=== PATIENT | female | born 1945 | race Caucasian/White ===

== ENCOUNTER → 2016-08-15 | Outpatient (CLI) | payer MEDICARE ==
[~2016-08-15] MED LIST: /ONDA4TA PO; /PANT40TA PO; ALLE25CA8 PO; ALPR0.25 PO; ASPI1TAB5 PO; ATEN25TA PO; ATIV0.5T3 PO; BUPR75TA5 PO; CHEMO; CLAR1TAB2 PO; DIGO0.12 PO; DIGO0.25 PO; DIGO0.2556 IV; DIGO0.2556 PO; DOCU10ELUD PO; FE T325T PO; FERR325T3 PO; FLON0.054; GABA300C3 PO; HYDR-3565 PO; HYDR1TAB97 PO; IBUP200T2 PO; LIDOPOW PO; MAGICMW SS; MAGNSO PO; MECL-68 PO; MIRA255PW PO; NORCOBULK PO; PRED10TA PO; PROC10TA PO; ROBA750T4 PO; SYMB16INH INH; TYLE325T5 PO; VITA500046 PO; XANA0.25 PO; ZOCO20TA PO; ZOFR4SOL PO
[2016-08-15 15:55] LABS: INR 1.15
== END ==
LOC: M LAB 14:21
PROVIDERS: ATTEND Radiology Radiation Oncology
DX: Z51.81 Encounter for therapeutic drug level monitoring (principal); Z79.01 Long term (current) use of anticoagulants

== ENCOUNTER → 2016-08-16 | Outpatient (CLI) | payer MEDICARE, MEDICAID ==
[~2016-08-16] MED LIST changes: -HYDR-3565 PO; +HYDR-3713 PO; +HYDR-3719 PO; -HYDR1TAB97 PO; +LIDOCAINE 1% MDV 20ML VIAL As Ordered ONE
--- NOTE | 2016-08-16 11:34 | REP ---
Chest x-ray: History: Post biopsy PA chest. Patient status post CT guided needle biopsy left base nodule. Findings: A large air fluid level is seen in the cavitary mass in the left upper lung zone as before. Overall there is volume loss in the left hemithorax. There is no evidence of pneumothorax or hemothorax. Pacemaker leads remain in place. Right lung is essentially clear. Impression: No complication identified. Signed by Fahad Kamara MD 08/16/2016 01:43 P
--- NOTE | 2016-08-16 15:11 | REP ---
CT GUIDED LEFT LOWER LOBE LUNG BIOPSY: The procedure was performed under the direct supervision of Dr. Kamara. The patient has a history of a 2 cm left lower lobe lung nodule seen on the previous CAT scan from [facility] performed on 07/09/2016. The risks and benefits of the procedure were explained to the patient and informed consent was obtained. The left lower lobe lung nodule was localized using CT guidance. The skin was prepped and draped in a sterile fashion. 1% lidocaine was used as a local anesthetic. Using CT guidance a 19/20 gauge co-axial needle biopsy system was inserted and advanced into the nodule. Four core biopsy samples were obtained and sent to the lab. The patient tolerated the procedure well and there were no immediate complications. After the appropriate amount of monitored convalescence the patient was discharged from the department. Reviewed by VIMAL Lino 08/16/2016 04:25 PEdited and Signed by Fahad Kamara MD 08/16/2016 04:45 P
== END ==
LOC: M RADPRO 09:40
PROVIDERS: ATTEND Radiology Radiation Oncology
DX: R91.1 Solitary pulmonary nodule (principal); Z85.118 Personal history of other malignant neoplasm of bronchus and lung; Z95.0 Presence of cardiac pacemaker

== ENCOUNTER → 2016-08-21 | Outpatient (CLI) | payer MEDICARE ==
[~2016-08-21] MED LIST changes: -LIDOCAINE 1% MDV 20ML VIAL As Ordered ONE
== END ==
LOC: M ONCR 13:21
PROVIDERS: ATTEND Radiology Radiation Oncology
DX: C34.12 Malignant neoplasm of upper lobe, left bronchus or lung (principal)

== ENCOUNTER → 2016-09-05 | Outpatient (CLI) | payer MEDICARE, OTHER, MEDICAID ==
--- NOTE | 2016-09-06 23:51 | ECWPNPC ---
PATIENT NAME: MELINA SHETTY : 1945 GENDER: FEMALE VISIT DATE: 09/05/2016 DISCHARGE DATE: 09/05/16 1224 VISIT LOCKED DATE TIME: PHYSICIAN: ANGELIQUE FAJARDO RESOURCE: ANGELIQUE FAJARDO REASON FOR APPOINTMENT 1. CHEST HISTORY OF PRESENT ILLNESS HISTORY OF PRESENT ILLNESS: PAIN THE PATIENT DESCRIBES THE PAIN... FALL RISK SCREENING: SCREENING :NO FALLS IN THE PAST YEAR TODAY'S VISIT: NOTES: HOSPITAL STAY IN [place] WITH UPPER RESP INFECTION AND WAS ON IV ABX. IS NOW USING PRN O2 AT [facility] A NEBULIZER. RATES PAIN TODAY 7/10. NOTES PAIN IS PRESENT ACROSS THE ANTERIOR CHEST WALL AND SHE HAS SOME DIFFICULTY TAKING A FULL DEEP BREATH. . CURRENT MEDICATIONS TAKING ASPIRIN ADULT LOW DOSE 81 MG TABLET DELAYED RELEASE 1 TABLET ORALLY ONCE A DAY TAKING ATENOLOL 25 MG TABLET 1 TABLET ORALLY BID TAKING DIGOXIN 250 MCG TABLET 1 TABLET ORALLY ONCE A DAY TAKING PREDNISONE 10 MG TABLET 1 TABLET ORALLY ONCE A DAY TAKING ATORVASTATIN CALCIUM 10 MG TABLET 1 TABLET ORALLY ONCE A DAY TAKING LEVOTHYROXINE SODIUM 25 MCG TABLET 1 TABLET ORALLY ONCE A DAY TAKING VIT CALCIUM CITRATE + D 250-62.5 MG TABLET ORALLY TAKING GABAPENTIN 600 MG TABLET 1 TABLET ORALLY QID TAKING LIDOCAINE HCL 3 % GEL DIRECTED EXTERNALLY APPLY TO PAINFUL AREAS OF CHEST WALL UP TO 4 TIMES PER DAY NEEDED TAKING ALBUTEROL SULFATE (2.5 MG/3ML) 0.083% NEBULIZATION SOLUTION 3 ML INHALATION BID TAKING NORCO 10-325 MG TABLET 1 TABLET ORALLY EVERY 6 HRS PRN PAIN MDD=4 CHRONIC PAIN MEDICATION LIST REVIEWED AND RECONCILED WITH THE PATIENT PAST MEDICAL HISTORY LUMG CANCER ALLERGIES LOBSTER: ANAPHYLAXIS: ALLERGY SOCIAL HISTORY GENERAL: TOBACCO USE ARE YOU A:NONSMOKER LEARNING BARRIERS / SPECIAL NEEDS ORIENTED TO PLAN OF CARE: PATIENT, PAIN MANAGEMENT PATIENT, ORIENTED TO PLAN OF CARE: PATIENT, PAIN MANAGEMENT PATIENT. NEW PATIENT PAIN DIARY TODAY'S VISITNOTES FROM 0-10, WHAT LEVEL IS YOUR PAIN TODAY?0 PAIN CLINIC PFS, CLERGY, PUBLIC HEALTH REFERRALS PFS REFERRAL NEEDED?NO CLERGY REFERRAL NEEDED?NO PUBLIC HEALTH REFERRAL NEEDED?NO WAS THE PROVIDER NOTIFIED OF ANY PERTINENT INFO?NO PFS REFERRAL NEEDED?NO CLERGY REFERRAL NEEDED?NO PUBLIC HEALTH REFERRAL NEEDED?NO WAS THE PROVIDER NOTIFIED OF ANY PERTINENT INFO?NO REVIEW OF SYSTEMS CONSTITUTIONAL: ANY CHANGE IN YOUR MEDICAL CONDITION? YES HOSPITALIZED AT [facility] 07/19 FOR URI FOR 4 DAYS, CONTINUES TO USE NEBULIZED ALBUTEROL TWICE DAILY AND O2 AT NIGHT AND NEEDED FOR SOB DURING THE DAY . CHILLS NO . FEVER NO . INFECTION: DO YOU HAVE NEW INFECTIONS? NO . DO YOU HAVE HISTORY OF MRSA? NO . MUSCULOSKELETAL: ANY NEW PATTERNS OF PAIN OR NUMBNESS? NO . GASTROENTEROLOGY: ANY NEW CHANGE IN BOWEL CONTROL? NO . GENITOURINARY: ANY NEW CHANGE IN BLADDER CONTROL? NO . IS THERE A CHANCE YOU COULD BE ? NO . HEMATOLOGY/LYMPH: DO YOU TAKE ANY BLOOD THINNERS? (FOR EXAMPLE- COUMADIN, PLAVIX, AGGRENOX, PLATEL, PRADAXA, OR XARELTO) NO . WHEN WAS YOUR LAST DOSE? DATE: TIME: . NEUROLOGY: HAVE YOU FALLEN IN THE PAST 6 MONTHS? NO . ANY NEW EXTREMITY NUMBNESS OR WEAKNESS? NO . CARDIOLOGY: DO YOU HAVE A PACEMAKER OR DEFIBRILLATOR? YES . RESPIRATORY: HAVE YOU BEEN SICK IN THE PAST WEEK? NO . FEVER NO . FLU LIKE SYMPTOMS? NO . COUGH YES - IMPROVED . INTEGUMENTARY: DO YOU HAVE ANY RASHES OR OPEN SORES? NO . ALLERGIC/IMMUNO: ARE YOU ALLERGIC TO SHELLFISH OR IV DYE? YES ALLERGIC TO LOBSTER . ANY NEW ALLERGIES? NO . PSYCHIATRIC: DO YOU HAVE THOUGHTS OF HURTING YOURSELF OR SOMEONE ELSE? NO . ARE YOU ABUSED, NEGLECTED, OR IN AN UNSAFE ENVIRONMENT? NO . ENDOCRINOLOGY: ARE YOU DIABETIC? NO . OTHER: DO YOU NEED ANY PRESCRIPTIONS? NO . IF YES, PLEASE LIST: ____ . ANY NEW PROBLEMS WITH YOUR MEDICATIONS? NO . WHEN DID YOU LAST EAT? ____ . WHEN DID YOU LAST DRINK? ____ . WHAT DID YOU LAST DRINK? ____ . NAME OF PERSON DRIVING YOU HOME? ____ . DO YOU HAVE ANY OTHER QUESTIONS OR CONCERNS NO . REVIEWED BY: PROVIDER: ANGELIQUE RODRIGUEZ . VITAL SIGNS WT 133 LBS, HT 63 IN, BMI 23.56 INDEX, BP 97/61 MM HG, HR 76 /MIN, RR 16 /MIN, TEMP 98.1 F, OXYGEN SAT % 93, NA INITIALS MP, REVIEWED BY: LASFOLLOWED BY DR. RANGEL PRIMARY. PT TAKES HER BP AT HOME, AND WILL NOTIFY DR. RANGEL IF IT CONTINUES TO BE LOW. EXAMINATION GENERAL EXAMINATION: PSYCHCOLOR PALE, ALERT , ORIENTED X 3 , ORIENTED X 3 , APPROPRIATE MOOD AND AFFECT , SMILING AND TALKATIVE. CHEST:STERNAL TENDERNESS, THORACIC KYPHOSIS AND BARREL CHESTED. LUNGS:DECREASED AIR ENTRY AT BASES, SCATTERED WHEEZES BILATERALLY. INTERMITTANT DRY COUGH. HEART:HEART RATE REGULAR, II/ SYSTOLIC MURMUR. 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 BRINGS IN MEDICATIONS WHICH IS APPROPRIATE FOR WHAT WAS DISPENSED. RECENT URINE TOXICOLOGY REVIEWED. NO UNAUTHORIZED MEDICATIONS. NO ILLICIT SUBSTANCES AND PRESCRIBED MEDICATIONS WERE PRESENT. PROCEDURE CODES FA211 ESTABILISHED PATIENT [facility] CHARGE G8783 BP SCR PRFRM RCMDD DEFIND SCR INTVL G8419 BMI>=30OR<22 EVY NO FOLLOWUP G8730 PAIN ASSESS POS TOOL F/U PLAN DOC 3016F PT SCRND [place]HL[place] USE 1124F ACP DISCUSS-NO DSCNMKR DOCD 1036F TOBACCO NON-USER G8427 DOC MEDS VERIFIED W/[place] RE 3288F FALL RISK ASSESSMENT DOCD FOLLOW UP 3 MONTHS ELECTRONICALLY SIGNED BY DIDI CHUNG ON 09/06/2016 AT 02:40 PM EST DISCLAIMER : THIS IS A VISIT SUMMARY [facility]ED FROM [facility]. IT IS NOT A COPY OF THE [employer] PROGRESS NOTE. MTDD
== END ==
LOC: M PAIN 11:40
PROVIDERS: ATTEND Nurse Practitioner Family
DX: Z09 Encounter for follow-up examination after completed treatment for conditions other than malignant neoplasm (principal); G89.29 Other chronic pain; G58.8 Other specified mononeuropathies; R07.89 Other chest pain; Z91.013 Allergy to seafood; Z79.82 Long term (current) use of aspirin; Z79.52 Long term (current) use of systemic steroids; Z79.891 Long term (current) use of opiate analgesic; Z79.899 Other long term (current) drug therapy; Z85.118 Personal history of other malignant neoplasm of bronchus and lung; Z95.9 Presence of cardiac and vascular implant and graft, unspecified

== ENCOUNTER 2016-10-20 09:07 | Inpatient (IN) | payer MEDICARE, MEDICAID ==
[~2016-10-20] VITALS: Ht 160 cm; Wt 55.1 kg
[2016-10-20] MEDS: ATENOLOL 25 MG TAB PO SCH ×2 (09:00→21:00)
[2016-10-20] MEDS ORDERED: SYNT75TA PO (09:18)
[2016-10-20] MEDS ORDERED: CALC600T57 PO (09:18)
[2016-10-20] MEDS ORDERED: ALEN70SO PO (09:18)
[2016-10-20 09:43] LABS: BASO % 0.2 % (0.0-1.0); EOS # 0.2 K/mm3 (0.0-0.50); EOS % 2.4 % (0.0-3.0); LARGE UNSTAINED CELL # 0.1 K/mm3 (0.0-0.4); LARGE UNSTAINED CELL % 1.3 % (0.0-4.0); LYMPH # 0.5 K/mm3 (1.5-4.5); LYMPH % 4.9 % (24.0-44.0); MEAN CORPUSCULAR HEMOGLOBIN 26.4 pg (27.0-33.0); MEAN CORPUSCULAR HGB CONC 30.2 g/dl (32.0-36.5); MEAN CORPUSCULAR VOLUME 87.3 fl (80.0-96.0); MONO # 0.5 K/mm3 (0.0-0.8); MONO % 5.9 % (0.0-5.0); NEUTROPHILS # 7.5 K/mm3 (1.8-7.7); NEUTROPHILS % 85.3 % (36.0-66.0); PLATELET COUNT, AUTOMATED 448 k/mm3 (150-450); RED CELL DISTRIBUTION WIDTH 15.6 % (11.5-14.5); WHITE BLOOD COUNT 8.8 K/mm3 (4.0-10.0)
[2016-10-20 09:58] LABS: ANION GAP 5 MEQ/L (8-16); BLOOD UREA NITROGEN 21 MG/DL (7-18); CALCIUM LEVEL 9.4 MG/DL (8.8-10.2); CARBON DIOXIDE LEVEL 34 MEQ/L (21-32); CHLORIDE LEVEL 98 MEQ/L (98-107); CREATININE FOR GFR 0.72 MG/DL (0.55-1.02); GLOMERULAR FILTRATION RATE > 60.0 (>45); GLUCOSE, FASTING 100 MG/DL (80-110); SODIUM LEVEL 137 MEQ/L (136-145)
[2016-10-20] MEDS ORDERED: IPRATROPIUM 0.5MG/ALBUTEROL 2.5MG INH SOL UD 3ML (DUONEB)(J7620) NEB ONE ×2 (10:00→12:30)
[2016-10-20] MEDS ORDERED: methylPREDNISolone INJ 125 MG/2 ML VIAL (J2930) IV ONE (10:15)
--- NOTE | 2016-10-20 10:15 | REP ---
Portable chest x-ray: Single view. History: Dyspnea and cough. Findings: A bipolar pacemaker remains in the right heart via the left side. The right lung is somewhat hyperinflated but remains clear. EKG electrodes are seen. The left hemithorax shows volume loss and upward retraction of the left hilus with some coarse fibrosis in the upper and lower lung zone unchanged from August 16, 2016. The previously noted air-fluid level is not apparent today however. Impression: Chronic changes left hemithorax. Previously noted air-fluid level is not visible today. Otherwise no acute changes. Signed by Fahad Kmaara MD 10/20/2016 10:55 A
[2016-10-20 10:40] LABS: ABG BASE EXCESS 5.7 (-2.0-2.0); ABG HCO3 29.2 MEQ/L (22.0-26.0); ABG PARTIAL PRESSURE CO2 37.9 mmHg (35.0-45.0); ABG PARTIAL PRESSURE O2 92.9 mmHg (75.0-100.0); ABG STANDARD HCO3 29.7 MEQ/L (22.0-26.0); ABG TOTAL CO2 30.3 MEQ/L (23.0-31.0); ABG pH (ARTERIAL) 7.504 UNITS (7.350-7.450)
[2016-10-20] MEDS ORDERED: MOXIFLOXACIN HCL 400 MG in APPROPRIATE DILUENT 1 EA IV ONE (11:00)
[2016-10-20] MEDS ORDERED: ACETAMINOPHEN TAB 650MG DOSE (2X325MG) PO ONE (11:30)
[2016-10-20] MEDS ORDERED: ALEN70TA39 PO (11:41)
[2016-10-20] MEDS ORDERED: PRED10TA PO (11:43)
[2016-10-20] MEDS ORDERED: GABA800T PO (11:43)
[2016-10-20] MEDS ORDERED: ASPI1TAB PO (11:43)
[2016-10-20] MEDS ORDERED: ATOR1TAB19 PO (11:43)
[2016-10-20] MEDS ORDERED: ALB2.5NEB INH (11:44)
[2016-10-20] MEDS ORDERED: SODIUM CHLORIDE 0.9% 1000 ML IV STA (12:28)
[2016-10-20] MEDS ORDERED: ISOVUE-370 76% 100ML VIAL (Q9967) As Ordered ONE (12:43)
[2016-10-20] MEDS: NS 1,000 ML IV SCH (13:41)
--- NOTE | 2016-10-20 14:05 | REP ---
CT pulmonary angiogram: With IV contrast. History: Chest pain. Comparison studies: Comparison CT pulmonary angiogram July 09, 2016 Contrast dose: 75 cc's of Isovue [address] technique: Helical scanning is acquired and overlapping 1.5 mm and contiguous 3 mm axial images are reformatted. In addition, a 3-D work station is deployed to generate thick slab maximum intensity projection images in sagittal and coronal imaging projections. CT pulmonary angiographic findings: There is good opacification of the pulmonary arterial tree and there is no CT evidence of pulmonary embolism. The thoracic aorta is enhanced homogeneously and is normal in course and caliber. There is a large cavitary lesion in the left upper lobe distribution at the posterior aspect of the apex again seen unchanged from the comparison CT study of July 09, 2016. There is some mild left lower lobe infiltrate processes is more prominent. The right lung remains hyperinflated with emphysematous changes in the upper lobe. No pleural or pericardial effusion is seen. No hilar or mediastinal mass is observed. No hepatic or adrenal lesion is seen. Impression: 1. No CT evidence of pulmonary embolism. 2. Stable post-treatment changes in the left hemithorax including a large cavitary lesion in the left upper lobe distribution. 3. There is some increased left lower lobe consolidation compared to the prior CT study. There is some bronchiectasis here as well. Signed by Fahad Kamara MD 10/20/2016 05:10 P
[2016-10-20 15:30] VITALS: BP 110/56
[2016-10-20 16:00] VITALS: BP 124/69
--- NOTE | 2016-10-20 16:04 | HPE ---
DATE OF ADMISSION: 10/20/2016 PRIMARY CARE PROVIDER: Dr. Edwin lorenzo [facility] COMBINATION SAW OPERATOR: Dr. Porter QUALITY ASSURANCE QA LAB ANALYST: Dr. Trevino REASON FOR ADMISSION: Shortness of breath. HISTORY OF PRESENT ILLNESS: The patient is a 71-year-old female past medical significant for lung cancer status post left lobectomy normally on oxygen two liters, history of atrial fibrillation presented to the emergency room stating she has been having shortness of breath for the past two weeks has been getting progressively worse. She denies any fevers. Denies any headaches or nasal discharge. She has been coughing, but she states that this has been a chronic cough for the past few months with productive sputum yellow-green. In the emergency room, the patient was found to be hypoxic on her two liters requiring four liters of oxygen. She was also found to be hypotensive was given 500 fluid bolus which she responded to and her blood pressure went to 103/61. The patient's heart rate was controlled. She is normally on atenolol. She was given a dose of moxifloxacin in the emergency room. Chest x-ray ws done which showed chronic changes, previously air fluid levels not visible today. No acute changes seen. CTA was also ordered showed no evidence of PE, increased left lower lobe consolidation compared to prior CT. Hospitalist was called for the admission. REVIEW OF SYSTEMS: 12-point review of systems was obtained all which was negative except for those mentioned above. PAST MEDICAL HISTORY: Significant for lung cancer status post left lobectomy in 2012, status post radiation and chemotherapy in 2014, atrial fibrillation. PAST SURGICAL HISTORY: Significant for lobectomy and lymph resection. ALLERGIES: No known drug allergies. SOCIAL HISTORY: The patient had history of tobacco use but quit 10-15 years ago. Denies alcohol use. Lives alone at home. FAMILY HISTORY: Noncontributory. HOME MEDICATIONS: Include - albuterol sulfate 2.5 mg inhaled every six hours as needed - alendronate 70 mg a week - aspirin 81 mg by mouth daily - atenolol 25 mg by mouth twice a day - atorvastatin 10 mg by mouth at bedtime - digoxin 0.825 mg daily - gabapentin 8100 mg by mouth four times a day - Synthroid 75 mcg by mouth daily - prednisone 10 mg by mouth daily PHYSICAL EXAMINATION: VITALS: Temperature 99.9, pulse 85, respiratory rate 20, blood pressure 113/59 dropped to as low as 94/55 and went back up to 103/61, pulse oximetry 92% on four liters nasal cannula. IMAGING: As above. HEENT: Pupils equal, round and reactive to light and accommodation. NECK: Supple. No jugular venous distention. LUNGS: Diminished breath sounds bilaterally. No wheezes appreciated. CARDIAC: Regular rate and rhythm at this time, +3/6 systolic murmur appreciated. ABDOMEN: Soft, nontender, nondistended. EXTREMITIES: No clubbing, cyanosis, or edema. NEURO: Cranial nerves II-XII grossly intact. No focal deficits. SKIN: No obvious lesions or rashes. LABORATORY FINDINGS: WBCs 8.8, hemoglobin 10.3, hematocrit 34.1, platelet count 448. Sodium 137, potassium 4, chloride 98, BUN 21, creatinine 0.72, lactic acid 1.6, troponin less than 0.02, BNP 528, TSH 0.789. ASSESSMENT AND PLAN: 1. Sepsis likely secondary to pneumonia. Chest x-ray did not show any infiltrate; however, CT scan showed increased left lower lobe consolidation. Respiratory panel was negative for any flu-like symptoms. Sputum cultures were obtained was positive for a few Gram-positive rods and moderate Gram-Positive cocci in pairs, chains and clusters; await final culture. Blood cultures are pending. We will continue moxifloxacin. Will continue Solu-Medrol 60 mg IV every eight hours. Continue DuoNebs as needed and scheduled. Will order incentive spirometer and continue oxygen to keep saturations above 90. 2. History of atrial fibrillation. Patient is currently in sinus rhythm. We will place hold parameters on atenolol due to the patient's hypotension. We will continue her digoxin. The patient is not on any anticoagulation other than the baby aspirin which we will resume. 3. Shortness of breath likely secondary to pneumonia plus or minus chronic lung disease including history of lung CA status post lobectomy. Continue oxygen. Await final sputum culture. Patient is currently on four liters nasal cannula. We will try to titrate to go back to her baseline two liters prior to discharge. 4. Hypotension may be secondary to sepsis. The patient received a fluid bolus in the emergency room. We will continue IV fluids at a rate of 100 mL an hour. 5. DVT prophylaxis. Thromboembolic devices (TEDS) and sequentials while in bed.
[2016-10-20] MEDS: DIGOXIN 0.25 MG TAB PO SCH (17:14)
[2016-10-20] MEDS: methylPREDNISolone INJ 125 MG/2 ML VIAL (J2930) IV SCH (17:15)
[2016-10-20] MEDS: GABAPENTIN 400 MG CAP PO SCH ×2 (17:15→21:17)
[2016-10-20] MEDS: ASPIRIN 81 MG ENTERIC TAB PO SCH (17:15)
[2016-10-20 19:29] VITALS: BP 90/58
[2016-10-20] MEDS ORDERED: NS 500 ML IV ONE (20:30)
--- NOTE | 2016-10-20 20:32 | ECGEPIP ---
Stationary ECG Study [facility] - ED Test Date: 2016-10-20 Pat Name: MELINA SHETTY Department: Room: - Gender: F Supervisor Corduroy Cutting: ct : 1945 Requested By: Cathleen Castro Order Number: [id number] Reading MD: Cathleen Castro Measurements Intervals [place] Rate: 83 P: -11 OR: 147 QRS: 66 QRSD: 97 T: 38 QT: 328 QTc: 387 Interpretive Statements SINUS RHYTHM POSSIBLE LEFT ATRIAL ENLARGEMENT NONSPECIFIC ST & T-WAVE ABNORMALITY PRIOR 03/15/14 ATRIAL PACED Electronically Signed On 10-20-2016 20:31:27 EDT by Cathleen Castro
[2016-10-20] MEDS: ATORVASTATIN 10 MG TAB PO SCH (21:17)
[2016-10-20 23:03] VITALS: BP 139/67
[2016-10-21] VITALS (10 sets, daily range): BP systolic 97–148; BP diastolic 47–79
[2016-10-21] MEDS ORDERED: BENZONATATE 100 MG CAP PO PRN (00:45)
[2016-10-21] MEDS ORDERED: ANEXSIA, NORCO 7.5MG/325MG TABLET(HYDROCODONE/APAP) PO ONE (01:00)
[2016-10-21] MEDS: methylPREDNISolone INJ 125 MG/2 ML VIAL (J2930) IV SCH ×3 (01:21→17:22)
[2016-10-21] MEDS: NS 1,000 ML IV SCH ×2 (02:09→11:59)
[2016-10-21 03:28] LABS: EOS % 0.4 % (0.0-3.0); LARGE UNSTAINED CELL % 0.7 % (0.0-4.0); LYMPH # 0.4 K/mm3 (1.5-4.5); LYMPH % 6.4 % (24.0-44.0); MEAN CORPUSCULAR HEMOGLOBIN 26.2 pg (27.0-33.0); MEAN CORPUSCULAR HGB CONC 30.5 g/dl (32.0-36.5); MONO # 0.1 K/mm3 (0.0-0.8); MONO % 1.7 % (0.0-5.0); NEUTROPHILS # 5.2 K/mm3 (1.8-7.7); NEUTROPHILS % 90.7 % (36.0-66.0); PLATELET COUNT, AUTOMATED 379 k/mm3 (150-450); RED CELL DISTRIBUTION WIDTH 15.6 % (11.5-14.5); WHITE BLOOD COUNT 5.7 K/mm3 (4.0-10.0)
[2016-10-21 03:54] LABS: ALT/SGPT 12 U/L (12-78); ANION GAP 9 MEQ/L (8-16); AST/SGOT 9 U/L (15-37); BLOOD UREA NITROGEN 20 MG/DL (7-18); CALCIUM LEVEL 7.4 MG/DL (8.8-10.2); CARBON DIOXIDE LEVEL 25 MEQ/L (21-32); CHLORIDE LEVEL 107 MEQ/L (98-107); GLOMERULAR FILTRATION RATE > 60.0 (>45); GLUCOSE, FASTING 130 MG/DL (80-110); POTASSIUM SERUM 4.1 MEQ/L (3.5-5.1); SODIUM LEVEL 141 MEQ/L (136-145)
[2016-10-21 03:55] LABS: ALBUMIN 2.3 GM/DL (3.2-5.2); ALBUMIN/GLOBULIN RATIO 0.56 (1.00-1.93); ALKALINE PHOSPHATASE 65 U/L (45-117); BILIRUBIN,TOTAL 0.2 MG/DL (0.2-1.0); TOTAL PROTEIN 6.4 GM/DL (6.4-8.2)
[2016-10-21] MEDS ORDERED: IPRATROPIUM 0.5MG/ALBUTEROL 2.5MG INH SOL UD 3ML (DUONEB)(J7620) NEB ONE (04:30)
[2016-10-21] MEDS: LEVOTHYROXINE 0.075 MG TAB (75 MCG) PO SCH (05:23)
[2016-10-21] MEDS: GABAPENTIN 400 MG CAP PO SCH ×4 (08:38→20:20)
[2016-10-21] MEDS: DIGOXIN 0.25 MG TAB PO SCH (08:38)
[2016-10-21] MEDS: ATENOLOL 25 MG TAB PO SCH ×2 (08:38→20:20)
[2016-10-21] MEDS: ASPIRIN 81 MG ENTERIC TAB PO SCH (08:38)
[2016-10-21] MEDS: MOXIFLOXACIN HCL 400 MG in APPROPRIATE DILUENT 1 EA IV SCH (10:15)
--- NOTE | 2016-10-21 17:16 | ECHO ---
DATE OF PROCEDURE: 10/21/2016 REFERRING PHYSICIAN: Dr. Melissa Healy INDICATION: Chest pain, other. HEIGHT: 63 inches. WEIGHT: 106 kg. MEASUREMENTS: Left atrium: 2.9 cm Ventricular septum: 0.4 cm Posterior wall: 1.00 cm Left ventricle diastole: 4.7 cm Left ventricle outflow tract (LVOT) 2.0 cm Ventricular septum: 0.95 cm Posterior wall: 0.92 cm. Aortic root: 2.9 cm Inferior vena cava: 2.4 cm (more than 50% of respiratory variation) DOPPLER MEASUREMENTS: Aortic valve velocity: 165 cm/s LVOT velocity: 129 cm/s LVOT VTI: 24.1cm Mild mitral regurgitation. Mitral E velocity: 92.7 cm/s Mitral A velocity: 83.6 cm/s Mitral deceleration time: 190 ms Mild tricuspid regurgitation. Estimated right ventricle systolic pressure 50-55 mmHg assuming an atrial pressure of 5-10 mmHg. Trace pulmonic regurgitation. Mitral annular tissue Doppler: Technically difficult. DESCRIPTION: Rhythm was sinus. No pericardial effusion. This is a moderately technically difficult echocardiogram. CONCLUSIONS: 1. Suggestive of moderate elevation of estimated right ventricle systolic pressure (50-55 mmHg). 2. Normal left ventricle, internal dimensions and wall thickness. No visual wall motion abnormalities. Normal left ventricular systolic function. LVEF 70% by visual estimate. Probably normal diastolic function. 3. No pericardial effusion. 4. Mild aortic valve sclerosis of the a three-cuspid aortic value. Mild aortic regurgitation. 5. Moderate technically difficult echocardiogram.
--- NOTE | 2016-10-21 18:12 | IPNPDOC ---
Subjective Date Seen The patient was seen on 10/21/16. Subjective Chief Complaint/HPI The patient is a 71-year-old female admitted with a reason for visit of Shortness Of Breath. Pulmonary: Reports: Cough, Dyspnea Cardiovascular: Denies: Chest Pain, Lt Headedness, Orthopnea, Palpitations, Paroxysmal Noc. Dyspnea Objective Physical Examination General Exam: Positive: No Acute Distress ENT Exam: Positive: Atraumatic, Mucous membr. moist/pink, Pharynx Normal Chest Exam: Positive: Diminished Heart Exam: Positive: Rate Normal Abdomen Exam: Positive: Normal bowel sounds, Soft, Negative: Hepatospenomegaly, Tenderness Female Exam: Positive: Nl Ext Genitalia, Negative: Discharge, Lesions, Odor, Tenderness Assessment /Plan Problems (1) Shortness of breath Status: Acute Problem Text: * unknown etiolopgy * maybe due to pneumonia vs copd excerbation * continue antibiotics, duonebs, solumedrol * respiratory panel negative * sputum culture pending (2) Anemia Status: Acute Problem Text: * maybe dilutional * will tranfuse 2 units of prbc (3) History of lung cancer Status: Resolved Problem Text: * s/p left lobectomy in 2012 * sp radiation and chemo * f/u with Dr Porter (4) Afib Status: Chronic Response to Treatment: Stable Problem Text: * pt is in normal sinus rhythm now * will hold atenolol due to hypotension * pt is only on ASA (5) COPD (chronic obstructive pulmonary disease) Status: Chronic Response to Treatment: Stable Plan/VTE VTE Prophylaxis Ordered?: Yes VS, I&O, 24H, [facility] Vital Signs/I&O Vital Signs Date Time Temp Pulse Resp B/P Pulse Ox O2 Delivery O2 Flow Rate FiO2 10/21/16 16:00 97.0 72 18 130/66 95 Nasal Cannula 4.0 I&O- Last 24 Hours up to 6 AM 10/21/16 06:00 Intake Total 3300 ml Output Total 1100 ml Balance 2200 ml Laboratory Data 24H LABS Laboratory Tests 2 10/20/16 21:28: Troponin I < 0.02 10/21/16 03:16: Troponin I < 0.02, Blood Urea Nitrogen 20H, Creatinine 0.60, Sodium Level 141, Potassium Level 4.1, Chloride Level 107, Carbon Dioxide Level 25, Calcium Level 7.4#L, Aspartate Amino Transf (AST/SGOT) 9L, Alanine Aminotransferase (ALT/SGPT ) 12, Alkaline Phosphatase 65, Total Bilirubin 0.2, Total Protein 6.4, Albumin 2.3L, Albumin/Globulin Ratio 0.56L, Anion Gap 9, White Blood Count 5.7, Red Blood Count 3.29L, Hemoglobin 8.6L, Hematocrit 28.3L, Mean Corpuscular Volume 86.0, Mean Corpuscular Hemoglobin 26.2L, Mean Corpuscular Hemoglobin Concent 30.5L, Red Cell Distribution Width 15.6H, Platelet Count 379, Neutrophils (%) ( Auto) 90.7H, Lymphocytes (%) (Auto) 6.4L, Monocytes (%) (Auto) 1.7, Eosinophils (%) (Auto) 0.4, Basophils (%) (Auto) 0.0, Neutrophils # (Auto) 5.2, Lymphocytes # (Auto) 0.4L, Monocytes # (Auto) 0.1, Eosinophils # (Auto) 0.0, Basophils # ( Auto) 0.0, Glomerular Filtration Rate > 60.0, Large Unclassified Cells # 0.0, Large Unclassified Cells % 0.7 CBC/BMP Laboratory Tests 10/21/16 03:16 Calcium Level 7.4 #L, Aspartate Amino Transf (AST/SGOT) 9 L, Alanine Aminotransferase (ALT/SGPT) 12, Alkaline Phosphatase 65, Total Bilirubin 0.2, Total Protein 6.4, Albumin 2.3 L, Red Blood Count 3.29 L, Mean Corpuscular Volume 86.0, Mean Corpuscular Hemoglobin 26.2 L, Mean Corpuscular Hemoglobin Concent 30.5 L, Red Cell Distribution Width 15.6 H, Neutrophils (%) (Auto) 90.7 H, Lymphocytes (%) (Auto) 6.4 L, Monocytes (%) (Auto) 1.7, Eosinophils (%) (Auto ) 0.4, Basophils (%) (Auto) 0.0, Neutrophils # (Auto) 5.2, Lymphocytes # (Auto) 0.4 L, Monocytes # (Auto) 0.1, Eosinophils # (Auto) 0.0, Basophils # (Auto) 0.0 10/21/16 11:53 Microbiology Microbiology 10/20/16 Blood Culture - Preliminary, Resulted No growth after 24 hours . All specim... 10/20/16 Blood Culture - Preliminary, Resulted No growth after 24 hours . All specim... 10/20/16 Influenza Virus Type A Antigen - Final, Complete 10/20/16 Influenza Virus Type B Antigen - Final, Complete 10/20/16 Respiratory Virus Panel (PCR) (JUAN J) - Final, Complete 10/20/16 Gram Stain - Final, Resulted 10/20/16 Sputum Culture, Resulted Pending RINA LOPEZ DO Oct 21, 2016 18:12
[2016-10-21] MEDS: ATORVASTATIN 10 MG TAB PO SCH (20:20)
[2016-10-22] VITALS (9 sets, daily range): BP systolic 110–138; BP diastolic 55–77
[2016-10-22] MEDS: IPRATROPIUM 0.5MG/ALBUTEROL 2.5MG INH SOL UD 3ML (DUONEB)(J7620) NEB PRN ×3 (00:31→11:49)
[2016-10-22] MEDS ORDERED: ANEXSIA, NORCO 7.5MG/325MG TABLET(HYDROCODONE/APAP) PO ONE (00:45)
[2016-10-22] MEDS: methylPREDNISolone INJ 125 MG/2 ML VIAL (J2930) IV SCH ×2 (02:03→10:35)
[2016-10-22 06:06] LABS: BASO % 0.1 % (0.0-1.0); EOS % 0.5 % (0.0-3.0); LARGE UNSTAINED CELL % 0.4 % (0.0-4.0); LYMPH # 0.4 K/mm3 (1.5-4.5); LYMPH % 3.2 % (24.0-44.0); MEAN CORPUSCULAR HEMOGLOBIN 27.2 pg (27.0-33.0); MEAN CORPUSCULAR HGB CONC 31.5 g/dl (32.0-36.5); MEAN CORPUSCULAR VOLUME 86.3 fl (80.0-96.0); MONO # 0.2 K/mm3 (0.0-0.8); MONO % 2.2 % (0.0-5.0); NEUTROPHILS # 10.3 K/mm3 (1.8-7.7); NEUTROPHILS % 93.6 % (36.0-66.0); PLATELET COUNT, AUTOMATED 387 k/mm3 (150-450); RED CELL DISTRIBUTION WIDTH 15.7 % (11.5-14.5)
[2016-10-22 06:28] LABS: ALBUMIN 2.5 GM/DL (3.2-5.2); ALKALINE PHOSPHATASE 70 U/L (45-117); ALT/SGPT 19 U/L (12-78); ANION GAP 9 MEQ/L (8-16); AST/SGOT 23 U/L (15-37); BILIRUBIN,TOTAL 0.2 MG/DL (0.2-1.0); BLOOD UREA NITROGEN 25 MG/DL (7-18); CALCIUM LEVEL 8.1 MG/DL (8.8-10.2); CARBON DIOXIDE LEVEL 25 MEQ/L (21-32); CHLORIDE LEVEL 109 MEQ/L (98-107); CREATININE FOR GFR 0.67 MG/DL (0.55-1.02); GLOMERULAR FILTRATION RATE > 60.0 (>45); GLUCOSE, FASTING 128 MG/DL (80-110); POTASSIUM SERUM 4.3 MEQ/L (3.5-5.1); SODIUM LEVEL 143 MEQ/L (136-145); TOTAL PROTEIN 6.7 GM/DL (6.4-8.2)
[2016-10-22] MEDS: LEVOTHYROXINE 0.075 MG TAB (75 MCG) PO SCH (06:37)
[2016-10-22] MEDS: ATENOLOL 25 MG TAB PO SCH ×2 (08:13→21:50)
[2016-10-22] MEDS: ASPIRIN 81 MG ENTERIC TAB PO SCH (08:13)
[2016-10-22] MEDS: GABAPENTIN 400 MG CAP PO SCH ×4 (08:13→21:49)
[2016-10-22] MEDS: DIGOXIN 0.25 MG TAB PO SCH (08:14)
[2016-10-22] MEDS: MOXIFLOXACIN HCL 400 MG in APPROPRIATE DILUENT 1 EA IV SCH (10:35)
--- NOTE | 2016-10-22 11:13 | IPNPDOC ---
Subjective Date Seen The patient was seen on 10/22/16. Subjective Chief Complaint/HPI The patient is a 71-year-old female admitted with a reason for visit of Shortness Of Breath. Events since last encounter continues to complain of severe sob at rest. feels that cannot take in enough air. Feels like a tight corset bound over her chest so cannot take deep breaths. no fever or chills, no cough or phlegm no chest pain . Objective Physical Examination General Exam: Positive: Alert, Cooperative, No Acute Distress Eye Exam: Positive: Conjunctiva & lids normal, EOMI, PERRLA, Negative: Sclera icteric ENT Exam: Positive: Atraumatic, Mucous membr. moist/pink, Pharynx Normal Chest Exam: Positive: Diminished Heart Exam: Positive: Rate Normal Telemetry: Positive: No significant arrhythmia Abdomen Exam: Positive: Normal bowel sounds, Soft, Negative: Hepatospenomegaly, Tenderness Female Exam: Positive: Nl Ext Genitalia, Negative: Discharge, Lesions, Odor, Tenderness Extremity Exam: Positive: Normal pulses, Negative: Clubbing, Cyanosis, Edema Skin Exam: Positive: Nl turgor and temperature, Negative: Breakdown, Rash Assessment /Plan Problems (1) Shortness of breath Status: Acute Problem Text: * unknown etiology * could be restrictive lung disease as patient has severe kyphoscoliosis and well as post operative post radiation and post chemo related progressive fibrotic changes on the left lung with chronic collapse of part of the left lung. * Also has changes of bronchiectasis * now also has pneumonia. * will continue with nebulizations will taper steroids, continue oxygen. * would benefit from pulmonary rehab. (2) Chronic respiratory failure with hypoxia Status: Chronic (3) Anemia Status: Acute Problem Text: * maybe dilutional * received 2 units of prbc, h/h responded appropriately. (4) History of lung cancer Status: Resolved Problem Text: * s/p left lobectomy in 2013 * sp radiation and chemo * f/u with Dr Porter * chronic postoperative changes in the left lung with chronic lung collapse. (5) Afib Status: Chronic Response to Treatment: Stable Problem Text: * pt is in normal sinus rhythm now * will hold atenolol due to hypotension * pt is only on ASA (6) COPD (chronic obstructive pulmonary disease) Status: Chronic Response to Treatment: Stable (7) Pulmonary hypertension Status: Chronic (8) Bronchiectasis Status: Chronic Plan/VTE VTE Prophylaxis Ordered?: Yes VS, I&O, 24H, Fishbone Vital Signs/I&O Vital Signs Date Time Temp Pulse Resp B/P Pulse Ox O2 Delivery O2 Flow Rate FiO2 10/22/16 08:14 76 10/22/16 08:13 126/68 10/22/16 08:12 Nasal Cannula 4.0 10/22/16 07:35 97.7 18 96 I&O- Last 24 Hours up to 6 AM 10/22/16 06:00 Intake Total 1939 ml Output Total 1300 ml Balance 639 ml Laboratory Data 24H LABS Laboratory Tests 2 10/22/16 05:41: Blood Urea Nitrogen 25H, Creatinine 0.67, Sodium Level 143, Potassium Level 4.3 , Chloride Level 109H, Carbon Dioxide Level 25, Calcium Level 8.1L, Aspartate Amino Transf (AST/SGOT) 23, Alanine Aminotransferase (ALT/SGPT) 19, Alkaline Phosphatase 70, Total Bilirubin 0.2, Total Protein 6.7, Albumin 2.5L, Albumin/ Globulin Ratio 0.60L, Anion Gap 9, Glomerular Filtration Rate > 60.0 10/22/16 05:42: White Blood Count 11.0H, Red Blood Count 3.92L, Hemoglobin 10.6#L, Hematocrit 33.8L, Mean Corpuscular Volume 86.3, Mean Corpuscular Hemoglobin 27.2, Mean Corpuscular Hemoglobin Concent 31.5L, Red Cell Distribution Width 15.7H, Platelet Count 387, Neutrophils (%) (Auto) 93.6H, Lymphocytes (%) (Auto) 3.2L, Monocytes (%) (Auto) 2.2, Eosinophils (%) (Auto) 0.5, Basophils (%) (Auto) 0.1, Neutrophils # (Auto) 10.3H, Lymphocytes # (Auto) 0.4L, Monocytes # (Auto) 0.2, Eosinophils # (Auto) 0.0, Basophils # (Auto) 0.0, Large Unclassified Cells # 0.0 , Large Unclassified Cells % 0.4 CBC/BMP Laboratory Tests 10/21/16 11:53 10/22/16 05:41 Calcium Level 8.1 L, Aspartate Amino Transf (AST/SGOT) 23, Alanine Aminotransferase (ALT/SGPT) 19, Alkaline Phosphatase 70, Total Bilirubin 0.2, Total Protein 6.7, Albumin 2.5 L 10/22/16 05:42 Red Blood Count 3.92 L, Mean Corpuscular Volume 86.3, Mean Corpuscular Hemoglobin 27.2, Mean Corpuscular Hemoglobin Concent 31.5 L, Red Cell Distribution Width 15.7 H, Neutrophils (%) (Auto) 93.6 H, Lymphocytes (%) (Auto ) 3.2 L, Monocytes (%) (Auto) 2.2, Eosinophils (%) (Auto) 0.5, Basophils (%) ( Auto) 0.1, Neutrophils # (Auto) 10.3 H, Lymphocytes # (Auto) 0.4 L, Monocytes # (Auto) 0.2, Eosinophils # (Auto) 0.0, Basophils # (Auto) 0.0 Microbiology Microbiology 10/20/16 Blood Culture - Preliminary, Resulted No Growth after 48 hours. All Specime... 10/20/16 Blood Culture - Preliminary, Resulted No Growth after 48 hours. All Specime... 10/20/16 Influenza Virus Type A Antigen - Final, Complete 10/20/16 Influenza Virus Type B Antigen - Final, Complete 10/20/16 Respiratory Virus Panel (PCR) (JUAN J) - Final, Complete 10/20/16 Gram Stain - Final, Complete 10/20/16 Sputum Culture - Final, Complete VASU OLSEN MD Oct 22, 2016 11:13
[2016-10-22] MEDS ORDERED: FUROSEMIDE 100 MG/10 ML VIAL (J1940) IV ONE (12:00)
[2016-10-22] MEDS: predniSONE 20 MG TAB PO SCH (12:34)
[2016-10-22] MEDS: IPRATROPIUM 0.5MG/ALBUTEROL 2.5MG INH SOL UD 3ML (DUONEB)(J7620) NEB SCH ×2 (15:22→23:15)
[2016-10-22] MEDS: ATORVASTATIN 10 MG TAB PO SCH (21:49)
[2016-10-23 04:00] VITALS: BP 137/77
[2016-10-23] MEDS: LEVOTHYROXINE 0.075 MG TAB (75 MCG) PO SCH (05:43)
[2016-10-23 06:30] VITALS: BP 130/86
[2016-10-23] MEDS ORDERED: FUROSEMIDE 40 MG/4 ML VIAL (J1940) IV ONE (07:15)
[2016-10-23 07:35] LABS: BASO % 0.1 % (0.0-1.0); EOS % 0.1 % (0.0-3.0); LARGE UNSTAINED CELL # 0.1 K/mm3 (0.0-0.4); LARGE UNSTAINED CELL % 0.8 % (0.0-4.0); LYMPH # 0.5 K/mm3 (1.5-4.5); LYMPH % 4.9 % (24.0-44.0); MEAN CORPUSCULAR HEMOGLOBIN 26.7 pg (27.0-33.0); MEAN CORPUSCULAR HGB CONC 31.4 g/dl (32.0-36.5); MEAN CORPUSCULAR VOLUME 85.2 fl (80.0-96.0); MONO # 0.6 K/mm3 (0.0-0.8); MONO % 5.8 % (0.0-5.0); NEUTROPHILS # 9.8 K/mm3 (1.8-7.7); NEUTROPHILS % 88.3 % (36.0-66.0); PLATELET COUNT, AUTOMATED 362 k/mm3 (150-450); RED CELL DISTRIBUTION WIDTH 15.8 % (11.5-14.5); WHITE BLOOD COUNT 11.1 K/mm3 (4.0-10.0)
[2016-10-23 08:05] LABS: ALBUMIN 2.5 GM/DL (3.2-5.2); ALBUMIN/GLOBULIN RATIO 0.63 (1.00-1.93); ALKALINE PHOSPHATASE 66 U/L (45-117); ALT/SGPT 25 U/L (12-78); ANION GAP 7 MEQ/L (8-16); AST/SGOT 16 U/L (15-37); BILIRUBIN,TOTAL 0.2 MG/DL (0.2-1.0); BLOOD UREA NITROGEN 26 MG/DL (7-18); CALCIUM LEVEL 7.9 MG/DL (8.8-10.2); CARBON DIOXIDE LEVEL 28 MEQ/L (21-32); CHLORIDE LEVEL 109 MEQ/L (98-107); CREATININE FOR GFR 0.68 MG/DL (0.55-1.02); GLOMERULAR FILTRATION RATE > 60.0 (>45); GLUCOSE, FASTING 87 MG/DL (80-110); POTASSIUM SERUM 3.5 MEQ/L (3.5-5.1); SODIUM LEVEL 144 MEQ/L (136-145); TOTAL PROTEIN 6.5 GM/DL (6.4-8.2)
[2016-10-23] MEDS: GABAPENTIN 400 MG CAP PO SCH ×4 (08:07→20:33)
[2016-10-23] MEDS: ASPIRIN 81 MG ENTERIC TAB PO SCH (08:07)
[2016-10-23] MEDS: ATENOLOL 25 MG TAB PO SCH ×2 (08:07→20:34)
[2016-10-23] MEDS: predniSONE 20 MG TAB PO SCH (08:07)
[2016-10-23] MEDS: DIGOXIN 0.25 MG TAB PO SCH (08:08)
[2016-10-23] MEDS: IPRATROPIUM 0.5MG/ALBUTEROL 2.5MG INH SOL UD 3ML (DUONEB)(J7620) NEB SCH ×2 (08:57→15:54)
[2016-10-23] MEDS: MOXIFLOXACIN HCL 400 MG in APPROPRIATE DILUENT 1 EA IV SCH (11:25)
[2016-10-23] MEDS: NORCO, ANEXSIA 5/325MG TABLET (HYDROcodone/ACETAMINOPHEN) PO PRN ×2 (11:26→19:41)
--- NOTE | 2016-10-23 13:34 | IPNPDOC ---
Subjective Date Seen The patient was seen on 10/23/16. Subjective Chief Complaint/HPI The patient is a 71-year-old female admitted with a reason for visit of Shortness Of Breath. Events since last encounter sob better today after lasix, still continues to have band like chest tightness around the chest. cough better, slept better, no fever or chills, no nausea or vomiting , no abdominal pain or diarrhea Objective Physical Examination General Exam: Positive: Alert, Cooperative, No Acute Distress Eye Exam: Positive: Conjunctiva & lids normal, EOMI, PERRLA, Negative: Sclera icteric ENT Exam: Positive: Atraumatic, Mucous membr. moist/pink, Pharynx Normal Chest Exam: Positive: Diminished Heart Exam: Positive: Rate Normal Telemetry: Positive: No significant arrhythmia Abdomen Exam: Positive: Normal bowel sounds, Soft, Negative: Hepatospenomegaly, Tenderness Female Exam: Positive: Nl Ext Genitalia, Negative: Discharge, Lesions, Odor, Tenderness Extremity Exam: Positive: Edema, Normal pulses, Negative: Clubbing, Cyanosis Skin Exam: Positive: Nl turgor and temperature, Negative: Breakdown, Rash Assessment /Plan Problems (1) COPD (chronic obstructive pulmonary disease) Status: Chronic Response to Treatment: Improving Problem Text: had acute exacerbation improving. restarted symbicort and spiriva. (2) Vertebral compression fracture Status: Chronic Problem Text: t7 vertebral wedge compression fracture from may 2016 this could be causing the chest pain will ask ortho to see this patient. (3) Shortness of breath Status: Acute Problem Text: * unknown etiology * could be restrictive lung disease as patient has severe kyphoscoliosis and well as post operative post radiation and post chemo related progressive fibrotic changes on the left lung with chronic collapse of part of the left lung and well as could be related to T7 vertebral compression fracture. THere is a component of fluid overload also * Also has changes of bronchiectasis * now also has pneumonia. * will continue with nebulizations will taper steroids, continue oxygen, continue lasix. * would benefit from pulmonary rehab. (4) Chronic respiratory failure with hypoxia Status: Chronic Problem Text: continue oxygen (5) Anemia Status: Acute Problem Text: * maybe dilutional * received 2 units of prbc, h/h responded appropriately. (6) History of lung cancer Status: Resolved Problem Text: * s/p left lobectomy in 2012 * sp radiation and chemo * f/u with Dr Porter * chronic postoperative changes in the left lung with chronic lung collapse. (7) Afib Status: Chronic Response to Treatment: Stable Problem Text: * pt is in normal sinus rhythm now * will hold atenolol due to hypotension * pt is only on ASA (8) Pulmonary hypertension Status: Chronic Problem Text: will continue lasix. (9) Bronchiectasis Status: Chronic (10) Right rib fracture Status: Resolved Problem Text: right 5th rib fracture healed. (11) Pneumonia Status: Acute Problem Text: consolidation vs fibrosis of the left lower lobe will treat empirically for pneumonia with moxifloxacin. Plan/VTE VTE Prophylaxis Ordered?: Yes VS, I&O, 24H, Fishbone Vital Signs/I&O Vital Signs Date Time Temp Pulse Resp B/P Pulse Ox O2 Delivery O2 Flow Rate FiO2 10/23/16 11:26 16 10/23/16 09:00 Nasal Cannula 2.0 10/23/16 08:10 92 10/23/16 08:08 71 10/23/16 08:07 130/86 10/23/16 06:30 98.0 I&O- Last 24 Hours up to 6 AM 10/23/16 06:00 Intake Total 2050 ml Output Total 3200 ml Balance -1150 ml Laboratory Data 24H LABS Laboratory Tests 2 10/23/16 06:57: Blood Urea Nitrogen 26H, Creatinine 0.68, Sodium Level 144, Potassium Level 3.5 , Chloride Level 109H, Carbon Dioxide Level 28, Calcium Level 7.9L, Aspartate Amino Transf (AST/SGOT) 16, Alanine Aminotransferase (ALT/SGPT) 25, Alkaline Phosphatase 66, Total Bilirubin 0.2, Total Protein 6.5, Albumin 2.5L, Albumin/ Globulin Ratio 0.63L, Anion Gap 7L, White Blood Count 11.1H, Red Blood Count 3.95L, Hemoglobin 10.6L, Hematocrit 33.6L, Mean Corpuscular Volume 85.2, Mean Corpuscular Hemoglobin 26.7L, Mean Corpuscular Hemoglobin Concent 31.4L, Red Cell Distribution Width 15.8H, Platelet Count 362, Neutrophils (%) (Auto) 88.3H , Lymphocytes (%) (Auto) 4.9L, Monocytes (%) (Auto) 5.8H, Eosinophils (%) (Auto ) 0.1, Basophils (%) (Auto) 0.1, Neutrophils # (Auto) 9.8H, Lymphocytes # (Auto ) 0.5L, Monocytes # (Auto) 0.6, Eosinophils # (Auto) 0.0, Basophils # (Auto) 0.0 , Glomerular Filtration Rate > 60.0, Large Unclassified Cells # 0.1, Large Unclassified Cells % 0.8 CBC/BMP Laboratory Tests 10/23/16 06:57 Calcium Level 7.9 L, Aspartate Amino Transf (AST/SGOT) 16, Alanine Aminotransferase (ALT/SGPT) 25, Alkaline Phosphatase 66, Total Bilirubin 0.2, Total Protein 6.5, Albumin 2.5 L, Red Blood Count 3.95 L, Mean Corpuscular Volume 85.2, Mean Corpuscular Hemoglobin 26.7 L, Mean Corpuscular Hemoglobin Concent 31.4 L, Red Cell Distribution Width 15.8 H, Neutrophils (%) (Auto) 88.3 H, Lymphocytes (%) (Auto) 4.9 L, Monocytes (%) (Auto) 5.8 H, Eosinophils (%) ( Auto) 0.1, Basophils (%) (Auto) 0.1, Neutrophils # (Auto) 9.8 H, Lymphocytes # ( Auto) 0.5 L, Monocytes # (Auto) 0.6, Eosinophils # (Auto) 0.0, Basophils # (Auto ) 0.0 Microbiology Microbiology 10/20/16 Blood Culture - Preliminary, Resulted No Growth after 72 hours. All specime... 10/20/16 Blood Culture - Preliminary, Resulted No Growth after 72 hours. All specime... 10/20/16 Influenza Virus Type A Antigen - Final, Complete 10/20/16 Influenza Virus Type B Antigen - Final, Complete 10/20/16 Respiratory Virus Panel (PCR) (JUAN J) - Final, Complete 10/20/16 Gram Stain - Final, Complete 10/20/16 Sputum Culture - Final, Complete VASU OLSEN MD Oct 23, 2016 13:34
[2016-10-23] MEDS: TIOTROPIUM INHALER/CAPSULE (SPIRIVA) INH SCH (15:54)
[2016-10-23] MEDS: SYMBICORT 160/4.5MCG INHALER 6GM INH SCH ×2 (15:54→19:54)
[2016-10-23] MEDS: ATORVASTATIN 10 MG TAB PO SCH (20:33)
[2016-10-23 22:00] VITALS: BP 112/60
[2016-10-24] MEDS: LEVOTHYROXINE 0.075 MG TAB (75 MCG) PO SCH (05:40)
[2016-10-24] MEDS: MOXIFLOXACIN 400 MG TAB PO SCH (05:40)
[2016-10-24 06:00] VITALS: BP 126/72
[2016-10-24] MEDS: NORCO, ANEXSIA 5/325MG TABLET (HYDROcodone/ACETAMINOPHEN) PO PRN ×2 (06:18→18:33)
[2016-10-24 07:08] LABS: BASO % 0.1 % (0.0-1.0); EOS % 0.5 % (0.0-3.0); LARGE UNSTAINED CELL # 0.1 K/mm3 (0.0-0.4); LARGE UNSTAINED CELL % 0.8 % (0.0-4.0); LYMPH # 0.7 K/mm3 (1.5-4.5); LYMPH % 6.2 % (24.0-44.0); MEAN CORPUSCULAR HEMOGLOBIN 26.7 pg (27.0-33.0); MEAN CORPUSCULAR HGB CONC 31.2 g/dl (32.0-36.5); MEAN CORPUSCULAR VOLUME 85.6 fl (80.0-96.0); MONO # 0.6 K/mm3 (0.0-0.8); MONO % 5.3 % (0.0-5.0); NEUTROPHILS # 9.1 K/mm3 (1.8-7.7); NEUTROPHILS % 87.2 % (36.0-66.0); PLATELET COUNT, AUTOMATED 372 k/mm3 (150-450); RED CELL DISTRIBUTION WIDTH 15.7 % (11.5-14.5); WHITE BLOOD COUNT 10.5 K/mm3 (4.0-10.0)
[2016-10-24 07:31] LABS: ALBUMIN 2.5 GM/DL (3.2-5.2); ALBUMIN/GLOBULIN RATIO 0.64 (1.00-1.93); ALKALINE PHOSPHATASE 66 U/L (45-117); ALT/SGPT 20 U/L (12-78); ANION GAP 9 MEQ/L (8-16); AST/SGOT 11 U/L (15-37); BILIRUBIN,TOTAL 0.3 MG/DL (0.2-1.0); BLOOD UREA NITROGEN 27 MG/DL (7-18); CALCIUM LEVEL 8.2 MG/DL (8.8-10.2); CARBON DIOXIDE LEVEL 28 MEQ/L (21-32); CHLORIDE LEVEL 106 MEQ/L (98-107); CREATININE FOR GFR 0.68 MG/DL (0.55-1.02); GLOMERULAR FILTRATION RATE > 60.0 (>45); GLUCOSE, FASTING 75 MG/DL (80-110); POTASSIUM SERUM 3.3 MEQ/L (3.5-5.1); SODIUM LEVEL 143 MEQ/L (136-145); TOTAL PROTEIN 6.4 GM/DL (6.4-8.2)
[2016-10-24] MEDS: TIOTROPIUM INHALER/CAPSULE (SPIRIVA) INH SCH (07:51)
[2016-10-24] MEDS: SYMBICORT 160/4.5MCG INHALER 6GM INH SCH ×2 (07:51→19:54)
[2016-10-24] MEDS: IPRATROPIUM 0.5MG/ALBUTEROL 2.5MG INH SOL UD 3ML (DUONEB)(J7620) NEB SCH ×4 (08:00→23:14)
[2016-10-24] MEDS ORDERED: POTASSIUM CHLORIDE 10 MEQ SR TABLET PO ONE (09:30)
[2016-10-24] MEDS: ATENOLOL 25 MG TAB PO SCH ×2 (10:24→21:00)
[2016-10-24] MEDS: DIGOXIN 0.25 MG TAB PO SCH (10:25)
[2016-10-24] MEDS: FUROSEMIDE 40 MG TAB PO SCH (10:25)
[2016-10-24] MEDS: ASPIRIN 81 MG ENTERIC TAB PO SCH (10:25)
[2016-10-24] MEDS: GABAPENTIN 400 MG CAP PO SCH ×4 (10:25→21:14)
[2016-10-24] MEDS: predniSONE 20 MG TAB PO SCH (10:25)
--- NOTE | 2016-10-24 11:39 | IPNPDOC ---
Subjective Date Seen The patient was seen on 10/24/16. Subjective Chief Complaint/HPI The patient is a 71-year-old female admitted with a reason for visit of Shortness Of Breath. Events since last encounter feeling better, walking around the room but still becoming easily SOB , tight corset like sensations continues to persist. no fever or chills, no nausea or vomiting or cough. Objective Physical Examination General Exam: Positive: Alert, Cooperative, No Acute Distress Eye Exam: Positive: Conjunctiva & lids normal, EOMI, PERRLA, Negative: Sclera icteric ENT Exam: Positive: Atraumatic, Mucous membr. moist/pink, Pharynx Normal Chest Exam: Positive: Diminished Heart Exam: Positive: Rate Normal Telemetry: Positive: No significant arrhythmia Abdomen Exam: Positive: Normal bowel sounds, Soft, Negative: Hepatospenomegaly, Tenderness Female Exam: Positive: Nl Ext Genitalia, Negative: Discharge, Lesions, Odor, Tenderness Extremity Exam: Positive: Edema, Normal pulses, Negative: Clubbing, Cyanosis Skin Exam: Positive: Nl turgor and temperature, Negative: Breakdown, Rash Assessment /Plan Problems (1) COPD (chronic obstructive pulmonary disease) Status: Chronic Response to Treatment: Improving Problem Text: had acute exacerbation improving. restarted symbicort and spiriva. (2) Vertebral compression fracture Status: Chronic Problem Text: t7 vertebral wedge compression fracture from may 2016 this could be causing the chest pain will ask ortho to see this patient. (3) Shortness of breath Status: Acute Problem Text: * unknown etiology * could be restrictive lung disease as patient has severe kyphoscoliosis and well as post operative post radiation and post chemo related progressive fibrotic changes on the left lung with chronic collapse of part of the left lung and well as could be related to T7 vertebral compression fracture. THere is a component of fluid overload also * Also has changes of bronchiectasis * now also has pneumonia. * will continue with nebulizations will taper steroids, continue oxygen, continue lasix. * would benefit from pulmonary rehab. (4) Chronic respiratory failure with hypoxia Status: Chronic Problem Text: continue oxygen (5) Anemia Status: Acute Problem Text: * maybe dilutional * received 2 units of prbc, h/h responded appropriately. (6) History of lung cancer Status: Resolved Problem Text: * s/p left lobectomy in 2012 * sp radiation and chemo * f/u with Dr Porter * chronic postoperative changes in the left lung with chronic lung collapse. (7) Afib Status: Chronic Response to Treatment: Stable Problem Text: * pt is in normal sinus rhythm now * will hold atenolol due to hypotension * pt is only on ASA (8) Pulmonary hypertension Status: Chronic Problem Text: will continue lasix. (9) Bronchiectasis Status: Chronic (10) Right rib fracture Status: Resolved Problem Text: right 5th rib fracture healed. (11) Pneumonia Status: Acute Problem Text: consolidation vs fibrosis of the left lower lobe will treat empirically for pneumonia with moxifloxacin. Plan/VTE VTE Prophylaxis Ordered?: Yes VS, I&O, 24H, Fishbone Vital Signs/I&O Vital Signs Date Time Temp Pulse Resp B/P Pulse Ox O2 Delivery O2 Flow Rate FiO2 10/24/16 10:25 83 10/24/16 10:24 109/65 10/24/16 06:48 18 Nasal Cannula 2.0 10/24/16 06:18 2 10/24/16 06:00 97.3 I&O- Last 24 Hours up to 6 AM 10/24/16 06:00 Intake Total 1510 ml Output Total 2200 ml Balance -690 ml Laboratory Data 24H LABS Laboratory Tests 2 10/24/16 06:38: Blood Urea Nitrogen 27H, Creatinine 0.68, Sodium Level 143, Potassium Level 3.3L , Chloride Level 106, Carbon Dioxide Level 28, Calcium Level 8.2L, Aspartate Amino Transf (AST/SGOT) 11L, Alanine Aminotransferase (ALT/SGPT) 20, Alkaline Phosphatase 66, Total Bilirubin 0.3, Total Protein 6.4, Albumin 2.5L, Albumin/ Globulin Ratio 0.64L, Anion Gap 9, White Blood Count 10.5H, Red Blood Count 4.06 , Hemoglobin 10.8L, Hematocrit 34.8L, Mean Corpuscular Volume 85.6, Mean Corpuscular Hemoglobin 26.7L, Mean Corpuscular Hemoglobin Concent 31.2L, Red Cell Distribution Width 15.7H, Platelet Count 372, Neutrophils (%) (Auto) 87.2H , Lymphocytes (%) (Auto) 6.2L, Monocytes (%) (Auto) 5.3H, Eosinophils (%) (Auto ) 0.5, Basophils (%) (Auto) 0.1, Neutrophils # (Auto) 9.1H, Lymphocytes # (Auto ) 0.7L, Monocytes # (Auto) 0.6, Eosinophils # (Auto) 0.0, Basophils # (Auto) 0.0 , Glomerular Filtration Rate > 60.0, Large Unclassified Cells # 0.1, Large Unclassified Cells % 0.8 CBC/BMP Laboratory Tests 10/24/16 06:38 Calcium Level 8.2 L, Aspartate Amino Transf (AST/SGOT) 11 L, Alanine Aminotransferase (ALT/SGPT) 20, Alkaline Phosphatase 66, Total Bilirubin 0.3, Total Protein 6.4, Albumin 2.5 L, Red Blood Count 4.06, Mean Corpuscular Volume 85.6, Mean Corpuscular Hemoglobin 26.7 L, Mean Corpuscular Hemoglobin Concent 31.2 L, Red Cell Distribution Width 15.7 H, Neutrophils (%) (Auto) 87.2 H, Lymphocytes (%) (Auto) 6.2 L, Monocytes (%) (Auto) 5.3 H, Eosinophils (%) (Auto ) 0.5, Basophils (%) (Auto) 0.1, Neutrophils # (Auto) 9.1 H, Lymphocytes # (Auto ) 0.7 L, Monocytes # (Auto) 0.6, Eosinophils # (Auto) 0.0, Basophils # (Auto) 0.0 Microbiology Microbiology 10/20/16 Blood Culture - Preliminary, Resulted No Growth after 72 hours. All specime... 10/20/16 Blood Culture - Preliminary, Resulted No Growth after 72 hours. All specime... 10/20/16 Influenza Virus Type A Antigen - Final, Complete 10/20/16 Influenza Virus Type B Antigen - Final, Complete 10/20/16 Respiratory Virus Panel (PCR) (JUAN J) - Final, Complete 10/20/16 Gram Stain - Final, Complete 10/20/16 Sputum Culture - Final, Complete VASU OLSEN MD Oct 24, 2016 11:39
[2016-10-24 14:00] VITALS: BP 104/55
[2016-10-24] MEDS: ATORVASTATIN 10 MG TAB PO SCH (21:14)
[2016-10-24 22:00] VITALS: BP 109/62
[2016-10-25 06:00] VITALS: BP 114/59
[2016-10-25] MEDS: MOXIFLOXACIN 400 MG TAB PO SCH (06:18)
[2016-10-25] MEDS: LEVOTHYROXINE 0.075 MG TAB (75 MCG) PO SCH (06:18)
[2016-10-25] MEDS: NORCO, ANEXSIA 5/325MG TABLET (HYDROcodone/ACETAMINOPHEN) PO PRN ×2 (06:21→15:06)
[2016-10-25 06:41] LABS: BASO % 0.2 % (0.0-1.0); EOS # 0.2 K/mm3 (0.0-0.50); EOS % 1.9 % (0.0-3.0); LARGE UNSTAINED CELL # 0.1 K/mm3 (0.0-0.4); LARGE UNSTAINED CELL % 0.6 % (0.0-4.0); LYMPH # 0.7 K/mm3 (1.5-4.5); LYMPH % 6.2 % (24.0-44.0); MEAN CORPUSCULAR HEMOGLOBIN 26.6 pg (27.0-33.0); MEAN CORPUSCULAR HGB CONC 31.5 g/dl (32.0-36.5); MEAN CORPUSCULAR VOLUME 84.5 fl (80.0-96.0); MONO # 0.4 K/mm3 (0.0-0.8); MONO % 3.5 % (0.0-5.0); NEUTROPHILS # 9.2 K/mm3 (1.8-7.7); NEUTROPHILS % 87.7 % (36.0-66.0); PLATELET COUNT, AUTOMATED 371 k/mm3 (150-450); RED CELL DISTRIBUTION WIDTH 15.8 % (11.5-14.5); WHITE BLOOD COUNT 10.5 K/mm3 (4.0-10.0)
[2016-10-25 07:14] LABS: ALBUMIN 2.6 GM/DL (3.2-5.2); ALBUMIN/GLOBULIN RATIO 0.67 (1.00-1.93); ALKALINE PHOSPHATASE 68 U/L (45-117); ALT/SGPT 18 U/L (12-78); ANION GAP 8 MEQ/L (8-16); AST/SGOT 6 U/L (15-37); BILIRUBIN,TOTAL 0.3 MG/DL (0.2-1.0); BLOOD UREA NITROGEN 28 MG/DL (7-18); CALCIUM LEVEL 8.4 MG/DL (8.8-10.2); CARBON DIOXIDE LEVEL 28 MEQ/L (21-32); CHLORIDE LEVEL 107 MEQ/L (98-107); GLOMERULAR FILTRATION RATE > 60.0 (>45); GLUCOSE, FASTING 81 MG/DL (80-110); POTASSIUM SERUM 3.5 MEQ/L (3.5-5.1); SODIUM LEVEL 143 MEQ/L (136-145); TOTAL PROTEIN 6.5 GM/DL (6.4-8.2)
[2016-10-25] MEDS: IPRATROPIUM 0.5MG/ALBUTEROL 2.5MG INH SOL UD 3ML (DUONEB)(J7620) NEB SCH ×3 (08:00→23:47)
[2016-10-25] MEDS: TIOTROPIUM INHALER/CAPSULE (SPIRIVA) INH SCH (08:11)
[2016-10-25] MEDS: SYMBICORT 160/4.5MCG INHALER 6GM INH SCH ×3 (08:12→20:00)
[2016-10-25] MEDS: predniSONE 20 MG TAB PO SCH (08:38)
[2016-10-25] MEDS: GABAPENTIN 400 MG CAP PO SCH ×4 (08:38→21:34)
[2016-10-25] MEDS: FUROSEMIDE 40 MG TAB PO SCH (08:39)
[2016-10-25] MEDS: ASPIRIN 81 MG ENTERIC TAB PO SCH (08:39)
[2016-10-25] MEDS: DIGOXIN 0.25 MG TAB PO SCH (08:39)
[2016-10-25] MEDS: ATENOLOL 25 MG TAB PO SCH ×2 (08:39→21:00)
--- NOTE | 2016-10-25 11:30 | IPNPDOC ---
Subjective Date Seen The patient was seen on 10/25/16. Subjective Chief Complaint/HPI The patient is a 71-year-old female admitted with a reason for visit of Shortness Of Breath. Events since last encounter feeling better today however continues to have the chest tightness, seen by ortho await their recommendation . Pateint not yet safe to go home from functional stand point. Objective Physical Examination General Exam: Positive: Alert, Cooperative, No Acute Distress Eye Exam: Positive: Conjunctiva & lids normal, EOMI, PERRLA, Negative: Sclera icteric ENT Exam: Positive: Atraumatic, Mucous membr. moist/pink, Pharynx Normal Chest Exam: Positive: Diminished Heart Exam: Positive: Rate Normal Telemetry: Positive: No significant arrhythmia Abdomen Exam: Positive: Normal bowel sounds, Soft, Negative: Hepatospenomegaly, Tenderness Female Exam: Positive: Nl Ext Genitalia, Negative: Discharge, Lesions, Odor, Tenderness Extremity Exam: Positive: Edema, Normal pulses, Negative: Clubbing, Cyanosis Skin Exam: Positive: Nl turgor and temperature, Negative: Breakdown, Rash Assessment /Plan Problems (1) COPD (chronic obstructive pulmonary disease) Status: Chronic Response to Treatment: Improving Problem Text: had acute exacerbation improving. restarted symbicort and spiriva. (2) Vertebral compression fracture Status: Chronic Problem Text: t7 vertebral wedge compression fracture from may 2016 this could be causing the chest pain will ask ortho to see this patient. (3) Shortness of breath Status: Acute Problem Text: * unknown etiology * could be restrictive lung disease as patient has severe kyphoscoliosis and well as post operative post radiation and post chemo related progressive fibrotic changes on the left lung with chronic collapse of part of the left lung and well as could be related to T7 vertebral compression fracture. THere is a component of fluid overload also * Also has changes of bronchiectasis * now also has pneumonia. * will continue with nebulizations will taper steroids, continue oxygen, continue lasix. * would benefit from pulmonary rehab. (4) Chronic respiratory failure with hypoxia Status: Chronic Problem Text: continue oxygen (5) Anemia Status: Acute Problem Text: * maybe dilutional * received 2 units of prbc, h/h responded appropriately. (6) History of lung cancer Status: Resolved Problem Text: * s/p left lobectomy in 2012 * sp radiation and chemo * f/u with Dr Porter * chronic postoperative changes in the left lung with chronic lung collapse. (7) Afib Status: Chronic Response to Treatment: Stable Problem Text: * pt is in normal sinus rhythm now * will hold atenolol due to hypotension * pt is only on ASA (8) Pulmonary hypertension Status: Chronic Problem Text: will continue lasix. (9) Bronchiectasis Status: Chronic (10) Right rib fracture Status: Resolved Problem Text: right 5th rib fracture healed. (11) Pneumonia Status: Acute Problem Text: consolidation vs fibrosis of the left lower lobe will treat empirically for pneumonia with moxifloxacin. Plan/VTE VTE Prophylaxis Ordered?: Yes VS, I&O, 24H, Fishbone Vital Signs/I&O Vital Signs Date Time Temp Pulse Resp B/P Pulse Ox O2 Delivery O2 Flow Rate FiO2 10/25/16 08:39 74 10/25/16 08:39 114/59 10/25/16 08:38 Nasal Cannula 2.0 10/25/16 06:53 20 10/25/16 06:00 97.9 97 I&O- Last 24 Hours up to 6 AM 10/25/16 05:59 Intake Total 600 ml Output Total 2100 ml Balance -1500 ml Laboratory Data 24H LABS Laboratory Tests 2 10/25/16 06:23: Blood Urea Nitrogen 28H, Creatinine 0.60, Sodium Level 143, Potassium Level 3.5 , Chloride Level 107, Carbon Dioxide Level 28, Calcium Level 8.4L, Aspartate Amino Transf (AST/SGOT) 6L, Alanine Aminotransferase (ALT/SGPT) 18, Alkaline Phosphatase 68, Total Bilirubin 0.3, Total Protein 6.5, Albumin 2.6L, Albumin/ Globulin Ratio 0.67L, Anion Gap 8, White Blood Count 10.5H, Red Blood Count 4.42 , Hemoglobin 11.8L, Hematocrit 37.4, Mean Corpuscular Volume 84.5, Mean Corpuscular Hemoglobin 26.6L, Mean Corpuscular Hemoglobin Concent 31.5L, Red Cell Distribution Width 15.8H, Platelet Count 371, Neutrophils (%) (Auto) 87.7H , Lymphocytes (%) (Auto) 6.2L, Monocytes (%) (Auto) 3.5, Eosinophils (%) (Auto) 1.9, Basophils (%) (Auto) 0.2, Neutrophils # (Auto) 9.2H, Lymphocytes # (Auto) 0.7L, Monocytes # (Auto) 0.4, Eosinophils # (Auto) 0.2, Basophils # (Auto) 0.0, Glomerular Filtration Rate > 60.0, Large Unclassified Cells # 0.1, Large Unclassified Cells % 0.6 CBC/BMP Laboratory Tests 10/25/16 06:23 Calcium Level 8.4 L, Aspartate Amino Transf (AST/SGOT) 6 L, Alanine Aminotransferase (ALT/SGPT) 18, Alkaline Phosphatase 68, Total Bilirubin 0.3, Total Protein 6.5, Albumin 2.6 L, Red Blood Count 4.42, Mean Corpuscular Volume 84.5, Mean Corpuscular Hemoglobin 26.6 L, Mean Corpuscular Hemoglobin Concent 31.5 L, Red Cell Distribution Width 15.8 H, Neutrophils (%) (Auto) 87.7 H, Lymphocytes (%) (Auto) 6.2 L, Monocytes (%) (Auto) 3.5, Eosinophils (%) (Auto) 1.9, Basophils (%) (Auto) 0.2, Neutrophils # (Auto) 9.2 H, Lymphocytes # (Auto) 0.7 L, Monocytes # (Auto) 0.4, Eosinophils # (Auto) 0.2, Basophils # (Auto) 0.0 Microbiology Microbiology 10/20/16 Blood Culture - Final, Complete NO GROWTH AFTER 5 DAYS 10/20/16 Blood Culture - Final, Complete NO GROWTH AFTER 5 DAYS 10/20/16 Influenza Virus Type A Antigen - Final, Complete 10/20/16 Influenza Virus Type B Antigen - Final, Complete 10/20/16 Respiratory Virus Panel (PCR) (JUAN J) - Final, Complete 10/20/16 Gram Stain - Final, Complete 10/20/16 Sputum Culture - Final, Complete VASU OLSEN MD Oct 25, 2016 11:30
[2016-10-25 14:00] VITALS: BP 99/54
[2016-10-25] MEDS: ATORVASTATIN 10 MG TAB PO SCH (21:34)
[2016-10-25 22:00] VITALS: BP 98/54
[2016-10-26] MEDS: MOXIFLOXACIN 400 MG TAB PO SCH (05:37)
[2016-10-26] MEDS: LEVOTHYROXINE 0.075 MG TAB (75 MCG) PO SCH (05:37)
[2016-10-26 06:00] VITALS: BP 120/58
[2016-10-26 06:20] LABS: BASO # 0.1 K/mm3 (0.0-0.2); BASO % 0.7 % (0.0-1.0); EOS # 0.1 K/mm3 (0.0-0.50); EOS % 0.6 % (0.0-3.0); LARGE UNSTAINED CELL # 0.1 K/mm3 (0.0-0.4); LARGE UNSTAINED CELL % 0.7 % (0.0-4.0); LYMPH # 0.6 K/mm3 (1.5-4.5); LYMPH % 5.3 % (24.0-44.0); MEAN CORPUSCULAR HEMOGLOBIN 26.9 pg (27.0-33.0); MEAN CORPUSCULAR HGB CONC 31.7 g/dl (32.0-36.5); MEAN CORPUSCULAR VOLUME 84.9 fl (80.0-96.0); MONO # 0.5 K/mm3 (0.0-0.8); MONO % 4.3 % (0.0-5.0); NEUTROPHILS # 10.6 K/mm3 (1.8-7.7); NEUTROPHILS % 88.5 % (36.0-66.0); PLATELET COUNT, AUTOMATED 360 k/mm3 (150-450); RED CELL DISTRIBUTION WIDTH 15.7 % (11.5-14.5)
[2016-10-26 06:39] LABS: ALBUMIN 2.5 GM/DL (3.2-5.2); ALBUMIN/GLOBULIN RATIO 0.71 (1.00-1.93); ALKALINE PHOSPHATASE 70 U/L (45-117); ALT/SGPT 18 U/L (12-78); ANION GAP 10 MEQ/L (8-16); AST/SGOT 7 U/L (15-37); BILIRUBIN,TOTAL 0.2 MG/DL (0.2-1.0); BLOOD UREA NITROGEN 29 MG/DL (7-18); CALCIUM LEVEL 8.3 MG/DL (8.8-10.2); CARBON DIOXIDE LEVEL 28 MEQ/L (21-32); CHLORIDE LEVEL 105 MEQ/L (98-107); CREATININE FOR GFR 0.61 MG/DL (0.55-1.02); GLOMERULAR FILTRATION RATE > 60.0 (>45); GLUCOSE, FASTING 80 MG/DL (80-110); POTASSIUM SERUM 3.8 MEQ/L (3.5-5.1); SODIUM LEVEL 143 MEQ/L (136-145)
[2016-10-26] MEDS: TIOTROPIUM INHALER/CAPSULE (SPIRIVA) INH SCH (07:34)
[2016-10-26] MEDS: IPRATROPIUM 0.5MG/ALBUTEROL 2.5MG INH SOL UD 3ML (DUONEB)(J7620) NEB SCH ×2 (07:36→15:33)
[2016-10-26] MEDS ORDERED: predniSONE 10 MG TAB PO SCH (09:00)
[2016-10-26] MEDS ORDERED: ATENOLOL 12.5MG PER 1/2 TABLET PO SCH (09:00)
[2016-10-26] MEDS ORDERED: FUROSEMIDE 20 MG TAB PO SCH (09:00)
[2016-10-26] MEDS ORDERED: SYMB16INH INH (09:07)
[2016-10-26] MEDS ORDERED: PRED10TA PO (09:07)
[2016-10-26] MEDS ORDERED: FURO20TA2 PO (09:07)
[2016-10-26] MEDS ORDERED: TIOT18INH INH (09:07)
[2016-10-26] MEDS ORDERED: ATEN25TA PO (09:07)
[2016-10-26] MEDS ORDERED: AVEL1TAB PO (09:07)
[2016-10-26] MEDS: GABAPENTIN 400 MG CAP PO SCH ×2 (09:27→13:31)
[2016-10-26 09:28] VITALS: BP 120/58
[2016-10-26] MEDS: ASPIRIN 81 MG ENTERIC TAB PO SCH (09:28)
[2016-10-26] MEDS: DIGOXIN 0.25 MG TAB PO SCH (09:28)
--- NOTE | 2016-10-27 08:24 | CR ---
DATE OF CONSULTATION: 10/25/2016 PROVIDER REQUESTING CONSULTATION: Dr. Kristina Lopez CHIEF COMPLAINT: Shortness of breath with related anterior chest pain radiating around to the back bilaterally. Patient is a 71-year-old female, currently inpatient for progressively worsening shortness of breath. In addition, patient has been experiencing anterior chest pain radiating around both sides to the back for approximately 6 months. It was noted during her hospital stay she had a bone scan in May 2016 showing a recent osteoporotic wedge compression deformity at T7. Orthopedic consult is requested to evaluate whether patient's T7 vertebral wedge compression fracture could be leading to her radiating chest pain and shortness of breath. PAST MEDICAL HISTORY: 1. History of lung cancer status post left lobectomy, radiation and chemotherapy. 2. Atrial fibrillation. 3. Chronic cough. 4. Hyperlipidemia. 5. Osteoporosis. 6. Kyphoscoliosis. 7. Hypothyroid. 8. Hypertension. 9. History of right rib fracture. 10. History of T7 compression wedge fracture. 11. She also has a diagnosis of intercostal neuralgia. PAST SURGICAL HISTORY: 1. Left lobectomy and lymph node resection. 2. Cardiac pacemaker. CURRENT MEDICATIONS: - atenolol 25 mg twice a day - digoxin 0.25 mg daily - Vicodin 10/325 mg every four hours as needed for pain - Synthroid 75 mcg daily - calcium with vitamin D 600/200 mg daily - alendronate 70 mg weekly - gabapentin 800 mg every 6 hours - aspirin 81 mg daily - Lipitor 10 mg daily - prednisone 10 mg daily - albuterol inhaler every 6 hours as needed for shortness of breath ALLERGIES: LOBSTER. NO KNOWN DRUG ALLERGIES. SOCIAL HISTORY: Patient lives at home alone. She denies any alcohol use. She was a former tobacco user, quit greater than 10 years ago. REVIEW OF SYSTEMS: Patient does have chest pain radiating around both sides to her back at about the T4 level with associated shortness of breath. She denies fevers or chills. She does have constant paraesthesias to her left hand, which is currently being worked up by her primary post acute care registered nurse and neurology. Otherwise, no complaints of numbness, tingling or weakness in the bilateral lower extremities. PHYSICAL EXAMINATION: Patient is a pleasant female who appears to be resting well. She is sitting in the chair in her room knitting when I walked in. She is alert, oriented and cooperative. HEENT: Extraocular movements are intact. Pharynx is benign. Pulse is regular rate and rhythm. Breathing nonlabored. Abdomen: Benign, soft, nontender to palpation. Musculoskeletal: Patient does have kyphoscoliosis. She has no tenderness to palpation along the length of her thoracic spine. Patient does have normal motion and strength for bilateral upper and lower extremity. Her deep tendon reflexes are equal bilaterally. She has good capillary refill and her sensation appears to be intact. Patient had a nuclear medicine whole body bone scan on 05/20/2016 revealing evidence of an osteoporotic wedge compression deformity at the T7 vertebral body. IMPRESSION: History of chronic T7 compression wedge fracture. PLAN: 1. Case was discussed with Dr. Peñaloza our spine surgeon. He was able to review fracture on a recent chest CT and reports that from an orthopedic perspective there is no surgical intervention for this nonacute fracture. 2. Recommendation is for additional referral to either thoracic surgeon and/or pain management for possible blocks.
--- NOTE | 2016-10-27 11:47 | DSES ---
DATE OF ADMISSION: 10/20/2016 DATE OF DISCHARGE: 10/26/2016 PRIMARY CARE PROVIDER: Dr. Pineda at [place]. FOOD SPECIALIST: Dr. Porter EDGER SAW OPERATOR: Dr. Trevino DISCHARGE DIAGNOSES: 1. Chronic obstructive pulmonary disease (COPD) exacerbation. 2. Chronic respiratory failure with hypoxia. 3. Pneumonia, left lower lobe. 4. Lung fibrosis. 5. History of lung cancer, status post lobectomy in 2013, status post chemotherapy and radiation with chronic postoperative changes and chronic lung collapse on the left. 6. Pulmonary hypertension. 7. Bronchiectasis. 8. Chronic atrial fibrillation. 9. Anemia. 10. T7 vertebral wedge compression fracture. 11. Mild aortic regurgitation with mild fluid overload. 12. Neuropathic pain over the chest wall. 13. Kyphoscoliosis. 14. Hyperlipidemia. 15. Osteoporosis. 16. History of right rib fracture. 17. Intercostal neuralgia. 18. Presence of cardiac pacemaker. DISCHARGE MEDICATIONS: - atenolol 12.5 mg by mouth twice a day - Symbicort 160/4.5 two puffs inhalation twice a day - Lasix 20 mg daily - moxifloxacin 400 mg daily - prednisone as directed - Spiriva one inhalation daily - hydrocodone/acetaminophen 10/325 one tablet by mouth every four hours as needed for pain - albuterol sulfate nebulizers every six hours as needed - alendronate 70 mg per week - aspirin 81 mg daily - atorvastatin 10 mg at bedtime - calcium with vitamin D3 one tablet by mouth twice a day - digoxin 0.25 mg daily - gabapentin 800 mg by mouth four times a day - Synthroid 75 mcg by mouth daily HOSPITAL COURSE: This is a 71-year-old female who presented to the hospital with increasing shortness of breath for about two weeks along with bouts of coughing with productive sputum as well as sensation of constriction around the chest causing difficulty in breathing. The patient had CT angiogram done which did not show any pulmonary embolism. CT chest showed left lower lobe consolidation versus fibrosis as well as chronic cavitary lesion in the left upper lobe with postoperative changes. The patient was treated for chronic obstructive pulmonary disease (COPD) exacerbation and pneumonia. The patient also developed some fluid overload and responded well to diuresis. The patient had an echocardiogram done which showed severe pulmonary hypertension, mild to moderate aortic regurgitation. Review of old CT scan showed that patient has T7 vertebral wedge compression fracture. The patient also follows with pain management for intercostal neuralgia. However, she continued to complain of chest compression and difficulty in taking deep breaths, even though her oxygen saturation remained stable on two liters, so orthopedic surgery was consulted regarding the vertebral fracture. As per them, the patient may benefit from blocks. There is no surgical intervention indicated at this point. The patient is advised to followup with pain management within a week for possibly setting up for thoracic block. At present, the patient is functionally at baseline with stable vital signs and is going to be discharged home. PHYSICAL EXAMINATION: VITAL SIGNS: Temperature 97.7, pulse 97, respiratory rate 18, blood pressure 120/58, pulse oximetry 97% with two liters nasal cannula. GENERAL: Patient awake, alert, and oriented times three, sitting up in bed, in no acute distress. HEENT: Normocephalic, atraumatic. Moist mucous membranes. Anicteric eyes. CHEST: Clear to auscultation. CARDIOVASCULAR: S1, S2, regular. No rub, murmur, or gallop. ABDOMEN: Soft, nontender, bowel sounds present. EXTREMITIES: Trace edema. LABORATORY DATA: WBC 12, hemoglobin 11.5, platelets 360. Sodium 143, potassium 3.8, chloride 105, bicarbonate 28, BUN 29, creatinine 0.6, calcium 8.3, glucose 80. Liver function tests are normal. DISPOSITION: The patient is discharged home in stable condition. DISCHARGE INSTRUCTIONS: The patient is to followup with primary care provider in two weeks. The patient is to followup with pain management in one week. The patient is to followup with own set up inspector as outpatient schedule.
== END 2016-10-26 15:51 | disposition home or self-care (01) | DRG 871 ==
LOC: EDBD 09:07 → M ED 10:19 → M ED INP 11:58 → M MS5PR 15:23 → M PCU 16:07 → M MSPAV 10-23 05:56
PROVIDERS: ADMIT Internal Medicine; ATTEND Internal Medicine Nephrology
PROC: 30253N1 (ICD-10-PCS; principal; 2016-10-21)
DX: A41.9 Sepsis, unspecified organism (principal); J18.9 Pneumonia, unspecified organism; J44.1 Chronic obstructive pulmonary disease with (acute) exacerbation; J96.11 Chronic respiratory failure with hypoxia; J98.11 Atelectasis; I48.2 Chronic atrial fibrillation; I27.2 Other secondary pulmonary hypertension; M41.9 Scoliosis, unspecified; J84.10 Pulmonary fibrosis, unspecified; G58.0 Intercostal neuropathy; E87.70 Fluid overload, unspecified; Z99.81 Dependence on supplemental oxygen; M80.08XD Age-related osteoporosis with current pathological fracture, vertebra(e), subsequent encounter for fracture with routine healing; Z90.2 Acquired absence of lung [part of]; Z92.3 Personal history of irradiation; Z85.118 Personal history of other malignant neoplasm of bronchus and lung; Z92.21 Personal history of antineoplastic chemotherapy; Z95.0 Presence of cardiac pacemaker; Z87.891 Personal history of nicotine dependence; Z79.52 Long term (current) use of systemic steroids; Z79.82 Long term (current) use of aspirin; Z79.899 Other long term (current) drug therapy

== ENCOUNTER → 2016-11-05 | Outpatient (REF) | payer MEDICARE, MEDICAID ==
[~2016-11-05] MED LIST changes: +ALB2.5NEB INH; +ALEN70SO PO; +ALEN70TA39 PO; +ASPI1TAB PO; +ATOR1TAB19 PO; +AVEL1TAB PO; +CALC600T57 PO; +FURO20TA2 PO; +GABA-282 PO; -GABA300C3 PO; +GABA800T PO; +SYNT75TA PO; +TIOT18INH INH
== END ==
LOC: M LAB REF 17:26
PROVIDERS: ATTEND Internal Medicine Pulmonary Disease
DX: J44.9 Chronic obstructive pulmonary disease, unspecified (principal)

== ENCOUNTER → 2016-11-13 | Outpatient (REF) | payer MEDICARE, MEDICAID | LOC: M LAB REF 12:53 | PROVIDERS: ATTEND Internal Medicine Pulmonary Disease | DX: J44.9 Chronic obstructive pulmonary disease, unspecified (principal) ==

== ENCOUNTER → 2016-12-02 | Outpatient (CLI) | payer MEDICARE, OTHER, MEDICAID ==
--- NOTE | 2016-12-27 01:45 | ECWPNPC ---
PATIENT NAME: MELINA SHETTY : 1945 GENDER: FEMALE VISIT DATE: 12/02/2016 DISCHARGE DATE: 12/02/16 1103 VISIT LOCKED DATE TIME: PHYSICIAN: ANGELIQUE FAJARDO RESOURCE: ANGELIQUE FAJARDO REASON FOR APPOINTMENT 1. CHEST HISTORY OF PRESENT ILLNESS HISTORY OF PRESENT ILLNESS: PAIN THE PATIENT DESCRIBES THE PAIN... FALL RISK SCREENING: SCREENING :NO FALLS IN THE PAST YEAR TODAY'S VISIT: NOTES: RATES PAIN TODAY 7/10. DESCRIBES PAIN CONSTANT AND LOCATED ACROSS THE CHEST WALL. REPORTS IT FEELS LIKE SHE IS BEING CCRUSHED. WAS RECENTLY HOSPITALIZED WITH ACUTE PNEUMONIA AND DEHYDRATION AND THEN ANEMIA WHICH REQUIRED TRANSFUSION X 2. HAS BEEN TOLD BY DR REDD THAT SHE HAS A COMPRESSION FX AT T7. . CURRENT MEDICATIONS TAKING ASPIRIN ADULT LOW DOSE 81 MG TABLET DELAYED RELEASE 1 TABLET ORALLY ONCE A DAY TAKING ATENOLOL 25 MG TABLET 1/2 TAB ORALLY ONCE DAILY TAKING DIGOXIN 250 MCG TABLET 1 TABLET ORALLY ONCE A DAY TAKING PREDNISONE 10 MG TABLET 1 TABLET ORALLY ONCE A DAY TAKING ATORVASTATIN CALCIUM 10 MG TABLET 1 TABLET ORALLY ONCE A DAY TAKING LEVOTHYROXINE SODIUM 75 MCG TABLET 1 TABLET ORALLY ONCE A DAY TAKING VIT CALCIUM CITRATE + D 250-62.5 MG TABLET ORALLY TAKING GABAPENTIN 600 MG TABLET 1 TABLET ORALLY QID TAKING ALBUTEROL SULFATE (2.5 MG/3ML) 0.083% NEBULIZATION SOLUTION 3 ML INHALATION THREE TIMES DAILY TAKING NORCO 10-325 MG TABLET 1 TABLET ORALLY EVERY 6 HRS PRN PAIN MDD=4 CHRONIC PAIN TAKING SYMBICORT 80-4.5 MCG/ACT AEROSOL 2 PUFFS INHALATION TWICE A DAY TAKING SPIRIVA HANDIHALER 18 MCG CAPSULE INHALATION DISCONTINUED LIDOCAINE HCL 3 % GEL DIRECTED EXTERNALLY APPLY TO PAINFUL AREAS OF CHEST WALL UP TO 4 TIMES PER DAY NEEDED MEDICATION LIST REVIEWED AND RECONCILED WITH THE PATIENT PAST MEDICAL HISTORY LUMG CANCER PNEUMONIA 10/20/16 ALLERGIES LOBSTER: ANAPHYLAXIS: ALLERGY REVIEW OF SYSTEMS CONSTITUTIONAL: ANY CHANGE IN YOUR MEDICAL CONDITION? NO . CHILLS NO . FEVER NO . INFECTION: DO YOU HAVE NEW INFECTIONS? NO . DO YOU HAVE HISTORY OF MRSA? NO . MUSCULOSKELETAL: ANY NEW PATTERNS OF PAIN OR NUMBNESS? NO . GASTROENTEROLOGY: ANY NEW CHANGE IN BOWEL CONTROL? NO . GENITOURINARY: ANY NEW CHANGE IN BLADDER CONTROL? NO . IS THERE A CHANCE YOU COULD BE ? NO . HEMATOLOGY/LYMPH: DO YOU TAKE ANY BLOOD THINNERS? (FOR EXAMPLE- COUMADIN, PLAVIX, AGGRENOX, PLATEL, PRADAXA, OR XARELTO) YES . WHEN WAS YOUR LAST DOSE? DATE: TIME: . NEUROLOGY: HAVE YOU FALLEN IN THE PAST 6 MONTHS? NO . ANY NEW EXTREMITY NUMBNESS OR WEAKNESS? NO . CARDIOLOGY: DO YOU HAVE A PACEMAKER OR DEFIBRILLATOR? YES . RESPIRATORY: HAVE YOU BEEN SICK IN THE PAST WEEK? NO . FEVER NO . FLU LIKE SYMPTOMS? NO . COUGH YES ON CHRONIC OXYGEN 2 L/NC . INTEGUMENTARY: DO YOU HAVE ANY RASHES OR OPEN SORES? NO . ALLERGIC/IMMUNO: ARE YOU ALLERGIC TO SHELLFISH OR IV DYE? YES . ANY NEW ALLERGIES? NO . PSYCHIATRIC: DO YOU HAVE THOUGHTS OF HURTING YOURSELF OR SOMEONE ELSE? NO . ARE YOU ABUSED, NEGLECTED, OR IN AN UNSAFE ENVIRONMENT? NO . ENDOCRINOLOGY: ARE YOU DIABETIC? NO . OTHER: DO YOU NEED ANY PRESCRIPTIONS? NO . IF YES, PLEASE LIST: ____ . ANY NEW PROBLEMS WITH YOUR MEDICATIONS? NO . WHEN DID YOU LAST EAT? ____ . WHEN DID YOU LAST DRINK? ____ . WHAT DID YOU LAST DRINK? ____ . NAME OF PERSON DRIVING YOU HOME? ____ . DO YOU HAVE ANY OTHER QUESTIONS OR CONCERNS NO . REVIEWED BY: PROVIDER: ANGELIQUE RODRIGUEZ . VITAL SIGNS WT 127.0 LBS, HT 63 IN, BMI 22.49 INDEX, BP 100/61 MM HG, HR 84 /MIN, RR 18 /MIN, TEMP 99.1 F, OXYGEN SAT % 92%, NA INITIALS AW 1008, REVIEWED BY: VD. EXAMINATION GENERAL EXAMINATION: PSYCHCOLOR PALE, ALERT , ORIENTED X 3 , ORIENTED X 3 , APPROPRIATE MOOD AND AFFECT , SMILING AND TALKATIVE. CHEST:STERNAL TENDERNESS, THORACIC KYPHOSIS AND BARREL CHESTED. EXQUISITE TENDERNES OVER THORACIC SPINOUS PROCESSES AND INTERCOSTAL SPACES STARTING AT THE MID AXILLARY LINE RADIATING TO THE STERNUM OVER THE 6TH AND 7TH RIBS. . LUNGS:DECREASED AIR ENTRY AT BASES, SCATTERED WHEEZES BILATERALLY. INTERMITTANT DRY COUGH. HEART:HEART RATE REGULAR, II/ SYSTOLIC MURMUR. 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 CLINICAL NOTES: ISTOP REGISTRY REVIEWED AND DEMNOSTRATES COMPLLIANCE. BRINGS IN MEDICATIONS WHICH IS APPROPRIATE FOR WHAT WAS DISPENSED. RECENT URINE TOXICOLOGY REVIEWED. NO UNAUTHORIZED MEDICATIONS. NO ILLICIT SUBSTANCES AND PRESCRIBED MEDICATIONS WERE PRESENT. PROCEDURE CODES FA211 ESTABILISHED PATIENT [facility] FACILITY CHARGE G8730 PAIN ASSESS POS TOOL F/U PLAN DOC G8427 DOC MEDS VERIFIED W/PT OR RE DISPOSITION & COMMUNICATION FOLLOW UP [address] (REASON: CHECK AUTH FOR CT OF THORACIC) ELECTRONICALLY SIGNED BY DIDI CHUNG ON 12/24/2016 AT 06:08 PM EDT DISCLAIMER : THIS IS A VISIT SUMMARY EXTRACTED FROM THE [employer] CHART. IT IS NOT A COPY OF THE [employer] PROGRESS NOTE. SYL
== END | disposition home or self-care (01) ==
LOC: M PAIN 10:00
PROVIDERS: ATTEND Nurse Practitioner Family
DX: G89.29 Other chronic pain (principal); G58.8 Other specified mononeuropathies; Z85.118 Personal history of other malignant neoplasm of bronchus and lung; Z79.899 Other long term (current) drug therapy; Z79.82 Long term (current) use of aspirin; Z79.01 Long term (current) use of anticoagulants; Z91.013 Allergy to seafood

== ENCOUNTER → 2016-12-11 | Outpatient (CLI) | payer MEDICARE ==
--- NOTE | 2016-12-12 13:52 | RADONC ---
RADIATION ONCOLOGY FOLLOWUP NOTE DATE: 12/11/2016 CHART NUMBER: [id number] DIAGNOSIS: Lung cancer. STAGE: IIIB. ECOG PERFORMANCE STATUS: 1. FOLLOWUP NOTE: Ms. Erickson is a very pleasant 71-year-old white female with the diagnosis of a stage IIIB, T4N1M0, adenocarcinoma of the left upper lobe who is presenting to me today for routine followup visit almost 4 years post completion of external beam radiation therapy. The patient presents today reporting that she continues to have shortness of breath. She says her breathing is slowly worsening over the years. She is on nasal oxygen. The patients review of systems is positive for shortness of breath which is worsening. She is on nasal oxygen. She has physical limitations due to this. She denies; nausea, vomiting, anorexia, weight loss, fevers, chills, night sweats, headaches, bone pain, neurologic problems, urinary or bowel difficulties, chest pain or other problems. On physical exam the patient is a chronically ill appearing white female on nasal oxygen. HEENT is normocephalic, atraumatic, EOMs are intact. The are no palpable lymph nodes. Lungs have distant breach sounds. Heart RRR. Abdomen Neg. The CT scan done 10/20/2016 shows stable post-treatment changes and no evidence of recurrent or progressive disease. Overall Ms. Erickson is clinically doing well with regards to her malignancy. Unfortunately her COPD continues to worsen causing her respiratory difficulties. I have scheduled the patient to see me again in 6 months for further followup. She will also continue to be followed by her other physicians as well. cc: MD Sterling Kenyon MD James Willis, MD FAC *Juan Alberto Pineda MD [facility]
== END ==
LOC: M ONCR 14:28
PROVIDERS: ATTEND Radiology Radiation Oncology
DX: C34.12 Malignant neoplasm of upper lobe, left bronchus or lung (principal)

== ENCOUNTER → 2016-12-13 | Outpatient (CLI) | payer OTHER, MEDICARE, MEDICAID ==
--- NOTE | 2016-12-30 23:43 | ECWPNPC ---
PATIENT NAME: MELINA SHETTY : 1945 GENDER: FEMALE VISIT DATE: 12/13/2016 DISCHARGE DATE: 12/13/16 1210 VISIT LOCKED DATE TIME: PHYSICIAN: ANGELIQUE FAJARDO RESOURCE: ANGELIQUE FAJARDO REASON FOR APPOINTMENT 1. POST CT HISTORY OF PRESENT ILLNESS HISTORY OF PRESENT ILLNESS: PAIN THE PATIENT DESCRIBES THE PAIN... FALL RISK SCREENING: SCREENING :NO FALLS IN THE PAST YEAR TODAY'S VISIT: NOTES: STILL WAITING FOR PRIOR AUTH FOR CT OF THORACIC SPINE. RATES PAIN TODAY 7/10. DESCRIBES PAIN CONSTANT.STILL WITH COUGH BUT THIS HAS NOT CHANGED. PAIN MEDS ALLOW HER TO SLEEP. CHEST WALL PAIN UNCHANGED - IMPROVES WITH PAIN MEDS. HAS BEEN ABLE TO BE ACTIVE. . CURRENT MEDICATIONS TAKING ASPIRIN ADULT LOW DOSE 81 MG TABLET DELAYED RELEASE 1 TABLET ORALLY ONCE A DAY TAKING ATENOLOL 25 MG TABLET 1/2 TAB ORALLY ONCE DAILY TAKING DIGOXIN 250 MCG TABLET 1 TABLET ORALLY ONCE A DAY TAKING PREDNISONE 10 MG TABLET 1 TABLET ORALLY ONCE A DAY TAKING ATORVASTATIN CALCIUM 10 MG TABLET 1 TABLET ORALLY ONCE A DAY TAKING LEVOTHYROXINE SODIUM 75 MCG TABLET 1 TABLET ORALLY ONCE A DAY TAKING VIT CALCIUM CITRATE + D 250-62.5 MG TABLET ORALLY TAKING GABAPENTIN 600 MG TABLET 1 TABLET ORALLY QID TAKING ALBUTEROL SULFATE (2.5 MG/3ML) 0.083% NEBULIZATION SOLUTION 3 ML INHALATION THREE TIMES DAILY TAKING NORCO 10-325 MG TABLET 1 TABLET ORALLY EVERY 6 HRS PRN PAIN MDD=4 CHRONIC PAIN TAKING SYMBICORT 80-4.5 MCG/ACT AEROSOL 2 PUFFS INHALATION TWICE A DAY TAKING SPIRIVA HANDIHALER 18 MCG CAPSULE INHALATION MEDICATION LIST REVIEWED AND RECONCILED WITH THE PATIENT PAST MEDICAL HISTORY LUMG CANCER PNEUMONIA 10/20/16 ALLERGIES LOBSTER: ANAPHYLAXIS: ALLERGY SURGICAL HISTORY LEFT UPPER LOBE OF LUNG SURGERY FOR CANCER/ LEFT THORACOTOMY PERICARDIAL WINDOW -2012 DRAINAGE OF HEART SAC -2012 BROCHOSCOPY AND MEDIASTINOSCOPY -2012 ENDOSCOPY AND UPPER GI BALLOON PACEMAKER -2013 HOSPITALIZATION/MAJOR DIAGNOSTIC PROCEDURE JUST HERE NOVEMBER 20 WITH ACUTE PNEUMONIA (IN FOR 1 WEEK) / ALSO HAD 2 UNITS OF BLOOD REVIEW OF SYSTEMS CONSTITUTIONAL: ANY CHANGE IN YOUR MEDICAL CONDITION? YES, JUST GOT OUT OF HOSPITAL November. WAS IN WITH PNEUMONIA AND HAD ISSUES WITH DEHYDRATION AND THEN FLUID OVERLOAD WHILE ADMITTED. BP HAS BEEN UP AND DOWN SINCE THEN. . CHILLS NO . FEVER NO . INFECTION: DO YOU HAVE NEW INFECTIONS? NO . DO YOU HAVE HISTORY OF MRSA? NO . MUSCULOSKELETAL: ANY NEW PATTERNS OF PAIN OR NUMBNESS? NO . GASTROENTEROLOGY: ANY NEW CHANGE IN BOWEL CONTROL? NO . GENITOURINARY: ANY NEW CHANGE IN BLADDER CONTROL? NO . IS THERE A CHANCE YOU COULD BE ? NO . HEMATOLOGY/LYMPH: DO YOU TAKE ANY BLOOD THINNERS? (FOR EXAMPLE- COUMADIN, PLAVIX, AGGRENOX, PLATEL, PRADAXA, OR XARELTO) NO . WHEN WAS YOUR LAST DOSE? DATE: TIME: . NEUROLOGY: HAVE YOU FALLEN IN THE PAST 6 MONTHS? NO . ANY NEW EXTREMITY NUMBNESS OR WEAKNESS? NO . CARDIOLOGY: DO YOU HAVE A PACEMAKER OR DEFIBRILLATOR? YES, PACEMAKER . RESPIRATORY: HAVE YOU BEEN SICK IN THE PAST WEEK? NO . FEVER NO . FLU LIKE SYMPTOMS? NO . COUGH NO . INTEGUMENTARY: DO YOU HAVE ANY RASHES OR OPEN SORES? NO . ALLERGIC/IMMUNO: ARE YOU ALLERGIC TO SHELLFISH OR IV DYE? YES, LOBSTER . ANY NEW ALLERGIES? NO . PSYCHIATRIC: DO YOU HAVE THOUGHTS OF HURTING YOURSELF OR SOMEONE ELSE? NO . ARE YOU ABUSED, NEGLECTED, OR IN AN UNSAFE ENVIRONMENT? NO . ENDOCRINOLOGY: ARE YOU DIABETIC? NO . OTHER: DO YOU NEED ANY PRESCRIPTIONS? NO . IF YES, PLEASE LIST: ____ . ANY NEW PROBLEMS WITH YOUR MEDICATIONS? NO . WHEN DID YOU LAST EAT? ____ . WHEN DID YOU LAST DRINK? ____ . WHAT DID YOU LAST DRINK? ____ . NAME OF PERSON DRIVING YOU HOME? ____ . DO YOU HAVE ANY OTHER QUESTIONS OR CONCERNS WAS UNABLE TO GET CT SCAN WANTS TO KNOW WHAT TO DO . REVIEWED BY: PROVIDER: ANGELIQUE RODRIGUEZ . VITAL SIGNS WT 126.0 LBS, HT 63 IN, BMI 22.32 INDEX, BP 98/62 MM HG, HR 66 /MIN, RR 18 /MIN, TEMP 98.0 F, OXYGEN SAT % 95%, NA INITIALS TL 1036, REVIEWED BY: NL. EXAMINATION GENERAL EXAMINATION: PSYCHCOLOR PALE, ALERT , ORIENTED X 3 , ORIENTED X 3 , APPROPRIATE MOOD AND AFFECT , SMILING AND TALKATIVE. CHEST:STERNAL TENDERNESS, THORACIC KYPHOSIS AND BARREL CHESTED. LUNGS:DECREASED AIR ENTRY AT BASES, SCATTERED WHEEZES BILATERALLY. INTERMITTANT DRY COUGH. HEART:HEART RATE REGULAR, II/ SYSTOLIC MURMUR. 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 CONTINUE CURRENT MEDS. CLINICAL NOTES: ISTOP REGISTRY REVIEWED AND DEMNOSTRATES COMPLLIANCE. BRINGS IN MEDICATIONS WHICH IS APPROPRIATE FOR WHAT WAS DISPENSED. RECENT URINE TOXICOLOGY REVIEWED. NO UNAUTHORIZED MEDICATIONS. NO ILLICIT SUBSTANCES AND PRESCRIBED MEDICATIONS WERE PRESENT. PROCEDURE CODES FA211 ESTABILISHED PATIENT [facility] FACILITY CHARGE G8730 PAIN ASSESS POS TOOL F/U PLAN DOC G8427 DOC MEDS VERIFIED W/PT OR RE DISPOSITION & COMMUNICATION FOLLOW UP 1 MONTH (REASON: CHECK AUTH FOR CT OF THORACIC SPINE) ELECTRONICALLY SIGNED BY DIDI CHUNG ON 12/30/2016 AT 04:15 PM EDT DISCLAIMER : THIS IS A VISIT SUMMARY EXTRACTED FROM THE [employer] CHART. IT IS NOT A COPY OF THE [employer] PROGRESS NOTE. MTDD
== END | disposition home or self-care (01) ==
LOC: M PAIN 10:20
PROVIDERS: ATTEND Nurse Practitioner Family
DX: G89.29 Other chronic pain (principal); M54.14 Radiculopathy, thoracic region; Z85.118 Personal history of other malignant neoplasm of bronchus and lung; Z87.09 Personal history of other diseases of the respiratory system; Z95.0 Presence of cardiac pacemaker; Z79.899 Other long term (current) drug therapy; Z79.82 Long term (current) use of aspirin; Z79.51 Long term (current) use of inhaled steroids; Z91.013 Allergy to seafood

== ENCOUNTER → 2017-01-02 | Outpatient (CLI) | payer MEDICARE ==
--- NOTE | 2017-01-02 14:33 | REP ---
CT THORACIC SPINE WITHOUT CONTRAST: HISTORY: Compression fracture. COMPARISON: CT angio chest 10/20/2016. There is an old compression fracture or the T7 vertebral body with severe height loss. There is no subluxation. There is no definite disc bulge or herniation. There is loss of height of several mid and lower thoracic intervertebral discs. Vacuum phenomenon is present. These findings are consistent with disc degeneration. Anterior osteophytes are present throughout the thoracic spine. A cavitary lesion is present in the left upper lobe unchanged compared to the previous study. An infiltrate is present in the left mid and lower lobe that is increased compared to the previous study. IMPRESSION: 1. Old T7 compression fracture with severe height loss. There is no subluxation. 2. Left upper lobe cavitary lesion unchanged compared to the previous study. 3. Left mid and lower lobe infiltrate is present that is increased compared to the previous study. Signed by Shawn Ruff MD 01/02/2017 02:42 P
== END ==
LOC: M RAD 13:15
PROVIDERS: ATTEND Nurse Practitioner Family
DX: M48.54XD Collapsed vertebra, not elsewhere classified, thoracic region, subsequent encounter for fracture with routine healing (principal); M51.34 Other intervertebral disc degeneration, thoracic region

== ENCOUNTER → 2017-01-29 | Outpatient (CLI) | payer MEDICARE, MEDICAID, OTHER ==
[~2017-01-29] MED LIST changes: +ALBU83IN INH; -AVEL1TAB PO; +AVEL1TAB3 PO; +BACITAB PO; +NEUR600T PO; +PRED10TA2 PO; +VITAD1000T PO
--- NOTE | 2017-02-18 00:27 | ECWPNPC ---
PATIENT NAME: MELINA SHETTY : 1945 GENDER: FEMALE VISIT DATE: 01/29/2017 DISCHARGE DATE: 01/29/17 1138 VISIT LOCKED DATE TIME: PHYSICIAN: ANGELIQUE FAJARDO RESOURCE: ANGELIQUE FAJARDO HISTORY OF PRESENT ILLNESS HISTORY OF PRESENT ILLNESS: PAIN THE PATIENT DESCRIBES THE PAIN... FALL RISK SCREENING: SCREENING :NO FALLS IN THE PAST YEAR TODAY'S VISIT: NOTES: RATES PAIN TODAY 7/10. DESCRIBES PAIN CONSTANT. PAIN REMAINS CENTERED IN MID THORACIC ANTERIOR AND LEFT THORACOTOMY INCISIONS.. COUGH IS USUALLY BETTER IN AM BUT FIRST HAS LARGE AMOUNT OF SECRETIONS. TO SEE PULMONOLOGY IN FEBRUARY AND DR FISH/CARDIOLOGY SOON. . CURRENT MEDICATIONS TAKING ASPIRIN ADULT LOW DOSE 81 MG TABLET DELAYED RELEASE 1 TABLET ORALLY ONCE A DAY TAKING ATENOLOL 25 MG TABLET 1/2 TAB ORALLY ONCE DAILY TAKING DIGOXIN 250 MCG TABLET 1 TABLET ORALLY ONCE A DAY TAKING PREDNISONE 10 MG TABLET 1 TABLET ORALLY ONCE A DAY TAKING ATORVASTATIN CALCIUM 10 MG TABLET 1 TABLET ORALLY ONCE A DAY TAKING LEVOTHYROXINE SODIUM 75 MCG TABLET 1 TABLET ORALLY ONCE A DAY TAKING GABAPENTIN 600 MG TABLET 1 TABLET ORALLY QID TAKING ALBUTEROL SULFATE (2.5 MG/3ML) 0.083% NEBULIZATION SOLUTION 3 ML INHALATION THREE TIMES DAILY TAKING SYMBICORT 80-4.5 MCG/ACT AEROSOL 2 PUFFS INHALATION TWICE A DAY TAKING SPIRIVA HANDIHALER 18 MCG CAPSULE INHALATION TAKING NORCO 10-325 MG TABLET 1 TABLET ORALLY EVERY 6 HRS PRN PAIN MDD=4 CHRONIC PAIN NOT-TAKING VIT CALCIUM CITRATE + D 250-62.5 MG TABLET ORALLY MEDICATION LIST REVIEWED AND RECONCILED WITH THE PATIENT PAST MEDICAL HISTORY LUMG CANCER PNEUMONIA 10/20/16 ALLERGIES LOBSTER: ANAPHYLAXIS: ALLERGY REVIEW OF SYSTEMS REVIEWED BY: PROVIDER: ANGELIQUE FAJARDO 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 CONSTITUTIONAL: ANY CHANGE IN YOUR MEDICAL CONDITION? NO . CHILLS NO . FEVER NO . INFECTION: DO YOU HAVE NEW INFECTIONS? NO . DO YOU HAVE HISTORY OF MRSA? NO . MUSCULOSKELETAL: ANY NEW PATTERNS OF PAIN OR NUMBNESS? NO . GASTROENTEROLOGY: ANY NEW CHANGE IN BOWEL CONTROL? NO . GENITOURINARY: ANY NEW CHANGE IN BLADDER CONTROL? NO . IS THERE A CHANCE YOU COULD BE ? NO . HEMATOLOGY/LYMPH: DO YOU TAKE ANY BLOOD THINNERS? (FOR EXAMPLE- COUMADIN, PLAVIX, AGGRENOX, PLATEL, PRADAXA, OR XARELTO) NO . WHEN WAS YOUR LAST DOSE? DATE: TIME: . NEUROLOGY: HAVE YOU FALLEN IN THE PAST 6 MONTHS? NO . ANY NEW EXTREMITY NUMBNESS OR WEAKNESS? NO . CARDIOLOGY: DO YOU HAVE A PACEMAKER OR DEFIBRILLATOR? YES PACEMAKER . RESPIRATORY: HAVE YOU BEEN SICK IN THE PAST WEEK? NO . FEVER NO . FLU LIKE SYMPTOMS? NO . COUGH NO . INTEGUMENTARY: DO YOU HAVE ANY RASHES OR OPEN SORES? NO . ALLERGIC/IMMUNO: ARE YOU ALLERGIC TO SHELLFISH OR IV DYE? YES LOBSTER . ANY NEW ALLERGIES? NO . PSYCHIATRIC: DO YOU HAVE THOUGHTS OF HURTING YOURSELF OR SOMEONE ELSE? NO . ARE YOU ABUSED, NEGLECTED, OR IN AN UNSAFE ENVIRONMENT? NO . ENDOCRINOLOGY: ARE YOU DIABETIC? NO . OTHER: DO YOU NEED ANY PRESCRIPTIONS? NO . IF YES, PLEASE LIST: ____ . ANY NEW PROBLEMS WITH YOUR MEDICATIONS? NO . WHEN DID YOU LAST EAT? ____ . WHEN DID YOU LAST DRINK? ____ . WHAT DID YOU LAST DRINK? ____ . NAME OF PERSON DRIVING YOU HOME? ____ . DO YOU HAVE ANY OTHER QUESTIONS OR CONCERNS NO . VITAL SIGNS WT 126 LBS, HT 63 IN, BMI 22.32 INDEX, BP 99/61 MM HG, HR 79 /MIN, RR 18 /MIN, TEMP 98.1 F, OXYGEN SAT % 95%, NA INITIALS SC 10:38, REVIEWED BY: KG. EXAMINATION GENERAL EXAMINATION: PSYCHCOLOR PALE, ALERT , ORIENTED X 3 , ORIENTED X 3 , APPROPRIATE MOOD AND AFFECT , SMILING AND TALKATIVE. CHEST:STERNAL TENDERNESS, THORACIC KYPHOSIS AND BARREL CHESTED. LUNGS:DECREASED AIR ENTRY AT BASES, SCATTERED WHEEZES BILATERALLY. INTERMITTANT DRY COUGH. HEART:HEART RATE REGULAR, II/ SYSTOLIC MURMUR. DIAGNOSTIC TESTS REVIEWEDCT OF THORACIC SPINE COMPLETED 01/02/17 REVIEWED. DEMONSTRATED OLD T7 COMPRESSION FRACTURE WITH SEVERE LOSS OF DISC HEIGHT. NO SUBLUXATION. 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 CONSIDER INJECTION THERAPY IN FUTURE IF NEEDED. CLINICAL NOTES: ISTOP REGISTRY REVIEWED AND DEMNOSTRATES COMPLLIANCE. BRINGS IN MEDICATIONS WHICH IS APPROPRIATE FOR WHAT WAS DISPENSED. RECENT URINE TOXICOLOGY REVIEWED. NO UNAUTHORIZED MEDICATIONS. NO ILLICIT SUBSTANCES AND PRESCRIBED MEDICATIONS WERE PRESENT. PROCEDURE CODES FA211 ESTABILISHED PATIENT [facility] CHARGE G8730 PAIN ASSESS POS TOOL F/U PLAN DOC G8427 DOC MEDS VERIFIED W/PT OR RE DISPOSITION & COMMUNICATION FOLLOW UP MARCH - / (REASON: CHEST WALL PAIN) ELECTRONICALLY SIGNED BY DIDI CHUNG ON 02/17/2017 AT 05:36 PM EDT DISCLAIMER : THIS IS A VISIT SUMMARY EXTRACTED FROM THE [employer] CHART. IT IS NOT A COPY OF THE [employer] PROGRESS NOTE. MTDD
== END ==
LOC: M PAIN 10:40
PROVIDERS: ATTEND Nurse Practitioner Family
DX: G58.8 Other specified mononeuropathies (principal); Z79.891 Long term (current) use of opiate analgesic; Z79.82 Long term (current) use of aspirin; Z79.899 Other long term (current) drug therapy; Z91.013 Allergy to seafood

== ENCOUNTER → 2017-02-14 | Outpatient (REF) | payer MEDICARE, MEDICAID | LOC: M LAB REF 09:40 | PROVIDERS: ATTEND Internal Medicine Pulmonary Disease | DX: J44.9 Chronic obstructive pulmonary disease, unspecified (principal) ==

== ENCOUNTER → 2017-03-25 | Outpatient (CLI) | payer MEDICARE, MEDICAID, OTHER ==
--- NOTE | 2017-03-26 01:27 | ECWPNPC ---
PATIENT NAME: MELINA SHETTY : 1945 GENDER: FEMALE VISIT DATE: 03/25/2017 DISCHARGE DATE: 03/25/17 1004 VISIT LOCKED DATE TIME: PHYSICIAN: ANGELIQUE FAJARDO RESOURCE: ANGELIQUE FAJARDO HISTORY OF PRESENT ILLNESS HISTORY OF PRESENT ILLNESS: PAIN THE PATIENT DESCRIBES THE PAIN... FALL RISK SCREENING: SCREENING :NO FALLS IN THE PAST YEAR TODAY'S VISIT: NOTES: RATES PAIN TODAY 5/10. DESCRIBES PAIN CONTANT AND CENTERED OVER ANTERIOR CHEST WALL. IS ON CONSTANT OXYGEN AT 2L/NC AND BRINGS IT WITH HER TODAY. REPORTS IS SLEEPING FAIRLY WELL. STATES SHE IS TAKING HER PAIN MEDS ON A SCHEDULE AND THAT THIS IS WORKING WELL. HAS BEEN ABLE TO FUNCTION AROUND HER HOME.. CURRENT MEDICATIONS TAKING ASPIRIN ADULT LOW DOSE 81 MG TABLET DELAYED RELEASE 1 TABLET ORALLY ONCE A DAY TAKING ATENOLOL 25 MG TABLET 1/2 TAB ORALLY ONCE DAILY TAKING DIGOXIN 250 MCG TABLET 1 TABLET ORALLY ONCE A DAY TAKING PREDNISONE 10 MG TABLET 1 TABLET ORALLY ONCE A DAY TAKING ATORVASTATIN CALCIUM 10 MG TABLET 1 TABLET ORALLY ONCE A DAY TAKING LEVOTHYROXINE SODIUM 75 MCG TABLET 1 TABLET ORALLY ONCE A DAY TAKING GABAPENTIN 600 MG TABLET 1 TABLET ORALLY QID TAKING ALBUTEROL SULFATE (2.5 MG/3ML) 0.083% NEBULIZATION SOLUTION 3 ML INHALATION THREE TIMES DAILY TAKING SYMBICORT 80-4.5 MCG/ACT AEROSOL 2 PUFFS INHALATION TWICE A DAY TAKING SPIRIVA HANDIHALER 18 MCG CAPSULE INHALATION TAKING NORCO 10-325 MG TABLET 1 TABLET ORALLY EVERY 6 HRS PRN PAIN MDD=4 CHRONIC PAIN NOT-TAKING VIT CALCIUM CITRATE + D 250-62.5 MG TABLET ORALLY MEDICATION LIST REVIEWED AND RECONCILED WITH THE PATIENT PAST MEDICAL HISTORY LUMG CANCER PNEUMONIA 10/20/16 ALLERGIES LOBSTER: ANAPHYLAXIS: ALLERGY SURGICAL HISTORY LEFT UPPER LOBE OF LUNG SURGERY FOR CANCER/ LEFT THORACOTOMY PERICARDIAL WINDOW -2012 DRAINAGE OF HEART SAC BROCHOSCOPY AND MEDIASTINOSCOPY ENDOSCOPY AND UPPER GI BALLOON PACEMAKER -2013 HOSPITALIZATION/MAJOR DIAGNOSTIC PROCEDURE JUST HERE NOVEMBER 20 WITH ACUTE PNEUMONIA (IN FOR 1 WEEK) / ALSO HAD 2 UNITS OF BLOOD REVIEW OF SYSTEMS REVIEWED BY: PROVIDER: ANGELIQUE FAJARDO 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 CONSTITUTIONAL: ANY CHANGE IN YOUR MEDICAL CONDITION? NO . CHILLS NO . FEVER NO . INFECTION: DO YOU HAVE NEW INFECTIONS? NO . DO YOU HAVE HISTORY OF MRSA? NO . MUSCULOSKELETAL: ANY NEW PATTERNS OF PAIN OR NUMBNESS? NO . GASTROENTEROLOGY: ANY NEW CHANGE IN BOWEL CONTROL? NO . GENITOURINARY: ANY NEW CHANGE IN BLADDER CONTROL? NO . IS THERE A CHANCE YOU COULD BE ? NO . HEMATOLOGY/LYMPH: DO YOU TAKE ANY BLOOD THINNERS? (FOR EXAMPLE- COUMADIN, PLAVIX, AGGRENOX, PLATEL, PRADAXA, OR XARELTO) NO . WHEN WAS YOUR LAST DOSE? DATE: TIME: . NEUROLOGY: HAVE YOU FALLEN IN THE PAST 6 MONTHS? NO . ANY NEW EXTREMITY NUMBNESS OR WEAKNESS? NO . CARDIOLOGY: DO YOU HAVE A PACEMAKER OR DEFIBRILLATOR? YES, PACEMAKER . RESPIRATORY: HAVE YOU BEEN SICK IN THE PAST WEEK? NO . FEVER NO . FLU LIKE SYMPTOMS? NO . CHRONIC LUNG DISEASES YES - ON CONSTANT OXYGEN 2L/NC . COUGH YES - . INTEGUMENTARY: DO YOU HAVE ANY RASHES OR OPEN SORES? NO . ALLERGIC/IMMUNO: ARE YOU ALLERGIC TO SHELLFISH OR IV DYE? YES, LOBSTER . ANY NEW ALLERGIES? NO . PSYCHIATRIC: DO YOU HAVE THOUGHTS OF HURTING YOURSELF OR SOMEONE ELSE? NO . ARE YOU ABUSED, NEGLECTED, OR IN AN UNSAFE ENVIRONMENT? NO . ENDOCRINOLOGY: ARE YOU DIABETIC? NO . OTHER: DO YOU NEED ANY PRESCRIPTIONS? NO . IF YES, PLEASE LIST: ____ . ANY NEW PROBLEMS WITH YOUR MEDICATIONS? NO . WHEN DID YOU LAST EAT? ____ . WHEN DID YOU LAST DRINK? ____ . WHAT DID YOU LAST DRINK? ____ . NAME OF PERSON DRIVING YOU HOME? ____ . DO YOU HAVE ANY OTHER QUESTIONS OR CONCERNS NO . VITAL SIGNS WT 126 LBS, HT 63 IN, BMI 22.32 INDEX, BP 103/69 MM HG, HR 73 /MIN, RR 16 /MIN, TEMP 97.5 F, OXYGEN SAT % 94, REVIEWED BY: EM. EXAMINATION GENERAL EXAMINATION: PSYCHCOLOR PALE, ALERT , ORIENTED X 3 , ORIENTED X 3 , APPROPRIATE MOOD AND AFFECT , SMILING AND TALKATIVE. CHEST:STERNAL TENDERNESS, THORACIC KYPHOSIS AND BARREL CHESTED. LUNGS:DECREASED AIR ENTRY AT BASES, SCATTERED WHEEZES BILATERALLY. INTERMITTANT DRY COUGH. HEART:HEART RATE REGULAR, II/ SYSTOLIC MURMUR. 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 CONTINE ACTIVITY TOLERATED, ISTOP REGISTRY REVIEWED AND DEMNOSTRATES COMPLLIANCE. BRINGS IN MEDICATIONS WHICH IS APPROPRIATE FOR WHAT WAS DISPENSED. RECENT URINE TOXICOLOGY REVIEWED. NO UNAUTHORIZED MEDICATIONS. NO ILLICIT SUBSTANCES AND PRESCRIBED MEDICATIONS WERE PRESENT. PROCEDURE CODES FA211 ESTABILISHED PATIENT [facility] CHARGE G8730 PAIN ASSESS POS TOOL F/U PLAN DOC G8427 DOC MEDS VERIFIED W/PT OR RE DISPOSITION & COMMUNICATION FOLLOW UP 7 WEEKS (REASON: CHEST WALL PAIN) ELECTRONICALLY SIGNED BY DIDI CHUNG ON 03/25/2017 AT 11:04 AM EDT DISCLAIMER : THIS IS A VISIT SUMMARY EXTRACTED FROM THE [employer] CHART. IT IS NOT A COPY OF THE [employer] PROGRESS NOTE. MTDD
== END | disposition home or self-care (01) ==
LOC: M PAIN 09:20
PROVIDERS: ATTEND Nurse Practitioner Family
DX: G89.29 Other chronic pain (principal); M54.14 Radiculopathy, thoracic region; Z85.118 Personal history of other malignant neoplasm of bronchus and lung; Z95.0 Presence of cardiac pacemaker; Z79.899 Other long term (current) drug therapy; Z79.51 Long term (current) use of inhaled steroids; Z79.82 Long term (current) use of aspirin; Z91.013 Allergy to seafood

== ENCOUNTER → 2017-04-09 | Outpatient (REF) | payer MEDICARE, MEDICAID | LOC: M LAB REF 16:15 | PROVIDERS: ATTEND Family Medicine | DX: Z00.00 Encounter for general adult medical examination without abnormal findings (principal); Z12.11 Encounter for screening for malignant neoplasm of colon ==

== ENCOUNTER → 2017-04-10 | Outpatient (CLI) | payer MEDICARE, MEDICAID, OTHER ==
[2017-04-10 16:06] LABS: BASO % 0.2 % (0.0-1.0); EOS # 0.1 K/mm3 (0.0-0.50); EOS % 1.1 % (0.0-3.0); LYMPH # 0.7 K/mm3 (1.5-4.5); LYMPH % 7.5 % (24.0-44.0); MEAN CORPUSCULAR HEMOGLOBIN 27.7 pg (27.0-33.0); MEAN CORPUSCULAR HGB CONC 31.6 g/dl (32.0-36.5); MEAN CORPUSCULAR VOLUME 87.6 fl (80.0-96.0); MONO # 0.4 K/mm3 (0.0-0.8); MONO % 4.2 % (0.0-5.0); NEUTROPHILS # 8.2 K/mm3 (1.8-7.7); RED CELL DISTRIBUTION WIDTH 14.9 % (11.5-14.5); WHITE BLOOD COUNT 9.5 K/mm3 (4.0-10.0)
[2017-04-10 16:45] LABS: ALBUMIN/GLOBULIN RATIO 0.73 (1.00-1.93); ALKALINE PHOSPHATASE 130 U/L (45-117); ALT/SGPT 42 U/L (12-78); ANION GAP 8 MEQ/L (8-16); AST/SGOT 25 U/L (15-37); BILIRUBIN,TOTAL 0.1 MG/DL (0.2-1.0); BLOOD UREA NITROGEN 20 MG/DL (7-18); CALCIUM LEVEL 8.8 MG/DL (8.8-10.2); CARBON DIOXIDE LEVEL 30 MEQ/L (21-32); CHLORIDE LEVEL 104 MEQ/L (98-107); CREATININE FOR GFR 0.68 MG/DL (0.55-1.02); GLOMERULAR FILTRATION RATE > 60.0 (>39); GLUCOSE, FASTING 155 MG/DL (83-110); POTASSIUM SERUM 4.5 MEQ/L (3.5-5.1); SODIUM LEVEL 142 MEQ/L (136-145); TOTAL PROTEIN 7.1 GM/DL (6.4-8.2)
== END ==
LOC: M LAB 15:41
PROVIDERS: ATTEND Family Medicine
DX: E03.9 Hypothyroidism, unspecified (principal); I10 Essential (primary) hypertension; D64.9 Anemia, unspecified

== ENCOUNTER → 2017-04-25 | Outpatient (CLI) | payer MEDICARE, MEDICAID ==
[~2017-04-25] MED LIST changes: +ISOVUE-370 76% 100ML VIAL (Q9967) As Ordered ONE
--- NOTE | 2017-04-25 09:04 | REP ---
CT SCAN WITHOUT CONTRAST: HISTORY: COPD. History of left lung carcinoma. TECHNIQUE: The exam could not be accomplished with IV contrast because of our inability to establish IV access. Comparison CT study October 20, 2016. CT FINDINGS: The previously noted large cavitary lesion in the upper portion of the left hemithorax persists essentially unchanged. There is upward retraction of the left hilus as before. Perihilar fibrosis is seen. There is some upper lobe bronchiectasis. There is parenchymal collapse surrounding the left upper lobe bronchus essentially unchanged. Fibrotic changes are seen in the infrahilar region of the left lower lobe. Aeration is somewhat improved in the left lower lobe compared to the 10/20/2016 study. The left upper lobe appears to have been resected. The right lung is hyperinflated with emphysematous changes extensively in the upper lobe distribution. No new right lung infiltrate. No pulmonary mass or new nodule is appreciated. Pacemaker leads are seen in the right heart. No hilar or mediastinal mass or adenopathy is observed. No axillary or extrathoracic mass or adenopathy is seen. No adrenal lesion is seen. There is a small quantity of right pleural fluid which is a new finding. IMPRESSION: Some improved aeration in the left lower lobe. Otherwise stable left hemithorax changes. Small quantity of right pleural effusion which has developed. Emphysematous changes right upper lobe. No other significant change. Signed by Fahad Kamara MD 04/25/2017 03:18 P
== END ==
LOC: M RAD 07:53
PROVIDERS: ATTEND Family Medicine
DX: J44.9 Chronic obstructive pulmonary disease, unspecified (principal); Z85.118 Personal history of other malignant neoplasm of bronchus and lung

== ENCOUNTER 2017-05-01 10:21 | Inpatient (IN) | payer MEDICARE, MEDICAID ==
[~2017-05-01] VITALS: Ht 160 cm; Wt 55.6 kg
[~2017-05-01 10:21] MED LIST changes: -ALBU83IN INH; -BACITAB PO; -ISOVUE-370 76% 100ML VIAL (Q9967) As Ordered ONE; -NEUR600T PO; -VITAD1000T PO
[2017-05-01] MEDS ORDERED: ATEN25TA PO (11:04)
[2017-05-01 11:11] LABS: MEAN CORPUSCULAR HGB CONC 30.5 g/dl (32.0-36.5); MEAN CORPUSCULAR VOLUME 88.6 fl (80.0-96.0); PLATELET COUNT, AUTOMATED 338 10^3/uL (150-450); WHITE BLOOD COUNT 13.6 10^3/uL (4.0-10.0)
[2017-05-01 11:12] LABS: BASO % 0.1 % (0.0-1.0); EOS # 0.1 10^3/uL (0.0-0.50); EOS % 0.7 % (0.0-3.0); IMMATURE GRANULOCYTE % 0.4 % (0-0); LYMPH % 7.3 % (24.0-44.0); MONO # 0.6 10^3/uL (0.0-0.8); MONO % 4.6 % (0.0-5.0); NEUTROPHILS # 11.9 10^3/uL (1.8-7.7); NEUTROPHILS % 86.9 % (36.0-66.0)
[2017-05-01] MEDS ORDERED: methylPREDNISolone INJ 125 MG/2 ML VIAL (J2930) IV ONE (11:15)
[2017-05-01] MEDS ORDERED: IPRATROPIUM 0.5MG/ALBUTEROL 2.5MG INH SOL UD 3ML (DUONEB)(J7620) NEB ONE (11:15)
[2017-05-01 11:39] LABS: ALBUMIN 2.6 GM/DL (3.2-5.2); ALBUMIN/GLOBULIN RATIO 0.68 (1.00-1.93); ALKALINE PHOSPHATASE 90 U/L (45-117); ALT/SGPT 17 U/L (12-78); ANION GAP 5 MEQ/L (8-16); AST/SGOT 16 U/L (15-37); BILIRUBIN,DIRECT 0.2 MG/DL (0.0-0.2); BILIRUBIN,TOTAL 0.5 MG/DL (0.2-1.0); BLOOD UREA NITROGEN 11 MG/DL (7-18); CALCIUM LEVEL 7.9 MG/DL (8.8-10.2); CARBON DIOXIDE LEVEL 30 MEQ/L (21-32); CHLORIDE LEVEL 105 MEQ/L (98-107); CREATININE FOR GFR 0.54 MG/DL (0.55-1.02); GLOMERULAR FILTRATION RATE > 60.0 (>39); GLUCOSE, FASTING 94 MG/DL (83-110); SODIUM LEVEL 140 MEQ/L (136-145); TOTAL PROTEIN 6.4 GM/DL (6.4-8.2)
--- NOTE | 2017-05-01 11:44 | REP ---
CHEST, TWO VIEWS: HISTORY: Dyspnea. COMPARISON: 10/20/2016. There is elevation of the left hemidiaphragm. There is loss of volume in the left hemithorax. A cavitary lesion is present in the left upper lobe. Linear densities are present in the left upper and lower lobe consistent with scarring. Patchy density is present in the right lower lobe consistent with atelectasis or infiltrate. The heart is normal in size. The pulmonary vasculature is normal in appearance. There is an old compression fracture of a mid thoracic vertebral body. A cardiac pacemaker is present. IMPRESSION: 1. Left upper lobe cavitary lesion unchanged compared to the previous study. 2. Left upper and lower lobe scarring. 3. Right lower lobe atelectasis or infiltrate. Signed by Shawn Ruff MD 05/01/2017 12:00 P
--- NOTE | 2017-05-01 12:46 | REP ---
CT of the chest with IV contrast: Comparison is 04/25/2017. The patient has history of lung carcinoma and left upper lobectomy. There is a large air space superiorly in the left hemithorax which could be postsurgical loculated pneumothorax or large cavitary lesion. Is unchanged. There is circumferential pleural thickening surrounding this large air space. Inferiorly in the left lower lobe there is an infiltrate. This has increased in size from 04/25/2017. There are new subsegmental infiltrates laterally in the right upper lobe. There are new subsegmental infiltrates laterally in the right lower lobe. There is no mediastinal or right hilar adenopathy. The left hilus is obscured by postsurgical changes. There are no axillary, enlarged nodes. The visualized upper abdominal contents are unremarkable. There is no adrenal mass. Impression: Postsurgical changes in the left hemithorax as described with a persisting large air space superiorly in the left hemithorax. The infiltrate in the left lower lobe has increased. Subsegmental infiltrates in the right upper lobe and right lower lobe that are new. Signed by Satish Moncada MD 05/01/2017 12:37 P
[2017-05-01 12:48] LABS: BANDS 1 % (< 11)
[2017-05-01 12:50] LABS: POIKILOCYTOSIS 1+
[2017-05-01] MEDS ORDERED: DOXYCYCLINE HYCLATE 100 MG in D5W MINI-BAG PLUS 100 ML IV ONE (14:00)
[2017-05-01] MEDS ORDERED: FUROSEMIDE 40 MG/4 ML VIAL (J1940) IV ONE (14:00)
[2017-05-01] MEDS ORDERED: ALBU83IN INH (15:05)
[2017-05-01] MEDS ORDERED: NEUR600T PO (15:05)
[2017-05-01] MEDS ORDERED: PRED10TA2 PO (15:05)
[2017-05-01] MEDS ORDERED: VITAD1000T PO (15:05)
[2017-05-01] MEDS ORDERED: LORazepam 2 MG/ML VIAL (J2060) IM PRN (17:15)
--- NOTE | 2017-05-01 18:18 | HPEPDOC ---
General Date of Admission 05-01-17 Chief Complaint The patient is a 72-year-old female admitted with a reason for visit of Severe Diff Breathing. History of Present Illness 72 y/o female with past medical hx of lung cancer s/p lobectomy in 2013, s/p chemo and radiation, hypothyroidism, COPD, hx a. fib s/p pacemaker, COPD who presents with the chief complaint of shortness of breath that began this morning when she woke up, the patient states that she attempted to increase her home oxygen of 2 L to 3 an attempt to alleviate the shortness of breath however this was not successful and then she called EMS. The patient states that she has a chronic cough but that within the past 2 days she has noticed a progressing and will include yellow/greenish sputum sometimes with bright red blood that she attributes to irritation from excessive and forceful coughing to clear her secretions. She denied experiencing fever, nausea vomiting, diarrhea, pain with urination or blood in her urine, abdominal pain, night sweats, generalized muscle aches or chills. She states that this is always how she feels when she gets an infection in her lungs. She states that the shortness of breath is not worsened with laying flat, at nighttime when she is in bed, or with exertion. She does state that she is prescribed Symbicort but does not use it as a "" does not work "", she does use a nebulizer once a day for shortness of breath even though she states she is supposed to be using it 3 times a day but feels that she does not need to use it that often. Denies any change in appetite or weight loss. Home Medications Scheduled Albuterol Sulfate (Albuterol Sulfate) 2.5 Mg/3 Ml Nebu, 2.5 MG INH DAILY, ( Reported) Alendronate Sodium (Alendronate Sodium) 70 Mg Tab, 70 MG PO QWEEK, (Reported) FRIDAY Aspirin (Aspirin 81) 81 Mg Tab, 81 MG PO DAILY, (Reported) Atenolol (Atenolol) 25 Mg Tab, 12.5 MG PO DAILY, (Reported) Atorvastatin Calcium (Atorvastatin Calcium) 10 Mg Tab, 10 MG PO QHS, (Reported) Budesonide/Formoterol (Symbicort 160-4.5 Mcg/Act) 60 Puff/Inhaler Aers, 2 PUFF INH BID Digoxin (Digoxin) 0.25 Mg Tab, 250 MCG PO DAILY, (Reported) Gabapentin (Neurontin) 600 Mg Tab, 600 MG PO QID, (Reported) Levothyroxine Sodium (Synthroid) 75 Mcg Tab, 75 MCG PO DAILY, (Reported) Prednisone (Prednisone) 10 Mg Tab, 10 MG PO DAILY, (Reported) Vitamin D (Vitamin D3) 1,000 Units Tab, 1,000 UNITS PO BID, (Reported) Scheduled PRN Acetaminophen/Hydrocodone (Hydrocodone/Acetaminophen 10-325 mg) 1 Tab Tab, 1 TAB PO Q6H PRN for PAIN, (Reported) Albuterol Sulfate (Albuterol Sulfate) 2.5 Mg/0.5 Ml Neb, 2.5 MG INH Q6H PRN for SHORTNESS OF BREATH, (Reported) Allergies Coded Allergies: Lobster (Verified Allergy, Severe, ANAPHYLAXIS, 05/30/13) ANAPHYLAXIS Past Medical History Medical History lung cancer s/p resection 2012 htn hx a fib s/p pacemaker 2014 hypothyroid COPD Surgical History lobectomy 2012 s/p chemo and radiation Family History Significant Family History: No pertinent family hx Social History * Smoker: former Smoker (quit 13 years ago, .5 ppd for >10 years. 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 ) Alcohol: Denies Drugs: denies Review of Symptoms Constitutional: Denies: Chills, Fever Eyes: Denies: Pain, Vision change ENT: Denies: Head Aches Skin: Denies: Rash, Lesions Pulmonary: Reports: Dyspnea, Cough, Denies: Pleuritic Chest Pain Cardiovascular: Denies: Chest Pain, Palpitations, Orthopnea, Edema, Lt Headedness Gastrointestinal: Denies: Nausea, Vomiting, Abdominal Pain, Diarrhea, Constipation Genitourinary: Denies: Dysuria Neurological: Denies: Weakness, Numbness Psych: Reports: Mood Normal Physical Examination General Exam: Positive: Alert, Cooperative, Mild Distress Eye Exam: Positive: Conjunctiva & lids normal, EOMI, Negative: Sclera icteric, Ptosis ENT Exam: Positive: Mucous membr. moist/pink, Pharynx Normal, Tongue Midline, Nares Patent, Negative: Pharyngeal Edema Neck Exam: Positive: Supple, Negative: JVD Chest Exam: Positive: Clear to auscultation, Diminished, Negative: Rales, Rhonchi, Wheezing Heart Exam: Positive: Rate Normal, Normal S1, Normal S2, Negative: Gallops, Murmurs, Rubs Telemetry: Positive: No significant arrhythmia Abdomen Exam: Positive: Normal bowel sounds, Soft, Negative: Tenderness, Hepatospenomegaly Extremity Exam: Negative: Clubbing, Cyanosis, Edema Vital Signs Vital Signs Date Time Temp Pulse Resp B/P (MAP) Pulse Ox O2 Delivery O2 Flow Rate FiO2 05/01/17 17:00 102 109/70 (83) 98 05/01/17 16:18 99.1 24 Venturi Mask 35 Laboratory Data Labs 24H Laboratory Tests 2 05/01/17 10:51: White Blood Count 13.6H, Red Blood Count 3.41L, Hemoglobin 9.2L, Hematocrit 30.2L, Mean Corpuscular Volume 88.6, Mean Corpuscular Hemoglobin 27.0, Mean Corpuscular Hemoglobin Concent 30.5L, Red Cell Distribution Width 17.0H, Platelet Count 338, Neutrophils (%) (Auto) 86.9H, Lymphocytes (%) (Auto) 7.3L, Monocytes (%) (Auto) 4.6, Eosinophils (%) (Auto) 0.7, Basophils (%) (Auto) 0.1, Neutrophils # (Auto) 11.9H, Lymphocytes # (Auto) 1.0L, Monocytes # (Auto) 0.6, Eosinophils # (Auto) 0.1, Basophils # (Auto) 0.0, Immature Granulocyte # (Auto) 0.1H, Neutrophils 82H, Band Neutrophils 1, Lymphocytes (Manual) 10L, Monocytes ( Manual) 7, Platelet Estimate NORMAL, Poikilocytosis 1+, Anion Gap 5L, Glomerular Filtration Rate > 60.0, Lactic Acid Level 1.4, Calcium Level 7.9L, Aspartate Amino Transf (AST/SGOT) 16, Alanine Aminotransferase (ALT/SGPT) 17, Alkaline Phosphatase 90, Total Bilirubin 0.5, Direct Bilirubin 0.2, Total Creatine Kinase 49, Creatine Kinase MB 1.0, Creatine Kinase MB Relative Index 2.04, Troponin I < 0.02, OG-Upe-P-Type Natriuretic Peptide 606H, Total Protein 6.4, Albumin 2.6L, Albumin/Globulin Ratio 0.68L CBC/BMP Laboratory Tests 05/01/17 10:51 Red Blood Count 3.41 L, Mean Corpuscular Volume 88.6, Mean Corpuscular Hemoglobin 27.0, Mean Corpuscular Hemoglobin Concent 30.5 L, Red Cell Distribution Width 17.0 H, Neutrophils (%) (Auto) 86.9 H, Lymphocytes (%) (Auto ) 7.3 L, Monocytes (%) (Auto) 4.6, Eosinophils (%) (Auto) 0.7, Basophils (%) ( Auto) 0.1, Neutrophils # (Auto) 11.9 H, Lymphocytes # (Auto) 1.0 L, Monocytes # (Auto) 0.6, Eosinophils # (Auto) 0.1, Basophils # (Auto) 0.0 Problems (1) Shortness of breath Status: Acute Problem Text: CXR in ED showed BONITA cavitary lesion unchanged from prior studies , BONITA scarring, RLL atelectasis vs infiltrate Chest CT shows LLL infiltrate increase and RUL and RLL infiltrate new likely secondary to community acquired pneumonia begin ceftriaxone 1 g IV q24h and azithromycin 500 IVq24h sputum cultures pending blood cx pending c/w O2 titrate 88-92% begin fluids, NS at 100 begin duoneb tx and c/w home prednisone and c/w pt home inhaler medication (2) History of atrial fibrillation Status: Chronic Response to Treatment: Stable Problem Text: NSR in ED s/p pacemaker in 2014 pt is not on home anticoagulation therapy c/w home aspirin and digoxin admit to telemetry floor c/w home atenolol sinus tachy in ED (3) Hx of cancer of lung Status: Chronic Response to Treatment: Stable Problem Text: stable s/p lobectomy 2012 and chemo/radiation (4) HTN (hypertension) Status: Chronic Response to Treatment: Stable Problem Text: c/w home atenolol stable (5) COPD (chronic obstructive pulmonary disease) Status: Chronic Response to Treatment: Stable Problem Text: duoneb therapy O2 titrate 88-92% c/w home prednisone 10 mg daily-do not need to stress dose at this time, could consider if pts clinical appearance worsens (6) DVT prophylaxis Status: Acute Response to Treatment: Stable Problem Text: lovenox 40 SQ daily Plan / VTE VTE Prophylaxis Ordered?: Yes GME ATTESTATION GME ATTESTATION My preceptor for this patient encounter was physically present in the building during the encounter and was fully available. As needed, all aspects of the patient interview, examination, medical decision making process, and medical care plan development were reviewed and approved by the preceptor. Preceptor is aware and concurs with the plan as stated in the body of this note and will attest to such by his/her cosignature. ATTENDING NOTE I have seen and examined the above patient and agree with the H and P as documented above. LISBETH JESUS DO May 01, 2017 18:18 ISABEL KOVACS May 01, 2017 21:06
[2017-05-01] MEDS ORDERED: SODIUM CHLORIDE 0.9% 1000 ML IV ONE (19:30)
[2017-05-01] MEDS: NS 1,000 ML IV SCH (20:31)
[2017-05-01] MEDS: cefTRIAXone SOD 1 GM in D5W 50 ML IV SCH (20:31)
[2017-05-01] MEDS: GABAPENTIN 300 MG CAP PO SCH (20:31)
[2017-05-01] MEDS: ATORVASTATIN 10 MG TAB PO SCH (20:31)
--- NOTE | 2017-05-01 20:48 | ECGEPIP ---
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
[2017-05-01] MEDS: SYMBICORT 160/4.5MCG INHALER 6GM INH SCH (21:00)
[2017-05-01 21:05] VITALS: BP 117/70
[2017-05-01] MEDS: AZITHROMYCIN INJ 500 MG, VIAL MATE ADAPTER 1 EACH in D5W 250 ML IV SCH (22:16)
[2017-05-01 23:59] VITALS: BP 101/62
[2017-05-02 04:00] VITALS: BP 94/53
[2017-05-02] MEDS: NS 1,000 ML IV SCH ×2 (05:12→15:50)
[2017-05-02] MEDS: LEVOTHYROXINE 75MCG TABLET (0.075MG) PO SCH (05:12)
[2017-05-02 05:54] LABS: MEAN CORPUSCULAR HGB CONC 31.2 g/dl (32.0-36.5); MEAN CORPUSCULAR VOLUME 86.5 fl (80.0-96.0); PLATELET COUNT, AUTOMATED 380 10^3/uL (150-450); RED CELL DISTRIBUTION WIDTH 16.8 % (11.5-14.5); WHITE BLOOD COUNT 13.5 10^3/uL (4.0-10.0)
[2017-05-02 06:00] LABS: ADD MANUAL DIFFER YES; DIFF SLIDE NUMBER 73
[2017-05-02 06:24] LABS: ANION GAP 7 MEQ/L (8-16); BLOOD UREA NITROGEN 16 MG/DL (7-18); CALCIUM LEVEL 8.6 MG/DL (8.8-10.2); CARBON DIOXIDE LEVEL 28 MEQ/L (21-32); CHLORIDE LEVEL 104 MEQ/L (98-107); CREATININE FOR GFR 0.59 MG/DL (0.55-1.02); GLOMERULAR FILTRATION RATE > 60.0 (>39); GLUCOSE, FASTING 121 MG/DL (83-110); POTASSIUM SERUM 3.8 MEQ/L (3.5-5.1); SODIUM LEVEL 139 MEQ/L (136-145)
[2017-05-02 06:45] LABS: ANISOCYTOSIS 1+
[2017-05-02] MEDS: SYMBICORT 160/4.5MCG INHALER 6GM INH SCH ×2 (07:02→20:48)
[2017-05-02] MEDS ORDERED: ISOVUE-370 76% 100ML VIAL (Q9967) ONE (07:46)
[2017-05-02 08:00] VITALS: BP 111/65
[2017-05-02] MEDS: ENOXAPARIN 40 MG/0.4 ML SYRINGE (J1650) SC SCH (09:00)
--- NOTE | 2017-05-02 09:16 | IPNPDOC ---
Subjective Date Seen The patient was seen on 05/02/17. Subjective Chief Complaint/HPI The patient is a 72-year-old female admitted with a reason for visit of CAP. General: Denies: Chills, Night Sweats Constitutional: Denies: Chills, Fever, Malaise, Night Sweats Eyes: Denies: Pain ENT: Denies: Head Aches Pulmonary: Reports: Dyspnea (states SOB is better from presentation to ED), Cough, Denies: Pleuritic Chest Pain Cardiovascular: Denies: Chest Pain, Palpitations Gastrointestinal: Denies: Nausea, Vomiting Genitourinary: Denies: Dysuria Neurological: Denies: Weakness, Numbness Psych: Reports: Mood Normal Objective Physical Examination General Exam: Positive: Alert, Cooperative, Moderate Distress (labored from working with PT moments earlier, using acc. muscle of resp.) Eye Exam: Positive: Conjunctiva & lids normal, EOMI ENT Exam: Positive: Mucous membr. moist/pink, Pharynx Normal, Tongue Midline, Nares Patent Neck Exam: Positive: Supple Chest Exam: Positive: Clear to auscultation, Wheezing (end exp diffuse ), Diminished, Negative: Rales, Rhonchi Heart Exam: Positive: Rate Normal, Normal S1, Normal S2 Telemetry: Positive: No significant arrhythmia Abdomen Exam: Positive: Normal bowel sounds, Soft, Negative: Tenderness, Hepatospenomegaly Extremity Exam: Negative: Clubbing, Cyanosis, Edema Psych Exam: Positive: Mental status NL, Oriented x 3 Assessment /Plan Problems (1) Shortness of breath Status: Acute Problem Text: Pt had just worked with PT upon examination and was very SOB, exclaimed "this is almost as bad as yesterday when I called the ED", was very labored using Acc. muscles resp., will give breathing tx now., end exp wheeze appreciated on lung exam., sat 95% on 2 L. CXR in ED showed BONITA cavitary lesion unchanged from prior studies, BONITA scarring , RLL atelectasis vs infiltrate Chest CT shows LLL infiltrate increase and RUL and RLL infiltrate new likely secondary to community acquired pneumonia can c/w ceftriaxone 1 g IV q24h and azithromycin 500 IVq24h. sputum cultures pending blood cx pending c/w O2 titrate 88-92% c/w NS at 100, bolus if necessary for soft BP begin duoneb tx and c/w home prednisone and c/w pt home inhaler medication (2) History of atrial fibrillation Status: Chronic Response to Treatment: Stable Problem Text: NSR in ED and overnight some episodes of sinus tachy. no chest discomfort on ROS s/p pacemaker in 2014 pt is not on home anticoagulation therapy c/w home aspirin and digoxin c/w home atenolol (3) Hx of cancer of lung Status: Chronic Response to Treatment: Stable Problem Text: stable s/p lobectomy 2012 and chemo/radiation (4) HTN (hypertension) Status: Chronic Response to Treatment: Stable Problem Text: a bit soft BP today 94/53 c/w home atenolol w/hold parameters stable (5) COPD (chronic obstructive pulmonary disease) Status: Chronic Response to Treatment: Stable Problem Text: 95% on 2L currently c/w duoneb therapy c/w O2 titrate 88-92% c/w home prednisone 10 mg daily-do not need to stress dose at this time, could consider if pts clinical appearance worsens (6) Chronic respiratory failure with hypoxia Status: Chronic Response to Treatment: Stable Problem Text: will continue with duoneb and O2 therapy c/w pts home inhaler (7) DVT prophylaxis Status: Acute Response to Treatment: Stable Problem Text: lovenox 40 SQ daily Plan/VTE VTE Prophylaxis Ordered?: Yes VS, I&O, 24H, [facility] Vital Signs/I&O Vital Signs Date Time Temp Pulse Resp B/P (MAP) Pulse Ox O2 Delivery O2 Flow Rate FiO2 05/02/17 04:00 Nasal Cannula 2.0 05/02/17 04:00 97.6 70 20 94/53 (67) 95 05/01/17 16:18 35 I&O- Last 24 Hours up to 6 AM 05/03/17 06:00 Intake Total 0 ml Output Total 0 ml Balance 0 ml Laboratory Data 24H LABS Laboratory Tests 2 05/01/17 10:51: White Blood Count 13.6H, Red Blood Count 3.41L, Hemoglobin 9.2L, Hematocrit 30.2L, Mean Corpuscular Volume 88.6, Mean Corpuscular Hemoglobin 27.0, Mean Corpuscular Hemoglobin Concent 30.5L, Red Cell Distribution Width 17.0H, Platelet Count 338, Neutrophils (%) (Auto) 86.9H, Lymphocytes (%) (Auto) 7.3L, Monocytes (%) (Auto) 4.6, Eosinophils (%) (Auto) 0.7, Basophils (%) (Auto) 0.1, Neutrophils # (Auto) 11.9H, Lymphocytes # (Auto) 1.0L, Monocytes # (Auto) 0.6, Eosinophils # (Auto) 0.1, Basophils # (Auto) 0.0, Immature Granulocyte # (Auto) 0.1H, Neutrophils 82H, Band Neutrophils 1, Lymphocytes (Manual) 10L, Monocytes ( Manual) 7, Platelet Estimate NORMAL, Poikilocytosis 1+, Anion Gap 5L, Glomerular Filtration Rate > 60.0, Lactic Acid Level 1.4, Calcium Level 7.9L, Aspartate Amino Transf (AST/SGOT) 16, Alanine Aminotransferase (ALT/SGPT) 17, Alkaline Phosphatase 90, Total Bilirubin 0.5, Direct Bilirubin 0.2, Total Creatine Kinase 49, Creatine Kinase MB 1.0, Creatine Kinase MB Relative Index 2.04, Troponin I < 0.02, MZ-Het-M-Type Natriuretic Peptide 606H, Total Protein 6.4, Albumin 2.6L, Albumin/Globulin Ratio 0.68L 05/02/17 05:43: Neutrophils 94H, Lymphocytes (Manual) 3L, Monocytes (Manual) 3, Platelet Estimate NORMAL, Anion Gap 7L, Glomerular Filtration Rate > 60.0, Calcium Level 8.6L, Anisocytosis 1+, Blood Urea Nitrogen 16, Creatinine 0.59, Sodium Level 139 , Potassium Level 3.8, Chloride Level 104, Carbon Dioxide Level 28, Magnesium Level 2.4 CBC/BMP Laboratory Tests 05/01/17 10:51 Red Blood Count 3.41 L, Mean Corpuscular Volume 88.6, Mean Corpuscular Hemoglobin 27.0, Mean Corpuscular Hemoglobin Concent 30.5 L, Red Cell Distribution Width 17.0 H, Neutrophils (%) (Auto) 86.9 H, Lymphocytes (%) (Auto ) 7.3 L, Monocytes (%) (Auto) 4.6, Eosinophils (%) (Auto) 0.7, Basophils (%) ( Auto) 0.1, Neutrophils # (Auto) 11.9 H, Lymphocytes # (Auto) 1.0 L, Monocytes # (Auto) 0.6, Eosinophils # (Auto) 0.1, Basophils # (Auto) 0.0 05/02/17 05:43 Red Blood Count 3.71 L, Mean Corpuscular Volume 86.5, Mean Corpuscular Hemoglobin 27.0, Mean Corpuscular Hemoglobin Concent 31.2 L, Red Cell Distribution Width 16.8 H, Calcium Level 8.6 L Microbiology Microbiology 05/02/17 Blood Culture, Received Pending GME ATTESTATION GME ATTESTATION My preceptor for this patient encounter was physically present in the building during the encounter and was fully available. As needed, all aspects of the patient interview, examination, medical decision making process, and medical care plan development were reviewed and approved by the preceptor. Preceptor is aware and concurs with the plan as stated in the body of this note and will attest to such by his/her cosignature. LISBETH JESUS DO May 02, 2017 09:16
[2017-05-02] MEDS: ATENOLOL 12.5MG PER 1/2 TABLET PO SCH (09:38)
[2017-05-02] MEDS: GABAPENTIN 300 MG CAP PO SCH ×4 (09:38→20:27)
[2017-05-02] MEDS: predniSONE 10 MG TAB PO SCH (09:39)
[2017-05-02] MEDS: ASPIRIN 81 MG ENTERIC TAB PO SCH (09:39)
[2017-05-02] MEDS: DIGOXIN 0.25 MG TAB PO SCH (09:39)
[2017-05-02] MEDS: IPRATROPIUM 0.5MG/ALBUTEROL 2.5MG INH SOL UD 3ML (DUONEB)(J7620) NEB PRN ×3 (10:06→20:47)
[2017-05-02 12:00] VITALS: BP 119/63
[2017-05-02 16:00] VITALS: BP 109/60
[2017-05-02 20:00] VITALS: BP 111/64
[2017-05-02] MEDS: ATORVASTATIN 10 MG TAB PO SCH (20:27)
[2017-05-02] MEDS: cefTRIAXone SOD 1 GM in D5W 50 ML IV SCH (20:27)
[2017-05-02] MEDS: AZITHROMYCIN INJ 500 MG, VIAL MATE ADAPTER 1 EACH in D5W 250 ML IV SCH (21:15)
[2017-05-03] VITALS: BP 114/56
[2017-05-03] MEDS: NS 1,000 ML IV SCH ×2 (02:00→13:34)
[2017-05-03] MEDS: IPRATROPIUM 0.5MG/ALBUTEROL 2.5MG INH SOL UD 3ML (DUONEB)(J7620) NEB PRN ×3 (02:32→20:12)
[2017-05-03] MEDS: LEVOTHYROXINE 75MCG TABLET (0.075MG) PO SCH (04:58)
[2017-05-03 05:00] VITALS: BP 109/57
[2017-05-03 06:19] LABS: BASO % 0.2 % (0.0-1.0); EOS # 0.1 10^3/uL (0.0-0.50); EOS % 0.5 % (0.0-3.0); IMMATURE GRANULOCYTE % 0.6 % (0-0); LYMPH # 0.7 10^3/uL (1.5-4.5); LYMPH % 6.4 % (24.0-44.0); MEAN CORPUSCULAR HEMOGLOBIN 26.6 pg (27.0-33.0); MEAN CORPUSCULAR VOLUME 88.6 fl (80.0-96.0); MONO # 0.8 10^3/uL (0.0-0.8); MONO % 7.1 % (0.0-5.0); NEUTROPHILS # 9.1 10^3/uL (1.8-7.7); NEUTROPHILS % 85.2 % (36.0-66.0); PLATELET COUNT, AUTOMATED 360 10^3/uL (150-450); RED CELL DISTRIBUTION WIDTH 17.1 % (11.5-14.5); WHITE BLOOD COUNT 10.7 10^3/uL (4.0-10.0)
[2017-05-03 06:44] LABS: ANION GAP 8 MEQ/L (8-16); BLOOD UREA NITROGEN 20 MG/DL (7-18); CALCIUM LEVEL 8.7 MG/DL (8.8-10.2); CARBON DIOXIDE LEVEL 25 MEQ/L (21-32); CHLORIDE LEVEL 109 MEQ/L (98-107); CREATININE FOR GFR 0.54 MG/DL (0.55-1.02); GLOMERULAR FILTRATION RATE > 60.0 (>39); GLUCOSE, FASTING 92 MG/DL (83-110); MAGNESIUM LEVEL 2.1 MG/DL (1.8-2.4); POTASSIUM SERUM 3.8 MEQ/L (3.5-5.1); SODIUM LEVEL 142 MEQ/L (136-145)
[2017-05-03] MEDS: SYMBICORT 160/4.5MCG INHALER 6GM INH SCH ×2 (07:18→20:12)
[2017-05-03 08:00] VITALS: BP 116/60
[2017-05-03] MEDS: ATENOLOL 12.5MG PER 1/2 TABLET PO SCH (08:29)
[2017-05-03] MEDS: GABAPENTIN 300 MG CAP PO SCH ×4 (08:30→21:30)
[2017-05-03] MEDS: ASPIRIN 81 MG ENTERIC TAB PO SCH (08:30)
[2017-05-03] MEDS: predniSONE 10 MG TAB PO SCH (08:30)
[2017-05-03] MEDS: DIGOXIN 0.25 MG TAB PO SCH (08:30)
[2017-05-03] MEDS: ENOXAPARIN 40 MG/0.4 ML SYRINGE (J1650) SC SCH (08:33)
[2017-05-03] MEDS ORDERED: PNEUMOCOCCAL VACCINE 0.5ML SYRINGE(90732) PNEUMOVAX 23 IM ONE (09:00)
[2017-05-03] MEDS ORDERED: INFLUENZA VIRUS VACCINE HIGH DOSE 0.5 ML SYRINGE (90662) IM ONE (09:00)
--- NOTE | 2017-05-03 09:58 | IPNPDOC ---
Subjective Date Seen The patient was seen on 05/03/17. Subjective Chief Complaint/HPI The patient is a 72-year-old female admitted with a reason for visit of CAP. General: Denies: Chills, Night Sweats Constitutional: Reports: Malaise, Denies: Chills, Fever, Night Sweats, Weakness Eyes: Denies: Pain, Vision change, Conjunctivae inflammation ENT: Denies: Head Aches Skin: Denies: Rash, Lesions Pulmonary: Reports: Dyspnea, Cough, Denies: Pleuritic Chest Pain Cardiovascular: Reports: Orthopnea, Denies: Chest Pain, Palpitations Gastrointestinal: Denies: Nausea, Vomiting, Abdominal Pain Genitourinary: Denies: Dysuria Neurological: Denies: Weakness, Numbness Psych: Reports: Mood Normal Objective Physical Examination General Exam: Positive: Alert, Cooperative, Mild Distress (does not think she is at baseline yet), Negative: Moderate Distress Eye Exam: Positive: Conjunctiva & lids normal, EOMI ENT Exam: Positive: Mucous membr. moist/pink, Pharynx Normal, Tongue Midline, Nares Patent Neck Exam: Positive: Supple Chest Exam: Positive: Clear to auscultation, Wheezing (end exp diffuse ), Diminished, Negative: Rales, Rhonchi Heart Exam: Positive: Rate Normal, Normal S1, Normal S2 Telemetry: Positive: No significant arrhythmia Abdomen Exam: Positive: Normal bowel sounds, Soft, Negative: Tenderness, Hepatospenomegaly Extremity Exam: Negative: Clubbing, Cyanosis, Edema Psych Exam: Positive: Mental status NL, Oriented x 3 Assessment /Plan Problems (1) Shortness of breath Status: Acute Problem Text: pt states she is not at her baseline, still feels she is "tight" in her chest and easier made SOB than at baseline, molly. with ambulation Pt did work with PT one day ago and did well aside from being SOB requiring a breathing tx. afterward, however she did ambulate well from a mechanical perspective and is safe to go home after medically cleared LLL and BONITA end exp wheeze appreciated on lung exam., sat 95% on 2 L. CXR in ED showed BONITA cavitary lesion unchanged from prior studies, BONITA scarring , RLL atelectasis vs infiltrate Chest CT shows LLL infiltrate increase and RUL and RLL infiltrate new-WBC improved today likely secondary to community acquired pneumonia sputum culture- gram + cocci in pairs, clusters chains-likely staph./strep. infection c/w ceftriaxone 1 g IV q24h and azithromycin 500 IVq24h. blood cx - 24 hours c/w O2 titrate 88-92% c/w NS at 60, bolus if necessary for soft BP c/w duoneb tx and c/w home prednisone and c/w pt home inhaler medication (2) History of atrial fibrillation Status: Chronic Response to Treatment: Stable Problem Text: NSR on monitoring overnight rate in 80-90's no chest discomfort on ROS s/p pacemaker in 2014 pt is not on home anticoagulation therapy c/w home aspirin and digoxin will d/c atenolol at this time, pt required multiple duoneb treatments. Will begin Cardizem therapy. (3) Hx of cancer of lung Status: Chronic Response to Treatment: Stable Problem Text: stable s/p lobectomy 2012 and chemo/radiation (4) HTN (hypertension) Status: Chronic Response to Treatment: Stable Problem Text: a bit soft BP today 116/60 will d/c atenolol at this time, pt required multiple duoneb treatments. Will begin Cardizem therapy. stable (5) COPD (chronic obstructive pulmonary disease) Status: Chronic Response to Treatment: Stable Problem Text: Pt. does not feel she is near baseline, still SOB with smaller amounts of activity than her normal Was SOB after PT one day ago requiring duoneb tx. 95% on 2L currently c/w O2 titrate 88-92% c/w home prednisone 10 mg daily-do not need to stress dose at this time, could consider if pt's clinical appearance worsens (6) Chronic respiratory failure with hypoxia Status: Chronic Response to Treatment: Stable Problem Text: 95 % on 2L c/w duoneb and O2 therapy c/w pts home inhaler (7) DVT prophylaxis Status: Acute Response to Treatment: Stable Problem Text: lovenox 40 SQ daily Plan/VTE VTE Prophylaxis Ordered?: Yes VS, I&O, 24H, [facility] Vital Signs/I&O Vital Signs Date Time Temp Pulse Resp B/P (MAP) Pulse Ox O2 Delivery O2 Flow Rate FiO2 05/03/17 08:30 106 05/03/17 08:29 116/60 05/03/17 08:00 98.4 18 95 Nasal Cannula 2.0 05/01/17 16:18 35 I&O- Last 24 Hours up to 6 AM 05/04/17 06:00 Intake Total 300 ml Balance 300 ml Laboratory Data 24H LABS Laboratory Tests 2 05/03/17 05:53: White Blood Count 10.7H, Red Blood Count 3.16L, Hemoglobin 8.4L, Hematocrit 28.0L, Mean Corpuscular Volume 88.6, Mean Corpuscular Hemoglobin 26.6L, Mean Corpuscular Hemoglobin Concent 30.0L, Red Cell Distribution Width 17.1H, Platelet Count 360, Neutrophils (%) (Auto) 85.2H, Lymphocytes (%) (Auto) 6.4L, Monocytes (%) (Auto) 7.1H, Eosinophils (%) (Auto) 0.5, Basophils (%) (Auto) 0.2 , Neutrophils # (Auto) 9.1H, Lymphocytes # (Auto) 0.7L, Monocytes # (Auto) 0.8, Eosinophils # (Auto) 0.1, Basophils # (Auto) 0.0, Immature Granulocyte # (Auto) 0.1H, Nucleated Red Blood Cells % (auto) 0.0, Anion Gap 8, Glomerular Filtration Rate > 60.0, Blood Urea Nitrogen 20H, Creatinine 0.54L, Sodium Level 142, Potassium Level 3.8, Chloride Level 109H, Carbon Dioxide Level 25, Calcium Level 8.7L, Magnesium Level 2.1 CBC/BMP Laboratory Tests 05/03/17 05:53 Red Blood Count 3.16 L, Mean Corpuscular Volume 88.6, Mean Corpuscular Hemoglobin 26.6 L, Mean Corpuscular Hemoglobin Concent 30.0 L, Red Cell Distribution Width 17.1 H, Neutrophils (%) (Auto) 85.2 H, Lymphocytes (%) (Auto ) 6.4 L, Monocytes (%) (Auto) 7.1 H, Eosinophils (%) (Auto) 0.5, Basophils (%) ( Auto) 0.2, Neutrophils # (Auto) 9.1 H, Lymphocytes # (Auto) 0.7 L, Monocytes # ( Auto) 0.8, Eosinophils # (Auto) 0.1, Basophils # (Auto) 0.0, Calcium Level 8.7 L Microbiology Microbiology 05/03/17 Blood Culture, Received Pending 05/02/17 Blood Culture - Preliminary, Resulted No growth after 24 hours . All specim... 05/02/17 Gram Stain - Final, Resulted 05/02/17 Sputum Culture, Resulted Pending GME ATTESTATION GME ATTESTATION My preceptor for this patient encounter was physically present in the building during the encounter and was fully available. As needed, all aspects of the patient interview, examination, medical decision making process, and medical care plan development were reviewed and approved by the preceptor. Preceptor is aware and concurs with the plan as stated in the body of this note and will attest to such by his/her cosignature. LISBETH JESUS DO May 03, 2017 09:58
[2017-05-03 12:00] VITALS: BP 113/59
[2017-05-03] MEDS: PERCOCET 5MG/325MG TAB PO PRN (15:49)
[2017-05-03 16:00] VITALS: BP 100/52
[2017-05-03] MEDS: ATORVASTATIN 10 MG TAB PO SCH (19:55)
[2017-05-03] MEDS: cefTRIAXone SOD 1 GM in D5W 50 ML IV SCH (19:55)
[2017-05-03] MEDS: AZITHROMYCIN INJ 500 MG, VIAL MATE ADAPTER 1 EACH in D5W 250 ML IV SCH (21:29)
[2017-05-04] VITALS (8 sets, daily range): BP systolic 94–149; BP diastolic 58–67
[2017-05-04] MEDS: LEVOTHYROXINE 75MCG TABLET (0.075MG) PO SCH (05:20)
[2017-05-04] MEDS: PERCOCET 5MG/325MG TAB PO PRN ×3 (05:45→21:18)
[2017-05-04 06:19] LABS: BASO % 0.2 % (0.0-1.0); EOS # 0.1 10^3/uL (0.0-0.50); EOS % 0.8 % (0.0-3.0); IMMATURE GRANULOCYTE % 0.5 % (0-0); LYMPH # 0.6 10^3/uL (1.5-4.5); LYMPH % 5.4 % (24.0-44.0); MEAN CORPUSCULAR HGB CONC 30.9 g/dl (32.0-36.5); MEAN CORPUSCULAR VOLUME 87.6 fl (80.0-96.0); MONO # 0.8 10^3/uL (0.0-0.8); MONO % 7.3 % (0.0-5.0); NEUTROPHILS # 9.2 10^3/uL (1.8-7.7); NEUTROPHILS % 85.8 % (36.0-66.0); PLATELET COUNT, AUTOMATED 336 10^3/uL (150-450); RED CELL DISTRIBUTION WIDTH 17.2 % (11.5-14.5); WHITE BLOOD COUNT 10.8 10^3/uL (4.0-10.0)
[2017-05-04 06:37] LABS: ANION GAP 7 MEQ/L (8-16); BLOOD UREA NITROGEN 10 MG/DL (7-18); CALCIUM LEVEL 8.2 MG/DL (8.8-10.2); CARBON DIOXIDE LEVEL 27 MEQ/L (21-32); CHLORIDE LEVEL 109 MEQ/L (98-107); CREATININE FOR GFR 0.51 MG/DL (0.55-1.02); GLOMERULAR FILTRATION RATE > 60.0 (>39); GLUCOSE, FASTING 91 MG/DL (83-110); MAGNESIUM LEVEL 1.9 MG/DL (1.8-2.4); POTASSIUM SERUM 3.6 MEQ/L (3.5-5.1); SODIUM LEVEL 143 MEQ/L (136-145)
[2017-05-04] MEDS: IPRATROPIUM 0.5MG/ALBUTEROL 2.5MG INH SOL UD 3ML (DUONEB)(J7620) NEB PRN ×2 (07:12→20:20)
[2017-05-04] MEDS: ASPIRIN 81 MG ENTERIC TAB PO SCH (07:45)
[2017-05-04] MEDS: DIGOXIN 0.25 MG TAB PO SCH (07:45)
[2017-05-04] MEDS: NS 1,000 ML IV SCH (07:46)
[2017-05-04] MEDS: GABAPENTIN 300 MG CAP PO SCH ×4 (07:46→21:16)
[2017-05-04] MEDS: predniSONE 10 MG TAB PO SCH (07:46)
[2017-05-04] MEDS: ENOXAPARIN 40 MG/0.4 ML SYRINGE (J1650) SC SCH (08:05)
[2017-05-04] MEDS: SYMBICORT 160/4.5MCG INHALER 6GM INH SCH ×2 (09:00→20:20)
--- NOTE | 2017-05-04 10:23 | REP ---
CHEST, TWO VIEWS: HISTORY: Cough. COMPARISON: 05/01/2017. There is elevation of the left hemidiaphragm. There is loss of volume in the left hemithorax. A cavitary lesion is present in the left upper lobe. Linear densities are present in the left upper and lower lobe consistent with scarring. Patchy density is present in the right lower lobe consistent with atelectasis or infiltrate slightly decreased compared to the previous study. The heart is normal in size. The pulmonary vasculature is normal in appearance. There is blunting of the right costophrenic angle due to a small pleural effusion. There is an old compression fracture of a mid thoracic vertebral body. A cardiac pacemaker is present. IMPRESSION: 1. Left upper lobe cavitary lesion unchanged compared to the previous study. 2. Left upper and lower lobe scarring. 3. Right lower lobe atelectasis or infiltrate decreased compared to the previous study. 4. Small right pleural effusion. Signed by Shawn Ruff MD 05/04/2017 10:36 A
--- NOTE | 2017-05-04 15:56 | IPN ---
DATE: 05/04/2017 SUBJECTIVE: The patient is seen and examined in the room today. The patient stated her breathing does not show any significant improvement. She still has a frequent cough with sputum production. Trial of Acapella did not help her to bring out the phlegm. OBJECTIVE: VITAL SIGNS: Temperature is 99, pulse is 87, respiration 19, blood pressure is 149/67, pulse oximetry is 91% with two liters nasal cannula. GENERAL: Mild to moderate distress secondary to shortness of breath, alert and oriented times three. HEENT: Normocephalic, atraumatic. Extraocular motor grossly intact. CARDIOVASCULAR: Positive S1, S2. Regular rate. LUNGS: Diminished breath sounds. There are some fine crackles. I cannot appreciate any significant wheezes during examination. ABDOMEN: Soft, nontender, nondistended. Bowel sounds present. EXTREMITIES: No edema. No sign of cyanosis. LABORATORY DATA: WBC is 10.8, hemoglobin 8.3, hematocrit is 26.9, platelet count is 336. Sodium is 143, potassium 3.6, chloride is 109, carbon dioxide 27, BUN 10, creatinine 0.51, GFR is greater than 60, fasting glucose 91, calcium is 8.2, magnesium 1.9. ASSESSMENT AND PLAN: 1. Bilateral lung infiltrate. CT of the chest was performed on the day of admission and showed that the patient has left lower lobe, right upper lobe, and right lower lobe infiltrate. The patient was started on Rocephin and azithromycin. Repeat chest x-ray was obtained today. It showed the right lower lobe infiltrate has decreased in size. The patient has a negative respiratory panel and sputum culture showed normal rajni. We will followup with Legionella testing. 2. History of atrial fibrillation. The patient is on diltiazem, digoxin, and aspirin. 3. History of lung cancer, status post left-sided lobectomy in 2012, status post radiation and chemotherapy in 2013. 4. History of tachycardia-bradycardia syndrome with frequent syncope, status post dual-chamber pacemaker in 2013. 5. History of chronic obstructive pulmonary disease (COPD). 6. 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 7. History of pulmonary hypertension. 8. Hyperlipidemia. 9. Hypothyroidism, on Synthroid. 10. Deep vein thrombosis (DVT) prophylaxis, on Lovenox.
[2017-05-04] MEDS: cefTRIAXone SOD 1 GM in D5W 50 ML IV SCH (21:16)
[2017-05-04] MEDS: ATORVASTATIN 10 MG TAB PO SCH (21:17)
[2017-05-04] MEDS: AZITHROMYCIN INJ 500 MG, VIAL MATE ADAPTER 1 EACH in D5W 250 ML IV SCH (22:12)
[2017-05-05] MEDS: NS 1,000 ML IV SCH ×2 (00:13→14:32)
[2017-05-05 04:00] VITALS: BP 123/65
[2017-05-05] MEDS: LEVOTHYROXINE 75MCG TABLET (0.075MG) PO SCH (05:23)
[2017-05-05 06:02] LABS: BASO % 0.2 % (0.0-1.0); EOS # 0.2 10^3/uL (0.0-0.50); EOS % 2.5 % (0.0-3.0); IMMATURE GRANULOCYTE % 0.4 % (0-0); LYMPH # 0.6 10^3/uL (1.5-4.5); LYMPH % 6.7 % (24.0-44.0); MEAN CORPUSCULAR HEMOGLOBIN 26.8 pg (27.0-33.0); MEAN CORPUSCULAR HGB CONC 30.3 g/dl (32.0-36.5); MEAN CORPUSCULAR VOLUME 88.5 fl (80.0-96.0); MONO # 0.8 10^3/uL (0.0-0.8); MONO % 8.6 % (0.0-5.0); NEUTROPHILS # 7.5 10^3/uL (1.8-7.7); NEUTROPHILS % 81.6 % (36.0-66.0); PLATELET COUNT, AUTOMATED 372 10^3/uL (150-450); RED CELL DISTRIBUTION WIDTH 17.1 % (11.5-14.5); WHITE BLOOD COUNT 9.2 10^3/uL (4.0-10.0)
[2017-05-05] MEDS: PERCOCET 5MG/325MG TAB PO PRN ×2 (06:08→14:32)
[2017-05-05 06:34] LABS: ANION GAP 7 MEQ/L (8-16); BLOOD UREA NITROGEN 11 MG/DL (7-18); CARBON DIOXIDE LEVEL 27 MEQ/L (21-32); CHLORIDE LEVEL 109 MEQ/L (98-107); CREATININE FOR GFR 0.48 MG/DL (0.55-1.02); GLOMERULAR FILTRATION RATE > 60.0 (>39); GLUCOSE, FASTING 85 MG/DL (83-110); MAGNESIUM LEVEL 2.1 MG/DL (1.8-2.4); POTASSIUM SERUM 3.5 MEQ/L (3.5-5.1); SODIUM LEVEL 143 MEQ/L (136-145)
[2017-05-05 07:45] VITALS: BP 100/65
[2017-05-05] MEDS: IPRATROPIUM 0.5MG/ALBUTEROL 2.5MG INH SOL UD 3ML (DUONEB)(J7620) NEB PRN ×4 (08:22→20:19)
[2017-05-05] MEDS: SYMBICORT 160/4.5MCG INHALER 6GM INH SCH ×2 (08:27→20:05)
[2017-05-05] MEDS: predniSONE 10 MG TAB PO SCH (08:37)
[2017-05-05] MEDS: ASPIRIN 81 MG ENTERIC TAB PO SCH (08:37)
[2017-05-05] MEDS: DIGOXIN 0.25 MG TAB PO SCH (08:38)
[2017-05-05] MEDS: GABAPENTIN 300 MG CAP PO SCH ×4 (08:38→21:03)
[2017-05-05] MEDS: ENOXAPARIN 40 MG/0.4 ML SYRINGE (J1650) SC SCH (08:38)
[2017-05-05 12:00] VITALS: BP 119/67
--- NOTE | 2017-05-05 15:40 | IPN ---
DATE: 05/05/2017 SUBJECTIVE: The patient is seen and examined in the room today. The patient continues to have significant cough, more severely in the morning. The patient stated that last night when she provided a sputum culture it was whitish saliva. She stated that usually her phlegm is green/yellowish sputum. Every time after a significant cough, the patient requires some time to maintain satisfactory breathing. OBJECTIVE: VITAL SIGNS: Temperature is 96.7, pulse is 83, respiration 18, blood pressure is 100/65, pulse oximetry is 95% with two liters nasal cannula. GENERAL: Mild to moderate distress secondary to persistent cough and shortness of breath. Alert and oriented times three. HEENT: Normocephalic, atraumatic. Extraocular motor grossly intact. CARDIOVASCULAR: Positive S1, S2. Regular rate. LUNGS: Positive significant crackles bilaterally, more significant on the left side. Diminished breath sounds. I cannot appreciate any significant wheezes. ABDOMEN: Soft, nontender, nondistended. Bowel sounds present. EXTREMITIES: No edema. No sign of cyanosis. LABORATORY DATA: WBC is 9.2, hemoglobin 8.6, hematocrit 28.4, platelet count is 372. Sodium is 143, potassium 3.5, chloride is 109, carbon dioxide 27, BUN 11, creatinine 0.48, GFR is greater than 60, fasting glucose 85, calcium is 8.0, magnesium 2.1, C-reactive protein is 5.49. ASSESSMENT AND PLAN: 1. Bilateral lung infiltrate. The patient was started on Rocephin and azithromycin. The patient continues to have improvement of the white count. The patient does have a complex lung history. This may contribute to the patient's slow recovery of her symptoms. Previously, the patient did not get a respiratory panel. The sputum obtained showed normal rajni. However, the patient stated that at the time the patient provided the sputum culture that the spit was not the same as her normal phlegm. We will follow with Legionella testing. We will repeat the sputum cultures. 2. History of atrial fibrillation. The patient is on diltiazem, digoxin, and aspirin. 3. History of lung cancer, status post lobectomy in 2012, status post radiation and chemotherapy in 2013. 4. History of tachycardia-bradycardia syndrome with frequent syncope, status post dual-chamber pacemaker in 2013. 5. History of chronic obstructive pulmonary disease (COPD). No significant wheezes appreciated during the physical examination. Continue breathing treatments as needed. 6. 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 This causes the patient chronic pain. The patient has been followed with outpatient pain clinic. 7. History of pulmonary hypertension. 8. Hyperlipidemia. 9. Hypothyroidism, on Synthroid. 10. Deep vein thrombosis (DVT) prophylaxis, on Lovenox.
[2017-05-05 16:00] VITALS: BP 120/63
[2017-05-05 20:00] VITALS: BP 110/63
[2017-05-05] MEDS: ATORVASTATIN 10 MG TAB PO SCH (21:03)
[2017-05-05] MEDS: cefTRIAXone SOD 1 GM in D5W 50 ML IV SCH (21:03)
[2017-05-05] MEDS: AZITHROMYCIN INJ 500 MG, VIAL MATE ADAPTER 1 EACH in D5W 250 ML IV SCH (22:18)
[2017-05-06] VITALS: BP 126/71
[2017-05-06 04:00] VITALS: BP 139/66
[2017-05-06] MEDS: LEVOTHYROXINE 75MCG TABLET (0.075MG) PO SCH (06:10)
[2017-05-06 06:31] LABS: BASO % 0.2 % (0.0-1.0); EOS # 0.2 10^3/uL (0.0-0.50); EOS % 2.2 % (0.0-3.0); IMMATURE GRANULOCYTE % 0.4 % (0-0); LYMPH # 0.6 10^3/uL (1.5-4.5); LYMPH % 6.1 % (24.0-44.0); MEAN CORPUSCULAR HEMOGLOBIN 27.1 pg (27.0-33.0); MEAN CORPUSCULAR HGB CONC 31.1 g/dl (32.0-36.5); MEAN CORPUSCULAR VOLUME 86.9 fl (80.0-96.0); MONO # 0.8 10^3/uL (0.0-0.8); MONO % 7.5 % (0.0-5.0); NEUTROPHILS # 8.8 10^3/uL (1.8-7.7); NEUTROPHILS % 83.6 % (36.0-66.0); PLATELET COUNT, AUTOMATED 345 10^3/uL (150-450); WHITE BLOOD COUNT 10.5 10^3/uL (4.0-10.0)
[2017-05-06 06:52] LABS: ANION GAP 5 MEQ/L (8-16); BLOOD UREA NITROGEN 11 MG/DL (7-18); CALCIUM LEVEL 8.7 MG/DL (8.8-10.2); CARBON DIOXIDE LEVEL 29 MEQ/L (21-32); CHLORIDE LEVEL 108 MEQ/L (98-107); CREATININE FOR GFR 0.53 MG/DL (0.55-1.02); GLOMERULAR FILTRATION RATE > 60.0 (>39); GLUCOSE, FASTING 88 MG/DL (83-110); MAGNESIUM LEVEL 2.2 MG/DL (1.8-2.4); POTASSIUM SERUM 3.7 MEQ/L (3.5-5.1); SODIUM LEVEL 142 MEQ/L (136-145)
[2017-05-06] MEDS ORDERED: ONDANSETRON 4MG/2ML VIAL (J2405) IV ONE (07:30)
[2017-05-06] MEDS: SYMBICORT 160/4.5MCG INHALER 6GM INH SCH ×2 (07:52→20:33)
[2017-05-06 08:00] VITALS: BP 119/58
[2017-05-06] MEDS: GABAPENTIN 300 MG CAP PO SCH ×4 (08:18→20:53)
[2017-05-06] MEDS: ENOXAPARIN 40 MG/0.4 ML SYRINGE (J1650) SC SCH (08:18)
[2017-05-06] MEDS: predniSONE 10 MG TAB PO SCH (08:18)
[2017-05-06] MEDS: ASPIRIN 81 MG ENTERIC TAB PO SCH (08:18)
[2017-05-06] MEDS: DIGOXIN 0.25 MG TAB PO SCH (08:18)
[2017-05-06 12:00] VITALS: BP 127/67
[2017-05-06] MEDS: IPRATROPIUM 0.5MG/ALBUTEROL 2.5MG INH SOL UD 3ML (DUONEB)(J7620) NEB PRN (13:05)
--- NOTE | 2017-05-06 13:36 | IPN ---
DATE OF SERVICE: 05/06/2017 Patient seen and examined at the bedside. Chart has been reviewed. The patient states that the cough is productive at times. She has a coughing fit and has to slump over the sink. No fever or chills. Shortness of breath is worse than at home. Unable to ambulate more than 15-20 feet without significant shortness of breath, but currently saturating 93-97% on chronic 2 liters of oxygen. Temperature 98.4, pulse 84, respiratory rate 18, blood pressure 119/58, 93% on 2 liters nasal cannula. Generally, patient is awake, alert and oriented times three. Answers questions appropriately. No jugular venous distention (JVD) or thyromegaly. Lungs are diminished with crackles bilaterally and bronchial breath sounds. Heart S1 and S2, sinus rhythm. Abdomen is soft, nontender, nondistended. Positive bowel sounds. Extremities no pitting edema. LABORATORY DATA: White count 10.5, hemoglobin 8.5, hematocrit 27, platelet count of 345, sodium 142, pot a3.7, chloride 108, bicarb 29, BUN 11, creatinine 0.5, glucose of 88. ASSESSMENT/PLAN: This is a 72-year-old female history of lung CA status post resection in 2012, hypertension, left upper lobectomy, atrial fibrillation with pacemaker, hypothyroidism and chronic obstructive pulmonary disease (COPD) who presented to the emergency room with cough and worsening shortness of breath, admitted for the following issues: 1. Community acquired pneumonia on Rocephin and azithromycin. With no fever. Increasing white count. At this time, the patient's sputum culture shows normal rajni. I will reobtain a sputum culture. Continue with Acapella. 2. Moderate bronchiectasis on CT of the chest. Continue the Acapella for now. No new significant changes aside from the pneumonia, per Dr. Quigley's review of the CT chest today. 3. History of atrial fibrillation on diltiazem, digoxin and aspirin. 4. History of lung CA status post left upper lobectomy in 2013, status post chemoradiation in 2013. Stable. 5. History of tachybrady syndrome with frequent syncope. Status post dual chamber pacer in 2013. 6. History of chronic obstructive pulmonary disease (COPD). Continue with as needed nebulizers. 7. History of lung fibrosis and chest wall fibrosis. Outpatient pain clinic followup. 8. History of pulmonary hypertension. 9. Hyperlipidemia. 10. Hypothyroidism on chronic Synthroid.
[2017-05-06 16:00] VITALS: BP 110/58
[2017-05-06 20:00] VITALS: BP 101/59
[2017-05-06] MEDS: ATORVASTATIN 10 MG TAB PO SCH (20:53)
[2017-05-06] MEDS: cefTRIAXone SOD 1 GM in D5W 50 ML IV SCH (21:06)
[2017-05-07] VITALS: BP 126/59
[2017-05-07] MEDS: AZITHROMYCIN INJ 500 MG, VIAL MATE ADAPTER 1 EACH in D5W 250 ML IV SCH (00:15)
[2017-05-07 04:00] VITALS: BP 122/57
[2017-05-07 05:09] VITALS: BP 122/57
[2017-05-07] MEDS: LEVOTHYROXINE 75MCG TABLET (0.075MG) PO SCH (05:09)
[2017-05-07 05:58] LABS: BASO % 0.3 % (0.0-1.0); EOS # 0.2 10^3/uL (0.0-0.50); IMMATURE GRANULOCYTE % 0.6 % (0-0); LYMPH # 0.7 10^3/uL (1.5-4.5); LYMPH % 6.5 % (24.0-44.0); MEAN CORPUSCULAR HEMOGLOBIN 26.8 pg (27.0-33.0); MEAN CORPUSCULAR HGB CONC 30.7 g/dl (32.0-36.5); MEAN CORPUSCULAR VOLUME 87.2 fl (80.0-96.0); MONO # 0.8 10^3/uL (0.0-0.8); MONO % 8.1 % (0.0-5.0); NEUTROPHILS # 8.5 10^3/uL (1.8-7.7); NEUTROPHILS % 82.5 % (36.0-66.0); PLATELET COUNT, AUTOMATED 389 10^3/uL (150-450); WHITE BLOOD COUNT 10.3 10^3/uL (4.0-10.0)
[2017-05-07 06:20] LABS: ANION GAP 7 MEQ/L (8-16); BLOOD UREA NITROGEN 13 MG/DL (7-18); CALCIUM LEVEL 8.5 MG/DL (8.8-10.2); CARBON DIOXIDE LEVEL 28 MEQ/L (21-32); CHLORIDE LEVEL 108 MEQ/L (98-107); CREATININE FOR GFR 0.47 MG/DL (0.55-1.02); GLOMERULAR FILTRATION RATE > 60.0 (>39); GLUCOSE, FASTING 85 MG/DL (83-110); MAGNESIUM LEVEL 2.2 MG/DL (1.8-2.4); POTASSIUM SERUM 3.7 MEQ/L (3.5-5.1); SODIUM LEVEL 143 MEQ/L (136-145)
[2017-05-07] MEDS ORDERED: AVEL1TAB3 PO (07:14)
[2017-05-07] MEDS ORDERED: BACITAB PO (07:14)
[2017-05-07] MEDS: SYMBICORT 160/4.5MCG INHALER 6GM INH SCH (07:21)
[2017-05-07 08:00] VITALS: BP 112/66
[2017-05-07] MEDS: GABAPENTIN 300 MG CAP PO SCH (08:27)
[2017-05-07] MEDS: predniSONE 10 MG TAB PO SCH (08:27)
[2017-05-07] MEDS: ASPIRIN 81 MG ENTERIC TAB PO SCH (08:27)
[2017-05-07] MEDS: DIGOXIN 0.25 MG TAB PO SCH (08:28)
[2017-05-07] MEDS: ENOXAPARIN 40 MG/0.4 ML SYRINGE (J1650) SC SCH ×2 (08:29→08:30)
--- NOTE | 2017-05-07 13:54 | DSES ---
DATE OF ADMISSION: 05/01/2017 DATE OF DISCHARGE: 05/07/2017 PRIMARY DISCHARGE DIAGNOSES: Community-acquired pneumonia. Moderate chronic bronchiectasis. History of atrial fibrillation. History of lung cancer, status post left upper lobectomy with chemoradiation in 2013. History of tachybrady syndrome with frequent syncope and dual-chamber pacemaker placed in 2013. History of chronic obstructive pulmonary disease (COPD). Lung fibrosis and chest wall fibrosis. History of pulmonary hypertension. Hyperlipidemia. Hypothyroidism. Chronic hypoxic respiratory failure, on home oxygen at 2 liters. DISCHARGE MEDICATIONS: - Avelox 400 mg daily for 5 days - Bacid one tablet by mouth twice a day for 5 days - hydrocodone/acetaminophen one tablet every 6 as needed for pain - albuterol 2.5 inhaled every 6 as needed - alendronate 70 mg weekly - aspirin 81 daily - atenolol 12.5 daily - atorvastatin 10 nightly - Symbicort two puffs twice a day - digoxin 250 mcg daily - Neurontin 600 four times a day - levothyroxine 75 mcg daily - prednisone 10 daily - vitamin D 1000 units twice a day HOSPITAL COURSE: This is a 72-year-old female with a history of lung cancer (CA) status post left upper lobectomy, hypertension, atrial fibrillation (AFib), pacer, hypothyroidism, COPD, who presented to the emergency room (ER) with cough, worsening shortness of breath, admitted for community-acquired pneumonia and was treated with Rocephin and azithromycin. The patient had no fever. White count improved. Sputum culture showed normal rajni. She was continued on acapella for moderate bronchiectasis found on CT chest. She remained on 2 liter of oxygen. Telemetry showed no arrhythmias aside from known history of atrial fibrillation, paced rhythm. The patient improved and passed a home safety evaluation. Is safely discharged home. LABORATORY DATA ON DISCHARGE: White count 10.3, hemoglobin 9, hematocrit 29, platelet count 389. Sodium 143, potassium 3.7, chloride 108, bicarbonate 28, BUN 13, creatinine 0.47, glucose of 85. MICROBIOLOGY: Sputum culture 05/02/2017, normal rajni present. Blood culture, two sets, 05/03/2017, no growth. Respiratory syncytial virus (RSV) panel 05/03/2017, negative. IMAGING STUDIES: Chest CT 05/01/2017, chronic bronchiectasis, large air space superiorly in the left upper hemithorax. Postsurgical loculated pneumothorax or large cavitary lesion, unchanged. Left lower lobe infiltrate, increased in size from 04/25/2017. New subsegmental infiltrates in the right upper lobe and right lower lobe. TIME SPENT ON DISCHARGE: 30 minutes.
== END 2017-05-07 12:58 | disposition home or self-care (01) | DRG 190 ==
LOC: EDBD 10:21 → M ED 10:21 → M ED INP 18:51 → M PCU 20:10
PROVIDERS: ADMIT Hospitalist; ATTEND General Practice
DX: J44.0 Chronic obstructive pulmonary disease with (acute) lower respiratory infection (principal); J18.9 Pneumonia, unspecified organism; J96.11 Chronic respiratory failure with hypoxia; E03.9 Hypothyroidism, unspecified; E78.5 Hyperlipidemia, unspecified; I10 Essential (primary) hypertension; I48.91 Unspecified atrial fibrillation; Z85.118 Personal history of other malignant neoplasm of bronchus and lung; Z92.3 Personal history of irradiation; Z92.21 Personal history of antineoplastic chemotherapy; Z90.2 Acquired absence of lung [part of]; Z95.0 Presence of cardiac pacemaker; Z79.52 Long term (current) use of systemic steroids; Z79.82 Long term (current) use of aspirin; Z91.013 Allergy to seafood; Z87.891 Personal history of nicotine dependence

== ENCOUNTER → 2017-05-13 | Outpatient (CLI) | payer MEDICARE, MEDICAID, OTHER ==
[~2017-05-13] MED LIST changes: +ALBU83IN INH; +BACITAB PO; +NEUR600T PO; +VITAD1000T PO
--- NOTE | 2017-06-05 01:31 | ECWPNPC ---
PATIENT NAME: MELINA SHETTY : 1945 GENDER: FEMALE VISIT DATE: 05/13/2017 DISCHARGE DATE: 05/13/17 1007 VISIT LOCKED DATE TIME: PHYSICIAN: ANGELIQUE FAJARDO RESOURCE: ANGELIQUE FAJARDO REASON FOR APPOINTMENT 1. CHEST WALL PAIN HISTORY OF PRESENT ILLNESS HISTORY OF PRESENT ILLNESS: PAIN THE PATIENT DESCRIBES THE PAIN... FALL RISK SCREENING: SCREENING :NO FALLS IN THE PAST YEAR TODAY'S VISIT: NOTES: RATES PAIN TODAYAS 11/11. WAS JUST IN HOSPITAL FOR PNEUMONIA. WAS ABLE HAVE HER PAIN MEDS AND THIS KEPT THE PAIN UNDER CONTROL. . CURRENT MEDICATIONS TAKING ASPIRIN ADULT LOW DOSE 81 MG TABLET DELAYED RELEASE 1 TABLET ORALLY ONCE A DAY TAKING ATENOLOL 25 MG TABLET 1/2 TAB ORALLY ONCE DAILY TAKING DIGOXIN 250 MCG TABLET 1 TABLET ORALLY ONCE A DAY TAKING PREDNISONE 10 MG TABLET 1 TABLET ORALLY ONCE A DAY TAKING ATORVASTATIN CALCIUM 10 MG TABLET 1 TABLET ORALLY ONCE A DAY TAKING LEVOTHYROXINE SODIUM 75 MCG TABLET 1 TABLET ORALLY ONCE A DAY TAKING GABAPENTIN 600 MG TABLET 1 TABLET ORALLY QID TAKING ALBUTEROL SULFATE (2.5 MG/3ML) 0.083% NEBULIZATION SOLUTION 3 ML INHALATION THREE TIMES DAILY TAKING SYMBICORT 80-4.5 MCG/ACT AEROSOL 2 PUFFS INHALATION TWICE A DAY TAKING NORCO 10-325 MG TABLET 1 TABLET ORALLY EVERY 6 HRS PRN PAIN MDD=4 CHRONIC PAIN NOT-TAKING SPIRIVA HANDIHALER 18 MCG CAPSULE INHALATION UNKNOWN VIT CALCIUM CITRATE + D 250-62.5 MG TABLET ORALLY MEDICATION LIST REVIEWED AND RECONCILED WITH THE PATIENT PAST MEDICAL HISTORY LUMG CANCER PNEUMONIA 10/20/16 ALLERGIES LOBSTER: ANAPHYLAXIS: ALLERGY SURGICAL HISTORY LEFT UPPER LOBE OF LUNG SURGERY FOR CANCER/ LEFT THORACOTOMY PERICARDIAL WINDOW -2012 DRAINAGE OF HEART SAC BROCHOSCOPY AND MEDIASTINOSCOPY ENDOSCOPY AND UPPER GI BALLOON PACEMAKER -2013 HOSPITALIZATION/MAJOR DIAGNOSTIC PROCEDURE JUST HERE NOVEMBER 20 WITH ACUTE PNEUMONIA (IN FOR 1 WEEK) / ALSO HAD 2 UNITS OF BLOOD HOSPITAL FOR PNEUMONIA 2016 REVIEW OF SYSTEMS REVIEWED BY: PROVIDER: ANGELIQUE RODRIGUEZ . CONSTITUTIONAL: ANY CHANGE IN YOUR MEDICAL CONDITION? NO . CHILLS NO . FEVER NO . INFECTION: DO YOU HAVE NEW INFECTIONS? NO . DO YOU HAVE HISTORY OF MRSA? NO . MUSCULOSKELETAL: ANY NEW PATTERNS OF PAIN OR NUMBNESS? NO . GASTROENTEROLOGY: ANY NEW CHANGE IN BOWEL CONTROL? NO . GENITOURINARY: ANY NEW CHANGE IN BLADDER CONTROL? NO . IS THERE A CHANCE YOU COULD BE ? NO . HEMATOLOGY/LYMPH: DO YOU TAKE ANY BLOOD THINNERS? (FOR EXAMPLE- COUMADIN, PLAVIX, AGGRENOX, PLATEL, PRADAXA, OR XARELTO) NO . WHEN WAS YOUR LAST DOSE? DATE: TIME: . NEUROLOGY: HAVE YOU FALLEN IN THE PAST 6 MONTHS? NO . ANY NEW EXTREMITY NUMBNESS OR WEAKNESS? NO . CARDIOLOGY: DO YOU HAVE A PACEMAKER OR DEFIBRILLATOR? YES, PACEMAKER . RESPIRATORY: HAVE YOU BEEN SICK IN THE PAST WEEK? PNEUMONIA, JUST OUT OF HOSPITAL THIS PAST WED . FEVER NO . FLU LIKE SYMPTOMS? NO . CHRONIC LUNG DISEASES YES - ON CHRONIC OXYGEN AT 2L/NC . DO YOU USE ANY TYPE OF TOBACCO (SMOKE, SMOKELESS, CHEW)? NO . COUGH YES - MUCOUS PRODUCTION PRIMARILY EARLY IN THE MORNING . INTEGUMENTARY: DO YOU HAVE ANY RASHES OR OPEN SORES? NO . ALLERGIC/IMMUNO: ARE YOU ALLERGIC TO SHELLFISH OR IV DYE? YES, LOBSTER . ANY NEW ALLERGIES? NO . PSYCHIATRIC: DO YOU HAVE THOUGHTS OF HURTING YOURSELF OR SOMEONE ELSE? NO . ARE YOU ABUSED, NEGLECTED, OR IN AN UNSAFE ENVIRONMENT? NO . ENDOCRINOLOGY: ARE YOU DIABETIC? NO . OTHER: DO YOU NEED ANY PRESCRIPTIONS? NO . IF YES, PLEASE LIST: ____ . ANY NEW PROBLEMS WITH YOUR MEDICATIONS? NO . WHEN DID YOU LAST EAT? ____ . WHEN DID YOU LAST DRINK? ____ . WHAT DID YOU LAST DRINK? ____ . NAME OF PERSON DRIVING YOU HOME? ____ . DO YOU HAVE ANY OTHER QUESTIONS OR CONCERNS NO . VITAL SIGNS WT 126 LBS, HT 63 IN, BMI 22.32 INDEX, BP 115/56 MM HG, HR 73 /MIN, RR 16 /MIN, TEMP 98.3 F, OXYGEN SAT % 96 ON 2 LIT, REVIEWED BY: NL. EXAMINATION GENERAL EXAMINATION: PSYCHALERT , ORIENTED X 3 , APPROPRIATE MOOD AND AFFECT . LUNGS:GENERALLY CLEAR TO AUSCULTATION BILATERALLY. FINE CRACKLES NOTED AT BASES. INTERMITTANT DRY COUGH . HEART:HEART RATE REGULAR. MUSCULOSKELETAL:MUSCLE STRENGTH TESTING 5/5 BILATERAL UPPER AND LOWER EXTREMITIES, TRIGGER POINTS AND TIGHT FIBROUS BANDS OVER MID THORACIC PARAVERTEBRAL MUSCLES. . 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 CLINICAL NOTES: ISTOP REGISTRY REVIEWED AND DEMNOSTRATES COMPLLIANCE. ( REF # [id number]) BRINGS IN MEDICATIONS WHICH IS APPROPRIATE FOR WHAT WAS DISPENSED. RECENT URINE TOXICOLOGY REVIEWED. NO UNAUTHORIZED MEDICATIONS. NO ILLICIT SUBSTANCES AND PRESCRIBED MEDICATIONS WERE PRESENT. PROCEDURE CODES FA211 ESTABILISHED PATIENT [facility] FACILITY CHARGE G8730 PAIN ASSESS POS TOOL F/U PLAN DOC G8427 DOC MEDS VERIFIED W/PT OR RE DISPOSITION & COMMUNICATION FOLLOW UP 2 MONTHS (REASON: CHEST WALL PAIN) ELECTRONICALLY SIGNED BY DIDI CHUNG ON 06/04/2017 AT 08:18 AM EDT DISCLAIMER : THIS IS A VISIT SUMMARY EXTRACTED FROM THE [employer] CHART. IT IS NOT A COPY OF THE [employer] PROGRESS NOTE. SYL
== END ==
LOC: M PAIN 09:30
PROVIDERS: ATTEND Nurse Practitioner Family
DX: G89.29 Other chronic pain (principal); M54.14 Radiculopathy, thoracic region; Z91.013 Allergy to seafood; Z79.82 Long term (current) use of aspirin; Z79.52 Long term (current) use of systemic steroids; Z79.891 Long term (current) use of opiate analgesic; Z79.899 Other long term (current) drug therapy; Z95.0 Presence of cardiac pacemaker

== ENCOUNTER → 2017-06-11 | Outpatient (CLI) | payer MEDICARE, MEDICAID ==
--- NOTE | 2017-06-13 16:01 | RADONC ---
RADIATION ONCOLOGY FOLLOWUP DATE: 06/11/2017 CHART NUMBER: [id number] DIAGNOSIS Lung cancer. STAGE: Stage III B. ECOG PERFORMANCE STATUS: 1. FOLLOWUP NOTE: Ms. 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 The patient presents today reporting that she continues have some shortness of breath and cough. She is on nasal oxygen. She is recently undergoing treatment for pneumonia. She is being followed closely by Dr. Porter. The patient's review of systems is positive for shortness of breath, cough, the need for nasal oxygen and physical limitations due to these above-mentioned issues. She denies nausea, vomiting, fevers, chills, night sweats, diplopia, headaches, anxiety, depression, anorexia, weight loss, visual disturbances, neurological problems, urinary or bowel difficulties. PHYSICAL EXAMINATION: The patient is a chronically ill-appearing white female in no acute distress. HEENT: Exam is normocephalic, atraumatic. Extraocular movements are intact. There is no palpable cervical, supraclavicular, infraclavicular, axillary or inguinal lymphadenopathy present. LUNGS: Her lungs have rhonchi bilaterally. HEART: Has regular rate and rhythm. The remainder of physical exam is noncontributory. ASSESSMENT: The patient is clinically stable at this time. She is being followed closely by her bakery chef and recent CT scans have been done. I have therefore scheduled her to see me again in 6 months for further followup. She will also continue to be followed by her other physicians in the meantime. cc: Ava Doss MD, FACP MD Juan Alberto Alcantara MD James Willis, MD FACC
== END ==
LOC: M ONCR 13:09
PROVIDERS: ATTEND Radiology Radiation Oncology
DX: C34.12 Malignant neoplasm of upper lobe, left bronchus or lung (principal)

== ENCOUNTER → 2017-07-14 | Outpatient (CLI) | payer MEDICARE, MEDICAID, OTHER | LOC: M PAIN 13:30 | DX: G58.8 Other specified mononeuropathies (principal); Z79.891 Long term (current) use of opiate analgesic; Z79.899 Other long term (current) drug therapy; Z79.82 Long term (current) use of aspirin; Z85.118 Personal history of other malignant neoplasm of bronchus and lung; Z95.0 Presence of cardiac pacemaker; Z87.01 Personal history of pneumonia (recurrent); Z91.013 Allergy to seafood | CPT/HCPCS: G0463 ==

== ENCOUNTER → 2017-07-17 | Outpatient (CLI) | payer MEDICARE, MEDICAID ==
--- NOTE | 2017-07-17 14:31 | REP ---
T8 [address] of the chest without IV contrast: Comparison is made numerous prior studies the most recent of which is 05/01/2017. There is a left lower lobe infiltrate that has significantly improved from 05/01/2017. The previous right upper lobe infiltrate is almost entirely resolved. The previous right lower lobe infiltrate has resolved. There are no pleural effusions. There are chronic changes superiorly in the left lung, consisting of cephalic retraction of the left hilus, large hematocele versus loculated pneumothorax. There is now contains an air-fluid level. Chronic fibrotic lung along the anteromedial margin is hematocele. There is no mediastinal adenopathy. The study is insensitive for hilar adenopathy in the absence of IV contrast. No axillary adenopathy. Thoracic aorta unremarkable. Cardiac size normal. There is a pacemaker. The visualized upper abdominal contents are unremarkable. There is no adrenal mass. Impression: The left lower lobe infiltrate has improved. The right upper lobe infiltrate has improved. The right lower lobe infiltrate has resolved. There are chronic stable changes superiorly in the lung as described. Signed by Satish Moncada MD 07/17/2017 02:23 P
== END ==
LOC: M RAD 13:23
PROVIDERS: ATTEND Internal Medicine Pulmonary Disease
DX: R91.1 Solitary pulmonary nodule (principal)

== ENCOUNTER → 2017-09-04 | Outpatient (CLI) | payer MEDICARE, MEDICAID | LOC: M RAD 11:44 | DX: R06.02 Shortness of breath (principal); J94.2 Hemothorax; R05 Cough; R07.9 Chest pain, unspecified | CPT/HCPCS: 71048 ==

== ENCOUNTER → 2017-09-15 | Outpatient (CLI) | payer MEDICARE, MEDICAID, OTHER | LOC: M PAIN 13:00 | DX: M54.14 Radiculopathy, thoracic region (principal); Z79.82 Long term (current) use of aspirin; Z79.52 Long term (current) use of systemic steroids; Z79.891 Long term (current) use of opiate analgesic; Z79.899 Other long term (current) drug therapy; Z91.013 Allergy to seafood; Z85.118 Personal history of other malignant neoplasm of bronchus and lung; Z95.0 Presence of cardiac pacemaker | CPT/HCPCS: G0463 ==

== ENCOUNTER 2017-10-15 18:07 | Emergency (ER) | payer MEDICARE, MEDICAID, OTHER ==
[2017-10-15] MEDS: IPRATROPIUM 0.5MG/ALBUTEROL 2.5MG INH SOL UD 3ML (DUONEB)(J7620) NEB ×4 (18:44→19:55)
[2017-10-15] MEDS: methylPREDNISolone INJ 125 MG/2 ML VIAL (J2930) IV (18:45)
[2017-10-15 19:03] LABS: ABG BASE EXCESS 3.7 (-2.0-2.0); ABG HCO3 25.1 MEQ/L (22.0-26.0); ABG O2 SATURATION 98.4 % (95.0-99.0); ABG PARTIAL PRESSURE CO2 28.1 mmHg (35.0-45.0); ABG PARTIAL PRESSURE O2 114.2 mmHg (75.0-100.0); ABG STANDARD HCO3 27.8 MEQ/L (22.0-26.0); ABG pH (ARTERIAL) 7.569 UNITS (7.350-7.450)
[2017-10-15 19:05] LABS: BASO % 0.2 % (0.0-1.0); EOS % 0.3 % (0.0-3.0); HEMATOCRIT 33.5 % (36.0-47.0); HEMOGLOBIN 10.5 g/dl (12.0-16.0); IMMATURE GRANULOCYTE % 0.5 % (0-3.0); LYMPH # 1.1 10^3/uL (1.5-4.5); LYMPH % 9.9 % (24.0-44.0); MEAN CORPUSCULAR HEMOGLOBIN 29.1 pg (27.0-33.0); MEAN CORPUSCULAR HGB CONC 31.3 g/dl (32.0-36.5); MEAN CORPUSCULAR VOLUME 92.8 fl (80.0-96.0); MONO # 0.5 10^3/uL (0.0-0.8); MONO % 4.2 % (0.0-5.0); NEUTROPHILS % 84.9 % (36.0-66.0); PLATELET COUNT, AUTOMATED 409 10^3/uL (150-450); RED BLOOD COUNT 3.61 10^6/uL (4.00-5.40); RED CELL DISTRIBUTION WIDTH 16.3 % (11.5-14.5); WHITE BLOOD COUNT 10.6 10^3/uL (4.0-10.0)
[2017-10-15 19:23] LABS: ANION GAP 10 MEQ/L (8-16); BLOOD UREA NITROGEN 13 MG/DL (7-18); CALCIUM LEVEL 8.7 MG/DL (8.8-10.2); CARBON DIOXIDE LEVEL 25 MEQ/L (21-32); CHLORIDE LEVEL 104 MEQ/L (98-107); CPK CREATINE PHOSPHOKINASE 74 U/L (26-192); CREATININE FOR GFR 0.65 MG/DL (0.55-1.30); GLOMERULAR FILTRATION RATE > 60.0 (>39); GLUCOSE, FASTING 90 MG/DL (70-100); MB/CK RELATIVE INDEX 1.35 (< OR =4); POTASSIUM SERUM 4.4 MEQ/L (3.5-5.1); SODIUM LEVEL 139 MEQ/L (136-145); TROPONIN I < 0.02 NG/ML (< 0.10)
[2017-10-15 19:28] LABS: ALBUMIN 3.2 GM/DL (3.2-5.2); ALBUMIN/GLOBULIN RATIO 0.73 (1.00-1.93); ALKALINE PHOSPHATASE 81 U/L (45-117); ALT/SGPT 18 U/L (12-78); AST/SGOT 11 U/L (7-37); BILIRUBIN,DIRECT < 0.1 MG/DL (0.0-0.2); BILIRUBIN,TOTAL 0.2 MG/DL (0.2-1.0); NT-PRO BNP 269 PG/ML (<125); TOTAL PROTEIN 7.6 GM/DL (6.4-8.2)
[2017-10-15] MEDS ORDERED: ISOVUE-370 76% 100ML VIAL (Q9967) As Ordered (20:19)
[2017-10-15 20:22] LABS: DIGOXIN LEVEL 1.1 NG/ML (0.5-2.0)
== END 2017-10-15 23:18 | disposition home or self-care (01) ==
LOC: M ED 18:07
DX: J44.1 Chronic obstructive pulmonary disease with (acute) exacerbation (principal); I10 Essential (primary) hypertension; I48.91 Unspecified atrial fibrillation; E07.9 Disorder of thyroid, unspecified; Z85.118 Personal history of other malignant neoplasm of bronchus and lung; Z95.0 Presence of cardiac pacemaker; Z92.21 Personal history of antineoplastic chemotherapy; Z92.3 Personal history of irradiation; Z79.899 Other long term (current) drug therapy; Z79.82 Long term (current) use of aspirin; Z91.013 Allergy to seafood; Z87.891 Personal history of nicotine dependence
CPT/HCPCS: Q9967

== ENCOUNTER → 2017-10-22 | Outpatient (REF) | payer MEDICARE, MEDICAID | LOC: M LAB REF 16:58 | DX: J44.9 Chronic obstructive pulmonary disease, unspecified (principal) | CPT/HCPCS: 87205 ==

== ENCOUNTER 2017-10-29 15:12 | Inpatient (IN) | payer MEDICARE, MEDICAID ==
[2017-10-29 16:04] LABS: BASO % 0.1 % (0.0-1.0); EOS % 0.1 % (0.0-3.0); HEMOGLOBIN 11.2 g/dl (12.0-16.0); IMMATURE GRANULOCYTE % 0.6 % (0-3.0); LYMPH # 0.4 10^3/uL (1.5-4.5); LYMPH % 2.5 % (24.0-44.0); MEAN CORPUSCULAR HEMOGLOBIN 28.9 pg (27.0-33.0); MEAN CORPUSCULAR HGB CONC 31.1 g/dl (32.0-36.5); MONO # 0.4 10^3/uL (0.0-0.8); MONO % 2.8 % (0.0-5.0); NEUTROPHILS # 13.7 10^3/uL (1.8-7.7); NEUTROPHILS % 93.9 % (36.0-66.0); PLATELET COUNT, AUTOMATED 371 10^3/uL (150-450); RED BLOOD COUNT 3.87 10^6/uL (4.00-5.40); RED CELL DISTRIBUTION WIDTH 17.5 % (11.5-14.5); WHITE BLOOD COUNT 14.6 10^3/uL (4.0-10.0)
[2017-10-29 16:27] LABS: ALBUMIN 3.2 GM/DL (3.2-5.2); ALKALINE PHOSPHATASE 87 U/L (45-117); ALT/SGPT 32 U/L (12-78); ANION GAP 8 MEQ/L (8-16); AST/SGOT 26 U/L (7-37); BILIRUBIN,DIRECT < 0.1 MG/DL (0.0-0.2); BILIRUBIN,TOTAL 0.3 MG/DL (0.2-1.0); BLOOD UREA NITROGEN 21 MG/DL (7-18); CALCIUM LEVEL 8.7 MG/DL (8.8-10.2); CARBON DIOXIDE LEVEL 27 MEQ/L (21-32); CHLORIDE LEVEL 101 MEQ/L (98-107); CPK CREATINE PHOSPHOKINASE 85 U/L (26-192); CREATININE FOR GFR 0.91 MG/DL (0.55-1.30); GLOMERULAR FILTRATION RATE > 60.0 (>39); GLUCOSE, FASTING 127 MG/DL (70-100); POTASSIUM SERUM 4.4 MEQ/L (3.5-5.1); SODIUM LEVEL 136 MEQ/L (136-145); TOTAL PROTEIN 7.8 GM/DL (6.4-8.2); TROPONIN I < 0.02 NG/ML (< 0.10)
[2017-10-29 16:28] LABS: MB/CK RELATIVE INDEX 2.35 (< OR =4); NT-PRO BNP 346 PG/ML (<125)
[2017-10-29] MEDS: ASPIRIN 81 MG CHEW TABLET PO ×2 (17:11)
[2017-10-29] MEDS: IPRATROPIUM 0.5MG/ALBUTEROL 2.5MG INH SOL UD 3ML (DUONEB)(J7620) NEB ×2 (18:32)
[2017-10-29] MEDS: DOXYCYCLINE HYCLATE 100 MG in D5W MINI-BAG PLUS 100 ML IV (20:54)
[2017-10-29] MEDS: SYMBICORT 160/4.5MCG INHALER 6GM INH ×2 (21:00)
[2017-10-29] MEDS: ATORVASTATIN 10 MG TAB PO ×2 (21:00)
[2017-10-29] MEDS ORDERED: ONDANSETRON 4MG/2ML VIAL (J2405) IV ×2 (21:30)
[2017-10-29] MEDS ORDERED: BISACODYL 5 MG TAB PO ×2 (21:30)
[2017-10-29] MEDS ORDERED: LEVALBUTEROL HFA 45MCG/ACT 15 GM INHALER INH ×2 (21:30)
[2017-10-29] MEDS: methylPREDNISolone INJ 40 MG/1 ML VIAL (J2920) IV ×2 (21:57)
[2017-10-29] MEDS ORDERED: methylPREDNISolone INJ 125 MG/2 ML VIAL (J2930) IV ×2 (22:00)
[2017-10-29] MEDS: LEVALBUTEROL 1.25 MG/0.5 ML CONCENTRATE NEB NEB ×2 (22:27)
[2017-10-29] MEDS ORDERED: IPRATROPIUM 0.5MG/ALBUTEROL 2.5MG INH SOL UD 3ML (DUONEB)(J7620) NEB ×2 (22:30)
[2017-10-29 22:46] LABS: C REACTIVE PROTEIN QUANTITATIV 6.44 MG/DL (0.00-0.30); CK-MB VALUE MASS 1.6 NG/ML (<3.6); CPK CREATINE PHOSPHOKINASE 74 U/L (26-192); MB/CK RELATIVE INDEX 2.16 (< OR =4); TROPONIN I < 0.02 NG/ML (< 0.10)
[2017-10-29] MEDS: GABAPENTIN 300 MG CAP PO ×2 (22:46)
[2017-10-29] MEDS ORDERED: ISOVUE-370 76% 100ML VIAL (Q9967) As Ordered ×2 (22:49)
[2017-10-30] MEDS: MOXIFLOXACIN HCL 400 MG in APPROPRIATE DILUENT 1 EA IV (01:02)
[2017-10-30] MEDS ORDERED: LEVALBUTEROL 1.25 MG/0.5 ML CONCENTRATE NEB NEB ×2 (02:00)
[2017-10-30] MEDS: IPRATROPIUM 0.5MG/ALBUTEROL 2.5MG INH SOL UD 3ML (DUONEB)(J7620) NEB ×8 (02:00→19:56)
[2017-10-30 04:01] LABS: BASO % 0.1 % (0.0-1.0); HEMOGLOBIN 11.2 g/dl (12.0-16.0); IMMATURE GRANULOCYTE % 0.6 % (0-3.0); LYMPH # 0.4 10^3/uL (1.5-4.5); LYMPH % 2.7 % (24.0-44.0); MEAN CORPUSCULAR HEMOGLOBIN 29.5 pg (27.0-33.0); MEAN CORPUSCULAR VOLUME 92.1 fl (80.0-96.0); MONO # 0.2 10^3/uL (0.0-0.8); MONO % 1.2 % (0.0-5.0); NEUTROPHILS # 13.3 10^3/uL (1.8-7.7); NEUTROPHILS % 95.4 % (36.0-66.0); PLATELET COUNT, AUTOMATED 333 10^3/uL (150-450); RED CELL DISTRIBUTION WIDTH 17.5 % (11.5-14.5); WHITE BLOOD COUNT 13.9 10^3/uL (4.0-10.0)
[2017-10-30 04:24] LABS: CPK CREATINE PHOSPHOKINASE 69 U/L (26-192); TROPONIN I < 0.02 NG/ML (< 0.10)
[2017-10-30 04:25] LABS: CK-MB VALUE MASS 1.5 NG/ML (<3.6); MB/CK RELATIVE INDEX 2.17 (< OR =4)
[2017-10-30 04:33] LABS: C REACTIVE PROTEIN QUANTITATIV 7.61 MG/DL (0.00-0.30)
[2017-10-30 04:33] LABS: ANION GAP 6 MEQ/L (8-16); BLOOD UREA NITROGEN 16 MG/DL (7-18); CALCIUM LEVEL 8.7 MG/DL (8.8-10.2); CARBON DIOXIDE LEVEL 28 MEQ/L (21-32); CHLORIDE LEVEL 106 MEQ/L (98-107); CREATININE FOR GFR 0.64 MG/DL (0.55-1.30); GLOMERULAR FILTRATION RATE > 60.0 (>39); GLUCOSE, FASTING 132 MG/DL (70-100); MAGNESIUM LEVEL 2.5 MG/DL (1.8-2.4); POTASSIUM SERUM 4.5 MEQ/L (3.5-5.1); SODIUM LEVEL 140 MEQ/L (136-145)
[2017-10-30] MEDS: LEVOTHYROXINE 75MCG TABLET (0.075MG) PO ×2 (05:22)
[2017-10-30] MEDS: methylPREDNISolone INJ 40 MG/1 ML VIAL (J2920) IV ×6 (05:22→17:08)
[2017-10-30] MEDS: SYMBICORT 160/4.5MCG INHALER 6GM INH ×2 (07:57)
[2017-10-30] MEDS: TIOTROPIUM INHALER/CAPSULE (SPIRIVA) INH ×2 (07:57)
[2017-10-30] MEDS ORDERED: DOXYCYCLINE HYCLATE 100 MG in D5W MINI-BAG PLUS 100 ML IV (09:00)
[2017-10-30] MEDS: ENOXAPARIN 30 MG/0.3 ML SYR (J1650) SC ×2 (09:13)
[2017-10-30] MEDS: GABAPENTIN 300 MG CAP PO ×8 (09:13→22:02)
[2017-10-30] MEDS: ATENOLOL 25 MG TAB PO ×2 (09:16)
[2017-10-30] MEDS: ASPIRIN 81 MG ENTERIC TAB PO ×2 (09:17)
[2017-10-30] MEDS: DIGOXIN 0.25 MG TAB PO ×2 (09:17)
[2017-10-30] MEDS: guaiFENesin ER 600 MG TAB PO ×4 (09:17→22:02)
[2017-10-30] MEDS: ADVAIR HFA 230/21MCG INHALER INH ×4 (11:39→19:57)
[2017-10-30] MEDS: MULTIVITAMINS/MINERALS THERAP 1 TAB PO ×2 (12:29)
[2017-10-30] MEDS: FERROUS SULFATE 325MG TAB PO ×2 (12:30)
[2017-10-30] MEDS: ATORVASTATIN 10 MG TAB PO ×2 (22:02)
[2017-10-31] MEDS: MOXIFLOXACIN HCL 400 MG in APPROPRIATE DILUENT 1 EA IV (00:30)
[2017-10-31] MEDS: methylPREDNISolone INJ 40 MG/1 ML VIAL (J2920) IV ×6 (00:30→17:01)
[2017-10-31] MEDS: IPRATROPIUM 0.5MG/ALBUTEROL 2.5MG INH SOL UD 3ML (DUONEB)(J7620) NEB ×8 (00:59→20:00)
[2017-10-31 06:01] LABS: BASO % 0.1 % (0.0-1.0); HEMATOCRIT 36.1 % (36.0-47.0); HEMOGLOBIN 11.3 g/dl (12.0-15.5); IMMATURE GRANULOCYTE % 0.8 % (0-3.0); LYMPH # 0.6 10^3/uL (1.5-4.5); LYMPH % 4.9 % (24.0-44.0); MEAN CORPUSCULAR HEMOGLOBIN 28.8 pg (27.0-33.0); MEAN CORPUSCULAR HGB CONC 31.3 g/dl (32.0-36.5); MEAN CORPUSCULAR VOLUME 92.1 fl (80.0-96.0); MONO # 0.3 10^3/uL (0.0-0.8); MONO % 2.2 % (0.0-5.0); NEUTROPHILS # 12.1 10^3/uL (1.8-7.7); PLATELET COUNT, AUTOMATED 383 10^3/uL (150-450); RED BLOOD COUNT 3.92 10^6/uL (4.00-5.40); RED CELL DISTRIBUTION WIDTH 17.8 % (11.5-14.5); WHITE BLOOD COUNT 13.1 10^3/uL (4.0-10.0)
[2017-10-31] MEDS: LEVOTHYROXINE 75MCG TABLET (0.075MG) PO ×2 (06:01)
[2017-10-31 06:29] LABS: C REACTIVE PROTEIN QUANTITATIV 3.87 MG/DL (0.00-0.30); CALCIUM LEVEL 9.2 MG/DL (8.8-10.2); CARBON DIOXIDE LEVEL 29 MEQ/L (21-32); CHLORIDE LEVEL 107 MEQ/L (98-107); GLOMERULAR FILTRATION RATE > 60.0 (>39); GLUCOSE, FASTING 125 MG/DL (70-100); MAGNESIUM LEVEL 2.5 MG/DL (1.8-2.4)
[2017-10-31 06:35] LABS: ANION GAP 4 MEQ/L (8-16); SODIUM LEVEL 140 MEQ/L (136-145)
[2017-10-31 06:39] LABS: BLOOD UREA NITROGEN 29 MG/DL (7-18); POTASSIUM SERUM 5.2 MEQ/L (3.5-5.1)
[2017-10-31] MEDS: ADVAIR HFA 230/21MCG INHALER INH ×4 (07:29→21:27)
[2017-10-31] MEDS: ATENOLOL 25 MG TAB PO ×2 (08:40)
[2017-10-31] MEDS: GABAPENTIN 300 MG CAP PO ×8 (08:40→20:40)
[2017-10-31] MEDS: guaiFENesin ER 600 MG TAB PO ×4 (08:40→20:40)
[2017-10-31] MEDS: ASPIRIN 81 MG ENTERIC TAB PO ×2 (08:40)
[2017-10-31] MEDS: ENOXAPARIN 30 MG/0.3 ML SYR (J1650) SC ×4 (08:40→08:45)
[2017-10-31] MEDS: DIGOXIN 0.25 MG TAB PO ×2 (08:41)
[2017-10-31] MEDS: MULTIVITAMINS/MINERALS THERAP 1 TAB PO ×2 (11:37)
[2017-10-31] MEDS: FERROUS SULFATE 325MG TAB PO ×2 (11:37)
[2017-10-31 16:24] LABS: ANION GAP 6 MEQ/L (8-16); BLOOD UREA NITROGEN 38 MG/DL (7-18); CARBON DIOXIDE LEVEL 25 MEQ/L (21-32); CHLORIDE LEVEL 109 MEQ/L (98-107); CREATININE FOR GFR 0.99 MG/DL (0.55-1.30); GLUCOSE, FASTING 98 MG/DL (70-100); POTASSIUM SERUM 4.6 MEQ/L (3.5-5.1); SODIUM LEVEL 140 MEQ/L (136-145)
[2017-10-31] MEDS: ATORVASTATIN 10 MG TAB PO ×2 (20:40)
[2017-11-01] MEDS: MOXIFLOXACIN HCL 400 MG in APPROPRIATE DILUENT 1 EA IV (00:40)
[2017-11-01] MEDS: IPRATROPIUM 0.5MG/ALBUTEROL 2.5MG INH SOL UD 3ML (DUONEB)(J7620) NEB ×4 (02:00→08:00)
[2017-11-01] MEDS: LEVOTHYROXINE 75MCG TABLET (0.075MG) PO ×2 (05:54)
[2017-11-01] MEDS: methylPREDNISolone INJ 40 MG/1 ML VIAL (J2920) IV ×2 (05:54)
[2017-11-01 06:14] LABS: BASO % 0.1 % (0.0-1.0); HEMATOCRIT 33.5 % (36.0-47.0); HEMOGLOBIN 10.4 g/dl (12.0-15.5); IMMATURE GRANULOCYTE % 0.9 % (0-3.0); LYMPH # 0.8 10^3/uL (1.5-4.5); MEAN CORPUSCULAR HEMOGLOBIN 28.6 pg (27.0-33.0); MONO # 0.7 10^3/uL (0.0-0.8); MONO % 5.4 % (0.0-5.0); NEUTROPHILS # 11.6 10^3/uL (1.8-7.7); NEUTROPHILS % 87.6 % (36.0-66.0); PLATELET COUNT, AUTOMATED 359 10^3/uL (150-450); RED BLOOD COUNT 3.64 10^6/uL (4.00-5.40); RED CELL DISTRIBUTION WIDTH 17.8 % (11.5-14.5); WHITE BLOOD COUNT 13.3 10^3/uL (4.0-10.0)
[2017-11-01 06:32] LABS: ANION GAP 7 MEQ/L (8-16); BLOOD UREA NITROGEN 33 MG/DL (7-18); C REACTIVE PROTEIN QUANTITATIV 1.49 MG/DL (0.00-0.30); CALCIUM LEVEL 8.5 MG/DL (8.8-10.2); CARBON DIOXIDE LEVEL 25 MEQ/L (21-32); CHLORIDE LEVEL 110 MEQ/L (98-107); CREATININE FOR GFR 0.72 MG/DL (0.55-1.30); GLOMERULAR FILTRATION RATE > 60.0 (>39); GLUCOSE, FASTING 87 MG/DL (70-100); MAGNESIUM LEVEL 2.4 MG/DL (1.8-2.4); POTASSIUM SERUM 4.3 MEQ/L (3.5-5.1); SODIUM LEVEL 142 MEQ/L (136-145)
[2017-11-01] MEDS: ADVAIR HFA 230/21MCG INHALER INH ×2 (08:00)
[2017-11-01] MEDS: ENOXAPARIN 30 MG/0.3 ML SYR (J1650) SC ×2 (09:00)
[2017-11-01] MEDS: ACETAMINOPHEN TAB 650MG DOSE (2X325MG) PO ×2 (09:52)
[2017-11-01] MEDS: GABAPENTIN 300 MG CAP PO ×2 (10:45)
[2017-11-01] MEDS: ASPIRIN 81 MG ENTERIC TAB PO ×2 (10:45)
[2017-11-01] MEDS: FERROUS SULFATE 325MG TAB PO ×2 (10:45)
[2017-11-01] MEDS: guaiFENesin ER 600 MG TAB PO ×2 (10:46)
[2017-11-01] MEDS: DIGOXIN 0.25 MG TAB PO ×2 (10:46)
[2017-11-01] MEDS: ATENOLOL 25 MG TAB PO ×2 (10:46)
[2017-11-01] MEDS: MULTIVITAMINS/MINERALS THERAP 1 TAB PO ×2 (12:20)
[2017-11-02] MEDS ORDERED: ALENDRONATE 35MG TABLET PO ×2 (07:00)
== END 2017-11-01 13:45 | disposition home or self-care (01) | DRG 192 ==
LOC: M MSPAV 10-30 00:10 → M ED 15:12 → M ED INP 22:22
DX: J44.1 Chronic obstructive pulmonary disease with (acute) exacerbation (principal); J96.11 Chronic respiratory failure with hypoxia; I48.91 Unspecified atrial fibrillation; D64.9 Anemia, unspecified; R91.8 Other nonspecific abnormal finding of lung field; E03.9 Hypothyroidism, unspecified; Z91.013 Allergy to seafood; Z87.891 Personal history of nicotine dependence; Z79.82 Long term (current) use of aspirin; Z92.3 Personal history of irradiation; Z92.21 Personal history of antineoplastic chemotherapy; Z90.2 Acquired absence of lung [part of]; Z79.52 Long term (current) use of systemic steroids; Z85.118 Personal history of other malignant neoplasm of bronchus and lung; Z95.0 Presence of cardiac pacemaker; Z79.899 Other long term (current) drug therapy; Z99.81 Dependence on supplemental oxygen

== ENCOUNTER → 2017-11-13 | Outpatient (REF) | payer MEDICARE, MEDICAID | LOC: M LAB REF 17:01 | DX: J44.9 Chronic obstructive pulmonary disease, unspecified (principal) | CPT/HCPCS: 87205 ==

== ENCOUNTER 2017-12-03 09:02 | Inpatient (IN) | payer MEDICARE, MEDICAID ==
[2017-12-03] MEDS: IPRATROPIUM 0.5MG/ALBUTEROL 2.5MG INH SOL UD 3ML (DUONEB)(J7620) NEB ×6 (09:27→21:51)
[2017-12-03 09:29] LABS: ABG BASE EXCESS 2.6 (-2.0-2.0); ABG HCO3 24.1 MEQ/L (22.0-26.0); ABG O2 SATURATION 96.4 % (95.0-99.0); ABG PARTIAL PRESSURE CO2 27.3 mmHg (35.0-45.0); ABG PARTIAL PRESSURE O2 75.1 mmHg (75.0-100.0); ABG STANDARD HCO3 26.7 MEQ/L (22.0-26.0); ABG pH (ARTERIAL) 7.564 UNITS (7.350-7.450)
[2017-12-03 09:41] LABS: BASO % 0.2 % (0.0-1.0); EOS # 0.1 10^3/uL (0.0-0.50); EOS % 0.4 % (0.0-3.0); HEMATOCRIT 30.3 % (36.0-47.0); HEMOGLOBIN 9.7 g/dl (12.0-15.5); IMMATURE GRANULOCYTE % 0.6 % (0-3.0); LYMPH # 1.2 10^3/uL (1.5-4.5); LYMPH % 6.2 % (24.0-44.0); MEAN CORPUSCULAR HEMOGLOBIN 29.1 pg (27.0-33.0); MONO # 1.2 10^3/uL (0.0-0.8); MONO % 6.2 % (0.0-5.0); NEUTROPHILS # 16.7 10^3/uL (1.8-7.7); NEUTROPHILS % 86.4 % (36.0-66.0); PLATELET COUNT, AUTOMATED 531 10^3/uL (150-450); RED BLOOD COUNT 3.33 10^6/uL (4.00-5.40); RED CELL DISTRIBUTION WIDTH 16.4 % (11.5-14.5); WHITE BLOOD COUNT 19.3 10^3/uL (4.0-10.0)
[2017-12-03 09:59] LABS: LACTIC ACID SEPSIS PROTOCOL 1.4 MMOL/L (0.4-2.0)
[2017-12-03 10:00] LABS: ANION GAP 9 MEQ/L (8-16); BLOOD UREA NITROGEN 19 MG/DL (7-18); CALCIUM LEVEL 8.5 MG/DL (8.8-10.2); CARBON DIOXIDE LEVEL 27 MEQ/L (21-32); CHLORIDE LEVEL 103 MEQ/L (98-107); CPK CREATINE PHOSPHOKINASE 175 U/L (26-192); CREATININE FOR GFR 0.59 MG/DL (0.55-1.30); FREE T4 1.48 NG/DL (0.76-1.46); GLOMERULAR FILTRATION RATE > 60.0 (>39); GLUCOSE, FASTING 125 MG/DL (70-100); POTASSIUM SERUM 3.7 MEQ/L (3.5-5.1); SODIUM LEVEL 139 MEQ/L (136-145); TROPONIN I < 0.02 NG/ML (< 0.10)
[2017-12-03] MEDS: cefTRIAXone SOD 2 GM in D5W MINI-BAG PLUS 50 ML IV (10:07)
[2017-12-03 10:10] LABS: CK-MB VALUE MASS < 1.0 NG/ML (<3.6); MB/CK RELATIVE INDEX 0.57 (< OR =4); NT-PRO BNP 409 PG/ML (<125)
[2017-12-03] MEDS: AZITHROMYCIN INJ 500 MG, VIAL MATE ADAPTER 1 EACH in D5W 250 ML IV (10:44)
[2017-12-03] MEDS: LACTOBACILLUS ACIDOPHILUS CAP (BACID) PO ×2 (14:11→18:47)
[2017-12-03] MEDS: VANCOMYCIN HCL 1,000 MG, VIAL MATE ADAPTER 1 EACH in D5W 250 ML IV (14:11)
[2017-12-03] MEDS: HEPARIN SOD (PORCINE) 5000 UNITS/ML VIAL SC ×3 (14:11→20:25)
[2017-12-03] MEDS: methylPREDNISolone INJ 125 MG/2 ML VIAL (J2930) IV ×2 (14:11→20:13)
[2017-12-03] MEDS ORDERED: NORCO, ANEXSIA 5/325MG TABLET (HYDROcodone/ACETAMINOPHEN) PO (15:00)
[2017-12-03] MEDS: NORCO, ANEXSIA 5/325MG TABLET (HYDROcodone/ACETAMINOPHEN) PO ×2 (15:25→21:38)
[2017-12-03] MEDS: PIPERACILLIN/TAZOBACTAM SOD 3.375 GM in D5W MINI-BAG PLUS 50 ML IV ×2 (15:25→20:13)
[2017-12-03] MEDS ORDERED: GABAPENTIN 300 MG CAP PO (17:00)
[2017-12-03] MEDS: VANCOMYCIN HCL 500 MG in D5W MINI-BAG PLUS 100 ML IV (18:48)
[2017-12-03 18:56] LABS: CK-MB VALUE MASS < 1.0 NG/ML (<3.6); CPK CREATINE PHOSPHOKINASE 123 U/L (26-192); MB/CK RELATIVE INDEX 0.81 (< OR =4); TROPONIN I < 0.02 NG/ML (< 0.10)
[2017-12-03] MEDS: ATORVASTATIN 10 MG TAB PO (20:13)
[2017-12-03 22:36] LABS: CK-MB VALUE MASS < 1.0 NG/ML (<3.6); CPK CREATINE PHOSPHOKINASE 118 U/L (26-192); MB/CK RELATIVE INDEX 0.84 (< OR =4); TROPONIN I < 0.02 NG/ML (< 0.10)
[2017-12-04] MEDS: IPRATROPIUM 0.5MG/ALBUTEROL 2.5MG INH SOL UD 3ML (DUONEB)(J7620) NEB ×6 (00:09→19:53)
[2017-12-04] MEDS: VANCOMYCIN HCL 1,000 MG, VIAL MATE ADAPTER 1 EACH in D5W 250 ML IV ×2 (00:41→12:49)
[2017-12-04 00:52] LABS: BEDSIDE GLUCOSE 151 MG/DL (83-110)
[2017-12-04] MEDS: PIPERACILLIN/TAZOBACTAM SOD 3.375 GM in D5W MINI-BAG PLUS 50 ML IV ×4 (02:31→21:11)
[2017-12-04] MEDS: methylPREDNISolone INJ 125 MG/2 ML VIAL (J2930) IV ×3 (04:18→21:11)
[2017-12-04] MEDS: HEPARIN SOD (PORCINE) 5000 UNITS/ML VIAL SC ×3 (05:24→21:11)
[2017-12-04] MEDS: LEVOTHYROXINE 75MCG TABLET (0.075MG) PO (05:49)
[2017-12-04 06:37] LABS: HEMATOCRIT 29.8 % (36.0-47.0); HEMOGLOBIN 9.5 g/dl (12.0-15.5); IMMATURE GRANULOCYTE % 0.5 % (0-3.0); LYMPH % 1.5 % (24.0-44.0); MEAN CORPUSCULAR HGB CONC 31.9 g/dl (32.0-36.5); MEAN CORPUSCULAR VOLUME 90.9 fl (80.0-96.0); MONO # 0.5 10^3/uL (0.0-0.8); NEUTROPHILS # 15.2 10^3/uL (1.8-7.7); PLATELET COUNT, AUTOMATED 534 10^3/uL (150-450); RED BLOOD COUNT 3.28 10^6/uL (4.00-5.40); RED CELL DISTRIBUTION WIDTH 16.3 % (11.5-14.5)
[2017-12-04 06:49] LABS: LYMPH # 0.2 10^3/uL (1.5-4.5); POSITIVE DIFF POS FLAG
[2017-12-04 07:00] LABS: ANION GAP 8 MEQ/L (8-16); BLOOD UREA NITROGEN 16 MG/DL (7-18); CALCIUM LEVEL 8.9 MG/DL (8.8-10.2); CARBON DIOXIDE LEVEL 26 MEQ/L (21-32); CHLORIDE LEVEL 104 MEQ/L (98-107); CREATININE FOR GFR 0.85 MG/DL (0.55-1.30); GLOMERULAR FILTRATION RATE > 60.0 (>39); GLUCOSE, FASTING 150 MG/DL (70-100); POTASSIUM SERUM 3.4 MEQ/L (3.5-5.1); SODIUM LEVEL 138 MEQ/L (136-145)
[2017-12-04] MEDS: NORCO, ANEXSIA 5/325MG TABLET (HYDROcodone/ACETAMINOPHEN) PO ×3 (08:20→18:41)
[2017-12-04] MEDS: FERROUS SULFATE 325MG TAB PO (08:21)
[2017-12-04] MEDS: LACTOBACILLUS ACIDOPHILUS CAP (BACID) PO ×3 (08:21→18:40)
[2017-12-04] MEDS: MULTIVITAMINS/MINERALS THERAP 1 TAB PO (08:22)
[2017-12-04] MEDS: DIGOXIN 0.25 MG TAB PO (08:22)
[2017-12-04] MEDS: ATENOLOL 25 MG TAB PO (08:22)
[2017-12-04] MEDS: ASPIRIN 81 MG ENTERIC TAB PO (08:22)
[2017-12-04] MEDS: POTASSIUM CHLORIDE 10 MEQ SR TABLET PO (08:43)
[2017-12-04] MEDS: GABAPENTIN 300 MG CAP PO (12:47)
[2017-12-04 13:14] LABS: VANCOMYCIN LEVEL TROUGH 19.7 UG/ML (10.0-20.0)
[2017-12-04] MEDS: ATORVASTATIN 10 MG TAB PO (21:11)
[2017-12-05] MEDS: PIPERACILLIN/TAZOBACTAM SOD 3.375 GM in D5W MINI-BAG PLUS 50 ML IV ×4 (01:48→20:11)
[2017-12-05] MEDS: methylPREDNISolone INJ 125 MG/2 ML VIAL (J2930) IV (03:48)
[2017-12-05] MEDS: IPRATROPIUM 0.5MG/ALBUTEROL 2.5MG INH SOL UD 3ML (DUONEB)(J7620) NEB ×7 (03:54→23:32)
[2017-12-05 05:15] LABS: BASO % 0.1 % (0.0-1.0); HEMATOCRIT 28.9 % (36.0-47.0); HEMOGLOBIN 9.1 g/dl (12.0-15.5); IMMATURE GRANULOCYTE % 0.4 % (0-3.0); LYMPH # 0.3 10^3/uL (1.5-4.5); LYMPH % 1.7 % (24.0-44.0); MEAN CORPUSCULAR HEMOGLOBIN 28.6 pg (27.0-33.0); MEAN CORPUSCULAR HGB CONC 31.5 g/dl (32.0-36.5); MEAN CORPUSCULAR VOLUME 90.9 fl (80.0-96.0); MONO # 0.6 10^3/uL (0.0-0.8); MONO % 3.2 % (0.0-5.0); NEUTROPHILS # 18.7 10^3/uL (1.8-7.7); NEUTROPHILS % 94.6 % (36.0-66.0); PLATELET COUNT, AUTOMATED 606 10^3/uL (150-450); RED BLOOD COUNT 3.18 10^6/uL (4.00-5.40); RED CELL DISTRIBUTION WIDTH 16.7 % (11.5-14.5); WHITE BLOOD COUNT 19.8 10^3/uL (4.0-10.0)
[2017-12-05] MEDS: HEPARIN SOD (PORCINE) 5000 UNITS/ML VIAL SC ×3 (05:20→22:00)
[2017-12-05 05:30] LABS: ANION GAP 8 MEQ/L (8-16); CALCIUM LEVEL 8.4 MG/DL (8.8-10.2); CARBON DIOXIDE LEVEL 27 MEQ/L (21-32); CHLORIDE LEVEL 105 MEQ/L (98-107); GLUCOSE, FASTING 143 MG/DL (70-100); POTASSIUM SERUM 3.8 MEQ/L (3.5-5.1); SODIUM LEVEL 140 MEQ/L (136-145)
[2017-12-05 05:49] LABS: GLOMERULAR FILTRATION RATE 28.9 (>39)
[2017-12-05 05:52] LABS: BLOOD UREA NITROGEN 31 MG/DL (7-18); CREATININE FOR GFR 1.84 MG/DL (0.55-1.30)
[2017-12-05] MEDS: VANCOMYCIN HCL 1,000 MG, VIAL MATE ADAPTER 1 EACH in D5W 250 ML IV (06:41)
[2017-12-05] MEDS: LEVOTHYROXINE 75MCG TABLET (0.075MG) PO (06:41)
[2017-12-05 07:26] LABS: DIGOXIN LEVEL 1.4 NG/ML (0.5-2.0); VANCOMYCIN RANDOM 20.9 UG/ML
[2017-12-05] MEDS: DIGOXIN 0.25 MG TAB PO (07:40)
[2017-12-05] MEDS: LACTOBACILLUS ACIDOPHILUS CAP (BACID) PO ×3 (07:40→17:35)
[2017-12-05] MEDS: ASPIRIN 81 MG ENTERIC TAB PO (07:40)
[2017-12-05] MEDS: FERROUS SULFATE 325MG TAB PO (07:40)
[2017-12-05] MEDS: MULTIVITAMINS/MINERALS THERAP 1 TAB PO (07:40)
[2017-12-05] MEDS: NS 1,000 ML IV ×2 (07:41→17:36)
[2017-12-05] MEDS: predniSONE 20 MG TAB PO (07:41)
[2017-12-05] MEDS: ATENOLOL 25 MG TAB PO (07:59)
[2017-12-05] MEDS: NORCO, ANEXSIA 5/325MG TABLET (HYDROcodone/ACETAMINOPHEN) PO ×4 (08:13→22:11)
[2017-12-05] MEDS ORDERED: DEXTROMETHORPHAN 60MG/10ML SUSP 90ML BTL(DELSYM) PO ×2 (09:00)
[2017-12-05] MEDS: DEXTROMETHORPHAN 60MG/10ML SUSP 90ML BTL(DELSYM) PO ×2 (09:51→20:11)
[2017-12-05] MEDS: ATORVASTATIN 10 MG TAB PO (20:11)
[2017-12-06] MEDS: ACETAMINOPHEN TAB 650MG DOSE (2X325MG) PO (01:23)
[2017-12-06] MEDS: PIPERACILLIN/TAZOBACTAM SOD 3.375 GM in D5W MINI-BAG PLUS 50 ML IV ×2 (01:24→08:06)
[2017-12-06] MEDS: IPRATROPIUM 0.5MG/ALBUTEROL 2.5MG INH SOL UD 3ML (DUONEB)(J7620) NEB ×6 (05:09→23:41)
[2017-12-06] MEDS: NORCO, ANEXSIA 5/325MG TABLET (HYDROcodone/ACETAMINOPHEN) PO ×4 (05:34→20:12)
[2017-12-06] MEDS: LEVOTHYROXINE 75MCG TABLET (0.075MG) PO (05:34)
[2017-12-06 05:43] LABS: BASO % 0.1 % (0.0-1.0); EOS % 0.1 % (0.0-3.0); IMMATURE GRANULOCYTE % 0.7 % (0-3.0); LYMPH # 0.5 10^3/uL (1.5-4.5); LYMPH % 3.6 % (24.0-44.0); MEAN CORPUSCULAR HEMOGLOBIN 29.6 pg (27.0-33.0); MEAN CORPUSCULAR VOLUME 92.6 fl (80.0-96.0); MONO # 1.1 10^3/uL (0.0-0.8); MONO % 7.8 % (0.0-5.0); NEUTROPHILS # 12.8 10^3/uL (1.8-7.7); NEUTROPHILS % 87.7 % (36.0-66.0); PLATELET COUNT, AUTOMATED 502 10^3/uL (150-450); WHITE BLOOD COUNT 14.6 10^3/uL (4.0-10.0)
[2017-12-06] MEDS: HEPARIN SOD (PORCINE) 5000 UNITS/ML VIAL SC ×3 (06:00→22:00)
[2017-12-06 06:01] LABS: BLOOD UREA NITROGEN 35 MG/DL (7-18); CREATININE FOR GFR 1.33 MG/DL (0.55-1.30); GLUCOSE, FASTING 89 MG/DL (70-100)
[2017-12-06 06:02] LABS: ANION GAP 7 MEQ/L (8-16); CARBON DIOXIDE LEVEL 27 MEQ/L (21-32); CHLORIDE LEVEL 111 MEQ/L (98-107); POTASSIUM SERUM 3.8 MEQ/L (3.5-5.1); SODIUM LEVEL 145 MEQ/L (136-145)
[2017-12-06] MEDS ORDERED: VANCOMYCIN HCL 1,000 MG, VIAL MATE ADAPTER 1 EACH in D5W 250 ML IV (07:00)
[2017-12-06] MEDS ORDERED: MORPHINE 4 MG/ML 1ML VIAL/SYRINGE (J2270) IV (09:00)
[2017-12-06] MEDS: MORPHINE 4 MG/ML 1ML VIAL/SYRINGE (J2270) IV (09:29)
[2017-12-06] MEDS: LACTOBACILLUS ACIDOPHILUS CAP (BACID) PO ×3 (10:28→17:12)
[2017-12-06] MEDS: ATENOLOL 25 MG TAB PO (10:29)
[2017-12-06] MEDS: MULTIVITAMINS/MINERALS THERAP 1 TAB PO (10:29)
[2017-12-06] MEDS: DIGOXIN 0.25 MG TAB PO (10:30)
[2017-12-06] MEDS: FERROUS SULFATE 325MG TAB PO (10:30)
[2017-12-06] MEDS: ASPIRIN 81 MG ENTERIC TAB PO (10:30)
[2017-12-06] MEDS: CYCLOBENZAPRINE 5MG TABLET PO (10:31)
[2017-12-06] MEDS: LIDOCAINE 5% OINT 30 GM TOP ×3 (10:31→20:19)
[2017-12-06] MEDS: DEXTROMETHORPHAN 60MG/10ML SUSP 90ML BTL(DELSYM) PO ×2 (10:33→20:11)
[2017-12-06] MEDS: predniSONE 20 MG TAB PO (10:37)
[2017-12-06 13:17] LABS: ANION GAP 7 MEQ/L (8-16); BLOOD UREA NITROGEN 33 MG/DL (7-18); CALCIUM LEVEL 7.9 MG/DL (8.8-10.2); CARBON DIOXIDE LEVEL 26 MEQ/L (21-32); CHLORIDE LEVEL 112 MEQ/L (98-107); CREATININE FOR GFR 1.14 MG/DL (0.55-1.30); GLOMERULAR FILTRATION RATE 50.2 (>39); GLUCOSE, FASTING 103 MG/DL (70-100); POTASSIUM SERUM 3.9 MEQ/L (3.5-5.1); SODIUM LEVEL 145 MEQ/L (136-145)
[2017-12-06] MEDS: PIPERACILLIN/TAZOBACTAM SOD 3.375 GM in APPROPRIATE DILUENT 1 EA IV ×2 (14:03→20:11)
[2017-12-06] MEDS: ATORVASTATIN 10 MG TAB PO (20:11)
[2017-12-07] MEDS: NORCO, ANEXSIA 5/325MG TABLET (HYDROcodone/ACETAMINOPHEN) PO ×4 (00:14→17:14)
[2017-12-07] MEDS: PIPERACILLIN/TAZOBACTAM SOD 3.375 GM in APPROPRIATE DILUENT 1 EA IV ×3 (01:31→12:57)
[2017-12-07] MEDS: IPRATROPIUM 0.5MG/ALBUTEROL 2.5MG INH SOL UD 3ML (DUONEB)(J7620) NEB ×5 (04:00→20:24)
[2017-12-07 06:05] LABS: BASO % 0.1 % (0.0-1.0); EOS % 0.2 % (0.0-3.0); HEMATOCRIT 26.2 % (36.0-47.0); HEMOGLOBIN 8.2 g/dl (12.0-15.5); IMMATURE GRANULOCYTE % 0.5 % (0-3.0); LYMPH # 0.6 10^3/uL (1.5-4.5); LYMPH % 3.7 % (24.0-44.0); MEAN CORPUSCULAR HGB CONC 31.3 g/dl (32.0-36.5); MEAN CORPUSCULAR VOLUME 92.6 fl (80.0-96.0); MONO # 1.2 10^3/uL (0.0-0.8); MONO % 7.4 % (0.0-5.0); NEUTROPHILS # 13.9 10^3/uL (1.8-7.7); NEUTROPHILS % 88.1 % (36.0-66.0); PLATELET COUNT, AUTOMATED 509 10^3/uL (150-450); RED BLOOD COUNT 2.83 10^6/uL (4.00-5.40); RED CELL DISTRIBUTION WIDTH 16.9 % (11.5-14.5); WHITE BLOOD COUNT 15.8 10^3/uL (4.0-10.0)
[2017-12-07 06:20] LABS: ANION GAP 6 MEQ/L (8-16); BLOOD UREA NITROGEN 29 MG/DL (7-18); CALCIUM LEVEL 8.2 MG/DL (8.8-10.2); CARBON DIOXIDE LEVEL 28 MEQ/L (21-32); CHLORIDE LEVEL 111 MEQ/L (98-107); CREATININE FOR GFR 1.01 MG/DL (0.55-1.30); GLOMERULAR FILTRATION RATE 57.7 (>39); GLUCOSE, FASTING 86 MG/DL (70-100); POTASSIUM SERUM 3.8 MEQ/L (3.5-5.1); SODIUM LEVEL 145 MEQ/L (136-145)
[2017-12-07] MEDS: LEVOTHYROXINE 75MCG TABLET (0.075MG) PO (06:37)
[2017-12-07] MEDS: HEPARIN SOD (PORCINE) 5000 UNITS/ML VIAL SC ×3 (06:38→20:33)
[2017-12-07] MEDS: ALENDRONATE 35MG TABLET PO ×2 (06:38→08:15)
[2017-12-07 07:12] LABS: DIGOXIN LEVEL 1.4 NG/ML (0.5-2.0)
[2017-12-07] MEDS ORDERED: FUROSEMIDE 20 MG/2 ML VIAL (J1940) IV (07:45)
[2017-12-07] MEDS: FUROSEMIDE 40 MG/4 ML VIAL (J1940) IV ×3 (07:45→17:14)
[2017-12-07] MEDS: predniSONE 20 MG TAB PO (08:15)
[2017-12-07] MEDS: CYCLOBENZAPRINE 5MG TABLET PO (08:15)
[2017-12-07] MEDS: ATENOLOL 25 MG TAB PO (08:16)
[2017-12-07] MEDS: traMADol 50 MG TAB PO (08:16)
[2017-12-07] MEDS: LACTOBACILLUS ACIDOPHILUS CAP (BACID) PO ×3 (08:17→17:14)
[2017-12-07] MEDS: DIGOXIN 0.25 MG TAB PO (08:17)
[2017-12-07] MEDS: MULTIVITAMINS/MINERALS THERAP 1 TAB PO (08:17)
[2017-12-07] MEDS: FERROUS SULFATE 325MG TAB PO (08:17)
[2017-12-07] MEDS: ASPIRIN 81 MG ENTERIC TAB PO (08:17)
[2017-12-07] MEDS: LIDOCAINE 5% OINT 30 GM TOP ×3 (08:17→20:33)
[2017-12-07] MEDS: DEXTROMETHORPHAN 60MG/10ML SUSP 90ML BTL(DELSYM) PO ×2 (08:18→20:32)
[2017-12-07 10:10] LABS: CK-MB VALUE MASS < 1.0 NG/ML (<3.6); CPK CREATINE PHOSPHOKINASE 60 U/L (26-192); MB/CK RELATIVE INDEX 1.66 (< OR =4); TROPONIN I < 0.02 NG/ML (< 0.10)
[2017-12-07 10:12] LABS: NT-PRO BNP 1866 PG/ML (<125)
[2017-12-07 10:22] LABS: IRON (FE) 20 UG/DL (50-170)
[2017-12-07 10:24] LABS: PERCENT SATURATION 11.4 % (13.2-45.0); TOTAL IRON BINDING CAPACITY 176 UG/DL (250-450)
[2017-12-07 18:36] LABS: ANION GAP 6 MEQ/L (8-16); BLOOD UREA NITROGEN 31 MG/DL (7-18); CALCIUM LEVEL 8.8 MG/DL (8.8-10.2); CARBON DIOXIDE LEVEL 33 MEQ/L (21-32); CHLORIDE LEVEL 100 MEQ/L (98-107); CK-MB VALUE MASS < 1.0 NG/ML (<3.6); CPK CREATINE PHOSPHOKINASE 75 U/L (26-192); CREATININE FOR GFR 1.18 MG/DL (0.55-1.30); GLOMERULAR FILTRATION RATE 48.2 (>39); GLUCOSE, FASTING 124 MG/DL (70-100); MAGNESIUM LEVEL 2.4 MG/DL (1.8-2.4); MB/CK RELATIVE INDEX 1.33 (< OR =4); POTASSIUM SERUM 4.3 MEQ/L (3.5-5.1); SODIUM LEVEL 139 MEQ/L (136-145); TROPONIN I < 0.02 NG/ML (< 0.10)
[2017-12-07] MEDS: ATORVASTATIN 10 MG TAB PO (20:31)
[2017-12-07] MEDS: PIPERACILLIN/TAZOBACTAM SOD 3.375 GM in D5W MINI-BAG PLUS 50 ML IV (20:32)
[2017-12-07] MEDS: ONDANSETRON 4MG/2ML VIAL (J2405) IV (23:19)
[2017-12-08] MEDS: FUROSEMIDE 40 MG/4 ML VIAL (J1940) IV (00:06)
[2017-12-08] MEDS: NORCO, ANEXSIA 5/325MG TABLET (HYDROcodone/ACETAMINOPHEN) PO ×4 (00:11→14:50)
[2017-12-08 00:45] LABS: ANION GAP 7 MEQ/L (8-16); BLOOD UREA NITROGEN 31 MG/DL (7-18); CALCIUM LEVEL 8.9 MG/DL (8.8-10.2); CARBON DIOXIDE LEVEL 34 MEQ/L (21-32); CHLORIDE LEVEL 99 MEQ/L (98-107); CPK CREATINE PHOSPHOKINASE 43 U/L (26-192); CREATININE FOR GFR 1.21 MG/DL (0.55-1.30); GLOMERULAR FILTRATION RATE 46.8 (>39); GLUCOSE, FASTING 109 MG/DL (70-100); MAGNESIUM LEVEL 2.4 MG/DL (1.8-2.4); POTASSIUM SERUM 3.5 MEQ/L (3.5-5.1); SODIUM LEVEL 140 MEQ/L (136-145); TROPONIN I < 0.02 NG/ML (< 0.10)
[2017-12-08 00:46] LABS: CK-MB VALUE MASS < 1.0 NG/ML (<3.6); MB/CK RELATIVE INDEX 2.32 (< OR =4)
[2017-12-08] MEDS: PIPERACILLIN/TAZOBACTAM SOD 3.375 GM in D5W MINI-BAG PLUS 50 ML IV ×4 (02:08→20:18)
[2017-12-08] MEDS: IPRATROPIUM 0.5MG/ALBUTEROL 2.5MG INH SOL UD 3ML (DUONEB)(J7620) NEB ×7 (03:48→23:38)
[2017-12-08] MEDS: HEPARIN SOD (PORCINE) 5000 UNITS/ML VIAL SC ×3 (05:44→20:14)
[2017-12-08] MEDS: LEVOTHYROXINE 75MCG TABLET (0.075MG) PO (05:44)
[2017-12-08 05:52] LABS: BASO % 0.1 % (0.0-1.0); EOS # 0.1 10^3/uL (0.0-0.50); EOS % 0.7 % (0.0-3.0); HEMATOCRIT 31.1 % (36.0-47.0); HEMOGLOBIN 9.9 g/dl (12.0-15.5); IMMATURE GRANULOCYTE % 0.6 % (0-3.0); LYMPH # 0.7 10^3/uL (1.5-4.5); LYMPH % 4.3 % (24.0-44.0); MEAN CORPUSCULAR HEMOGLOBIN 28.7 pg (27.0-33.0); MEAN CORPUSCULAR HGB CONC 31.8 g/dl (32.0-36.5); MEAN CORPUSCULAR VOLUME 90.1 fl (80.0-96.0); MONO # 1.1 10^3/uL (0.0-0.8); MONO % 6.8 % (0.0-5.0); NEUTROPHILS # 13.6 10^3/uL (1.8-7.7); NEUTROPHILS % 87.5 % (36.0-66.0); PLATELET COUNT, AUTOMATED 562 10^3/uL (150-450); RED BLOOD COUNT 3.45 10^6/uL (4.00-5.40); RED CELL DISTRIBUTION WIDTH 16.7 % (11.5-14.5); WHITE BLOOD COUNT 15.6 10^3/uL (4.0-10.0)
[2017-12-08 06:19] LABS: ANION GAP 7 MEQ/L (8-16); BLOOD UREA NITROGEN 30 MG/DL (7-18); CALCIUM LEVEL 9.2 MG/DL (8.8-10.2); CARBON DIOXIDE LEVEL 35 MEQ/L (21-32); CHLORIDE LEVEL 98 MEQ/L (98-107); CPK CREATINE PHOSPHOKINASE 46 U/L (26-192); CREATININE FOR GFR 1.23 MG/DL (0.55-1.30); GLUCOSE, FASTING 102 MG/DL (70-100); POTASSIUM SERUM 3.1 MEQ/L (3.5-5.1); SODIUM LEVEL 140 MEQ/L (136-145); TROPONIN I < 0.02 NG/ML (< 0.10)
[2017-12-08 06:20] LABS: CK-MB VALUE MASS < 1.0 NG/ML (<3.6); MB/CK RELATIVE INDEX 2.17 (< OR =4); NT-PRO BNP 1277 PG/ML (<125)
[2017-12-08] MEDS: MULTIVITAMINS/MINERALS THERAP 1 TAB PO (08:10)
[2017-12-08] MEDS: LACTOBACILLUS ACIDOPHILUS CAP (BACID) PO ×3 (08:10→18:00)
[2017-12-08] MEDS: predniSONE 20 MG TAB PO (08:10)
[2017-12-08] MEDS: ASPIRIN 81 MG ENTERIC TAB PO (08:10)
[2017-12-08] MEDS: FERROUS SULFATE 325MG TAB PO (08:10)
[2017-12-08] MEDS: POTASSIUM CHLORIDE 10 MEQ SR TABLET PO (08:10)
[2017-12-08] MEDS: ATENOLOL 25 MG TAB PO (08:11)
[2017-12-08] MEDS: DIGOXIN 0.25 MG TAB PO (08:11)
[2017-12-08] MEDS: LIDOCAINE 5% OINT 30 GM TOP ×3 (08:11→20:18)
[2017-12-08] MEDS: DEXTROMETHORPHAN 60MG/10ML SUSP 90ML BTL(DELSYM) PO ×2 (08:12→20:17)
[2017-12-08] MEDS ORDERED: NALOXONE INJ 0.4 MG/1 ML VIAL (J2310) IV (17:30)
[2017-12-08] MEDS ORDERED: PILL CRUSHER/CUTTER 1 EACH XX (18:00)
[2017-12-08] MEDS: MORPHINE 30 MG TAB **MSIR PO (18:35)
[2017-12-08] MEDS: ATORVASTATIN 10 MG TAB PO (20:18)
[2017-12-08] MEDS: ACETAMINOPHEN TAB 650MG DOSE (2X325MG) PO (21:14)
[2017-12-09] MEDS: PIPERACILLIN/TAZOBACTAM SOD 3.375 GM in D5W MINI-BAG PLUS 50 ML IV ×4 (01:54→20:04)
[2017-12-09] MEDS: IPRATROPIUM 0.5MG/ALBUTEROL 2.5MG INH SOL UD 3ML (DUONEB)(J7620) NEB ×5 (04:00→21:23)
[2017-12-09] MEDS: HEPARIN SOD (PORCINE) 5000 UNITS/ML VIAL SC ×3 (05:07→22:00)
[2017-12-09] MEDS: LEVOTHYROXINE 75MCG TABLET (0.075MG) PO (05:40)
[2017-12-09] MEDS: MORPHINE 30 MG TAB **MSIR PO ×2 (06:37→20:05)
[2017-12-09] MEDS: FERROUS SULFATE 325MG TAB PO (09:00)
[2017-12-09] MEDS: MULTIVITAMINS/MINERALS THERAP 1 TAB PO (09:25)
[2017-12-09] MEDS: ASPIRIN 81 MG ENTERIC TAB PO (09:25)
[2017-12-09] MEDS: LACTOBACILLUS ACIDOPHILUS CAP (BACID) PO ×3 (09:25→18:20)
[2017-12-09] MEDS: DEXTROMETHORPHAN 60MG/10ML SUSP 90ML BTL(DELSYM) PO ×2 (09:26→20:04)
[2017-12-09] MEDS: predniSONE 20 MG TAB PO (09:26)
[2017-12-09] MEDS: DIGOXIN 0.25 MG TAB PO (09:27)
[2017-12-09] MEDS: LIDOCAINE 5% OINT 30 GM TOP ×3 (09:27→20:05)
[2017-12-09] MEDS: ATENOLOL 25 MG TAB PO (09:27)
[2017-12-09] MEDS: ACETAMINOPHEN TAB 650MG DOSE (2X325MG) PO ×2 (10:54→23:34)
[2017-12-09] MEDS: POTASSIUM CHLORIDE 10 MEQ SR TABLET PO (12:34)
[2017-12-09] MEDS: ATORVASTATIN 10 MG TAB PO (20:05)
[2017-12-10] MEDS: PIPERACILLIN/TAZOBACTAM SOD 3.375 GM in D5W MINI-BAG PLUS 50 ML IV ×4 (01:27→19:55)
[2017-12-10] MEDS: IPRATROPIUM 0.5MG/ALBUTEROL 2.5MG INH SOL UD 3ML (DUONEB)(J7620) NEB ×7 (04:00→23:09)
[2017-12-10] MEDS: HEPARIN SOD (PORCINE) 5000 UNITS/ML VIAL SC ×3 (05:24→19:58)
[2017-12-10] MEDS: LEVOTHYROXINE 75MCG TABLET (0.075MG) PO (05:44)
[2017-12-10] MEDS: MORPHINE 30 MG TAB **MSIR PO ×2 (05:44→19:58)
[2017-12-10] MEDS: ATENOLOL 25 MG TAB PO (07:57)
[2017-12-10] MEDS: DEXTROMETHORPHAN 60MG/10ML SUSP 90ML BTL(DELSYM) PO ×2 (08:23→19:56)
[2017-12-10] MEDS: ASPIRIN 81 MG ENTERIC TAB PO (08:24)
[2017-12-10] MEDS: predniSONE 20 MG TAB PO (08:24)
[2017-12-10] MEDS: MULTIVITAMINS/MINERALS THERAP 1 TAB PO (08:24)
[2017-12-10] MEDS: DIGOXIN 0.25 MG TAB PO (08:24)
[2017-12-10] MEDS: LACTOBACILLUS ACIDOPHILUS CAP (BACID) PO ×3 (08:24→17:16)
[2017-12-10] MEDS: FERROUS SULFATE 325MG TAB PO (08:24)
[2017-12-10] MEDS: LIDOCAINE 5% OINT 30 GM TOP ×3 (08:25→19:58)
[2017-12-10 09:07] LABS: HEMATOCRIT 33.5 % (36.0-47.0); HEMOGLOBIN 10.6 g/dl (12.0-15.5); MEAN CORPUSCULAR HEMOGLOBIN 28.9 pg (27.0-33.0); MEAN CORPUSCULAR HGB CONC 31.6 g/dl (32.0-36.5); MEAN CORPUSCULAR VOLUME 91.3 fl (80.0-96.0); PLATELET COUNT, AUTOMATED 566 10^3/uL (150-450); RED BLOOD COUNT 3.67 10^6/uL (4.00-5.40); RED CELL DISTRIBUTION WIDTH 16.6 % (11.5-14.5); WHITE BLOOD COUNT 14.8 10^3/uL (4.0-10.0)
[2017-12-10 09:33] LABS: ANION GAP 7 MEQ/L (8-16); BLOOD UREA NITROGEN 35 MG/DL (7-18); CARBON DIOXIDE LEVEL 30 MEQ/L (21-32); CHLORIDE LEVEL 104 MEQ/L (98-107); CREATININE FOR GFR 0.96 MG/DL (0.55-1.30); GLOMERULAR FILTRATION RATE > 60.0 (>39); GLUCOSE, FASTING 162 MG/DL (70-100); POTASSIUM SERUM 3.6 MEQ/L (3.5-5.1); SODIUM LEVEL 141 MEQ/L (136-145)
[2017-12-10] MEDS: ACETAMINOPHEN TAB 650MG DOSE (2X325MG) PO ×3 (11:09→22:35)
[2017-12-10] MEDS: ATORVASTATIN 10 MG TAB PO (19:56)
[2017-12-11] MEDS: IPRATROPIUM 0.5MG/ALBUTEROL 2.5MG INH SOL UD 3ML (DUONEB)(J7620) NEB ×7 (01:16→23:35)
[2017-12-11] MEDS: PIPERACILLIN/TAZOBACTAM SOD 3.375 GM in D5W MINI-BAG PLUS 50 ML IV ×4 (02:00→21:08)
[2017-12-11] MEDS: RAMELTEON 8 MG TAB (ROZEREM) PO (02:20)
[2017-12-11] MEDS: HEPARIN SOD (PORCINE) 5000 UNITS/ML VIAL SC ×4 (06:00→21:10)
[2017-12-11] MEDS: LEVOTHYROXINE 75MCG TABLET (0.075MG) PO (06:02)
[2017-12-11 06:31] LABS: HEMOGLOBIN 9.7 g/dl (12.0-15.5); MEAN CORPUSCULAR HEMOGLOBIN 29.5 pg (27.0-33.0); MEAN CORPUSCULAR HGB CONC 32.3 g/dl (32.0-36.5); MEAN CORPUSCULAR VOLUME 91.2 fl (80.0-96.0); PLATELET COUNT, AUTOMATED 524 10^3/uL (150-450); RED BLOOD COUNT 3.29 10^6/uL (4.00-5.40); RED CELL DISTRIBUTION WIDTH 16.5 % (11.5-14.5); WHITE BLOOD COUNT 13.8 10^3/uL (4.0-10.0)
[2017-12-11 07:06] LABS: ANION GAP 6 MEQ/L (8-16); BLOOD UREA NITROGEN 32 MG/DL (7-18); CALCIUM LEVEL 8.8 MG/DL (8.8-10.2); CARBON DIOXIDE LEVEL 30 MEQ/L (21-32); CHLORIDE LEVEL 104 MEQ/L (98-107); CREATININE FOR GFR 0.88 MG/DL (0.55-1.30); GLOMERULAR FILTRATION RATE > 60.0 (>39); GLUCOSE, FASTING 92 MG/DL (70-100); POTASSIUM SERUM 3.5 MEQ/L (3.5-5.1); SODIUM LEVEL 140 MEQ/L (136-145)
[2017-12-11] MEDS: predniSONE 20 MG TAB PO (08:48)
[2017-12-11] MEDS: ASPIRIN 81 MG ENTERIC TAB PO (08:48)
[2017-12-11] MEDS: MULTIVITAMINS/MINERALS THERAP 1 TAB PO (08:48)
[2017-12-11] MEDS: DEXTROMETHORPHAN 60MG/10ML SUSP 90ML BTL(DELSYM) PO ×2 (08:48→21:08)
[2017-12-11] MEDS: LACTOBACILLUS ACIDOPHILUS CAP (BACID) PO ×3 (08:48→17:58)
[2017-12-11] MEDS: FERROUS SULFATE 325MG TAB PO (08:48)
[2017-12-11] MEDS: LIDOCAINE 5% OINT 30 GM TOP ×3 (08:49→21:09)
[2017-12-11] MEDS: DIGOXIN 0.25 MG TAB PO (08:49)
[2017-12-11] MEDS: ATENOLOL 25 MG TAB PO (08:49)
[2017-12-11] MEDS: MORPHINE 30 MG TAB **MSIR PO ×2 (08:58→15:11)
[2017-12-11] MEDS: ATORVASTATIN 10 MG TAB PO (21:08)
[2017-12-11] MEDS: ACETAMINOPHEN TAB 650MG DOSE (2X325MG) PO (23:49)
[2017-12-12 00:08] LABS: ASPERGILLUS FLAVUS ABY Negative (Neg:<1:1); ASPERGILLUS FUMIGATUS ABY Negative (Neg:<1:1); ASPERGILLUS NIGER ABY Negative (Neg:<1:1)
[2017-12-12 00:08] LABS: ASPERGILLUS GALACTOMANNAN AG 1.53 Index (0.00-0.49)
[2017-12-12] MEDS: RAMELTEON 8 MG TAB (ROZEREM) PO (00:46)
[2017-12-12] MEDS: PIPERACILLIN/TAZOBACTAM SOD 3.375 GM in D5W MINI-BAG PLUS 50 ML IV ×3 (02:19→14:48)
[2017-12-12] MEDS: IPRATROPIUM 0.5MG/ALBUTEROL 2.5MG INH SOL UD 3ML (DUONEB)(J7620) NEB ×5 (04:00→19:11)
[2017-12-12] MEDS: HEPARIN SOD (PORCINE) 5000 UNITS/ML VIAL SC ×3 (05:50→21:07)
[2017-12-12] MEDS: LEVOTHYROXINE 75MCG TABLET (0.075MG) PO (05:50)
[2017-12-12 06:50] LABS: HEMOGLOBIN 9.2 g/dl (12.0-15.5); MEAN CORPUSCULAR HEMOGLOBIN 28.8 pg (27.0-33.0); MEAN CORPUSCULAR HGB CONC 31.7 g/dl (32.0-36.5); MEAN CORPUSCULAR VOLUME 90.9 fl (80.0-96.0); PLATELET COUNT, AUTOMATED 473 10^3/uL (150-450); RED BLOOD COUNT 3.19 10^6/uL (4.00-5.40); RED CELL DISTRIBUTION WIDTH 16.4 % (11.5-14.5); WHITE BLOOD COUNT 10.2 10^3/uL (4.0-10.0)
[2017-12-12] MEDS: MORPHINE 30 MG TAB **MSIR PO (06:56)
[2017-12-12 07:09] LABS: ANION GAP 6 MEQ/L (8-16); BLOOD UREA NITROGEN 26 MG/DL (7-18); CALCIUM LEVEL 8.9 MG/DL (8.8-10.2); CARBON DIOXIDE LEVEL 30 MEQ/L (21-32); CHLORIDE LEVEL 103 MEQ/L (98-107); CREATININE FOR GFR 0.87 MG/DL (0.55-1.30); GLOMERULAR FILTRATION RATE > 60.0 (>39); GLUCOSE, FASTING 87 MG/DL (70-100); POTASSIUM SERUM 3.6 MEQ/L (3.5-5.1); SODIUM LEVEL 139 MEQ/L (136-145)
[2017-12-12] MEDS: ATENOLOL 25 MG TAB PO (07:51)
[2017-12-12] MEDS: LACTOBACILLUS ACIDOPHILUS CAP (BACID) PO ×3 (07:55→17:19)
[2017-12-12] MEDS: ASPIRIN 81 MG ENTERIC TAB PO (07:56)
[2017-12-12] MEDS: FERROUS SULFATE 325MG TAB PO (07:56)
[2017-12-12] MEDS: DEXTROMETHORPHAN 60MG/10ML SUSP 90ML BTL(DELSYM) PO ×2 (07:56→21:08)
[2017-12-12] MEDS: MULTIVITAMINS/MINERALS THERAP 1 TAB PO (07:56)
[2017-12-12] MEDS: predniSONE 20 MG TAB PO (07:57)
[2017-12-12] MEDS: LIDOCAINE 5% OINT 30 GM TOP ×3 (07:58→21:08)
[2017-12-12] MEDS: DIGOXIN 0.25 MG TAB PO (07:58)
[2017-12-12] MEDS: IBUPROFEN 600 MG TAB PO ×3 (09:46→21:07)
[2017-12-12] MEDS: GABAPENTIN 300 MG CAP PO ×2 (17:19→21:06)
[2017-12-12] MEDS: ATORVASTATIN 10 MG TAB PO (21:06)
[2017-12-12] MEDS: VORICONAZOLE 200MG TABLET (VFEND) PO (21:06)
[2017-12-13] MEDS: IPRATROPIUM 0.5MG/ALBUTEROL 2.5MG INH SOL UD 3ML (DUONEB)(J7620) NEB ×7 (04:00→23:37)
[2017-12-13] MEDS: HEPARIN SOD (PORCINE) 5000 UNITS/ML VIAL SC ×3 (04:12→22:00)
[2017-12-13] MEDS: ALENDRONATE 35MG TABLET PO (05:41)
[2017-12-13] MEDS: LEVOTHYROXINE 75MCG TABLET (0.075MG) PO (05:41)
[2017-12-13] MEDS: IBUPROFEN 600 MG TAB PO ×3 (05:41→21:40)
[2017-12-13 06:25] LABS: HEMATOCRIT 30.4 % (36.0-47.0); HEMOGLOBIN 9.5 g/dl (12.0-15.5); MEAN CORPUSCULAR HEMOGLOBIN 28.5 pg (27.0-33.0); MEAN CORPUSCULAR HGB CONC 31.3 g/dl (32.0-36.5); MEAN CORPUSCULAR VOLUME 91.3 fl (80.0-96.0); PLATELET COUNT, AUTOMATED 457 10^3/uL (150-450); RED BLOOD COUNT 3.33 10^6/uL (4.00-5.40); RED CELL DISTRIBUTION WIDTH 16.5 % (11.5-14.5)
[2017-12-13 06:43] LABS: ANION GAP 7 MEQ/L (8-16); BLOOD UREA NITROGEN 23 MG/DL (7-18); CALCIUM LEVEL 8.9 MG/DL (8.8-10.2); CARBON DIOXIDE LEVEL 28 MEQ/L (21-32); CHLORIDE LEVEL 107 MEQ/L (98-107); CREATININE FOR GFR 0.78 MG/DL (0.55-1.30); GLOMERULAR FILTRATION RATE > 60.0 (>39); GLUCOSE, FASTING 80 MG/DL (70-100); MAGNESIUM LEVEL 2.4 MG/DL (1.8-2.4); POTASSIUM SERUM 3.6 MEQ/L (3.5-5.1); SODIUM LEVEL 142 MEQ/L (136-145)
[2017-12-13] MEDS: LACTOBACILLUS ACIDOPHILUS CAP (BACID) PO ×3 (09:06→17:02)
[2017-12-13] MEDS: ASPIRIN 81 MG ENTERIC TAB PO (09:07)
[2017-12-13] MEDS: GABAPENTIN 300 MG CAP PO ×4 (09:07→20:50)
[2017-12-13] MEDS: FERROUS SULFATE 325MG TAB PO (09:08)
[2017-12-13] MEDS: MULTIVITAMINS/MINERALS THERAP 1 TAB PO (09:08)
[2017-12-13] MEDS: VORICONAZOLE 200MG TABLET (VFEND) PO ×2 (09:08→20:50)
[2017-12-13] MEDS: predniSONE 20 MG TAB PO (09:10)
[2017-12-13] MEDS: DEXTROMETHORPHAN 60MG/10ML SUSP 90ML BTL(DELSYM) PO ×2 (09:11→20:51)
[2017-12-13] MEDS: DIGOXIN 0.25 MG TAB PO (09:14)
[2017-12-13] MEDS: ATENOLOL 25 MG TAB PO (09:14)
[2017-12-13] MEDS: MORPHINE 30 MG TAB **MSIR PO (09:15)
[2017-12-13] MEDS: LIDOCAINE 5% OINT 30 GM TOP ×3 (09:16→20:51)
[2017-12-14] MEDS: IPRATROPIUM 0.5MG/ALBUTEROL 2.5MG INH SOL UD 3ML (DUONEB)(J7620) NEB ×6 (03:37→23:47)
[2017-12-14] MEDS: LEVOTHYROXINE 75MCG TABLET (0.075MG) PO (05:45)
[2017-12-14] MEDS: IBUPROFEN 600 MG TAB PO ×3 (05:45→21:56)
[2017-12-14] MEDS: HEPARIN SOD (PORCINE) 5000 UNITS/ML VIAL SC ×3 (05:47→21:55)
[2017-12-14 06:01] LABS: HEMATOCRIT 26.8 % (36.0-47.0); HEMOGLOBIN 8.4 g/dl (12.0-15.5); MEAN CORPUSCULAR HGB CONC 31.3 g/dl (32.0-36.5); MEAN CORPUSCULAR VOLUME 92.4 fl (80.0-96.0); PLATELET COUNT, AUTOMATED 398 10^3/uL (150-450); RED CELL DISTRIBUTION WIDTH 16.8 % (11.5-14.5); WHITE BLOOD COUNT 12.1 10^3/uL (4.0-10.0)
[2017-12-14 06:23] LABS: ANION GAP 5 MEQ/L (8-16); BLOOD UREA NITROGEN 28 MG/DL (7-18); CALCIUM LEVEL 8.8 MG/DL (8.8-10.2); CARBON DIOXIDE LEVEL 28 MEQ/L (21-32); CHLORIDE LEVEL 108 MEQ/L (98-107); GLOMERULAR FILTRATION RATE > 60.0 (>39); GLUCOSE, FASTING 97 MG/DL (70-100); MAGNESIUM LEVEL 2.4 MG/DL (1.8-2.4); POTASSIUM SERUM 3.8 MEQ/L (3.5-5.1); SODIUM LEVEL 141 MEQ/L (136-145)
[2017-12-14] MEDS: ALENDRONATE 35MG TABLET PO (06:48)
[2017-12-14] MEDS: LACTOBACILLUS ACIDOPHILUS CAP (BACID) PO ×3 (09:06→17:02)
[2017-12-14] MEDS: DIGOXIN 0.25 MG TAB PO (09:07)
[2017-12-14] MEDS: DEXTROMETHORPHAN 60MG/10ML SUSP 90ML BTL(DELSYM) PO ×2 (09:07→20:15)
[2017-12-14] MEDS: FERROUS SULFATE 325MG TAB PO (09:07)
[2017-12-14] MEDS: VORICONAZOLE 200MG TABLET (VFEND) PO ×2 (09:08→20:14)
[2017-12-14] MEDS: GABAPENTIN 300 MG CAP PO ×4 (09:08→20:14)
[2017-12-14] MEDS: MULTIVITAMINS/MINERALS THERAP 1 TAB PO (09:08)
[2017-12-14] MEDS: ATENOLOL 25 MG TAB PO (09:09)
[2017-12-14] MEDS: predniSONE 10 MG TAB PO (09:09)
[2017-12-14] MEDS: ASPIRIN 81 MG ENTERIC TAB PO (09:09)
[2017-12-14] MEDS: LIDOCAINE 5% OINT 30 GM TOP ×3 (09:10→20:15)
[2017-12-14] MEDS: MORPHINE 30 MG TAB **MSIR PO (12:54)
[2017-12-15] MEDS: IPRATROPIUM 0.5MG/ALBUTEROL 2.5MG INH SOL UD 3ML (DUONEB)(J7620) NEB ×5 (04:00→20:23)
[2017-12-15] MEDS: HEPARIN SOD (PORCINE) 5000 UNITS/ML VIAL SC ×3 (06:00→21:57)
[2017-12-15 06:05] LABS: HEMATOCRIT 25.8 % (36.0-47.0); MEAN CORPUSCULAR VOLUME 93.5 fl (80.0-96.0); PLATELET COUNT, AUTOMATED 393 10^3/uL (150-450); RED BLOOD COUNT 2.76 10^6/uL (4.00-5.40); RED CELL DISTRIBUTION WIDTH 17.1 % (11.5-14.5)
[2017-12-15] MEDS: LEVOTHYROXINE 75MCG TABLET (0.075MG) PO (06:13)
[2017-12-15] MEDS: IBUPROFEN 600 MG TAB PO ×3 (06:13→21:57)
[2017-12-15 06:18] LABS: ANION GAP 6 MEQ/L (8-16); BLOOD UREA NITROGEN 23 MG/DL (7-18); CALCIUM LEVEL 8.5 MG/DL (8.8-10.2); CARBON DIOXIDE LEVEL 28 MEQ/L (21-32); CHLORIDE LEVEL 107 MEQ/L (98-107); CREATININE FOR GFR 0.92 MG/DL (0.55-1.30); GLOMERULAR FILTRATION RATE > 60.0 (>39); GLUCOSE, FASTING 93 MG/DL (70-100); MAGNESIUM LEVEL 2.2 MG/DL (1.8-2.4); SODIUM LEVEL 141 MEQ/L (136-145)
[2017-12-15] MEDS: VORICONAZOLE 200MG TABLET (VFEND) PO ×2 (08:23→21:58)
[2017-12-15] MEDS: DIGOXIN 0.25 MG TAB PO (08:23)
[2017-12-15] MEDS: GABAPENTIN 300 MG CAP PO ×4 (08:23→21:57)
[2017-12-15] MEDS: LACTOBACILLUS ACIDOPHILUS CAP (BACID) PO ×3 (08:23→17:52)
[2017-12-15] MEDS: ASPIRIN 81 MG ENTERIC TAB PO (08:23)
[2017-12-15] MEDS: MULTIVITAMINS/MINERALS THERAP 1 TAB PO (08:23)
[2017-12-15] MEDS: FERROUS SULFATE 325MG TAB PO (08:24)
[2017-12-15] MEDS: DEXTROMETHORPHAN 60MG/10ML SUSP 90ML BTL(DELSYM) PO ×2 (08:24→21:56)
[2017-12-15] MEDS: predniSONE 10 MG TAB PO (08:24)
[2017-12-15] MEDS: ATENOLOL 25 MG TAB PO (08:24)
[2017-12-15] MEDS: LIDOCAINE 5% OINT 30 GM TOP ×3 (08:25→21:56)
[2017-12-16] MEDS: IPRATROPIUM 0.5MG/ALBUTEROL 2.5MG INH SOL UD 3ML (DUONEB)(J7620) NEB ×7 (04:00→23:30)
[2017-12-16] MEDS: IBUPROFEN 600 MG TAB PO ×3 (05:46→21:18)
[2017-12-16] MEDS: HEPARIN SOD (PORCINE) 5000 UNITS/ML VIAL SC ×3 (05:47→20:50)
[2017-12-16] MEDS: LEVOTHYROXINE 75MCG TABLET (0.075MG) PO (05:47)
[2017-12-16 06:09] LABS: HEMATOCRIT 27.8 % (36.0-47.0); HEMOGLOBIN 8.7 g/dl (12.0-15.5); MEAN CORPUSCULAR HEMOGLOBIN 29.3 pg (27.0-33.0); MEAN CORPUSCULAR HGB CONC 31.3 g/dl (32.0-36.5); MEAN CORPUSCULAR VOLUME 93.6 fl (80.0-96.0); PLATELET COUNT, AUTOMATED 391 10^3/uL (150-450); RED BLOOD COUNT 2.97 10^6/uL (4.00-5.40); WHITE BLOOD COUNT 10.6 10^3/uL (4.0-10.0)
[2017-12-16 06:37] LABS: ALBUMIN 2.6 GM/DL (3.2-5.2); ALBUMIN/GLOBULIN RATIO 0.67 (1.00-1.93); ALKALINE PHOSPHATASE 72 U/L (45-117); ALT/SGPT 17 U/L (12-78); ANION GAP 5 MEQ/L (8-16); AST/SGOT 10 U/L (7-37); BILIRUBIN,TOTAL 0.2 MG/DL (0.2-1.0); BLOOD UREA NITROGEN 26 MG/DL (7-18); C REACTIVE PROTEIN QUANTITATIV 2.45 MG/DL (0.00-0.30); CALCIUM LEVEL 8.8 MG/DL (8.8-10.2); CARBON DIOXIDE LEVEL 28 MEQ/L (21-32); CHLORIDE LEVEL 108 MEQ/L (98-107); CREATININE FOR GFR 0.92 MG/DL (0.55-1.30); GLOMERULAR FILTRATION RATE > 60.0 (>39); GLUCOSE, FASTING 83 MG/DL (70-100); MAGNESIUM LEVEL 2.3 MG/DL (1.8-2.4); POTASSIUM SERUM 4.3 MEQ/L (3.5-5.1); SODIUM LEVEL 141 MEQ/L (136-145); TOTAL PROTEIN 6.5 GM/DL (6.4-8.2)
[2017-12-16] MEDS: DIGOXIN 0.25 MG TAB PO (09:02)
[2017-12-16] MEDS: MULTIVITAMINS/MINERALS THERAP 1 TAB PO (09:02)
[2017-12-16] MEDS: VORICONAZOLE 200MG TABLET (VFEND) PO ×2 (09:02→20:36)
[2017-12-16] MEDS: FERROUS SULFATE 325MG TAB PO (09:03)
[2017-12-16] MEDS: LACTOBACILLUS ACIDOPHILUS CAP (BACID) PO ×3 (09:03→17:18)
[2017-12-16] MEDS: ASPIRIN 81 MG ENTERIC TAB PO (09:03)
[2017-12-16] MEDS: LIDOCAINE 5% OINT 30 GM TOP ×3 (09:03→20:37)
[2017-12-16] MEDS: predniSONE 10 MG TAB PO (09:03)
[2017-12-16] MEDS: GABAPENTIN 300 MG CAP PO ×4 (09:03→20:36)
[2017-12-16] MEDS: DEXTROMETHORPHAN 60MG/10ML SUSP 90ML BTL(DELSYM) PO ×2 (09:04→20:36)
[2017-12-16] MEDS: ATENOLOL 25 MG TAB PO (09:04)
[2017-12-17] MEDS: IPRATROPIUM 0.5MG/ALBUTEROL 2.5MG INH SOL UD 3ML (DUONEB)(J7620) NEB ×5 (04:00→20:25)
[2017-12-17] MEDS: HEPARIN SOD (PORCINE) 5000 UNITS/ML VIAL SC ×3 (05:18→21:20)
[2017-12-17] MEDS: LEVOTHYROXINE 75MCG TABLET (0.075MG) PO (05:49)
[2017-12-17] MEDS: IBUPROFEN 600 MG TAB PO ×3 (05:50→21:36)
[2017-12-17 06:00] LABS: HEMATOCRIT 25.1 % (36.0-47.0); HEMOGLOBIN 7.7 g/dl (12.0-15.5); MEAN CORPUSCULAR HEMOGLOBIN 28.9 pg (27.0-33.0); MEAN CORPUSCULAR HGB CONC 30.7 g/dl (32.0-36.5); MEAN CORPUSCULAR VOLUME 94.4 fl (80.0-96.0); PLATELET COUNT, AUTOMATED 324 10^3/uL (150-450); RED BLOOD COUNT 2.66 10^6/uL (4.00-5.40); RED CELL DISTRIBUTION WIDTH 17.3 % (11.5-14.5)
[2017-12-17 06:36] LABS: ANION GAP 7 MEQ/L (8-16); BLOOD UREA NITROGEN 28 MG/DL (7-18); CALCIUM LEVEL 8.4 MG/DL (8.8-10.2); CARBON DIOXIDE LEVEL 26 MEQ/L (21-32); CHLORIDE LEVEL 111 MEQ/L (98-107); CREATININE FOR GFR 0.89 MG/DL (0.55-1.30); GLOMERULAR FILTRATION RATE > 60.0 (>39); GLUCOSE, FASTING 79 MG/DL (70-100); MAGNESIUM LEVEL 2.2 MG/DL (1.8-2.4); POTASSIUM SERUM 4.4 MEQ/L (3.5-5.1); SODIUM LEVEL 144 MEQ/L (136-145)
[2017-12-17] MEDS: LACTOBACILLUS ACIDOPHILUS CAP (BACID) PO ×3 (08:17→17:01)
[2017-12-17] MEDS: GABAPENTIN 300 MG CAP PO ×4 (08:17→21:34)
[2017-12-17] MEDS: DEXTROMETHORPHAN 60MG/10ML SUSP 90ML BTL(DELSYM) PO ×2 (08:17→21:34)
[2017-12-17] MEDS: FERROUS SULFATE 325MG TAB PO (08:18)
[2017-12-17] MEDS: VORICONAZOLE 200MG TABLET (VFEND) PO ×2 (08:18→21:37)
[2017-12-17] MEDS: DIGOXIN 0.25 MG TAB PO (08:18)
[2017-12-17] MEDS: predniSONE 10 MG TAB PO (08:19)
[2017-12-17] MEDS: MULTIVITAMINS/MINERALS THERAP 1 TAB PO (08:19)
[2017-12-17] MEDS: LIDOCAINE 5% OINT 30 GM TOP ×3 (08:19→22:53)
[2017-12-17] MEDS: ATENOLOL 25 MG TAB PO (08:19)
[2017-12-17] MEDS: ASPIRIN 81 MG ENTERIC TAB PO (08:19)
[2017-12-18] MEDS: IPRATROPIUM 0.5MG/ALBUTEROL 2.5MG INH SOL UD 3ML (DUONEB)(J7620) NEB ×6 (03:41→20:35)
[2017-12-18] MEDS: HEPARIN SOD (PORCINE) 5000 UNITS/ML VIAL SC ×3 (05:47→21:52)
[2017-12-18] MEDS: IBUPROFEN 600 MG TAB PO ×3 (05:48→21:33)
[2017-12-18] MEDS: LEVOTHYROXINE 75MCG TABLET (0.075MG) PO (05:48)
[2017-12-18 06:41] LABS: MAGNESIUM LEVEL 2.3 MG/DL (1.8-2.4)
[2017-12-18] MEDS: MULTIVITAMINS/MINERALS THERAP 1 TAB PO (08:40)
[2017-12-18] MEDS: FERROUS SULFATE 325MG TAB PO (08:40)
[2017-12-18] MEDS: LACTOBACILLUS ACIDOPHILUS CAP (BACID) PO ×3 (08:40→17:45)
[2017-12-18] MEDS: ASPIRIN 81 MG ENTERIC TAB PO (08:40)
[2017-12-18] MEDS: GABAPENTIN 300 MG CAP PO ×4 (08:40→21:29)
[2017-12-18] MEDS: VORICONAZOLE 200MG TABLET (VFEND) PO ×2 (08:41→21:30)
[2017-12-18] MEDS: DEXTROMETHORPHAN 60MG/10ML SUSP 90ML BTL(DELSYM) PO ×2 (08:41→21:29)
[2017-12-18] MEDS: predniSONE 10 MG TAB PO (08:41)
[2017-12-18] MEDS: ATENOLOL 25 MG TAB PO (08:44)
[2017-12-18] MEDS: DIGOXIN 0.25 MG TAB PO (08:45)
[2017-12-18] MEDS: LIDOCAINE 5% OINT 30 GM TOP ×3 (08:46→21:30)
[2017-12-18 09:07] LABS: HEMATOCRIT 25.1 % (36.0-47.0); HEMOGLOBIN 7.8 g/dl (12.0-15.5); MEAN CORPUSCULAR HGB CONC 31.1 g/dl (32.0-36.5); MEAN CORPUSCULAR VOLUME 93.3 fl (80.0-96.0); PLATELET COUNT, AUTOMATED 341 10^3/uL (150-450); RED BLOOD COUNT 2.69 10^6/uL (4.00-5.40); RED CELL DISTRIBUTION WIDTH 17.5 % (11.5-14.5); WHITE BLOOD COUNT 8.9 10^3/uL (4.0-10.0)
[2017-12-18 09:22] LABS: ANION GAP 3 MEQ/L (8-16); BLOOD UREA NITROGEN 22 MG/DL (7-18); CALCIUM LEVEL 8.2 MG/DL (8.8-10.2); CARBON DIOXIDE LEVEL 30 MEQ/L (21-32); CHLORIDE LEVEL 111 MEQ/L (98-107); CREATININE FOR GFR 0.78 MG/DL (0.55-1.30); GLOMERULAR FILTRATION RATE > 60.0 (>39); GLUCOSE, FASTING 74 MG/DL (70-100); POTASSIUM SERUM 4.3 MEQ/L (3.5-5.1); SODIUM LEVEL 144 MEQ/L (136-145)
[2017-12-18] MEDS: ACETAMINOPHEN TAB 650MG DOSE (2X325MG) PO (12:06)
[2017-12-18 14:14] LABS: VORICONAZOLE LEVEL 2.2 ug/mL (.)
[2017-12-18] MEDS: NS 1,000 ML IV (17:45)
[2017-12-18 18:17] LABS: IMMEDIATE SPIN CROSSMATCH 1 1
[2017-12-19] MEDS: IPRATROPIUM 0.5MG/ALBUTEROL 2.5MG INH SOL UD 3ML (DUONEB)(J7620) NEB ×4 (04:00→11:59)
[2017-12-19] MEDS: HEPARIN SOD (PORCINE) 5000 UNITS/ML VIAL SC (06:00)
[2017-12-19 06:08] LABS: BASO % 0.1 % (0.0-1.0); EOS # 0.1 10^3/uL (0.0-0.50); EOS % 1.4 % (0.0-3.0); HEMATOCRIT 26.7 % (36.0-47.0); HEMOGLOBIN 8.5 g/dl (12.0-15.5); LYMPH # 0.7 10^3/uL (1.5-4.5); LYMPH % 8.2 % (24.0-44.0); MEAN CORPUSCULAR HEMOGLOBIN 28.7 pg (27.0-33.0); MEAN CORPUSCULAR HGB CONC 31.8 g/dl (32.0-36.5); MEAN CORPUSCULAR VOLUME 90.2 fl (80.0-96.0); MONO # 0.6 10^3/uL (0.0-0.8); NEUTROPHILS # 6.5 10^3/uL (1.8-7.7); NEUTROPHILS % 81.3 % (36.0-66.0); PLATELET COUNT, AUTOMATED 304 10^3/uL (150-450); RED BLOOD COUNT 2.96 10^6/uL (4.00-5.40)
[2017-12-19 06:23] LABS: ANION GAP 5 MEQ/L (8-16); BLOOD UREA NITROGEN 22 MG/DL (7-18); C REACTIVE PROTEIN QUANTITATIV 3.65 MG/DL (0.00-0.30); CALCIUM LEVEL 8.5 MG/DL (8.8-10.2); CARBON DIOXIDE LEVEL 29 MEQ/L (21-32); CHLORIDE LEVEL 111 MEQ/L (98-107); CREATININE FOR GFR 0.74 MG/DL (0.55-1.30); GLOMERULAR FILTRATION RATE > 60.0 (>39); GLUCOSE, FASTING 77 MG/DL (70-100); MAGNESIUM LEVEL 2.3 MG/DL (1.8-2.4); POTASSIUM SERUM 4.2 MEQ/L (3.5-5.1); SODIUM LEVEL 145 MEQ/L (136-145)
[2017-12-19] MEDS: LEVOTHYROXINE 75MCG TABLET (0.075MG) PO (06:28)
[2017-12-19] MEDS: IBUPROFEN 600 MG TAB PO (06:32)
[2017-12-19] MEDS: DEXTROMETHORPHAN 60MG/10ML SUSP 90ML BTL(DELSYM) PO (08:04)
[2017-12-19] MEDS: ATENOLOL 25 MG TAB PO (08:06)
[2017-12-19] MEDS: LACTOBACILLUS ACIDOPHILUS CAP (BACID) PO ×2 (08:06→12:29)
[2017-12-19] MEDS: FERROUS SULFATE 325MG TAB PO (08:06)
[2017-12-19] MEDS: GABAPENTIN 300 MG CAP PO ×2 (08:06→12:29)
[2017-12-19] MEDS: DIGOXIN 0.25 MG TAB PO (08:07)
[2017-12-19] MEDS: MULTIVITAMINS/MINERALS THERAP 1 TAB PO (08:07)
[2017-12-19] MEDS: predniSONE 20 MG TAB PO (08:07)
[2017-12-19] MEDS: LIDOCAINE 5% OINT 30 GM TOP (08:07)
[2017-12-19] MEDS: ASPIRIN 81 MG ENTERIC TAB PO (08:07)
[2017-12-19] MEDS: VORICONAZOLE 200MG TABLET (VFEND) PO (08:07)
[2017-12-23 00:07] LABS: ASPERGILLUS GALACTOMANNAN AG 3.24 Index (0.00-0.49)
[2017-12-24] MEDS ORDERED: predniSONE 10 MG TAB PO (09:00)
== END 2017-12-19 15:05 | disposition home or self-care (01) | DRG 867 ==
LOC: M ED 09:02 → M ED INP 10:28 → M MSPAV 13:57
PROC: 30233N1 Transfusion of Nonautologous Red Blood Cells into Peripheral Vein, Percutaneous Approach (ICD-10-PCS; principal; 2017-12-18)
DX: B44.1 Other pulmonary aspergillosis (principal); J18.9 Pneumonia, unspecified organism; I50.33 Acute on chronic diastolic (congestive) heart failure; J44.1 Chronic obstructive pulmonary disease with (acute) exacerbation; N17.9 Acute kidney failure, unspecified; I48.91 Unspecified atrial fibrillation; I11.0 Hypertensive heart disease with heart failure; M54.2 Cervicalgia; M79.2 Neuralgia and neuritis, unspecified; M25.512 Pain in left shoulder; D64.9 Anemia, unspecified; M79.1 Myalgia; E03.9 Hypothyroidism, unspecified; Z91.013 Allergy to seafood; Z87.891 Personal history of nicotine dependence; Y95 Nosocomial condition; Z79.82 Long term (current) use of aspirin; Z79.52 Long term (current) use of systemic steroids; Z79.899 Other long term (current) drug therapy; Z92.21 Personal history of antineoplastic chemotherapy; Z92.3 Personal history of irradiation; Z85.118 Personal history of other malignant neoplasm of bronchus and lung; Z95.0 Presence of cardiac pacemaker

== ENCOUNTER → 2018-01-05 | Outpatient (REF) | payer MEDICARE, MEDICAID, OTHER ==
[2018-01-05 12:55] LABS: HEMATOCRIT 31.4 % (36.0-47.0); HEMOGLOBIN 9.6 g/dl (12.0-15.5); MEAN CORPUSCULAR HEMOGLOBIN 28.9 pg (27.0-33.0); MEAN CORPUSCULAR HGB CONC 30.6 g/dl (32.0-36.5); MEAN CORPUSCULAR VOLUME 94.6 fl (80.0-96.0); PLATELET COUNT, AUTOMATED 374 10^3/uL (150-450); RED BLOOD COUNT 3.32 10^6/uL (4.00-5.40)
[2018-01-05 13:12] LABS: ALBUMIN 3.1 GM/DL (3.2-5.2); ALBUMIN/GLOBULIN RATIO 0.91 (1.00-1.93); ALKALINE PHOSPHATASE 80 U/L (45-117); ALT/SGPT 19 U/L (12-78); ANION GAP 9 MEQ/L (8-16); AST/SGOT 13 U/L (7-37); BILIRUBIN,TOTAL 0.5 MG/DL (0.2-1.0); BLOOD UREA NITROGEN 17 MG/DL (7-18); CALCIUM LEVEL 8.9 MG/DL (8.8-10.2); CARBON DIOXIDE LEVEL 30 MEQ/L (21-32); CHLORIDE LEVEL 105 MEQ/L (98-107); CREATININE FOR GFR 0.86 MG/DL (0.55-1.30); GLOMERULAR FILTRATION RATE > 60.0 (>39); GLUCOSE, FASTING 78 MG/DL (70-100); POTASSIUM SERUM 4.3 MEQ/L (3.5-5.1); SODIUM LEVEL 144 MEQ/L (136-145); TOTAL PROTEIN 6.5 GM/DL (6.4-8.2)
[2018-01-08 00:06] LABS: ASPERGILLUS GALACTOMANNAN AG 0.54 Index (0.00-0.49)
[2018-01-09 08:06] LABS: VORICONAZOLE LEVEL 0.5 ug/mL (.)
== END ==
LOC: M SFHCPLAZ 08:29
DX: B44.9 Aspergillosis, unspecified (principal)
CPT/HCPCS: 80053

== ENCOUNTER → 2018-01-22 | Outpatient (CLI) | payer MEDICARE, MEDICAID | LOC: M ONCR 09:46 | DX: C34.12 Malignant neoplasm of upper lobe, left bronchus or lung (principal) ==

== ENCOUNTER → 2018-01-27 | Outpatient (CLI) | payer MEDICARE, MEDICAID ==
[2018-01-27 10:15] LABS: BASO % 0.4 % (0.0-1.0); EOS # 0.2 10^3/uL (0.0-0.50); EOS % 2.9 % (0.0-3.0); HEMATOCRIT 34.1 % (36.0-47.0); HEMOGLOBIN 10.5 g/dl (12.0-15.5); IMMATURE GRANULOCYTE % 0.5 % (0-3.0); MEAN CORPUSCULAR HEMOGLOBIN 28.8 pg (27.0-33.0); MEAN CORPUSCULAR HGB CONC 30.8 g/dl (32.0-36.5); MEAN CORPUSCULAR VOLUME 93.7 fl (80.0-96.0); MONO # 0.7 10^3/uL (0.0-0.8); NEUTROPHILS # 5.4 10^3/uL (1.8-7.7); NEUTROPHILS % 73.2 % (36.0-66.0); PLATELET COUNT, AUTOMATED 350 10^3/uL (150-450); RED BLOOD COUNT 3.64 10^6/uL (4.00-5.40); RED CELL DISTRIBUTION WIDTH 18.2 % (11.5-14.5); WHITE BLOOD COUNT 7.3 10^3/uL (4.0-10.0)
[2018-01-27 10:19] LABS: APPEARANCE, URINE HAZY (CLEAR); BACTERIA, URINE AUTO NEGATIVE (NEGATIVE); BILIRUBIN, URINE AUTO NEGATIVE (NEGATIVE); BLOOD, URINE BLOOD 2+ (NEGATIVE); COLOR, URINE YELLOW (YELLOW); GLUCOSE, URINE (UA) AUTO NEGATIVE (NEGATIVE); KETONE, URINE AUTO NEGATIVE (NEGATIVE); LEUKOCYTE ESTERASE, URINE AUTO TRACE (NEGATIVE); MUCUS, URINE SMALL (NEGATIVE); NITRITE, URINE AUTO NEGATIVE (NEGATIVE); PROTEIN, URINE AUTO NEGATIVE (NEGATIVE); RBC, URINE AUTO 4 /HPF (0-3); SPECIFIC GRAVITY URINE AUTO 1.015 (1.002-1.035); SQUAMOUS EPITHELIAL CELL UR AU 1 /HPF (0-6); UROBILINOGEN, URINE AUTO 0.2 mg/dL (0.0-2.0); WBC, URINE AUTO 1 /HPF (0-3)
[2018-01-27 10:39] LABS: ALBUMIN 3.3 GM/DL (3.2-5.2); ALBUMIN/GLOBULIN RATIO 0.94 (1.00-1.93); ALKALINE PHOSPHATASE 71 U/L (45-117); ALT/SGPT 16 U/L (12-78); ANION GAP 10 MEQ/L (8-16); AST/SGOT 9 U/L (7-37); BILIRUBIN,TOTAL 0.3 MG/DL (0.2-1.0); BLOOD UREA NITROGEN 20 MG/DL (7-18); CALCIUM LEVEL 8.9 MG/DL (8.8-10.2); CARBON DIOXIDE LEVEL 30 MEQ/L (21-32); CHLORIDE LEVEL 106 MEQ/L (98-107); CHOLESTEROL LEVEL 161 MG/DL (<200); CHOLESTEROL RISK RATIO 2.402 (<5); CREATININE FOR GFR 0.65 MG/DL (0.55-1.30); FREE T4 1.13 NG/DL (0.76-1.46); GLOMERULAR FILTRATION RATE > 60.0 (>39); GLUCOSE, FASTING 83 MG/DL (70-100); HDL CHOLESTEROL 67 MG/DL (>40); IRON (FE) 51 UG/DL (50-170); LDL CHOLESTEROL 50.8 MG/DL (<100); NON-HDL-C 94 MG/DL; POTASSIUM SERUM 3.9 MEQ/L (3.5-5.1); SODIUM LEVEL 146 MEQ/L (136-145); TOTAL PROTEIN 6.8 GM/DL (6.4-8.2); TRIGLYCERIDES LEVEL 216 MG/DL (<150)
== END ==
LOC: M LAB 09:40
DX: E03.9 Hypothyroidism, unspecified (principal); E78.5 Hyperlipidemia, unspecified; I10 Essential (primary) hypertension; D64.9 Anemia, unspecified
CPT/HCPCS: 83540

== ENCOUNTER → 2018-02-09 | Outpatient (CLI) | payer MEDICARE, MEDICAID | LOC: M PAIN 14:15 | DX: M54.14 Radiculopathy, thoracic region (principal); Z79.52 Long term (current) use of systemic steroids; Z79.82 Long term (current) use of aspirin; Z79.891 Long term (current) use of opiate analgesic; Z79.899 Other long term (current) drug therapy; Z91.013 Allergy to seafood; Z85.118 Personal history of other malignant neoplasm of bronchus and lung; Z92.21 Personal history of antineoplastic chemotherapy; Z92.3 Personal history of irradiation; Z95.0 Presence of cardiac pacemaker | CPT/HCPCS: G0463 ==

== ENCOUNTER → 2018-02-27 | Outpatient (CLI) | payer MEDICARE, MEDICAID ==
[2018-02-27 12:16] LABS: BASO % 0.2 % (0.0-1.0); EOS % 0.2 % (0.0-3.0); HEMATOCRIT 32.3 % (36.0-47.0); HEMOGLOBIN 9.9 g/dl (12.0-15.5); IMMATURE GRANULOCYTE % 0.5 % (0-3.0); LYMPH # 0.3 10^3/uL (1.5-4.5); LYMPH % 3.1 % (24.0-44.0); MEAN CORPUSCULAR HEMOGLOBIN 29.1 pg (27.0-33.0); MEAN CORPUSCULAR HGB CONC 30.7 g/dl (32.0-36.5); MONO # 0.4 10^3/uL (0.0-0.8); MONO % 3.5 % (0.0-5.0); NEUTROPHILS # 9.8 10^3/uL (1.8-7.7); NEUTROPHILS % 92.5 % (36.0-66.0); PLATELET COUNT, AUTOMATED 359 10^3/uL (150-450); WHITE BLOOD COUNT 10.6 10^3/uL (4.0-10.0)
[2018-02-27 12:48] LABS: ALBUMIN 3.3 GM/DL (3.2-5.2); ALBUMIN/GLOBULIN RATIO 0.97 (1.00-1.93); ALKALINE PHOSPHATASE 78 U/L (45-117); ALT/SGPT 14 U/L (12-78); AST/SGOT 10 U/L (7-37); BILIRUBIN,DIRECT < 0.1 MG/DL (0.0-0.2); BILIRUBIN,TOTAL 0.3 MG/DL (0.2-1.0); TOTAL PROTEIN 6.7 GM/DL (6.4-8.2)
[2018-03-04 10:16] LABS: ASPERGILLUS GALACTOMANNAN AG 0.71 Index (0.00-0.49)
[2018-03-04 10:16] LABS: VORICONAZOLE LEVEL 0.7 ug/mL (.)
== END ==
LOC: M LAB 11:36
DX: B44.9 Aspergillosis, unspecified (principal)
CPT/HCPCS: 80076

== ENCOUNTER → 2018-03-16 | Outpatient (REF) | payer MEDICARE, MEDICAID | LOC: M SFHCPLAZ 14:42 | DX: B44.9 Aspergillosis, unspecified (principal) | CPT/HCPCS: 87102 ==

== ENCOUNTER → 2018-03-16 | Outpatient (CLI) | payer MEDICARE, MEDICAID | LOC: M PAIN 14:15 | DX: M54.14 Radiculopathy, thoracic region (principal); Z92.21 Personal history of antineoplastic chemotherapy; Z92.3 Personal history of irradiation; Z95.0 Presence of cardiac pacemaker; Z85.118 Personal history of other malignant neoplasm of bronchus and lung; Z79.891 Long term (current) use of opiate analgesic; Z91.013 Allergy to seafood; Z79.82 Long term (current) use of aspirin; Z79.899 Other long term (current) drug therapy | CPT/HCPCS: 87102; G0463 ==

== ENCOUNTER 2018-04-10 05:22 | Inpatient (IN) | payer MEDICARE, MEDICAID ==
[2018-04-10 07:18] LABS: VENOUS HCO3 25.8 MEQ/L (23.0-27.0); VENOUS O2 SATURATION 94.7 % (60.0-80.0); VENOUS PARTIAL PRESSURE CO2 41.8 mmHg (38.0-50.0); VENOUS PARTIAL PRESSURE O2 74.1 mmHg (30.0-50.0); VENOUS PH 7.408 UNITS (7.330-7.430); VENOUS STANDARD HCO3 25.3 MEQ/L; VENOUS TOTAL CO2 27.1 MEQ/L (24.0-28.0)
[2018-04-10 07:22] LABS: BASO % 0.2 % (0.0-1.0); EOS % 0.3 % (0.0-3.0); HEMATOCRIT 32.5 % (36.0-47.0); HEMOGLOBIN 10.2 g/dl (12.0-15.5); IMMATURE GRANULOCYTE % 0.4 % (0-3.0); LYMPH # 0.5 10^3/uL (1.5-4.5); MEAN CORPUSCULAR HGB CONC 31.4 g/dl (32.0-36.5); MEAN CORPUSCULAR VOLUME 92.3 fl (80.0-96.0); MONO # 0.5 10^3/uL (0.0-0.8); MONO % 3.9 % (0.0-5.0); NEUTROPHILS # 11.1 10^3/uL (1.8-7.7); NEUTROPHILS % 91.2 % (36.0-66.0); PLATELET COUNT, AUTOMATED 369 10^3/uL (150-450); RED BLOOD COUNT 3.52 10^6/uL (4.00-5.40); RED CELL DISTRIBUTION WIDTH 14.7 % (11.5-14.5); WHITE BLOOD COUNT 12.2 10^3/uL (4.0-10.0)
[2018-04-10] MEDS: IPRATROPIUM 0.5MG/ALBUTEROL 2.5MG INH SOL UD 3ML (DUONEB)(J7620) NEB ×3 (07:36→20:00)
[2018-04-10] MEDS: ALBUTEROL SULFATE 2.5 MG/0.5 ML INH NEB SOLN INH (07:36)
[2018-04-10] MEDS: NS 1,000 ML IV ×5 (07:37→22:27)
[2018-04-10 07:38] LABS: ABG BASE EXCESS -0.8 (-2.0-2.0); ABG HCO3 23.3 MEQ/L (22.0-26.0); ABG O2 SATURATION 98.7 % (95.0-99.0); ABG PARTIAL PRESSURE O2 119.8 mmHg (75.0-100.0); ABG STANDARD HCO3 23.9 MEQ/L (22.0-26.0); ABG TOTAL CO2 24.4 MEQ/L (23.0-31.0); ABG pH (ARTERIAL) 7.428 UNITS (7.350-7.450); INR 1.16; PROTHROMBIN TIME 14.9 SECONDS (12.1-14.4)
[2018-04-10 07:39] LABS: PARTIAL THROMBOPLASTIN TIME 34.4 SECONDS (25.4-37.6)
[2018-04-10 07:51] LABS: ANION GAP 8 MEQ/L (8-16); BLOOD UREA NITROGEN 19 MG/DL (7-18); CALCIUM LEVEL 8.4 MG/DL (8.8-10.2); CARBON DIOXIDE LEVEL 28 MEQ/L (21-32); CHLORIDE LEVEL 105 MEQ/L (98-107); CPK CREATINE PHOSPHOKINASE 26 U/L (26-192); CREATININE FOR GFR 0.56 MG/DL (0.55-1.30); GLOMERULAR FILTRATION RATE > 60.0 (>39); GLUCOSE, FASTING 118 MG/DL (70-100); SODIUM LEVEL 141 MEQ/L (136-145); TROPONIN I < 0.02 NG/ML (< 0.10)
[2018-04-10 07:53] LABS: LACTIC ACID SEPSIS PROTOCOL 0.8 MMOL/L (0.4-2.0)
[2018-04-10 08:02] LABS: CK-MB VALUE MASS < 1.0 NG/ML (<3.6); DIGOXIN LEVEL 1.4 NG/ML (0.5-2.0); MB/CK RELATIVE INDEX 3.84 (< OR =4); NT-PRO BNP 505 PG/ML (<125)
[2018-04-10] MEDS ORDERED: ISOVUE-370 76% 100ML VIAL (Q9967) As Ordered (08:34)
[2018-04-10] MEDS: CEFEPIME HCL 2 GM in D5W MINI-BAG PLUS 50 ML IV (08:44)
[2018-04-10] MEDS ORDERED: FERROUS SULFATE 325MG TAB PO (09:00)
[2018-04-10] MEDS: GABAPENTIN 300 MG CAP PO ×4 (09:00→21:57)
[2018-04-10] MEDS ORDERED: ALBUTEROL SULFATE 2.5 MG/0.5 ML INH NEB SOLN INH (09:30)
[2018-04-10] MEDS: LevoFLOXacin IV 750 MG in APPROPRIATE DILUENT 1 EA IV (09:38)
[2018-04-10] MEDS ORDERED: ONDANSETRON 4MG/2ML VIAL (J2405) IV (09:45)
[2018-04-10] MEDS ORDERED: BISACODYL 5 MG TAB PO (09:45)
[2018-04-10] MEDS: PERCOCET 5MG/325MG TAB PO ×2 (11:18→22:05)
[2018-04-10] MEDS: VANCOMYCIN HCL 1,000 MG, VIAL MATE ADAPTER 1 EACH in D5W 250 ML IV (11:25)
[2018-04-10] MEDS: ASPIRIN 81 MG ENTERIC TAB PO (13:01)
[2018-04-10] MEDS: LEVOTHYROXINE 75MCG TABLET (0.075MG) PO (13:01)
[2018-04-10] MEDS: DIGOXIN 0.25 MG TAB PO (13:01)
[2018-04-10] MEDS: ENOXAPARIN 40 MG/0.4 ML SYRINGE (J1650) SC ×2 (13:02→13:04)
[2018-04-10] MEDS: MULTIVITAMINS/MINERALS THERAP 1 TAB PO (13:02)
[2018-04-10] MEDS: FERROUS SULFATE 325MG TAB PO (13:06)
[2018-04-10] MEDS: predniSONE 10 MG TAB PO (13:08)
[2018-04-10] MEDS: ATENOLOL 12.5MG PER 1/2 TABLET PO (13:30)
[2018-04-10] MEDS: FUROSEMIDE 20 MG/2 ML VIAL (J1940) IV (13:30)
[2018-04-10] MEDS: IBUPROFEN 400 MG TAB PO ×2 (14:00→15:29)
[2018-04-10 14:24] LABS: LACTIC ACID SEPSIS PROTOCOL 2.8 MMOL/L (0.4-2.0)
[2018-04-10] MEDS: HYDROCORTISONE 100 MG/2 ML VIAL (J1720) IV ×2 (15:27→21:57)
[2018-04-10 16:57] LABS: ERYTHROCYTE SEDIMENTATION RATE 108 mm/hr (0-30)
[2018-04-10] MEDS: MEROPENEM INJ 1 GM in APPROPRIATE DILUENT 1 EA IV (17:46)
[2018-04-10] MEDS ORDERED: HYDROCORTISONE 100 MG/2 ML VIAL (J1720) IV (21:00)
[2018-04-10] MEDS: ATORVASTATIN 10 MG TAB PO (21:58)
[2018-04-11] MEDS: IPRATROPIUM 0.5MG/ALBUTEROL 2.5MG INH SOL UD 3ML (DUONEB)(J7620) NEB ×4 (02:00→19:41)
[2018-04-11] MEDS: HYDROCORTISONE 100 MG/2 ML VIAL (J1720) IV ×5 (02:40→21:09)
[2018-04-11] MEDS: MEROPENEM INJ 1 GM in APPROPRIATE DILUENT 1 EA IV ×3 (02:40→17:06)
[2018-04-11] MEDS: IBUPROFEN 400 MG TAB PO ×3 (05:39→21:10)
[2018-04-11] MEDS: LEVOTHYROXINE 75MCG TABLET (0.075MG) PO (05:39)
[2018-04-11 06:11] LABS: HEMATOCRIT 27.8 % (36.0-47.0); HEMOGLOBIN 8.4 g/dl (12.0-15.5); MEAN CORPUSCULAR HEMOGLOBIN 28.7 pg (27.0-33.0); MEAN CORPUSCULAR HGB CONC 30.2 g/dl (32.0-36.5); MEAN CORPUSCULAR VOLUME 94.9 fl (80.0-96.0); PLATELET COUNT, AUTOMATED 349 10^3/uL (150-450); RED BLOOD COUNT 2.93 10^6/uL (4.00-5.40); RED CELL DISTRIBUTION WIDTH 14.9 % (11.5-14.5); WHITE BLOOD COUNT 7.9 10^3/uL (4.0-10.0)
[2018-04-11 06:27] LABS: ANION GAP 6 MEQ/L (8-16); BLOOD UREA NITROGEN 12 MG/DL (7-18); C REACTIVE PROTEIN QUANTITATIV 9.81 MG/DL (0.00-0.30); CALCIUM LEVEL 7.4 MG/DL (8.8-10.2); CARBON DIOXIDE LEVEL 24 MEQ/L (21-32); CHLORIDE LEVEL 113 MEQ/L (98-107); CREATININE FOR GFR 0.52 MG/DL (0.55-1.30); GLOMERULAR FILTRATION RATE > 60.0 (>39); GLUCOSE, FASTING 126 MG/DL (70-100); NT-PRO BNP 1493 PG/ML (<125); POTASSIUM SERUM 4.2 MEQ/L (3.5-5.1); SODIUM LEVEL 143 MEQ/L (136-145)
[2018-04-11] MEDS: NS 1,000 ML IV (06:37)
[2018-04-11 07:09] LABS: ERYTHROCYTE SEDIMENTATION RATE 107 mm/hr (0-30); RETIC HEMOGLOBIN EQUIVALENT 28.4 pg (24-36); RETICULOCYTE # 17.4 10^9/L (17-77); RETICULOCYTE % 0.6 % (0.5-1.5)
[2018-04-11 07:30] LABS: LACTIC ACID SEPSIS PROTOCOL 0.8 MMOL/L (0.4-2.0)
[2018-04-11 07:36] LABS: REASON FOR REVIEW RBC MORPHOLOGY; SLIDE REVIEW Report; SOURCE PERIPHERAL SMEAR
[2018-04-11 07:45] LABS: FERRITIN 270 NG/ML (8-252); IRON (FE) 42 UG/DL (50-170); PERCENT SATURATION 32.6 % (13.2-45.0); TOTAL IRON BINDING CAPACITY 129 UG/DL (250-450)
[2018-04-11] MEDS: GABAPENTIN 300 MG CAP PO ×4 (10:09→21:09)
[2018-04-11] MEDS: FERROUS SULFATE 325MG TAB PO (10:10)
[2018-04-11] MEDS: ASPIRIN 81 MG ENTERIC TAB PO (10:10)
[2018-04-11] MEDS: DIGOXIN 0.25 MG TAB PO (10:10)
[2018-04-11] MEDS: MULTIVITAMINS/MINERALS THERAP 1 TAB PO (10:10)
[2018-04-11] MEDS: predniSONE 10 MG TAB PO (10:10)
[2018-04-11] MEDS: PERCOCET 5MG/325MG TAB PO ×2 (10:13→18:12)
[2018-04-11] MEDS: SODIUM CHLORIDE 0.9% 3ML NEB SOLUTION FOR INHALATION INH ×2 (14:00→20:44)
[2018-04-11] MEDS: ATORVASTATIN 10 MG TAB PO (21:09)
[2018-04-12] MEDS: SODIUM CHLORIDE 0.9% 3ML NEB SOLUTION FOR INHALATION INH ×4 (02:00→20:00)
[2018-04-12] MEDS: IPRATROPIUM 0.5MG/ALBUTEROL 2.5MG INH SOL UD 3ML (DUONEB)(J7620) NEB ×4 (02:00→21:42)
[2018-04-12] MEDS: MEROPENEM INJ 1 GM in APPROPRIATE DILUENT 1 EA IV ×3 (04:06→17:08)
[2018-04-12] MEDS: HYDROCORTISONE 100 MG/2 ML VIAL (J1720) IV ×2 (04:07→10:04)
[2018-04-12] MEDS: IBUPROFEN 400 MG TAB PO ×3 (06:06→21:11)
[2018-04-12] MEDS: LEVOTHYROXINE 75MCG TABLET (0.075MG) PO (06:06)
[2018-04-12] MEDS: MULTIVITAMINS/MINERALS THERAP 1 TAB PO (09:00)
[2018-04-12] MEDS: ENOXAPARIN 40 MG/0.4 ML SYRINGE (J1650) SC (09:00)
[2018-04-12] MEDS: FERROUS SULFATE 325MG TAB PO (09:00)
[2018-04-12] MEDS: GABAPENTIN 300 MG CAP PO ×4 (10:05→21:11)
[2018-04-12] MEDS: predniSONE 10 MG TAB PO (10:06)
[2018-04-12] MEDS: ASPIRIN 81 MG ENTERIC TAB PO (10:06)
[2018-04-12] MEDS: PERCOCET 5MG/325MG TAB PO (10:07)
[2018-04-12] MEDS: DIGOXIN 0.25 MG TAB PO (10:09)
[2018-04-12 11:15] LABS: HEMATOCRIT 27.1 % (36.0-47.0); HEMOGLOBIN 8.4 g/dl (12.0-15.5); MEAN CORPUSCULAR HEMOGLOBIN 28.5 pg (27.0-33.0); MEAN CORPUSCULAR VOLUME 91.9 fl (80.0-96.0); PLATELET COUNT, AUTOMATED 403 10^3/uL (150-450); RED BLOOD COUNT 2.95 10^6/uL (4.00-5.40); RED CELL DISTRIBUTION WIDTH 15.1 % (11.5-14.5); WHITE BLOOD COUNT 9.5 10^3/uL (4.0-10.0)
[2018-04-12 11:33] LABS: ANION GAP 7 MEQ/L (8-16); BLOOD UREA NITROGEN 27 MG/DL (7-18); C REACTIVE PROTEIN QUANTITATIV 3.52 MG/DL (0.00-0.30); CALCIUM LEVEL 7.5 MG/DL (8.8-10.2); CARBON DIOXIDE LEVEL 25 MEQ/L (21-32); CHLORIDE LEVEL 115 MEQ/L (98-107); CREATININE FOR GFR 0.87 MG/DL (0.55-1.30); GLOMERULAR FILTRATION RATE > 60.0 (>39); GLUCOSE, FASTING 142 MG/DL (70-100); NT-PRO BNP 2899 PG/ML (<125); POTASSIUM SERUM 4.1 MEQ/L (3.5-5.1); SODIUM LEVEL 147 MEQ/L (136-145)
[2018-04-12 11:37] LABS: ERYTHROCYTE SEDIMENTATION RATE 89 mm/hr (0-30)
[2018-04-12] MEDS: ATORVASTATIN 10 MG TAB PO (21:11)
[2018-04-13] MEDS: SODIUM CHLORIDE 0.9% 3ML NEB SOLUTION FOR INHALATION INH ×4 (02:00→20:00)
[2018-04-13] MEDS: IPRATROPIUM 0.5MG/ALBUTEROL 2.5MG INH SOL UD 3ML (DUONEB)(J7620) NEB ×5 (02:00→20:09)
[2018-04-13] MEDS: MEROPENEM INJ 1 GM in APPROPRIATE DILUENT 1 EA IV ×3 (02:18→17:09)
[2018-04-13] MEDS: PERCOCET 5MG/325MG TAB PO ×4 (02:25→21:29)
[2018-04-13] MEDS: LEVOTHYROXINE 75MCG TABLET (0.075MG) PO (05:48)
[2018-04-13] MEDS: IBUPROFEN 400 MG TAB PO (05:49)
[2018-04-13 06:02] LABS: HEMATOCRIT 26.4 % (36.0-47.0); HEMOGLOBIN 8.1 g/dl (12.0-15.5); MEAN CORPUSCULAR HEMOGLOBIN 28.8 pg (27.0-33.0); MEAN CORPUSCULAR HGB CONC 30.7 g/dl (32.0-36.5); PLATELET COUNT, AUTOMATED 366 10^3/uL (150-450); RED BLOOD COUNT 2.81 10^6/uL (4.00-5.40); RED CELL DISTRIBUTION WIDTH 15.2 % (11.5-14.5); WHITE BLOOD COUNT 9.9 10^3/uL (4.0-10.0)
[2018-04-13 06:20] LABS: ANION GAP 5 MEQ/L (8-16); BLOOD UREA NITROGEN 26 MG/DL (7-18); CALCIUM LEVEL 7.6 MG/DL (8.8-10.2); CARBON DIOXIDE LEVEL 27 MEQ/L (21-32); CHLORIDE LEVEL 113 MEQ/L (98-107); CREATININE FOR GFR 0.55 MG/DL (0.55-1.30); GLOMERULAR FILTRATION RATE > 60.0 (>39); GLUCOSE, FASTING 79 MG/DL (70-100); NT-PRO BNP 2795 PG/ML (<125); POTASSIUM SERUM 3.8 MEQ/L (3.5-5.1); SODIUM LEVEL 145 MEQ/L (136-145)
[2018-04-13 06:39] LABS: ERYTHROCYTE SEDIMENTATION RATE 80 mm/hr (0-30)
[2018-04-13] MEDS: MULTIVITAMINS/MINERALS THERAP 1 TAB PO (09:00)
[2018-04-13] MEDS: ENOXAPARIN 40 MG/0.4 ML SYRINGE (J1650) SC (09:00)
[2018-04-13] MEDS: FERROUS SULFATE 325MG TAB PO (09:00)
[2018-04-13] MEDS: GABAPENTIN 300 MG CAP PO ×4 (09:35→20:36)
[2018-04-13] MEDS: ASPIRIN 81 MG ENTERIC TAB PO (09:36)
[2018-04-13] MEDS: predniSONE 10 MG TAB PO (09:36)
[2018-04-13] MEDS: DIGOXIN 0.25 MG TAB PO (09:36)
[2018-04-13] MEDS: ATORVASTATIN 10 MG TAB PO (20:36)
[2018-04-14] MEDS: MEROPENEM INJ 1 GM in APPROPRIATE DILUENT 1 EA IV ×3 (01:18→17:40)
[2018-04-14] MEDS: SODIUM CHLORIDE 0.9% 3ML NEB SOLUTION FOR INHALATION INH ×4 (01:25→20:00)
[2018-04-14] MEDS: IPRATROPIUM 0.5MG/ALBUTEROL 2.5MG INH SOL UD 3ML (DUONEB)(J7620) NEB ×4 (01:25→21:19)
[2018-04-14] MEDS: PERCOCET 5MG/325MG TAB PO ×5 (04:13→22:02)
[2018-04-14] MEDS: LEVOTHYROXINE 75MCG TABLET (0.075MG) PO (05:41)
[2018-04-14 06:59] LABS: HEMATOCRIT 27.8 % (36.0-47.0); HEMOGLOBIN 8.9 g/dl (12.0-15.5); MEAN CORPUSCULAR VOLUME 90.6 fl (80.0-96.0); PLATELET COUNT, AUTOMATED 402 10^3/uL (150-450); RED BLOOD COUNT 3.07 10^6/uL (4.00-5.40); RED CELL DISTRIBUTION WIDTH 14.9 % (11.5-14.5)
[2018-04-14 07:28] LABS: ANION GAP 4 MEQ/L (8-16); BLOOD UREA NITROGEN 15 MG/DL (7-18); C REACTIVE PROTEIN QUANTITATIV 4.02 MG/DL (0.00-0.30); CALCIUM LEVEL 7.8 MG/DL (8.8-10.2); CARBON DIOXIDE LEVEL 31 MEQ/L (21-32); CHLORIDE LEVEL 107 MEQ/L (98-107); CREATININE FOR GFR 0.43 MG/DL (0.55-1.30); GLOMERULAR FILTRATION RATE > 60.0 (>39); GLUCOSE, FASTING 74 MG/DL (70-100); POTASSIUM SERUM 3.9 MEQ/L (3.5-5.1); SODIUM LEVEL 142 MEQ/L (136-145)
[2018-04-14 07:38] LABS: ERYTHROCYTE SEDIMENTATION RATE 69 mm/hr (0-30)
[2018-04-14] MEDS: GABAPENTIN 300 MG CAP PO ×4 (08:24→20:05)
[2018-04-14] MEDS: predniSONE 10 MG TAB PO (08:24)
[2018-04-14] MEDS: ASPIRIN 81 MG ENTERIC TAB PO (08:24)
[2018-04-14] MEDS: FERROUS SULFATE 325MG TAB PO (08:26)
[2018-04-14] MEDS: DIGOXIN 0.25 MG TAB PO (08:26)
[2018-04-14] MEDS: MULTIVITAMINS/MINERALS THERAP 1 TAB PO (08:27)
[2018-04-14] MEDS: ENOXAPARIN 40 MG/0.4 ML SYRINGE (J1650) SC (08:27)
[2018-04-14 14:12] LABS: ASPERGILLUS GALACTOMANNAN AG 0.13 Index (0.00-0.49)
[2018-04-14] MEDS: ATORVASTATIN 10 MG TAB PO (20:05)
[2018-04-15] MEDS: IPRATROPIUM 0.5MG/ALBUTEROL 2.5MG INH SOL UD 3ML (DUONEB)(J7620) NEB ×4 (02:00→21:29)
[2018-04-15] MEDS: SODIUM CHLORIDE 0.9% 3ML NEB SOLUTION FOR INHALATION INH ×4 (02:00→20:00)
[2018-04-15] MEDS: MEROPENEM INJ 1 GM in APPROPRIATE DILUENT 1 EA IV ×3 (02:07→17:17)
[2018-04-15] MEDS: PERCOCET 5MG/325MG TAB PO ×4 (05:20→20:25)
[2018-04-15] MEDS: LEVOTHYROXINE 75MCG TABLET (0.075MG) PO (05:33)
[2018-04-15 06:42] LABS: HEMOGLOBIN 9.5 g/dl (12.0-15.5); MEAN CORPUSCULAR HEMOGLOBIN 28.6 pg (27.0-33.0); MEAN CORPUSCULAR HGB CONC 31.7 g/dl (32.0-36.5); MEAN CORPUSCULAR VOLUME 90.4 fl (80.0-96.0); PLATELET COUNT, AUTOMATED 413 10^3/uL (150-450); RED BLOOD COUNT 3.32 10^6/uL (4.00-5.40); RED CELL DISTRIBUTION WIDTH 14.7 % (11.5-14.5); WHITE BLOOD COUNT 9.5 10^3/uL (4.0-10.0)
[2018-04-15 07:08] LABS: ANION GAP 4 MEQ/L (8-16); BLOOD UREA NITROGEN 14 MG/DL (7-18); CALCIUM LEVEL 8.2 MG/DL (8.8-10.2); CARBON DIOXIDE LEVEL 32 MEQ/L (21-32); CHLORIDE LEVEL 104 MEQ/L (98-107); CREATININE FOR GFR 0.41 MG/DL (0.55-1.30); GLOMERULAR FILTRATION RATE > 60.0 (>39); GLUCOSE, FASTING 85 MG/DL (70-100); POTASSIUM SERUM 3.7 MEQ/L (3.5-5.1); SODIUM LEVEL 140 MEQ/L (136-145)
[2018-04-15] MEDS: GABAPENTIN 300 MG CAP PO ×4 (09:03→20:25)
[2018-04-15] MEDS: MULTIVITAMINS/MINERALS THERAP 1 TAB PO ×2 (09:03→09:11)
[2018-04-15] MEDS: ASPIRIN 81 MG ENTERIC TAB PO (09:03)
[2018-04-15] MEDS: ENOXAPARIN 40 MG/0.4 ML SYRINGE (J1650) SC ×2 (09:03→09:11)
[2018-04-15] MEDS: predniSONE 10 MG TAB PO (09:03)
[2018-04-15] MEDS: FERROUS SULFATE 325MG TAB PO ×2 (09:03→09:10)
[2018-04-15] MEDS: DIGOXIN 0.25 MG TAB PO (09:03)
[2018-04-15] MEDS ORDERED: MORPHINE 4 MG/ML 1ML VIAL/SYRINGE (J2270) IV (09:30)
[2018-04-15] MEDS: ATORVASTATIN 10 MG TAB PO (20:25)
[2018-04-16] MEDS: IPRATROPIUM 0.5MG/ALBUTEROL 2.5MG INH SOL UD 3ML (DUONEB)(J7620) NEB ×4 (01:10→20:21)
[2018-04-16] MEDS: SODIUM CHLORIDE 0.9% 3ML NEB SOLUTION FOR INHALATION INH ×4 (01:10→20:50)
[2018-04-16] MEDS: MEROPENEM INJ 1 GM in APPROPRIATE DILUENT 1 EA IV ×3 (02:46→17:54)
[2018-04-16] MEDS: PERCOCET 5MG/325MG TAB PO ×4 (04:50→23:32)
[2018-04-16] MEDS: LEVOTHYROXINE 75MCG TABLET (0.075MG) PO (05:25)
[2018-04-16 06:36] LABS: HEMATOCRIT 28.7 % (36.0-47.0); HEMOGLOBIN 9.2 g/dl (12.0-15.5); MEAN CORPUSCULAR HEMOGLOBIN 28.6 pg (27.0-33.0); MEAN CORPUSCULAR HGB CONC 32.1 g/dl (32.0-36.5); MEAN CORPUSCULAR VOLUME 89.1 fl (80.0-96.0); PLATELET COUNT, AUTOMATED 424 10^3/uL (150-450); RED BLOOD COUNT 3.22 10^6/uL (4.00-5.40); RED CELL DISTRIBUTION WIDTH 14.7 % (11.5-14.5); WHITE BLOOD COUNT 8.5 10^3/uL (4.0-10.0)
[2018-04-16 07:22] LABS: ANION GAP 3 MEQ/L (8-16); BLOOD UREA NITROGEN 16 MG/DL (7-18); CALCIUM LEVEL 8.1 MG/DL (8.8-10.2); CARBON DIOXIDE LEVEL 33 MEQ/L (21-32); CHLORIDE LEVEL 104 MEQ/L (98-107); GLOMERULAR FILTRATION RATE > 60.0 (>39); GLUCOSE, FASTING 84 MG/DL (70-100); POTASSIUM SERUM 3.6 MEQ/L (3.5-5.1); SODIUM LEVEL 140 MEQ/L (136-145)
[2018-04-16] MEDS: MULTIVITAMINS/MINERALS THERAP 1 TAB PO (09:00)
[2018-04-16] MEDS: FERROUS SULFATE 325MG TAB PO (09:00)
[2018-04-16] MEDS: ENOXAPARIN 40 MG/0.4 ML SYRINGE (J1650) SC (09:00)
[2018-04-16] MEDS: ASPIRIN 81 MG ENTERIC TAB PO (09:48)
[2018-04-16] MEDS: predniSONE 10 MG TAB PO (09:48)
[2018-04-16] MEDS: DIGOXIN 0.25 MG TAB PO (09:50)
[2018-04-16] MEDS: GABAPENTIN 300 MG CAP PO ×4 (09:50→20:08)
[2018-04-16] MEDS: ATORVASTATIN 10 MG TAB PO (20:08)
[2018-04-17] MEDS: MEROPENEM INJ 1 GM in APPROPRIATE DILUENT 1 EA IV ×3 (01:40→18:22)
[2018-04-17] MEDS: SODIUM CHLORIDE 0.9% 3ML NEB SOLUTION FOR INHALATION INH ×4 (02:00→20:00)
[2018-04-17] MEDS: IPRATROPIUM 0.5MG/ALBUTEROL 2.5MG INH SOL UD 3ML (DUONEB)(J7620) NEB ×4 (02:00→20:19)
[2018-04-17] MEDS: LEVOTHYROXINE 75MCG TABLET (0.075MG) PO (05:12)
[2018-04-17 06:24] LABS: HEMATOCRIT 28.6 % (36.0-47.0); HEMOGLOBIN 9.2 g/dl (12.0-15.5); MEAN CORPUSCULAR HEMOGLOBIN 28.8 pg (27.0-33.0); MEAN CORPUSCULAR HGB CONC 32.2 g/dl (32.0-36.5); MEAN CORPUSCULAR VOLUME 89.4 fl (80.0-96.0); PLATELET COUNT, AUTOMATED 409 10^3/uL (150-450); RED CELL DISTRIBUTION WIDTH 15.2 % (11.5-14.5); WHITE BLOOD COUNT 7.1 10^3/uL (4.0-10.0)
[2018-04-17] MEDS: PERCOCET 5MG/325MG TAB PO ×4 (06:38→20:39)
[2018-04-17 06:41] LABS: ANION GAP 4 MEQ/L (8-16); BLOOD UREA NITROGEN 17 MG/DL (7-18); CALCIUM LEVEL 8.4 MG/DL (8.8-10.2); CARBON DIOXIDE LEVEL 32 MEQ/L (21-32); CHLORIDE LEVEL 104 MEQ/L (98-107); CREATININE FOR GFR 0.48 MG/DL (0.55-1.30); GLOMERULAR FILTRATION RATE > 60.0 (>39); GLUCOSE, FASTING 83 MG/DL (70-100); SODIUM LEVEL 140 MEQ/L (136-145)
[2018-04-17] MEDS: MULTIVITAMINS/MINERALS THERAP 1 TAB PO (09:00)
[2018-04-17] MEDS: FERROUS SULFATE 325MG TAB PO (09:00)
[2018-04-17] MEDS: ENOXAPARIN 40 MG/0.4 ML SYRINGE (J1650) SC (09:00)
[2018-04-17] MEDS: ASPIRIN 81 MG ENTERIC TAB PO (09:59)
[2018-04-17] MEDS: predniSONE 10 MG TAB PO (09:59)
[2018-04-17] MEDS: GABAPENTIN 300 MG CAP PO ×4 (09:59→20:38)
[2018-04-17] MEDS: DIGOXIN 0.25 MG TAB PO (10:01)
[2018-04-17 16:30] LABS: PROCALCITONIN <0.05 NG/ML (<0.10)
[2018-04-17] MEDS: ATORVASTATIN 10 MG TAB PO (20:38)
[2018-04-18] MEDS: IPRATROPIUM 0.5MG/ALBUTEROL 2.5MG INH SOL UD 3ML (DUONEB)(J7620) NEB ×4 (02:00→20:51)
[2018-04-18] MEDS: MEROPENEM INJ 1 GM in APPROPRIATE DILUENT 1 EA IV ×3 (03:49→17:13)
[2018-04-18] MEDS: LEVOTHYROXINE 75MCG TABLET (0.075MG) PO (05:59)
[2018-04-18 06:22] LABS: HEMATOCRIT 29.4 % (36.0-47.0); HEMOGLOBIN 9.1 g/dl (12.0-15.5); MEAN CORPUSCULAR HEMOGLOBIN 28.3 pg (27.0-33.0); MEAN CORPUSCULAR VOLUME 91.6 fl (80.0-96.0); PLATELET COUNT, AUTOMATED 423 10^3/uL (150-450); RED BLOOD COUNT 3.21 10^6/uL (4.00-5.40); RED CELL DISTRIBUTION WIDTH 15.2 % (11.5-14.5); WHITE BLOOD COUNT 8.7 10^3/uL (4.0-10.0)
[2018-04-18 06:33] LABS: ANION GAP 3 MEQ/L (8-16); BLOOD UREA NITROGEN 16 MG/DL (7-18); CALCIUM LEVEL 8.4 MG/DL (8.8-10.2); CARBON DIOXIDE LEVEL 32 MEQ/L (21-32); CHLORIDE LEVEL 105 MEQ/L (98-107); CREATININE FOR GFR 0.49 MG/DL (0.55-1.30); GLOMERULAR FILTRATION RATE > 60.0 (>39); GLUCOSE, FASTING 76 MG/DL (70-100); SODIUM LEVEL 140 MEQ/L (136-145)
[2018-04-18] MEDS: SODIUM CHLORIDE 0.9% 3ML NEB SOLUTION FOR INHALATION INH ×3 (07:12→20:00)
[2018-04-18] MEDS: ENOXAPARIN 40 MG/0.4 ML SYRINGE (J1650) SC (08:03)
[2018-04-18] MEDS: FERROUS SULFATE 325MG TAB PO (08:03)
[2018-04-18] MEDS: MULTIVITAMINS/MINERALS THERAP 1 TAB PO (08:03)
[2018-04-18] MEDS: ASPIRIN 81 MG ENTERIC TAB PO (08:05)
[2018-04-18] MEDS: DIGOXIN 0.25 MG TAB PO (08:06)
[2018-04-18] MEDS: GABAPENTIN 300 MG CAP PO ×4 (08:06→20:37)
[2018-04-18] MEDS: predniSONE 10 MG TAB PO (08:06)
[2018-04-18] MEDS: PERCOCET 5MG/325MG TAB PO ×4 (08:07→21:16)
[2018-04-18] MEDS: ATORVASTATIN 10 MG TAB PO (20:37)
[2018-04-19] MEDS: MEROPENEM INJ 1 GM in APPROPRIATE DILUENT 1 EA IV ×3 (01:20→17:04)
[2018-04-19] MEDS: PERCOCET 5MG/325MG TAB PO ×5 (01:20→18:52)
[2018-04-19] MEDS: IPRATROPIUM 0.5MG/ALBUTEROL 2.5MG INH SOL UD 3ML (DUONEB)(J7620) NEB ×4 (02:00→20:54)
[2018-04-19] MEDS: SODIUM CHLORIDE 0.9% 3ML NEB SOLUTION FOR INHALATION INH ×4 (02:00→20:55)
[2018-04-19] MEDS: LEVOTHYROXINE 75MCG TABLET (0.075MG) PO (05:50)
[2018-04-19 06:12] LABS: HEMATOCRIT 29.2 % (36.0-47.0); MEAN CORPUSCULAR HEMOGLOBIN 28.3 pg (27.0-33.0); MEAN CORPUSCULAR HGB CONC 30.8 g/dl (32.0-36.5); MEAN CORPUSCULAR VOLUME 91.8 fl (80.0-96.0); PLATELET COUNT, AUTOMATED 424 10^3/uL (150-450); RED BLOOD COUNT 3.18 10^6/uL (4.00-5.40); RED CELL DISTRIBUTION WIDTH 15.4 % (11.5-14.5); WHITE BLOOD COUNT 5.8 10^3/uL (4.0-10.0)
[2018-04-19 06:28] LABS: ANION GAP 5 MEQ/L (8-16); BLOOD UREA NITROGEN 18 MG/DL (7-18); CALCIUM LEVEL 8.4 MG/DL (8.8-10.2); CARBON DIOXIDE LEVEL 30 MEQ/L (21-32); CHLORIDE LEVEL 106 MEQ/L (98-107); CREATININE FOR GFR 0.51 MG/DL (0.55-1.30); GLOMERULAR FILTRATION RATE > 60.0 (>39); GLUCOSE, FASTING 80 MG/DL (70-100); POTASSIUM SERUM 4.3 MEQ/L (3.5-5.1); SODIUM LEVEL 141 MEQ/L (136-145)
[2018-04-19] MEDS: MULTIVITAMINS/MINERALS THERAP 1 TAB PO (07:37)
[2018-04-19] MEDS: ENOXAPARIN 40 MG/0.4 ML SYRINGE (J1650) SC (07:37)
[2018-04-19] MEDS: FERROUS SULFATE 325MG TAB PO (07:37)
[2018-04-19] MEDS: predniSONE 10 MG TAB PO (07:56)
[2018-04-19] MEDS: DIGOXIN 0.25 MG TAB PO (07:56)
[2018-04-19] MEDS: GABAPENTIN 300 MG CAP PO ×4 (07:57→20:59)
[2018-04-19] MEDS: ASPIRIN 81 MG ENTERIC TAB PO (07:57)
[2018-04-19] MEDS: ATORVASTATIN 10 MG TAB PO (20:59)
[2018-04-20] MEDS: IPRATROPIUM 0.5MG/ALBUTEROL 2.5MG INH SOL UD 3ML (DUONEB)(J7620) NEB ×2 (01:36→08:15)
[2018-04-20] MEDS: MEROPENEM INJ 1 GM in APPROPRIATE DILUENT 1 EA IV (02:31)
[2018-04-20] MEDS: LEVOTHYROXINE 75MCG TABLET (0.075MG) PO (06:27)
[2018-04-20] MEDS: PERCOCET 5MG/325MG TAB PO (07:34)
[2018-04-20] MEDS: ASPIRIN 81 MG ENTERIC TAB PO (08:54)
[2018-04-20] MEDS: GABAPENTIN 300 MG CAP PO (08:55)
[2018-04-20] MEDS: predniSONE 10 MG TAB PO (08:55)
[2018-04-20] MEDS: FERROUS SULFATE 325MG TAB PO (08:55)
[2018-04-20] MEDS: DIGOXIN 0.25 MG TAB PO (08:55)
[2018-04-20] MEDS: MULTIVITAMINS/MINERALS THERAP 1 TAB PO (08:56)
[2018-04-20] MEDS: ENOXAPARIN 40 MG/0.4 ML SYRINGE (J1650) SC (08:56)
== END 2018-04-20 11:10 | disposition home or self-care (01) | DRG 177 ==
LOC: M MSPAV 04-16 18:38 → M PED 04-19 22:51 → M ED 05:22 → M ED INP 09:41 → M MSPAV 21:30
DX: J85.1 Abscess of lung with pneumonia (principal); J96.21 Acute and chronic respiratory failure with hypoxia; J15.1 Pneumonia due to Pseudomonas; J44.0 Chronic obstructive pulmonary disease with (acute) lower respiratory infection; E87.2 Acidosis; I48.91 Unspecified atrial fibrillation; M94.0 Chondrocostal junction syndrome [Tietze]; E03.9 Hypothyroidism, unspecified; I10 Essential (primary) hypertension; D50.9 Iron deficiency anemia, unspecified; I95.9 Hypotension, unspecified; Z90.2 Acquired absence of lung [part of]; Z95.0 Presence of cardiac pacemaker; Z85.118 Personal history of other malignant neoplasm of bronchus and lung; Z91.013 Allergy to seafood; Z79.82 Long term (current) use of aspirin; Z79.899 Other long term (current) drug therapy; Z79.52 Long term (current) use of systemic steroids; Z99.81 Dependence on supplemental oxygen; Z92.21 Personal history of antineoplastic chemotherapy; Z92.3 Personal history of irradiation

== ENCOUNTER 2018-05-02 10:19 | Inpatient (IN) | payer MEDICARE, MEDICAID ==
[2018-05-02] MEDS: IPRATROPIUM 0.5MG/ALBUTEROL 2.5MG INH SOL UD 3ML (DUONEB)(J7620) NEB ×2 (10:54→14:17)
[2018-05-02] MEDS: ALBUTEROL SULFATE 2.5 MG/0.5 ML INH NEB SOLN INH ×3 (10:54→21:00)
[2018-05-02 10:59] LABS: ABG BASE EXCESS 2.6 (-2.0-2.0); ABG HCO3 25.8 MEQ/L (22.0-26.0); ABG O2 SATURATION 98.6 % (95.0-99.0); ABG PARTIAL PRESSURE CO2 34.5 mmHg (35.0-45.0); ABG PARTIAL PRESSURE O2 112.5 mmHg (75.0-100.0); ABG STANDARD HCO3 26.8 MEQ/L (22.0-26.0); ABG TOTAL CO2 26.8 MEQ/L (23.0-31.0); ABG pH (ARTERIAL) 7.491 UNITS (7.350-7.450)
[2018-05-02 11:00] LABS: BASO % 0.2 % (0.0-1.0); EOS # 0.1 10^3/uL (0.0-0.50); HEMATOCRIT 30.8 % (36.0-47.0); HEMOGLOBIN 9.6 g/dl (12.0-15.5); IMMATURE GRANULOCYTE % 0.5 % (0-3.0); LYMPH # 0.5 10^3/uL (1.5-4.5); LYMPH % 5.8 % (24.0-44.0); MEAN CORPUSCULAR HEMOGLOBIN 28.2 pg (27.0-33.0); MEAN CORPUSCULAR HGB CONC 31.2 g/dl (32.0-36.5); MEAN CORPUSCULAR VOLUME 90.6 fl (80.0-96.0); MONO # 0.6 10^3/uL (0.0-0.8); MONO % 7.2 % (0.0-5.0); NEUTROPHILS # 7.5 10^3/uL (1.8-7.7); NEUTROPHILS % 85.3 % (36.0-66.0); PLATELET COUNT, AUTOMATED 449 10^3/uL (150-450); RED CELL DISTRIBUTION WIDTH 14.6 % (11.5-14.5); WHITE BLOOD COUNT 8.8 10^3/uL (4.0-10.0)
[2018-05-02 11:15] LABS: LACTIC ACID SEPSIS PROTOCOL 1.4 MMOL/L (0.4-2.0)
[2018-05-02] MEDS: methylPREDNISolone INJ 125 MG/2 ML VIAL (J2930) IV ×2 (11:28→19:38)
[2018-05-02 11:29] LABS: ALBUMIN 2.7 GM/DL (3.2-5.2); ALBUMIN/GLOBULIN RATIO 0.71 (1.00-1.93); ALKALINE PHOSPHATASE 87 U/L (45-117); ALT/SGPT 10 U/L (12-78); ANION GAP 11 MEQ/L (8-16); AST/SGOT 9 U/L (7-37); BILIRUBIN,DIRECT < 0.1 MG/DL (0.0-0.2); BILIRUBIN,TOTAL 0.2 MG/DL (0.2-1.0); BLOOD UREA NITROGEN 15 MG/DL (7-18); CALCIUM LEVEL 8.9 MG/DL (8.8-10.2); CARBON DIOXIDE LEVEL 27 MEQ/L (21-32); CHLORIDE LEVEL 103 MEQ/L (98-107); CK-MB VALUE MASS < 1.0 NG/ML (<3.6); CPK CREATINE PHOSPHOKINASE 31 U/L (26-192); CREATININE FOR GFR 0.45 MG/DL (0.55-1.30); DIGOXIN LEVEL 1.1 NG/ML (0.5-2.0); GLOMERULAR FILTRATION RATE > 60.0 (>39); GLUCOSE, FASTING 82 MG/DL (70-100); MB/CK RELATIVE INDEX 3.23 (< OR =4); NT-PRO BNP 304 PG/ML (<125); POTASSIUM SERUM 4.2 MEQ/L (3.5-5.1); SODIUM LEVEL 141 MEQ/L (136-145); THYROID STIMULATING HORMONE 0.833 uIU/ML (0.358-3.740); TOTAL PROTEIN 6.5 GM/DL (6.4-8.2); TROPONIN I < 0.02 NG/ML (< 0.10)
[2018-05-02] MEDS: CEFEPIME HCL 2 GM in D5W MINI-BAG PLUS 50 ML IV (11:33)
[2018-05-02] MEDS: AZITHROMYCIN INJ 500 MG, VIAL MATE ADAPTER 1 EACH in D5W 250 ML IV (12:05)
[2018-05-02] MEDS: NS 1,000 ML IV ×2 (12:09→13:51)
[2018-05-02 12:41] LABS: APPEARANCE, URINE CLEAR (CLEAR); BACTERIA, URINE AUTO NEGATIVE (NEGATIVE); BILIRUBIN, URINE AUTO NEGATIVE (NEGATIVE); BLOOD, URINE BLOOD NEGATIVE (NEGATIVE); COLOR, URINE YELLOW (YELLOW); GLUCOSE, URINE (UA) AUTO NEGATIVE (NEGATIVE); KETONE, URINE AUTO 1+ mg/dL (NEGATIVE); LEUKOCYTE ESTERASE, URINE AUTO NEGATIVE (NEGATIVE); MUCUS, URINE SMALL (NEGATIVE); NITRITE, URINE AUTO NEGATIVE (NEGATIVE); PROTEIN, URINE AUTO NEGATIVE (NEGATIVE); RBC, URINE AUTO 4 /HPF (0-3); SPECIFIC GRAVITY URINE AUTO 1.026 (1.002-1.035); SQUAMOUS EPITHELIAL CELL UR AU 1 /HPF (0-6); UROBILINOGEN, URINE AUTO 0.2 mg/dL (0.0-2.0); WBC, URINE AUTO 1 /HPF (0-3)
[2018-05-02] MEDS: VANCOMYCIN HCL 1,000 MG, VIAL MATE ADAPTER 1 EACH in D5W 250 ML IV (13:21)
[2018-05-02] MEDS ORDERED: ISOVUE-370 76% 100ML VIAL (Q9967) As Ordered (13:28)
[2018-05-02] MEDS ORDERED: IPRATROPIUM 0.5MG/ALBUTEROL 2.5MG INH SOL UD 3ML (DUONEB)(J7620) NEB (13:30)
[2018-05-02] MEDS ORDERED: DOXYCYCLINE HYCLATE 100 MG in D5W MINI-BAG PLUS 100 ML IV (13:45)
[2018-05-02] MEDS ORDERED: CEFTAROLINE FOSAMIL 300 MG in D5W 50 ML IV (13:45)
[2018-05-02] MEDS ORDERED: ONDANSETRON 4MG/2ML VIAL (J2405) IV (14:45)
[2018-05-02] MEDS: ACETAMINOPHEN TAB 650MG DOSE (2X325MG) PO ×2 (15:10→19:47)
[2018-05-02] MEDS ORDERED: NS 1,000 ML IV (17:30)
[2018-05-02] MEDS: GABAPENTIN 300 MG CAP PO ×2 (17:33→21:02)
[2018-05-02] MEDS: CEFTAROLINE FOSAMIL 600 MG in D5W MINI-BAG PLUS 50 ML IV (17:34)
[2018-05-02] MEDS: NORCO, ANEXSIA 5/325MG TABLET (HYDROcodone/ACETAMINOPHEN) PO (17:34)
[2018-05-02 19:52] LABS: CK-MB VALUE MASS < 1.0 NG/ML (<3.6); CPK CREATINE PHOSPHOKINASE 31 U/L (26-192); MB/CK RELATIVE INDEX 3.23 (< OR =4); TROPONIN I < 0.02 NG/ML (< 0.10)
[2018-05-02] MEDS: ATORVASTATIN 10 MG TAB PO (21:02)
[2018-05-02] MEDS: SENOKOT S TAB PO (21:02)
[2018-05-02] MEDS: ADVAIR HFA 230/21MCG INHALER INH (21:46)
[2018-05-03] MEDS ORDERED: SLF 3 ML SYR IV (02:30)
[2018-05-03 03:18] LABS: HEMATOCRIT 29.2 % (36.0-47.0); HEMOGLOBIN 9.2 g/dl (12.0-15.5); MEAN CORPUSCULAR HEMOGLOBIN 28.2 pg (27.0-33.0); MEAN CORPUSCULAR HGB CONC 31.5 g/dl (32.0-36.5); MEAN CORPUSCULAR VOLUME 89.6 fl (80.0-96.0); PLATELET COUNT, AUTOMATED 426 10^3/uL (150-450); RED BLOOD COUNT 3.26 10^6/uL (4.00-5.40); RED CELL DISTRIBUTION WIDTH 14.6 % (11.5-14.5); WHITE BLOOD COUNT 3.9 10^3/uL (4.0-10.0)
[2018-05-03 03:37] LABS: ANION GAP 9 MEQ/L (8-16); BLOOD UREA NITROGEN 11 MG/DL (7-18); CALCIUM LEVEL 8.5 MG/DL (8.8-10.2); CARBON DIOXIDE LEVEL 24 MEQ/L (21-32); CHLORIDE LEVEL 109 MEQ/L (98-107); CK-MB VALUE MASS < 1.0 NG/ML (<3.6); CPK CREATINE PHOSPHOKINASE 30 U/L (26-192); CREATININE FOR GFR 0.41 MG/DL (0.55-1.30); GLOMERULAR FILTRATION RATE > 60.0 (>39); GLUCOSE, FASTING 129 MG/DL (70-100); MB/CK RELATIVE INDEX 3.33 (< OR =4); POTASSIUM SERUM 4.4 MEQ/L (3.5-5.1); SODIUM LEVEL 142 MEQ/L (136-145); TROPONIN I < 0.02 NG/ML (< 0.10)
[2018-05-03] MEDS: methylPREDNISolone INJ 125 MG/2 ML VIAL (J2930) IV ×3 (03:53→20:51)
[2018-05-03] MEDS: LEVOTHYROXINE 75MCG TABLET (0.075MG) PO (05:36)
[2018-05-03] MEDS: CEFTAROLINE FOSAMIL 600 MG in D5W MINI-BAG PLUS 50 ML IV ×2 (05:37→17:12)
[2018-05-03] MEDS: SLF 3 ML SYR IV ×3 (05:37→22:00)
[2018-05-03] MEDS: DIGOXIN 0.25 MG TAB PO (07:37)
[2018-05-03] MEDS: GABAPENTIN 300 MG CAP PO ×4 (07:37→20:50)
[2018-05-03] MEDS: ATENOLOL 12.5MG PER 1/2 TABLET PO (07:38)
[2018-05-03] MEDS: SENOKOT S TAB PO ×2 (07:38→20:50)
[2018-05-03] MEDS: NORCO, ANEXSIA 5/325MG TABLET (HYDROcodone/ACETAMINOPHEN) PO ×2 (07:39→17:13)
[2018-05-03] MEDS: ASPIRIN 81 MG ENTERIC TAB PO (07:39)
[2018-05-03] MEDS: ENOXAPARIN 40 MG/0.4 ML SYRINGE (J1650) SC (07:40)
[2018-05-03] MEDS: TIOTROPIUM INHALER/CAPSULE (SPIRIVA) INH (07:44)
[2018-05-03] MEDS: ADVAIR HFA 230/21MCG INHALER INH ×2 (07:44→20:28)
[2018-05-03] MEDS: ALBUTEROL SULFATE 2.5 MG/0.5 ML INH NEB SOLN INH ×3 (07:45→21:00)
[2018-05-03] MEDS: FERROUS SULFATE 325MG TAB PO (11:24)
[2018-05-03] MEDS: MULTIVITAMINS/MINERALS THERAP 1 TAB PO (12:05)
[2018-05-03] MEDS: AZITHROMYCIN INJ 500 MG, VIAL MATE ADAPTER 1 EACH in D5W 250 ML IV (12:06)
[2018-05-03] MEDS: ATORVASTATIN 10 MG TAB PO (20:50)
[2018-05-04] MEDS: NORCO, ANEXSIA 5/325MG TABLET (HYDROcodone/ACETAMINOPHEN) PO (00:20)
[2018-05-04] MEDS: methylPREDNISolone INJ 125 MG/2 ML VIAL (J2930) IV ×3 (04:50→17:00)
[2018-05-04] MEDS: LEVOTHYROXINE 75MCG TABLET (0.075MG) PO (06:25)
[2018-05-04] MEDS: SLF 3 ML SYR IV ×3 (06:25→21:03)
[2018-05-04] MEDS: CEFTAROLINE FOSAMIL 600 MG in D5W MINI-BAG PLUS 50 ML IV (06:26)
[2018-05-04 06:55] LABS: HEMATOCRIT 25.6 % (36.0-47.0); MEAN CORPUSCULAR HGB CONC 31.3 g/dl (32.0-36.5); MEAN CORPUSCULAR VOLUME 89.5 fl (80.0-96.0); PLATELET COUNT, AUTOMATED 481 10^3/uL (150-450); RED BLOOD COUNT 2.86 10^6/uL (4.00-5.40); RED CELL DISTRIBUTION WIDTH 14.8 % (11.5-14.5); WHITE BLOOD COUNT 10.7 10^3/uL (4.0-10.0)
[2018-05-04 07:28] LABS: ANION GAP 6 MEQ/L (8-16); BLOOD UREA NITROGEN 24 MG/DL (7-18); C REACTIVE PROTEIN QUANTITATIV 5.88 MG/DL (0.00-0.30); CALCIUM LEVEL 8.6 MG/DL (8.8-10.2); CARBON DIOXIDE LEVEL 27 MEQ/L (21-32); CHLORIDE LEVEL 110 MEQ/L (98-107); CREATININE FOR GFR 0.72 MG/DL (0.55-1.30); GLOMERULAR FILTRATION RATE > 60.0 (>39); GLUCOSE, FASTING 131 MG/DL (70-100); POTASSIUM SERUM 4.2 MEQ/L (3.5-5.1); SODIUM LEVEL 143 MEQ/L (136-145)
[2018-05-04] MEDS: TIOTROPIUM INHALER/CAPSULE (SPIRIVA) INH (08:35)
[2018-05-04] MEDS: ADVAIR HFA 230/21MCG INHALER INH ×2 (08:36→20:48)
[2018-05-04] MEDS: ALBUTEROL SULFATE 2.5 MG/0.5 ML INH NEB SOLN INH ×3 (09:00→20:50)
[2018-05-04] MEDS: ACETAMINOPHEN TAB 650MG DOSE (2X325MG) PO ×3 (09:16→21:04)
[2018-05-04] MEDS: ASPIRIN 81 MG ENTERIC TAB PO (09:16)
[2018-05-04] MEDS: GABAPENTIN 300 MG CAP PO ×4 (09:17→21:02)
[2018-05-04] MEDS: ENOXAPARIN 40 MG/0.4 ML SYRINGE (J1650) SC ×2 (09:17→09:24)
[2018-05-04] MEDS: SENOKOT S TAB PO ×2 (09:17→21:02)
[2018-05-04] MEDS: ATENOLOL 12.5MG PER 1/2 TABLET PO (09:18)
[2018-05-04] MEDS: DIGOXIN 0.25 MG TAB PO (09:18)
[2018-05-04] MEDS: AZITHROMYCIN INJ 500 MG, VIAL MATE ADAPTER 1 EACH in D5W 250 ML IV (12:29)
[2018-05-04] MEDS: FERROUS SULFATE 325MG TAB PO (12:29)
[2018-05-04] MEDS: MULTIVITAMINS/MINERALS THERAP 1 TAB PO (12:29)
[2018-05-04] MEDS ORDERED: NORCO, ANEXSIA 5/325MG TABLET (HYDROcodone/ACETAMINOPHEN) PO ×2 (12:30)
[2018-05-04] MEDS: ATORVASTATIN 10 MG TAB PO (21:02)
[2018-05-05] MEDS: methylPREDNISolone INJ 125 MG/2 ML VIAL (J2930) IV ×2 (05:48→17:28)
[2018-05-05] MEDS: LEVOTHYROXINE 75MCG TABLET (0.075MG) PO (05:49)
[2018-05-05] MEDS: SLF 3 ML SYR IV ×3 (05:50→20:01)
[2018-05-05 06:48] LABS: HEMATOCRIT 24.9 % (36.0-47.0); HEMOGLOBIN 7.8 g/dl (12.0-15.5); MEAN CORPUSCULAR HEMOGLOBIN 27.9 pg (27.0-33.0); MEAN CORPUSCULAR HGB CONC 31.3 g/dl (32.0-36.5); MEAN CORPUSCULAR VOLUME 88.9 fl (80.0-96.0); PLATELET COUNT, AUTOMATED 423 10^3/uL (150-450); WHITE BLOOD COUNT 9.1 10^3/uL (4.0-10.0)
[2018-05-05 07:00] LABS: ANION GAP 6 MEQ/L (8-16); BLOOD UREA NITROGEN 27 MG/DL (7-18); C REACTIVE PROTEIN QUANTITATIV 2.56 MG/DL (0.00-0.30); CARBON DIOXIDE LEVEL 27 MEQ/L (21-32); CHLORIDE LEVEL 109 MEQ/L (98-107); CREATININE FOR GFR 0.72 MG/DL (0.55-1.30); GLOMERULAR FILTRATION RATE > 60.0 (>39); GLUCOSE, FASTING 92 MG/DL (70-100); SODIUM LEVEL 142 MEQ/L (136-145)
[2018-05-05] MEDS: TIOTROPIUM INHALER/CAPSULE (SPIRIVA) INH (08:09)
[2018-05-05] MEDS: ADVAIR HFA 230/21MCG INHALER INH ×2 (08:09→21:12)
[2018-05-05] MEDS: ALBUTEROL SULFATE 2.5 MG/0.5 ML INH NEB SOLN INH ×3 (09:00→21:00)
[2018-05-05] MEDS: ENOXAPARIN 40 MG/0.4 ML SYRINGE (J1650) SC (09:18)
[2018-05-05] MEDS: ASPIRIN 81 MG ENTERIC TAB PO (09:21)
[2018-05-05] MEDS: GABAPENTIN 300 MG CAP PO ×4 (09:21→20:01)
[2018-05-05] MEDS: DIGOXIN 0.25 MG TAB PO (09:21)
[2018-05-05] MEDS: ACETAMINOPHEN TAB 650MG DOSE (2X325MG) PO (09:21)
[2018-05-05] MEDS: ATENOLOL 12.5MG PER 1/2 TABLET PO (09:22)
[2018-05-05] MEDS: SENOKOT S TAB PO ×2 (09:22→20:01)
[2018-05-05] MEDS: AZITHROMYCIN INJ 500 MG, VIAL MATE ADAPTER 1 EACH in D5W 250 ML IV (11:36)
[2018-05-05] MEDS: MULTIVITAMINS/MINERALS THERAP 1 TAB PO (11:37)
[2018-05-05] MEDS: PERCOCET 5MG/325MG TAB PO ×3 (11:37→23:46)
[2018-05-05] MEDS: FERROUS SULFATE 325MG TAB PO (11:37)
[2018-05-05] MEDS: ATORVASTATIN 10 MG TAB PO (20:01)
[2018-05-06] MEDS: ACETAMINOPHEN TAB 650MG DOSE (2X325MG) PO (03:56)
[2018-05-06] MEDS: methylPREDNISolone INJ 125 MG/2 ML VIAL (J2930) IV (04:00)
[2018-05-06] MEDS: LEVOTHYROXINE 75MCG TABLET (0.075MG) PO (05:33)
[2018-05-06] MEDS: SLF 3 ML SYR IV ×3 (05:34→22:00)
[2018-05-06 06:44] LABS: HEMATOCRIT 26.5 % (36.0-47.0); HEMOGLOBIN 8.2 g/dl (12.0-15.5); MEAN CORPUSCULAR HEMOGLOBIN 27.9 pg (27.0-33.0); MEAN CORPUSCULAR HGB CONC 30.9 g/dl (32.0-36.5); MEAN CORPUSCULAR VOLUME 90.1 fl (80.0-96.0); PLATELET COUNT, AUTOMATED 433 10^3/uL (150-450); RED BLOOD COUNT 2.94 10^6/uL (4.00-5.40); WHITE BLOOD COUNT 11.3 10^3/uL (4.0-10.0)
[2018-05-06 07:09] LABS: C REACTIVE PROTEIN QUANTITATIV 1.63 MG/DL (0.00-0.30)
[2018-05-06 07:11] LABS: ANION GAP 7 MEQ/L (8-16); BLOOD UREA NITROGEN 32 MG/DL (7-18); CALCIUM LEVEL 8.4 MG/DL (8.8-10.2); CARBON DIOXIDE LEVEL 27 MEQ/L (21-32); CHLORIDE LEVEL 107 MEQ/L (98-107); CREATININE FOR GFR 0.68 MG/DL (0.55-1.30); GLOMERULAR FILTRATION RATE > 60.0 (>39); GLUCOSE, FASTING 103 MG/DL (70-100); POTASSIUM SERUM 4.4 MEQ/L (3.5-5.1); SODIUM LEVEL 141 MEQ/L (136-145)
[2018-05-06 07:46] LABS: RETIC HEMOGLOBIN EQUIVALENT 34.9 pg (24-36); RETICULOCYTE # 40.7 10^9/L (17-77); RETICULOCYTE % 1.4 % (0.5-1.5)
[2018-05-06 07:47] LABS: REASON FOR REVIEW RBC MORPHOLOGY; SLIDE REVIEW Report; SOURCE PERIPHERAL SMEAR
[2018-05-06] MEDS: ADVAIR HFA 230/21MCG INHALER INH ×2 (07:58→21:00)
[2018-05-06] MEDS: ALBUTEROL SULFATE 2.5 MG/0.5 ML INH NEB SOLN INH ×3 (07:58→21:00)
[2018-05-06] MEDS: TIOTROPIUM INHALER/CAPSULE (SPIRIVA) INH (07:58)
[2018-05-06] MEDS: ENOXAPARIN 40 MG/0.4 ML SYRINGE (J1650) SC (08:13)
[2018-05-06] MEDS: SENOKOT S TAB PO ×3 (08:18→21:11)
[2018-05-06] MEDS: ATENOLOL 12.5MG PER 1/2 TABLET PO (08:18)
[2018-05-06] MEDS: predniSONE 20 MG TAB PO (08:19)
[2018-05-06] MEDS: GABAPENTIN 300 MG CAP PO ×4 (08:19→21:10)
[2018-05-06] MEDS: ASPIRIN 81 MG ENTERIC TAB PO (08:19)
[2018-05-06] MEDS: DIGOXIN 0.25 MG TAB PO (08:20)
[2018-05-06] MEDS: PERCOCET 5MG/325MG TAB PO ×2 (08:26→21:11)
[2018-05-06 11:14] LABS: FERRITIN 187 NG/ML (8-252); IRON (FE) 42 UG/DL (50-170); PERCENT SATURATION 25.6 % (13.2-45.0); TOTAL IRON BINDING CAPACITY 164 UG/DL (250-450)
[2018-05-06] MEDS: AZITHROMYCIN INJ 500 MG, VIAL MATE ADAPTER 1 EACH in D5W 250 ML IV (12:27)
[2018-05-06] MEDS: FERROUS SULFATE 325MG TAB PO (12:27)
[2018-05-06] MEDS: MULTIVITAMINS/MINERALS THERAP 1 TAB PO (12:27)
[2018-05-06 14:13] LABS: BODY FLUID CULTURE Not Indicated (.); ORGANISM ID Not indicated. (.); SPECIMEN SOURCE Urine (.); URINE STREP PNEUMONIAE ANTIGEN Negative (Negative)
[2018-05-06 20:17] LABS: IMMEDIATE SPIN CROSSMATCH 1 2
[2018-05-06] MEDS: ATORVASTATIN 10 MG TAB PO (21:10)
[2018-05-07] MEDS: PERCOCET 5MG/325MG TAB PO ×3 (01:24→17:54)
[2018-05-07] MEDS: FUROSEMIDE 20 MG/2 ML VIAL (J1940) IV (04:31)
[2018-05-07] MEDS: SLF 3 ML SYR IV ×3 (05:46→20:07)
[2018-05-07] MEDS: LEVOTHYROXINE 75MCG TABLET (0.075MG) PO (05:46)
[2018-05-07 05:51] LABS: HEMATOCRIT 36.5 % (36.0-47.0); MEAN CORPUSCULAR HEMOGLOBIN 28.3 pg (27.0-33.0); MEAN CORPUSCULAR HGB CONC 32.3 g/dl (32.0-36.5); MEAN CORPUSCULAR VOLUME 87.5 fl (80.0-96.0); PLATELET COUNT, AUTOMATED 457 10^3/uL (150-450); RED BLOOD COUNT 4.17 10^6/uL (4.00-5.40); RED CELL DISTRIBUTION WIDTH 15.4 % (11.5-14.5); WHITE BLOOD COUNT 14.5 10^3/uL (4.0-10.0)
[2018-05-07 06:02] LABS: HEMOGLOBIN 11.8 g/dl (12.0-15.5)
[2018-05-07 06:10] LABS: ANION GAP 6 MEQ/L (8-16); BLOOD UREA NITROGEN 31 MG/DL (7-18); CALCIUM LEVEL 8.4 MG/DL (8.8-10.2); CARBON DIOXIDE LEVEL 30 MEQ/L (21-32); CHLORIDE LEVEL 105 MEQ/L (98-107); CREATININE FOR GFR 0.69 MG/DL (0.55-1.30); GLOMERULAR FILTRATION RATE > 60.0 (>39); GLUCOSE, FASTING 78 MG/DL (70-100); POTASSIUM SERUM 3.9 MEQ/L (3.5-5.1); SODIUM LEVEL 141 MEQ/L (136-145)
[2018-05-07 06:11] LABS: C REACTIVE PROTEIN QUANTITATIV 1.02 MG/DL (0.00-0.30)
[2018-05-07] MEDS: ADVAIR HFA 230/21MCG INHALER INH ×2 (07:41→21:00)
[2018-05-07] MEDS: TIOTROPIUM INHALER/CAPSULE (SPIRIVA) INH (07:41)
[2018-05-07] MEDS: ALBUTEROL SULFATE 2.5 MG/0.5 ML INH NEB SOLN INH ×3 (07:44→21:00)
[2018-05-07] MEDS: GABAPENTIN 300 MG CAP PO ×4 (08:18→20:07)
[2018-05-07] MEDS: ATENOLOL 12.5MG PER 1/2 TABLET PO (08:19)
[2018-05-07] MEDS: DIGOXIN 0.25 MG TAB PO (08:22)
[2018-05-07] MEDS: ASPIRIN 81 MG ENTERIC TAB PO (08:22)
[2018-05-07] MEDS: SENOKOT S TAB PO ×2 (08:23→20:07)
[2018-05-07] MEDS: ENOXAPARIN 40 MG/0.4 ML SYRINGE (J1650) SC (08:23)
[2018-05-07] MEDS: predniSONE 20 MG TAB PO (08:23)
[2018-05-07] MEDS: AZITHROMYCIN INJ 500 MG, VIAL MATE ADAPTER 1 EACH in D5W 250 ML IV (12:45)
[2018-05-07] MEDS: FERROUS SULFATE 325MG TAB PO (12:45)
[2018-05-07] MEDS: MULTIVITAMINS/MINERALS THERAP 1 TAB PO (12:45)
[2018-05-07] MEDS: ATORVASTATIN 10 MG TAB PO (20:07)
[2018-05-08] MEDS: LEVOTHYROXINE 75MCG TABLET (0.075MG) PO (06:10)
[2018-05-08] MEDS: SLF 3 ML SYR IV ×3 (06:11→20:03)
[2018-05-08] MEDS: FUROSEMIDE 20 MG/2 ML VIAL (J1940) IV (06:11)
[2018-05-08] MEDS: PERCOCET 5MG/325MG TAB PO ×6 (06:13→22:49)
[2018-05-08 06:32] LABS: HEMATOCRIT 36.3 % (36.0-47.0); HEMOGLOBIN 11.6 g/dl (12.0-15.5); MEAN CORPUSCULAR HEMOGLOBIN 28.2 pg (27.0-33.0); MEAN CORPUSCULAR VOLUME 88.1 fl (80.0-96.0); PLATELET COUNT, AUTOMATED 425 10^3/uL (150-450); RED BLOOD COUNT 4.12 10^6/uL (4.00-5.40); RED CELL DISTRIBUTION WIDTH 15.7 % (11.5-14.5); WHITE BLOOD COUNT 15.5 10^3/uL (4.0-10.0)
[2018-05-08 06:43] LABS: ANION GAP 5 MEQ/L (8-16); BLOOD UREA NITROGEN 27 MG/DL (7-18); CALCIUM LEVEL 8.2 MG/DL (8.8-10.2); CARBON DIOXIDE LEVEL 30 MEQ/L (21-32); CHLORIDE LEVEL 106 MEQ/L (98-107); CREATININE FOR GFR 0.56 MG/DL (0.55-1.30); GLOMERULAR FILTRATION RATE > 60.0 (>39); GLUCOSE, FASTING 77 MG/DL (70-100); MAGNESIUM LEVEL 2.2 MG/DL (1.8-2.4); POTASSIUM SERUM 3.7 MEQ/L (3.5-5.1); SODIUM LEVEL 141 MEQ/L (136-145)
[2018-05-08] MEDS: TIOTROPIUM INHALER/CAPSULE (SPIRIVA) INH (08:32)
[2018-05-08] MEDS: ADVAIR HFA 230/21MCG INHALER INH ×2 (08:33→20:51)
[2018-05-08] MEDS: ALBUTEROL SULFATE 2.5 MG/0.5 ML INH NEB SOLN INH ×3 (08:33→20:49)
[2018-05-08] MEDS: predniSONE 20 MG TAB PO (08:40)
[2018-05-08] MEDS: BACTRIM 160MG/800MG DS TAB PO (08:40)
[2018-05-08] MEDS: ENOXAPARIN 40 MG/0.4 ML SYRINGE (J1650) SC (08:40)
[2018-05-08] MEDS: ATENOLOL 12.5MG PER 1/2 TABLET PO (08:41)
[2018-05-08] MEDS: DIGOXIN 0.25 MG TAB PO (08:41)
[2018-05-08] MEDS: GABAPENTIN 300 MG CAP PO ×4 (08:41→20:03)
[2018-05-08] MEDS: ASPIRIN 81 MG ENTERIC TAB PO (08:41)
[2018-05-08] MEDS: SENOKOT S TAB PO ×2 (08:42→20:03)
[2018-05-08] MEDS: AZITHROMYCIN INJ 500 MG, VIAL MATE ADAPTER 1 EACH in D5W 250 ML IV (11:15)
[2018-05-08] MEDS: MULTIVITAMINS/MINERALS THERAP 1 TAB PO (11:15)
[2018-05-08] MEDS: FERROUS SULFATE 325MG TAB PO (11:15)
[2018-05-08] MEDS: ATORVASTATIN 10 MG TAB PO (20:03)
[2018-05-09] MEDS: LEVOTHYROXINE 75MCG TABLET (0.075MG) PO (06:07)
[2018-05-09] MEDS: SLF 3 ML SYR IV ×3 (06:08→20:27)
[2018-05-09] MEDS: PERCOCET 5MG/325MG TAB PO ×5 (06:08→23:20)
[2018-05-09 07:13] LABS: HEMATOCRIT 33.9 % (36.0-47.0); HEMOGLOBIN 10.9 g/dl (12.0-15.5); MEAN CORPUSCULAR HEMOGLOBIN 28.8 pg (27.0-33.0); MEAN CORPUSCULAR HGB CONC 32.2 g/dl (32.0-36.5); MEAN CORPUSCULAR VOLUME 89.7 fl (80.0-96.0); PLATELET COUNT, AUTOMATED 399 10^3/uL (150-450); RED BLOOD COUNT 3.78 10^6/uL (4.00-5.40); WHITE BLOOD COUNT 11.9 10^3/uL (4.0-10.0)
[2018-05-09 07:50] LABS: ANION GAP 7 MEQ/L (8-16); BLOOD UREA NITROGEN 26 MG/DL (7-18); CARBON DIOXIDE LEVEL 29 MEQ/L (21-32); CHLORIDE LEVEL 104 MEQ/L (98-107); CREATININE FOR GFR 0.59 MG/DL (0.55-1.30); GLOMERULAR FILTRATION RATE > 60.0 (>39); GLUCOSE, FASTING 79 MG/DL (70-100); POTASSIUM SERUM 4.2 MEQ/L (3.5-5.1); SODIUM LEVEL 140 MEQ/L (136-145)
[2018-05-09] MEDS: TIOTROPIUM INHALER/CAPSULE (SPIRIVA) INH (08:30)
[2018-05-09] MEDS: ADVAIR HFA 230/21MCG INHALER INH ×2 (08:35→20:11)
[2018-05-09] MEDS: ENOXAPARIN 40 MG/0.4 ML SYRINGE (J1650) SC (08:57)
[2018-05-09] MEDS: ASPIRIN 81 MG ENTERIC TAB PO (09:00)
[2018-05-09] MEDS: ALBUTEROL SULFATE 2.5 MG/0.5 ML INH NEB SOLN INH ×3 (09:00→20:11)
[2018-05-09] MEDS: SENOKOT S TAB PO ×2 (09:01→20:26)
[2018-05-09] MEDS: GABAPENTIN 300 MG CAP PO ×4 (09:01→20:26)
[2018-05-09] MEDS: predniSONE 20 MG TAB PO (09:01)
[2018-05-09] MEDS: ATENOLOL 12.5MG PER 1/2 TABLET PO (09:01)
[2018-05-09] MEDS: DIGOXIN 0.25 MG TAB PO (09:02)
[2018-05-09] MEDS: FERROUS SULFATE 325MG TAB PO (13:21)
[2018-05-09] MEDS: AZITHROMYCIN INJ 500 MG, VIAL MATE ADAPTER 1 EACH in D5W 250 ML IV (13:21)
[2018-05-09] MEDS: MULTIVITAMINS/MINERALS THERAP 1 TAB PO (13:22)
[2018-05-09] MEDS: ATORVASTATIN 10 MG TAB PO (20:26)
[2018-05-10] MEDS: ALBUTEROL SULFATE 2.5 MG/0.5 ML INH NEB SOLN INH ×3 (03:05→21:20)
[2018-05-10] MEDS: PERCOCET 5MG/325MG TAB PO ×4 (05:08→18:51)
[2018-05-10] MEDS: LEVOTHYROXINE 75MCG TABLET (0.075MG) PO (05:39)
[2018-05-10] MEDS: SLF 3 ML SYR IV ×3 (05:39→20:51)
[2018-05-10] MEDS: ADVAIR HFA 230/21MCG INHALER INH ×2 (07:56→21:20)
[2018-05-10] MEDS: TIOTROPIUM INHALER/CAPSULE (SPIRIVA) INH (07:56)
[2018-05-10 08:48] LABS: HEMATOCRIT 36.7 % (36.0-47.0); HEMOGLOBIN 11.9 g/dl (12.0-15.5); MEAN CORPUSCULAR HEMOGLOBIN 29.2 pg (27.0-33.0); MEAN CORPUSCULAR HGB CONC 32.4 g/dl (32.0-36.5); PLATELET COUNT, AUTOMATED 419 10^3/uL (150-450); RED BLOOD COUNT 4.08 10^6/uL (4.00-5.40); RED CELL DISTRIBUTION WIDTH 15.9 % (11.5-14.5); WHITE BLOOD COUNT 13.9 10^3/uL (4.0-10.0)
[2018-05-10] MEDS: ATENOLOL 12.5MG PER 1/2 TABLET PO (09:00)
[2018-05-10] MEDS: ENOXAPARIN 40 MG/0.4 ML SYRINGE (J1650) SC (09:00)
[2018-05-10 09:15] LABS: ANION GAP 6 MEQ/L (8-16); BLOOD UREA NITROGEN 27 MG/DL (7-18); CALCIUM LEVEL 8.7 MG/DL (8.8-10.2); CARBON DIOXIDE LEVEL 32 MEQ/L (21-32); CHLORIDE LEVEL 103 MEQ/L (98-107); CREATININE FOR GFR 0.59 MG/DL (0.55-1.30); GLOMERULAR FILTRATION RATE > 60.0 (>39); GLUCOSE, FASTING 90 MG/DL (70-100); SODIUM LEVEL 141 MEQ/L (136-145)
[2018-05-10] MEDS: predniSONE 20 MG TAB PO (09:23)
[2018-05-10] MEDS: GABAPENTIN 300 MG CAP PO ×4 (09:23→20:50)
[2018-05-10] MEDS: ASPIRIN 81 MG ENTERIC TAB PO (09:23)
[2018-05-10] MEDS: SENOKOT S TAB PO ×2 (09:23→20:50)
[2018-05-10] MEDS: DIGOXIN 0.25 MG TAB PO (09:25)
[2018-05-10] MEDS: FERROUS SULFATE 325MG TAB PO (12:04)
[2018-05-10] MEDS: MULTIVITAMINS/MINERALS THERAP 1 TAB PO (12:04)
[2018-05-10] MEDS: AZITHROMYCIN INJ 500 MG, VIAL MATE ADAPTER 1 EACH in D5W 250 ML IV (12:04)
[2018-05-10 15:15] LABS: ASPERGILLUS FLAVUS ABY Negative (Neg:<1:1); ASPERGILLUS FUMIGATUS ABY Negative (Neg:<1:1); ASPERGILLUS NIGER ABY Negative (Neg:<1:1)
[2018-05-10 15:15] LABS: ASPERGILLUS GALACTOMANNAN AG 0.09 Index (0.00-0.49)
[2018-05-10] MEDS: ATORVASTATIN 10 MG TAB PO (20:50)
[2018-05-11] MEDS: PERCOCET 5MG/325MG TAB PO (05:26)
[2018-05-11] MEDS: LEVOTHYROXINE 75MCG TABLET (0.075MG) PO (05:26)
[2018-05-11] MEDS: SLF 3 ML SYR IV (05:27)
[2018-05-11] MEDS: TIOTROPIUM INHALER/CAPSULE (SPIRIVA) INH (08:00)
[2018-05-11] MEDS: ENOXAPARIN 40 MG/0.4 ML SYRINGE (J1650) SC (08:19)
[2018-05-11] MEDS: ADVAIR HFA 230/21MCG INHALER INH (08:24)
[2018-05-11] MEDS: ALBUTEROL SULFATE 2.5 MG/0.5 ML INH NEB SOLN INH (08:28)
[2018-05-11] MEDS: ATENOLOL 12.5MG PER 1/2 TABLET PO (09:00)
[2018-05-11] MEDS: GABAPENTIN 300 MG CAP PO (09:08)
[2018-05-11] MEDS: DIGOXIN 0.25 MG TAB PO (09:09)
[2018-05-11] MEDS: predniSONE 20 MG TAB PO (09:09)
[2018-05-11] MEDS: SENOKOT S TAB PO (09:09)
[2018-05-11] MEDS: ASPIRIN 81 MG ENTERIC TAB PO (09:09)
[2018-05-11] MEDS: BACTRIM 160MG/800MG DS TAB PO (09:09)
[2018-05-11] MEDS: FLUBLOK(EGG FREE)(QUAD)INFLUENZA VACC 0.5ML SYRINGE (90682)18YRS&OLDER IM (11:12)
== END 2018-05-11 12:04 | disposition home health service (06) | DRG 177 ==
LOC: M MSPAV 05-03 22:25 → M ED 10:19 → M ED INP 14:40 → M PCU 16:21
PROC: 30233N1 Transfusion of Nonautologous Red Blood Cells into Peripheral Vein, Percutaneous Approach (ICD-10-PCS; principal; 2018-05-06)
DX: J85.2 Abscess of lung without pneumonia (principal); J96.21 Acute and chronic respiratory failure with hypoxia; J44.1 Chronic obstructive pulmonary disease with (acute) exacerbation; I48.91 Unspecified atrial fibrillation; E03.9 Hypothyroidism, unspecified; G62.9 Polyneuropathy, unspecified; Z85.118 Personal history of other malignant neoplasm of bronchus and lung; Z90.2 Acquired absence of lung [part of]; Z92.3 Personal history of irradiation; Z92.21 Personal history of antineoplastic chemotherapy; Z95.0 Presence of cardiac pacemaker; Z79.82 Long term (current) use of aspirin; Z79.52 Long term (current) use of systemic steroids; Z79.899 Other long term (current) drug therapy; Z99.81 Dependence on supplemental oxygen; Z91.013 Allergy to seafood; M19.012 Primary osteoarthritis, left shoulder

== ENCOUNTER → 2018-05-15 | Outpatient (CLI) | payer MEDICARE, MEDICAID | LOC: M PAIN 10:30 | DX: M54.14 Radiculopathy, thoracic region (principal); B44.9 Aspergillosis, unspecified; Z79.891 Long term (current) use of opiate analgesic; Z79.82 Long term (current) use of aspirin; Z79.52 Long term (current) use of systemic steroids; Z91.013 Allergy to seafood; Z85.118 Personal history of other malignant neoplasm of bronchus and lung; Z92.21 Personal history of antineoplastic chemotherapy; Z92.3 Personal history of irradiation; Z90.2 Acquired absence of lung [part of]; Z95.0 Presence of cardiac pacemaker | CPT/HCPCS: G0463 ==

== ENCOUNTER 2018-07-23 18:40 | Inpatient (IN) | payer MEDICARE, MEDICAID ==
[~2018-07-23] VITALS: Ht 160 cm; Wt 65.2 kg
[~2018-07-23 18:40] MED LIST changes: -ALEN70TA39 PO; +ALEN70TA57 PO; +BACT800T5 PO; +CEFU50TA PO; +CIPR1TAB20 PO; -GABA-282 PO; +GABA-843 PO; -GABA800T PO; +GABA800T4 PO; +IBUP40TA PO; +IRON1TAB PO; +IRON65TA PO; +LEVO-86 PO; +LEVO500T3 PO; +MULT1TAB10 PO; +PERCOCET PO; +PRED20TA PO; +VFEN200T PO
[2018-07-23] MEDS ORDERED: NS 1,000 ML IV ONE (19:30)
[2018-07-23 19:32] LABS: BASO % 0.2 % (0.0-1.0); EOS # 0.1 10^3/uL (0.0-0.50); EOS % 0.6 % (0.0-3.0); HEMATOCRIT 35.6 % (36.0-47.0); HEMOGLOBIN 11.1 g/dl (12.0-15.5); LYMPH # 0.3 10^3/uL (1.5-4.5); LYMPH % 2.7 % (24.0-44.0); MEAN CORPUSCULAR HEMOGLOBIN 30.2 pg (27.0-33.0); MEAN CORPUSCULAR HGB CONC 31.2 g/dl (32.0-36.5); MEAN CORPUSCULAR VOLUME 96.7 fl (80.0-96.0); MONO % 7.7 % (0.0-5.0); NEUTROPHILS # 11.2 10^3/uL (1.8-7.7); NEUTROPHILS % 88.4 % (36.0-66.0); PLATELET COUNT, AUTOMATED 638 10^3/uL (150-450); RED BLOOD COUNT 3.68 10^6/uL (4.00-5.40); WHITE BLOOD COUNT 12.7 10^3/uL (4.0-10.0)
[2018-07-23 19:59] LABS: ALBUMIN 2.7 GM/DL (3.2-5.2); ALT/SGPT 10 U/L (12-78); BILIRUBIN,DIRECT 0.1 MG/DL (0.0-0.2); BILIRUBIN,TOTAL 0.3 MG/DL (0.2-1.0); BLOOD UREA NITROGEN 20 MG/DL (7-18); CALCIUM LEVEL 8.4 MG/DL (8.8-10.2); CARBON DIOXIDE LEVEL 32 MEQ/L (21-32); CHLORIDE LEVEL 96 MEQ/L (98-107); CK-MB VALUE MASS < 1.0 NG/ML (<3.6); CPK CREATINE PHOSPHOKINASE 40 U/L (26-192); CREATININE FOR GFR 0.73 MG/DL (0.55-1.30); GLOMERULAR FILTRATION RATE > 60.0 (>39); GLUCOSE, FASTING 79 MG/DL (70-100); POTASSIUM SERUM 4.1 MEQ/L (3.5-5.1); SODIUM LEVEL 135 MEQ/L (136-145); TROPONIN I < 0.02 NG/ML (< 0.10)
--- NOTE | 2018-07-23 20:09 | REP ---
Portable chest one-view History: Shortness of breath Comparison: 05/02/2018 Parenchymal density is present in the left lower lobe consistent with an infiltrate that appears unchanged compared to the previous study. The right lung is clear. The heart is normal in size. The pulmonary vasculature is normal in appearance. A cardiac pacemaker is present. Impression: Left lower lobe infiltrate unchanged compared to the previous study. Electronically Signed by Shawn Ruff MD 07/23/2018 08:00 P
[2018-07-23 21:36] LABS: INFLUENZA A AMPLIFICATION NEGATIVE (NEGATIVE); INFLUENZA B AMPLIFICATION NEGATIVE (NEGATIVE)
[2018-07-23] MEDS ORDERED: PERCOCET 5MG/325MG TAB PO ONE (22:30)
--- NOTE | 2018-07-23 23:24 | REPVR ---
EXAM: CT Chest Without Contrast EXAM DATE/TIME: 07/23/2018 9:28 PM CLINICAL HISTORY: 73 years old, female; Abnormal findings; Abnormal radiologic exam of lung or chest; Additional info: Infiltrate. Pneumonia with cavitation. TECHNIQUE: Axial computed tomography images of the chest without intravenous contrast. All CT scans at this facility use at least one of these dose optimization techniques: automated exposure control; mA and/or kV adjustment per patient size (includes targeted exams where dose is matched to clinical indication); or iterative reconstruction. Coronal and sagittal reformatted images were created and reviewed. MIP reconstructed images were created and reviewed. COMPARISON: CT Chest without contrast 12/11/2017 3:52 PM FINDINGS: Limitations: Examination is limited by motion artifact. Examination is limited without IV contrast. Tubes, catheters and devices: There is a dual-chamber pacemaker on the left with leads in satisfactory position. Lungs: Scattered ground glass opacities in the right lung. Dependent atelectasis in the right lung. Cavitary lesion in the left upper lobe with thickened irregular wall measuring approximately 5.6 x 6.8 x 13.6 cm contained curvilinear debris and masslike lesion in the left apex. Masslike lobulated lesion measures proximally 4.1 x 5.1 x 7.8 cm. There is small air-fluid level in the cavitation. Dense consolidation in the left lower lobe. Small consolidations in the lingula. Pleural space: Mild bilateral pleural effusions. Heart: Normal. No cardiomegaly. No pericardial effusion. Mediastinum: Aorta: Moderate calcified atherosclerotic disease. No aortic aneurysm. Lymph nodes: Unremarkable. No enlarged lymph nodes. Bones/joints: Synostosis of C5-C6. Destruction of the left sternoclavicular joint. Severe compression deformity left T7. Status post left thoracotomy with partial resection resection of the left fifth rib. There is periosteal reaction in the inner margin of all 12 left ribs. Soft tissues: Unremarkable. IMPRESSION: Consolidations and ground glass opacity is described. Suspicious for persistent pneumonia. Left lower lobe consolidation is more dense than prior. Large cavitation in the left upper lobe with masslike lesion. Cavitation size appears unchanged. Masslike lesion appears mildly increased in size. There is increased debris in the cavitation. Suspicious for cavitary pneumonia. Consider bacterial and fungal and TB. Underlying malignancy cannot be excluded. Destruction of the left sternoclavicular joint. Suspicious for septic arthritis. Additional findings as described. Electronically signed by: Danya Hutchins On 07/23/2018 23:24:02 PM
[2018-07-24] VITALS (9 sets, daily range): BP systolic 68–126; BP diastolic 42–86
[2018-07-24] MEDS ORDERED: ITRACONAZOLE 100 MG CAP (SPORANOX) PO ONE
[2018-07-24] MEDS ORDERED: PIPERACILLIN/TAZOBACTAM SOD 3.375 GM in D5W MINI-BAG PLUS 50 ML IV ONE ×2
[2018-07-24] MEDS ORDERED: methylPREDNISolone INJ 125 MG/2 ML VIAL (J2930) IV ONE (00:15)
[2018-07-24] MEDS ORDERED: PROAAER10 INH (00:18)
[2018-07-24] MEDS ORDERED: FERR1TAB8 PO (00:18)
[2018-07-24] MEDS ORDERED: OXYC10TA12 PO (00:18)
[2018-07-24] MEDS ORDERED: VITMTA PO (00:18)
[2018-07-24] MEDS ORDERED: PRED10TA2 PO (00:18)
[2018-07-24] MEDS ORDERED: BACT800T5 PO (00:18)
[2018-07-24] MEDS ORDERED: ASPI81TAEC PO (00:18)
[2018-07-24] MEDS ORDERED: BISACODYL 5 MG TAB PO PRN (00:30)
[2018-07-24] MEDS ORDERED: ONDANSETRON 4MG/2ML VIAL (J2405) IV PRN (00:30)
[2018-07-24] MEDS ORDERED: BISACODYL 10 MG SUPP PR PRN (00:30)
[2018-07-24] MEDS ORDERED: IPRATROPIUM 0.5MG/ALBUTEROL 2.5MG INH SOL UD 3ML (DUONEB)(J7620) NEB PRN (01:30)
--- NOTE | 2018-07-24 01:30 | HPEPDOC ---
[facility] Medical History & Physical Date of Admission Jul 24, 2018 Attending Physician: HAZEL RANGEL MD History and Physical CHIEF COMPLAINT: [Shortness of breath and chest discomfort] HISTORY OF PRESENT ILLNESS: [73-year-old female was in a few past medical history of COPD chronically on 2 L as a cannula, sees Dr. Porter as outpatient, history of lung cancer status post treatment believes that she is in remission, status post lobectomy, atrial fibrillation status post pacemaker, hypothyroidism, hypertension who is presenting complaining shortness of breath, cough, sputum production, and chest pain that is constant with coughing. In April of this year patient was hospitalized after being discharged from [facility] for acute/chronic hypoxic respiratory failure. She has history of recurrent pneumonia and recent respiratory infection with Aspergillus treated for 12 weeks on antibiotics and steroid. CT angio of chest was negative for PE; but positive findings of Large cavitary lesion in the left upper lobe with nodular mass-like margins anteriorly and posteriorly. Patient was admitted in May due to shortness of breath after being treated with antibiotics and steroids after being discharged in April. Patient decompensated quickly and therefore was readmitted in May it seems that Dr. Porter unofficially saw patient and recommended hospice at that time. Patient was seen by Dr. Boggs and was treated with antibiotic therapy and received 2 units of red blood cell and diuresis. Patients steroid was increased. Her pain medication was adjusted. Patient was able be discharged home but now returns due to shortness of breath and cough. Patient chronically on 2 L nasal cannula at home. Did not see her green chainer recently, she believes it has been awhile but no longer than a year since her last visit to her specialist. Patient came to ER complaining shortness of breath and cough. She states that she has constant chest pain associated with her cough. Patients cough started 1 week ago and progressively worsened associated with Sputum, which is chronic. She denies of any fever or sick contact. Patient was evaluated in the emergency room had a CT scans done which showed abnormality and therefore green chainer was consulted by the ER. Zosyn, itraconazole, IV steroid, and lasix recommended. Patient also states I only want antibiotic for pneumonia due to side effect of previous fungal treatment. Prognosis poor, especially enlight of refusal of certain diagnosis and therefore CODE STATUS addressed. Patients still requests full code at this time. Review system: 10 point review systems negative other than those described in HPI PAST MEDICAL HISTORY: 1. Chronic obstructive pulmonary disease (COPD), chronically on 2 liters nasal cannula. 2. History of stage III small-cell carcinoma, status post left upper lobe resection, lobectomy, chemotherapy, radiation in 2012, currently in remission. 3. Atrial fibrillation, status post pacemaker. 4. Hypothyroidism. 5. Previously documented history of hypertension. 6. Bronchiectasis. PAST SURGICAL HISTORY: 1. Left upper lobe lobectomy in 2012 at [facility]. 2. Pericardial , 2012. 3. Bronchoscopy and mediastinoscopy in 2012. 4. Left thoracotomy in 2012. 5. Endoscopy with upper gastrointestinal (GI) balloon in August 2013. 6. Pacemaker placement in 2013. 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 She denies any current alcohol or illicit drug use. Her son, Krishna Erickson, is her healthcare proxy, phone number [phone]. ALLERGIES: Please see below. HOME MEDICATIONS: Please see below. PHYSICAL EXAMINATION: VITAL SIGNS: Please see below GENERAL APPEARANCE: Resting comfortably HEENT: Normocephalic, PERRLA, Mucous moist, CARDIOVASCULAR: S1,S2, pulse present, regularly, regular LUNGS: Equal decreased air entry b/l especially in the upper left, no obvious wheezing ABDOMEN: Soft, BS present, no tenderness, no guarding GENITOURINARY: No Nance EXTREMITIES: B/L trace edema, capillary refill present SKIN: Warm, No fever NEUROLOGICAL: Cranial nerves grossly intact PSYCHIATRIC: Normal mood and affect for current situation LABORATORY DATA: See below. IMAGING: [CXR: Left lower lobe infiltrate unchanged compared to the previous study. CT of the chest: Consolidations and ground glass opacity is described. Suspicious for persistent pneumonia. Left lower lobe consolidation is more dense than prior. Large cavitation in the left upper lobe with masslike lesion. Cavitation size appears unchanged. Masslike lesion appears mildly increased in size. There is increased debris in the cavitation. Suspicious for cavitary pneumonia. Consider bacterial and fungal and TB. Underlying malignancy cannot be excluded.Destruction of the left sternoclavicular joint. Suspicious for septic arthritis.] MICROBIOLOGY: Please see below. EKG: HR86, sinus, motion artifacts, non-specific T waves but no ST elevation Assessment and plan: 73-year-old female was in a few past medical history of COPD chronically on 2 L as a cannula, sees Dr. Porter as outpatient, history of lung cancer status post treatment believes that she is in remission, status post lobectomy, atrial fibrillation status post pacemaker, hypothyroidism, hypertension who is presenting complaining shortness of breath, cough, sputum production, and chest pain that is constant with coughing. 1. Shortness of breath, with multiple co-morbidities with Cavitation size appears that appears unchanged but Masslike lesion appears mildly increased in size and persistant PNA. -chronically on 2-3 L nasal cannula, multiple lung comorbidities (COPD, oxygen requirement, history of lung cancer, status post lobectomy, Aspergillus history) -chest pain likely due to abnormal lung pathology seen on CT chest including persistent pneumonia, increased debris in the cavitation, and possible underlying malignacy although pt's cancer last know to pt in remission. DCHF exacerbation in dd but lower. -Respiratory treatment, oxygen therapy Pulmonary consult with Dr. Hrud: Recommends Zosyn, itraconazole, IV steroid, IV Lasix -Consult with Dr. Boggs in a.m, defer to a.m. team. -BNP, tele, I/o , daily weight, December 2017 EF 60-65% and pswo-or-mnajexlh mitral insufficiency, IV Lasix as blood pressure tolerates 2. COPD. This is likely an exacerbation. She is chronically on 2 liters. Treat above 3. History of stage III small-cell carcinoma lung cancer. Patient is status post left upper lobe resection, lobectomy, chemoradiation in 2012, currently in remission. 4. Atrial fibrillation. Patient is status post pacemaker. Continue her digoxin and atenolol. Aspirin 5. Hypertension. She is controlled on atenolol. 6. Hypothyroidism. Continue home dose of Synthroid. TSH level 7. Chronic Iron deficiency anemia. Continue her home iron supplement. 8. Peripheral neuropathy. Continue home gabapentin. 9. Deep vein thrombosis (DVT) prophylaxis. Heparin subcutaneous Poor prognosis Patient requests full code at this time. Willing to have ongoing discussion. Vital Signs Vital Signs Date Time Temp Pulse Resp B/P (MAP) Pulse Ox O2 Delivery O2 Flow Rate FiO2 07/24/18 00:30 90 113/70 (84) 94 07/23/18 23:41 18 07/23/18 23:00 Nasal Cannula 2.0 07/23/18 18:41 97.3 Laboratory Data Labs 24H Laboratory Tests 2 07/23/18 19:23: Immature Granulocyte % (Auto) 0.4, White Blood Count 12.7H, Red Blood Count 3.68L, Hemoglobin 11.1L, Hematocrit 35.6L, Mean Corpuscular Volume 96.7H, Mean Corpuscular Hemoglobin 30.2, Mean Corpuscular Hemoglobin Concent 31.2L, Red Cell Distribution Width 17.8H, Platelet Count 638H, Neutrophils (%) (Auto) 88.4H, Lymphocytes (%) (Auto) 2.7L, Monocytes (%) (Auto) 7.7H, Eosinophils (%) (Auto) 0.6, Basophils (%) (Auto) 0.2, Neutrophils # (Auto) 11.2H, Lymphocytes # (Auto) 0.3L, Monocytes # (Auto) 1.0H, Eosinophils # (Auto) 0.1, Basophils # (Auto) 0.0, Nucleated Red Blood Cells % (auto) 0.0, Anion Gap 7L, Glomerular Filtration Rate > 60.0, Calcium Level 8.4L, Aspartate Amino Transf (AST/SGOT) 12, Alanine Aminotransferase (ALT/SGPT) 10L, Alkaline Phosphatase 105, Total Bilirubin 0.3, Direct Bilirubin 0.1, Total Creatine Kinase 40, Creatine Kinase MB < 1.0, Creatine Kinase MB Relative Index 2.50, Troponin I < 0.02, Total Protein 7.0, Albumin 2.7L, Albumin/Globulin Ratio 0.63L 07/23/18 20:59: Influenza Type A (RT-PCR) NEGATIVE, Influenza Type B (RT-PCR) NEGATIVE, Respiratory Syncytial Virus (RT-PCR NEGATIVE 07/24/18 01:10: CBC/BMP Laboratory Tests 07/23/18 19:23 Red Blood Count 3.68 L, Mean Corpuscular Volume 96.7 H, Mean Corpuscular Hemoglobin 30.2, Mean Corpuscular Hemoglobin Concent 31.2 L, Red Cell Distribution Width 17.8 H, Neutrophils (%) (Auto) 88.4 H, Lymphocytes (%) (Auto) 2.7 L, Monocytes (%) (Auto) 7.7 H, Eosinophils (%) (Auto) 0.6, Basophils (%) (Auto) 0.2, Neutrophils # (Auto) 11.2 H, Lymphocytes # (Auto) 0.3 L, Monocytes # (Auto) 1.0 H, Eosinophils # (Auto) 0.1, Basophils # (Auto) 0.0 Microbiology Microbiology 07/24/18 Blood Culture, Received Pending 07/23/18 Blood Culture, Received Pending 07/23/18 Gram Stain, Received Pending 07/23/18 Sputum Culture, Received Pending Home Medications Scheduled Aspirin (Aspirin EC) 81 Mg Tabec, 81 MG PO DAILY Atenolol (Atenolol) 25 Mg Tab, 12.5 MG PO DAILY Atorvastatin Calcium (Atorvastatin Calcium) 10 Mg Tab, 10 MG PO QHS Digoxin (Digoxin) 250 Mcg Tab, 250 MCG PO DAILY Ferrous Sulfate (Ferrous Sulfate) 325 Mg Tab, 325 MG PO DAILY TAKES AT NOON Gabapentin (Neurontin) 600 Mg Tab, 600 MG PO QID Levothyroxine Sodium (Levo-T) 75 Mcg Tab, 75 MCG PO DAILY Multivitamins *[facility] STOCKED* (Thera M Plus *[facility] STOCKED*) 1 Tab Tab, 1 TAB PO DAILY TAKES AT NOON Prednisone (Prednisone) 10 Mg Tab, 10 MG PO DAILY Trimethoprim/Sulfamethoxazole (Bactrim Ds 800-160 mg) 1 Tab Tab, 1 TAB PO 3XW TAKES FRIDAY, FRIDAY AND FRIDAY Scheduled PRN Albuterol Sulfate (Albuterol Sulfate) 2.5 Mg/0.5 Ml Neb, 2.5 MG INH QID PRN for SHORTNESS OF BREATH Albuterol Sulfate (Proair Hfa) 108 Mcg/Act Aer, 2 PUFF INH Q6H PRN for SHORTNESS OF BREATH Oxycodone HCl (Oxycodone HCl) 10 Mg Tab, 10 MG PO Q4H PRN for PAIN Allergies Coded Allergies: Lobster (Verified Allergy, Severe, ANAPHYLAXIS, 05/02/18) GUILLE HINKLE MD Jul 24, 2018 01:30
[2018-07-24 02:10] LABS: CK-MB VALUE MASS < 1.0 NG/ML (<3.6); CPK CREATINE PHOSPHOKINASE 32 U/L (26-192); MB/CK RELATIVE INDEX 3.12 (< OR =4); NT-PRO BNP 481 PG/ML (<125); TROPONIN I < 0.02 NG/ML (< 0.10)
[2018-07-24] MEDS: IPRATROPIUM 0.5MG/ALBUTEROL 2.5MG INH SOL UD 3ML (DUONEB)(J7620) NEB SCH ×4 (02:37→21:21)
[2018-07-24] MEDS: ITRACONAZOLE 100 MG CAP (SPORANOX) PO SCH ×3 (03:16→20:13)
[2018-07-24] MEDS: ATORVASTATIN 10 MG TAB PO SCH ×2 (03:16→20:13)
[2018-07-24] MEDS ORDERED: MORPHINE 4 MG/ML 1ML VIAL/SYRINGE (J2270) IV ONE (03:45)
[2018-07-24] MEDS: oxyCODONE 5MG TAB PO PRN ×2 (03:47→08:46)
[2018-07-24] MEDS: LEVOTHYROXINE 75MCG TABLET (0.075MG) PO SCH (05:43)
[2018-07-24] MEDS: HEPARIN SOD (PORCINE) 5000 UNITS/ML VIAL SC SCH ×4 (05:43→21:31)
[2018-07-24 06:29] LABS: BLOOD UREA NITROGEN 14 MG/DL (7-18); CALCIUM LEVEL 8.2 MG/DL (8.8-10.2); CARBON DIOXIDE LEVEL 27 MEQ/L (21-32); CHLORIDE LEVEL 100 MEQ/L (98-107); CREATININE FOR GFR 0.59 MG/DL (0.55-1.30); GLOMERULAR FILTRATION RATE > 60.0 (>39); GLUCOSE, FASTING 95 MG/DL (70-100); POTASSIUM SERUM 4.2 MEQ/L (3.5-5.1); SODIUM LEVEL 134 MEQ/L (136-145)
[2018-07-24 07:48] LABS: BASO % 0.2 % (0.0-1.0); HEMATOCRIT 30.4 % (36.0-47.0); HEMOGLOBIN 9.4 g/dl (12.0-15.5); LYMPH # 0.3 10^3/uL (1.5-4.5); MEAN CORPUSCULAR HEMOGLOBIN 29.7 pg (27.0-33.0); MEAN CORPUSCULAR HGB CONC 30.9 g/dl (32.0-36.5); MEAN CORPUSCULAR VOLUME 96.2 fl (80.0-96.0); MONO # 0.1 10^3/uL (0.0-0.8); MONO % 0.9 % (0.0-5.0); NEUTROPHILS # 11.2 10^3/uL (1.8-7.7); NEUTROPHILS % 96.2 % (36.0-66.0); PLATELET COUNT, AUTOMATED 644 10^3/uL (150-450); RED BLOOD COUNT 3.16 10^6/uL (4.00-5.40); WHITE BLOOD COUNT 11.6 10^3/uL (4.0-10.0)
[2018-07-24 07:58] LABS: ALBUMIN 2.1 GM/DL (3.2-5.2); ALT/SGPT 10 U/L (12-78); BILIRUBIN,TOTAL 0.2 MG/DL (0.2-1.0); BLOOD UREA NITROGEN 13 MG/DL (7-18); CALCIUM LEVEL 7.7 MG/DL (8.8-10.2); CARBON DIOXIDE LEVEL 27 MEQ/L (21-32); CHLORIDE LEVEL 100 MEQ/L (98-107); CREATININE FOR GFR 0.56 MG/DL (0.55-1.30); GLOMERULAR FILTRATION RATE > 60.0 (>39); GLUCOSE, FASTING 86 MG/DL (70-100); POTASSIUM SERUM 4.4 MEQ/L (3.5-5.1); SODIUM LEVEL 136 MEQ/L (136-145); TOTAL PROTEIN 5.9 GM/DL (6.4-8.2)
[2018-07-24] MEDS ORDERED: IPRATROPIUM 0.5MG/ALBUTEROL 2.5MG INH SOL UD 3ML (DUONEB)(J7620) NEB SCH (08:00)
--- NOTE | 2018-07-24 08:06 | CR ---
DATE OF CONSULTATION: 07/24/2018 CHIEF COMPLAINT: Worsening shortness of breath and cough. 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 Patient has a history of frequent hospitalizations for chronic obstructive pulmonary disease (COPD) exacerbations as well as for lung abscess/pneumonia requiring antibiotics. She has been on rotating antibiotics with a combination of cefuroxime, ciprofloxacin and Bactrim. She was most recently discharged in May with the same rotating antibiotics. Patient has also been followed by up Dr. Boggs for infectious disease. She reports that she has a history of fundal infection. Was previously treated with voriconazole as an outpatient, however she discontinued the medication as she was having side effects with blistering and was unable to tolerate it. Since then, patient reports she has been continuing with her antibiotics as well as with her chronic prednisone at 10 mg daily. She is not using any inhalers besides albuterol nebulizer which she has been taking a few times a day. She has noticed, however, that she has increasing shortness of breath and dyspnea on exertion as well as increasing cough productive of a green sputum. She denies any hemoptysis recently. She does feel that it has been more difficult for her to expectorate the sputum. Patient denies any fevers or chills. She does have a history of chronic chest pain which is unchanged. Patient does chronically take Percocet for her chest pain. Has previously been seen by pain management for it as well. Patient has noted that she has had increased lower extremity edema in the past week. She does see a flight operations engineer but has not followed up with him recently. She does not take any diuretic currently. PAST MEDICAL HISTORY: 1. Chronic obstructive pulmonary disease (COPD) with chronic hypoxemic respiratory failure on nasal cannula supplementation and chronic prednisone. 2. 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 Is status post left upper lobe resection with chemotherapy and radiation in 2012, reportedly in remission 3. Atrial fibrillation status post pacemaker. 4. Hypothyroidism. 5. Hypertension. 6. Bronchiectasis. PAST SURGICAL HISTORY: 1. Left upper lobectomy at [facility] in 2012. 2. Pericardial window 2012. 3. Bronchoscopy with mediastinoscopy in 2012. 4. Endoscopy with upper GI balloon in 2013. 5. Pacemaker placement in 2013. ALLERGIES: SHELLFISH, LOBSTER causes anaphylaxis. FAMILY HISTORY: Noncontributory. HOME MEDICATIONS: - Percocet as needed - albuterol nebulizer three times a day - aspirin 81 mg - cefuroxime - ciprofloxacin - Bactrim - digoxin - Neurontin - Iron - levothyroxine - multivitamin - prednisone 10 mg daily - atenolol - atorvastatin PHYSICAL EXAMINATION: Temperature 97.3, pulse 90, blood pressure 113.70, respiratory rate 18, sating 94% on 2-3 liters nasal cannula supplementation. General: Thin female with kyphoscoliosis, appears to be using some accessory muscles for breathing, able to speak in short sentences. HEENT: Normocephalic, atraumatic. Moist mucous membranes. No scleral icterus. Pupils are reactive. Cardiac: Regular rate and rhythm with normal S1, S2 and a faint systolic murmur. Lungs: Diminished breath sounds on the left, on the right there is course rhonchi and wheezing with decreased breath sounds at bases. Using some accessory muscles of respiration. Abdomen: Soft, nontender, nondistended. Positive bowel sounds. No hepatosplenomegaly palpated. Extremities: +1-2 pitting edema bilaterally in LE LABS: WBC 12.7, hemoglobin 11.1, platelets 638. Chemistry: Sodium 135, potassium 4.1, chloride 96, bicarbonate 32, BUN 20, creatinine 0.73. AST/ALT are normal. CPK and troponins are negative. Influenza A and B negative. 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 Sputum culture from 05/03/2018 was positive for aspergillus. Sputum culture from 05/04/2018 was negative for mycobacterium. Images : CT Chest- Severe emphysematous changes in the lungs. There is the chronic left upper lobe cavitary lesion with some pleural thickening and there is increasing new mass like lobulated cavitary lesion with an air fluid level within it. There is also some air fluid level in the chronic cavitary lesion. There is left lower lobe collapse which has been progressing over the past year. There is some scattered opacities in the lingula as well as some opacities in the right lower lobe including a pleural based nodular opacity which appears to be cavitating. There is some compressive atelectasis and pleural effusion on the right lung which is not seen on previous imaging. IMPRESSION: Mrs. 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 Patient has a history of recurrent admissions for exacerbations secondary to her abscess and from her end stage chronic obstructive pulmonary disease (COPD). Patient presents again with complaints of increasing shortness of breath and dyspnea on exertion and increasing cough productive of green sputum. Patient has been compliant with her rotating antibiotics. She previously had been treated with voriconazole for 3 months for a fungal infection, however was unable to tolerate the medication and so it was discontinued. Of note, patient's previous sputum cultures from April were positive for aspergillus. She did have a history of positive galactomannan however the aspergillus antibodies were negative. Her sputum culture in April also grew mycobacterium avium complex. A repeat AFB in May was negative. Patient had a repeat CT chest done which when compared to the prior imaging shows in that left upper lobe cavitary lesion that previously had a fluid level, there is now a new mass like lobulated cavitary ball lesion in there which also has an air fluid level. There is also some new opacities in the lingula one of which is peripheral based and appears to be cavitating. There is also some new opacities in the right upper lobe and in the right lower lobe. There is another peripheral based nodular opacity which appears to have some beginning cavitation in it in the right upper lobe as well. There is also new pleural effusion and some atelectasis in that right lower lobe. 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 Given the findings with new nodular opacities which are peripheral and cavitating in her right and left lung, there is also suspicion of disseminated fungal infection there as well. 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 Would also start treatment with Zosyn for possible bacterial pneumonia and consider adding double pseudomonas coverage with Levaquin if she worsens as she is at risk for resisting organisms and pseudomonas given her chronic antibiotic usage and repeated hospitalizations. Would repeat a sputum culture at this time and recheck serum galactomannan. Patient after discussion is still hesitant about starting antifungal treatment. Discussed with the patient that it appears that this fungal disease process has progressed in the past few months and if she continues to refuse treatment that this will be life threatening, at least threatening for her respiratory condition. At that point, discussed with the patient that if she does not want treatment for the fungal infection, that we should move her toward more comfort care measures and hospice. She previously has had this discussion on prior admission given her end stage chronic obstructive pulmonary disease (COPD) and poor baseline functioning status and quality of life. Discussed with the patient again about goals of care including intubation and resuscitation measures. Patient has stated that she would not want to be intubated if she were unable to be weaned off of the ventilator. Discussed with the patient that given her severe lung disease, the chances of her coming off of the ventilator are poor. She would like to continue consideration and discussion with her family at this time. Would increase her steroids to Solu-Medrol 40 mg IV daily and continue with DuoNebs. Would also give patient a dose of Lasix 20 mg IV one time dose given her new pleural effusion and lower extremity edema. Would repeat an echocardiogram as well. Patient is FULL CODE at this time, however, would followup with her goals of care discussion as well as with the health care proxy. Patient feels she does have a health care proxy form but she is unclear who she has designated and does not have the form with her. SYL
[2018-07-24] MEDS: DIGOXIN 0.25 MG TAB PO SCH (08:43)
[2018-07-24] MEDS: ASPIRIN 81 MG ENTERIC TAB PO SCH (08:44)
[2018-07-24] MEDS: ATENOLOL 12.5MG PER 1/2 TABLET PO SCH (08:44)
[2018-07-24] MEDS: GABAPENTIN 300 MG CAP PO SCH ×4 (08:44→20:13)
[2018-07-24 08:47] LABS: LYMPH % 2.2 % (24.0-44.0)
[2018-07-24] MEDS ORDERED: FUROSEMIDE 40 MG/4 ML VIAL (J1940) IV SCH (09:00)
[2018-07-24 09:46] LABS: CK-MB VALUE MASS < 1.0 NG/ML (<3.6); CPK CREATINE PHOSPHOKINASE 30 U/L (26-192); MB/CK RELATIVE INDEX 3.33 (< OR =4); TROPONIN I < 0.02 NG/ML (< 0.10)
[2018-07-24] MEDS ORDERED: PIPERACILLIN/TAZOBACTAM SOD 3.375 GM in D5W MINI-BAG PLUS 50 ML IV SCH (10:00)
[2018-07-24 10:50] LABS: TOTAL T3 24.1 NG/DL (60.0-181.0)
[2018-07-24 10:50] LABS: FREE T4 0.64 NG/DL (0.76-1.46)
--- NOTE | 2018-07-24 11:37 | IPNPDOC ---
Text Note Date of Service The patient was seen on 07/24/18. NOTE CHIEF COMPLAINT: Shortness of breath and chest discomfort Subjective: Patient was seen to day at bed, side, She complained of chest rupture, and continued difficulty breathing. She continues oxygen requirement of 2 L via nasal cannula. And she is satting above 91%. PHYSICAL EXAMINATION: VITAL SIGNS: Please see below GENERAL APPEARANCE: Resting comfortably HEENT: Normocephalic, PERRLA, Mucous moist, CARDIOVASCULAR: S1,S2, pulse present, regular rate and rhythm LUNGS: No wheezing, no rubs, decreased breath sounds throughout lung savage ABDOMEN: Soft, BS present, no tenderness, no guarding EXTREMITIES: Deformities, no edema SKIN: Warm, No fever NEUROLOGICAL: Cranial nerves grossly intact LABORATORY DATA: See below. IMAGING: CXR: Left lower lobe infiltrate unchanged compared to the previous study. CT of the chest: Consolidations and ground glass opacity is described. Suspicious for persistent pneumonia. Left lower lobe consolidation is more dense than prior. Large cavitation in the left upper lobe with masslike lesion. Cavitation size appears unchanged. Masslike lesion appears mildly increased in size. There is increased debris in the cavitation. Suspicious for cavitary pneumonia. Consider bacterial and fungal and TB. Underlying malignancy cannot be ex cluded.Destruction of the left sternoclavicular joint. Suspicious for septic arthritis. Assessment and plan: 73-year-old female was in a few past medical history of COPD chronically on 2 L as a cannula, sees Dr. Porter as outpatient, history of lung cancer status post treatment, status post lobectomy, atrial fibrillation status post pacemaker, hypothyroidism, hypertension who is presenting complaining shortness of breath, cough, sputum production, and chest pain that is constant with coughing. 1. Chronic obstructive pulmonary disease with chronic hypoxemic respiratory failure. Secondary to lung abscess, that occurred status post lobectomy from her lung cancer. - Patient has a history of multiple admissions for COPD exacerbation secondary to abscess. - As an outpatient Patient has been placed on 3 rotating antibiotics for her abscess, which she is complaint with. - She also has a history of prior treatment with their variconazole for 3 month for fungal infection, which she discontinued due to adverse effects. - Patient has had prior sputum was positive for Aspergillus, with a positive galactomannan, with Aspergillus antibodies negative. - She was also positive for microbacterium avium complex, with a repeat showing negative results. --Currently on 2 L of nasal cannula --Continue Steroids, Zosyn and Diuretics 2. Cavitary lesion: CT showed Large cavitation in the left upper lobe with masslike lesion. - Cavitation size appears unchanged. - Masslike lesion appears mildly increased in size. - There is increased debris in the cavitation. Suspicious for cavitary pneu monia. Consider bacterial and fungal and TB. - Underlying malignancy cannot be excluded.Destruction of the left sternoclavicular joint. Suspicious for septic arthritis. - Pulmonary consult: Dr. Hurd on consult - c/w Zosyn, Corticosteroids ----Repeat serum galactomannan, and sputum culture. --- Repeat echocardiogram ----Consult with Dr. Boggs, infectious disease; Will check fungal culture, pro calcitonin levels 3. History of stage III small-cell carcinoma lung cancer. Patient is status post left upper lobe resection, lobectomy, chemoradiation in 2012, currently in remission. 4. Atrial fibrillation. Patient is status post pacemaker. Continue her digoxin and atenolol. Aspirin 5. Hypertension. She is controlled on atenolol. 6. Hypothyroidism. Continue home dose of Synthroid. 7. Chronic Iron deficiency anemia. Continue her home iron supplement. 8. Peripheral neuropathy. Continue home gabapentin. 9. Deep vein thrombosis (DVT) prophylaxis. Heparin subcutaneous Prognosis: Poor, guarded Code Status: - Patient requests full code at this time. - Krishna Erickson (Son) is healthcare proxy; [phone] VS,Ximena, I+O VS, Ximena, I+O Laboratory Tests 07/23/18 19:23 Red Blood Count 3.68 L, Mean Corpuscular Volume 96.7 H, Mean Corpuscular Hemoglobin 30.2, Mean Corpuscular Hemoglobin Concent 31.2 L, Red Cell Distribution Width 17.8 H, Neutrophils (%) (Auto) 88.4 H, Lymphocytes (%) (Auto) 2.7 L, Monocytes (%) (Auto) 7.7 H, Eosinophils (%) (Auto) 0.6, Basophils (%) (Auto) 0.2, Neutrophils # (Auto) 11.2 H, Lymphocytes # (Auto) 0.3 L, Monocytes # (Auto) 1.0 H, Eosinophils # (Auto) 0.1, Basophils # (Auto) 0.0 07/24/18 05:37 Calcium Level 8.2 L Vital Signs Date Time Temp Pulse Resp B/P (MAP) Pulse Ox O2 Delivery O2 Flow Rate FiO2 07/24/18 04:17 18 Nasal Cannula 2.0 07/24/18 04:00 97.0 91 117/66 (83) 94 I&O- Last 24 Hours up to 6 AM 07/24/18 05:59 Intake Total 1050 ml Balance 1050 ml GME ATTESTATION GME ATTESTATION My faculty preceptor for this patient encounter was physically present during the encounter and was fully available. All aspects of the patient interview, examination, medical decision making process, and medical care plan development were reviewed and approved by the faculty preceptor. The faculty preceptor is aware and concurs with the plan as stated in the body of this note and will attest to such by his/her cosignature. ATTENDING NOTE I, Marta Pineda, have both independently examined this patient as well as reviewed the documentation. I have discussed in detail with the resident the findings and plan of treatment as documented in the residents documentation. I will continue to follow the patient and offer further guidance to the patients care as necessary during this hospital stay. KATRIN SINGLETON DO Jul 24, 2018 07:48 MARTA PINEDA MD Jul 24, 2018 13:53
[2018-07-24] MEDS ORDERED: methylPREDNISolone INJ 125 MG/2 ML VIAL (J2930) IV SCH (12:00)
[2018-07-24] MEDS: MULTIVITAMINS/MINERALS THERAP 1 TAB PO SCH (12:46)
[2018-07-24] MEDS: FERROUS SULFATE 325MG TAB PO SCH (12:46)
[2018-07-24] MEDS: PIPERACILLIN/TAZOBACTAM SOD 3.375 GM in D5W MINI-BAG PLUS 50 ML IV SCH ×2 (16:30→21:49)
[2018-07-24 17:24] LABS: CK-MB VALUE MASS < 1.0 NG/ML (<3.6); CPK CREATINE PHOSPHOKINASE 31 U/L (26-192); MB/CK RELATIVE INDEX 3.23 (< OR =4); TROPONIN I < 0.02 NG/ML (< 0.10)
[2018-07-24] MEDS ORDERED: NS 1,000 ML IV ONE ×2 (20:30→22:00)
[2018-07-25] VITALS (7 sets, daily range): BP systolic 87–105; BP diastolic 52–68
[2018-07-25] MEDS: IPRATROPIUM 0.5MG/ALBUTEROL 2.5MG INH SOL UD 3ML (DUONEB)(J7620) NEB SCH ×4 (02:00→20:54)
[2018-07-25] MEDS: PIPERACILLIN/TAZOBACTAM SOD 3.375 GM in D5W MINI-BAG PLUS 50 ML IV SCH ×4 (04:00→21:46)
[2018-07-25 05:00] LABS: BASO % 0.1 % (0.0-1.0); HEMOGLOBIN 7.8 g/dl (12.0-15.5); LYMPH # 0.4 10^3/uL (1.5-4.5); LYMPH % 6.1 % (24.0-44.0); MEAN CORPUSCULAR HEMOGLOBIN 29.7 pg (27.0-33.0); MEAN CORPUSCULAR HGB CONC 31.2 g/dl (32.0-36.5); MEAN CORPUSCULAR VOLUME 95.1 fl (80.0-96.0); MONO # 0.9 10^3/uL (0.0-0.8); MONO % 12.5 % (0.0-5.0); NEUTROPHILS # 5.8 10^3/uL (1.8-7.7); NEUTROPHILS % 80.7 % (36.0-66.0); RED BLOOD COUNT 2.63 10^6/uL (4.00-5.40); WHITE BLOOD COUNT 7.2 10^3/uL (4.0-10.0)
[2018-07-25 05:06] LABS: PLATELET COUNT, AUTOMATED 528 10^3/uL (150-450)
[2018-07-25 05:23] LABS: BLOOD UREA NITROGEN 13 MG/DL (7-18); CALCIUM LEVEL 7.2 MG/DL (8.8-10.2); CARBON DIOXIDE LEVEL 28 MEQ/L (21-32); CHLORIDE LEVEL 105 MEQ/L (98-107); CREATININE FOR GFR 0.71 MG/DL (0.55-1.30); GLOMERULAR FILTRATION RATE > 60.0 (>39); GLUCOSE, FASTING 91 MG/DL (70-100); POTASSIUM SERUM 4.1 MEQ/L (3.5-5.1); SODIUM LEVEL 139 MEQ/L (136-145)
[2018-07-25] MEDS: HEPARIN SOD (PORCINE) 5000 UNITS/ML VIAL SC SCH ×3 (06:00→21:50)
[2018-07-25] MEDS: LEVOTHYROXINE 75MCG TABLET (0.075MG) PO SCH (06:00)
[2018-07-25] MEDS: GABAPENTIN 300 MG CAP PO SCH ×4 (08:49→21:46)
[2018-07-25] MEDS: ITRACONAZOLE 100 MG CAP (SPORANOX) PO SCH ×2 (08:49→21:46)
[2018-07-25] MEDS: predniSONE 20 MG TAB PO SCH (08:49)
[2018-07-25] MEDS: ASPIRIN 81 MG ENTERIC TAB PO SCH (08:49)
[2018-07-25] MEDS: DIGOXIN 0.25 MG TAB PO SCH (08:50)
[2018-07-25] MEDS: ATENOLOL 12.5MG PER 1/2 TABLET PO SCH (08:50)
[2018-07-25] MEDS: oxyCODONE 5MG TAB PO PRN ×2 (08:58→17:54)
--- NOTE | 2018-07-25 10:00 | IPNPDOC ---
Text Note Date of Service The patient was seen on 07/25/18. NOTE CHIEF COMPLAINT: Shortness of breath and chest discomfort Subjective: Patient was examined this morning at bedside. Patient had just completed eating breakfast. She had no complaints. Patient has been evaluated by Dr. Ryan, infectious disease. Patient does not require airborne precautions. PHYSICAL EXAMINATION: VITAL SIGNS: Please see below GENERAL APPEARANCE: Sitting comfortably, is a bit. Just completed breakfast, no acute complaints. HEENT: Head is normocephalic, atraumatic, nasal cannula ongoing at 3 L CARDIOVASCULAR: S1,S2, pulse present, regular rate and rhythm LUNGS: decreased breath sounds throughout lung savage, no use of accessory muscles ABDOMEN: Soft, BS present, no tenderness, no guarding EXTREMITIES: Deformities, no edema LABORATORY DATA: See below. IMAGING: CXR: Left lower lobe infiltrate unchanged compared to the previous study. CT of the chest: Consolidations and ground glass opacity is described. Suspicious for persistent pneumonia. Left lower lobe consolidation is more dense than prior. Large cavitation in the left upper lobe with masslike lesion. Cavitation size appears unchanged. Masslike lesion appears mildly increased in size. There is increased debris in the cavitation. Suspicious for cavitary pneumonia. Consider bacterial and fungal and TB. Underlying malignancy cannot be excluded.Destruction of the left sternoclavicular joint. Suspicious for septic arthritis. Assessment and plan: 73-year-old female was in a few past medical history of COPD chronically on 2 L as a cannula, sees Dr. Porter as outpatient, history of lung cancer status post treatment, status post lobectomy, atrial fibrillation status post pacemaker, hyp othyroidism, hypertension who is presenting complaining shortness of breath, cough, sputum production, and chest pain that is constant with coughing. 1. Chronic obstructive pulmonary disease with chronic hypoxemic respiratory failure. Secondary to lung abscess, that occurred status post lobectomy from her lung cancer. - Patient has a history of multiple admissions for COPD exacerbation secondary to abscess. - As an outpatient Patient has been placed on 3 rotating antibiotics for her abscess, which she is complaint with. - She also has a history of prior treatment with their variconazole for 3 month for fungal infection, which she discontinued due to adverse effects. - Patient has had prior sputum was positive for Aspergillus, with a positive galactomannan, with Aspergillus antibodies negative. - She was also positive for microbacterium avium complex, with a repeat showing negative results. --Currently on 3 L of nasal cannula --Continue Steroids, Zosyn and Diuretics --Pulmonary consulted 2. Cavitary lesion: CT showed Large cavitation in the left upper lobe with masslike lesion. - Cavitation size appears unchanged. - Masslike lesion appears mildly increased in size. - There is increased debris in the cavitation. Suspicious for cavitary pneumonia. Consider bacterial and fungal and TB. - Underlying malignancy cannot be excluded.Destruction of the left sternoclavicular joint. Suspicious for septic arthritis. - Pulmonary consult: Dr. Hurd on consult - c/w Zosyn, Corticosteroids ----Repeat serum galactomannan, and sputum culture. --- Repeat echocardiogram ----Consult with Dr. Boggs, infectious disease; Will check fungal culture, pro calcitonin levels --- AFB smear negative, Fungal smear pending, No growth in blood culture after 24 hrs --- Sputum culture positive for FEW EPITHELIAL CELLS, moderate gram-positive cocci in pairs, chains, as well as pulses, few gram-positive rods, few gram- negative rods, patient continues to be afebrile. We'll continue to monitor. --Patient does not require airborne precautions. 3. Anemia, secondary to anemia of chronic disease. Patient will receive 2 units of blood today. We'll continue to monitor. 4. History of stage III small-cell carcinoma lung cancer. Patient is status post left upper lobe resection, lobectomy, chemoradiation in 2012, currently in remission. 5. Atrial fibrillation. Patient is status post pacemaker. Continue her digoxin and atenolol. Aspirin 6. Hypertension. She is controlled on atenolol. 7. Hypothyroidism. Continue home dose of Synthroid. 8. Chronic Iron deficiency anemia. Continue her home iron supplement. 9. Peripheral neuropathy. Continue home gabapentin. 9. Deep vein thrombosis (DVT) prophylaxis. Heparin subcutaneous Prognosis: Poor, guarded Code Status: - Patient requests full code at this time. - Krishna Erickson (Son) is healthcare proxy; [phone] VS,Ximena, I+O VS, Ximena, I+O Laboratory Tests 07/25/18 04:46 Red Blood Count 2.63 L, Mean Corpuscular Volume 95.1, Mean Corpuscular Hemoglobin 29.7, Mean Corpuscular Hemoglobin Concent 31.2 L, Red Cell Distribution Width 17.6 H, Neutrophils (%) (Auto) 80.7 H, Lymphocytes (%) (Auto) 6.1 L, Monocytes (%) (Auto) 12.5 H, Eosinophils (%) (Auto) 0.0, Basophils (%) (Auto) 0.1, Neutrophils # (Auto) 5.8, Lymphocytes # (Auto) 0.4 L, Monocytes # (Auto) 0.9 H, Eosinophils # (Auto) 0.0, Basophils # (Auto) 0.0, Calcium Level 7.2 L Vital Signs Date Time Temp Pulse Resp B/P (MAP) Pulse Ox O2 Delivery O2 Flow Rate FiO2 07/25/18 04:45 98.8 71 16 87/52 (64) 95 Nasal Cannula 3.0 I&O- Last 24 Hours up to 6 AM 07/25/18 05:59 Intake Total 240 ml Output Total 1000 ml Balance -760 ml GME ATTESTATION GME ATTESTATION My faculty preceptor for this patient encounter was physically present during the encounter and was fully available. All aspects of the patient interview, examination, medical decision making process, and medical care plan development were reviewed and approved by the faculty preceptor. The faculty preceptor is aware and concurs with the plan as stated in the body of this note and will attest to such by his/her cosignature. ATTENDING NOTE I, Marta Pineda, have both independently examined this patient as well as reviewed the documentation. I have discussed in detail with the resident the findings and plan of treatment as documented in the residents documentation. I will continue to follow the patient and offer further guidance to the patients care as necessary during this hospital stay. KATRIN SINGLETON DO Jul 25, 2018 09:09 MARTA PINEDA MD Aug 18, 2018 16:06
--- NOTE | 2018-07-25 12:25 | ECGEPIP ---
Stationary ECG Study [facility] - ED Test Date: 2018-07-23 Pat Name: MELINA SHETTY Department: Room: [place] [address] Gender: F [employer]: savana : [id number] Requested By: Edgardo Reyes Order Number: [id number] Reading MD: Margaret Moran Measurements Intervals [place] Rate: 86 P: -31 TN: 132 QRS: 46 QRSD: 82 T: 18 QT: 326 QTc: 391 Interpretive Statements SINUS RHYTHM POSSIBLE LEFT ATRIAL ENLARGEMENT NONSPECIFIC ST & T-WAVE ABNORMALITY IVCD CW 04/10/18 RATE INCREASED [facility] Electronically Signed On 07-25-2018 12:25:00 EST by Margaret Moran
[2018-07-25] MEDS: MULTIVITAMINS/MINERALS THERAP 1 TAB PO SCH (13:13)
[2018-07-25] MEDS: FERROUS SULFATE 325MG TAB PO SCH (13:13)
--- NOTE | 2018-07-25 14:01 | CR ---
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 HISTORY OF PRESENT ILLNESS: Alisha is a 73-year-old female well known to me from multiple previous hospitalizations, history of chronic obstructive pulmonary disease (COPD), chronic hypoxemic respiratory failure on 2 liters nasal cannula, on chronic prednisone usually at 10 mg, stage III lung cancer status post left upper lobe resection. The patient presented to the hospital with increasing shortness of breath and worsening cough. She usually has a chronic cough with yellow productive phlegm. She states the phlegm was a little worse but mostly she was having worsening shortness of breath. She did not have any associated fever or chills. No nausea, vomiting, or diarrhea. The patient is on rotating antibiotics with a combination of cefuroxime, ciprofloxacin, and Bactrim 10 days out of the month. She usually starts at the beginning of the month for 10 days, prednisone 10 mg daily, had been on 20 mg for a while before this hospitalization, and Bactrim for PCP prophylaxis. She was diagnosed with possible fungal pneumonia in December of 2017 based on an elevated Aspergillus galactomannan. I treated her with voriconazole for 12 weeks. She developed a blistering rash below the knees, very large blisters nonpruritic that were painful, resolved after 1 month. Antifungals were then discontinued. The patient has been admitted every month or every other month for similar symptoms of increasing cough and shortness of breath with shoulder pain. 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 PAST SURGICAL HISTORY: Left upper lobectomy at [facility] ([facility]) in 2012, pericardial window in 2012, bronchoscopy, mediastinoscopy, endoscopy and GI ballooning in 2013, pacemaker placement in 2013. ALLERGIES: SHELLFISH, LOBSTER anaphylaxis. FAMILY HISTORY: Noncontributory. MEDICATIONS: - prednisone baseline 10 mg daily, currently at 40 mg daily - ferrous sulfate 325 mg daily - multivitamin one tablet daily - Zosyn 3.375 grams IV every 8 hours - atenolol 12.5 mg daily - gabapentin 600 mg by mouth four times a day - digoxin 0.25 mg daily, furosemide 40 mg IV daily - levothyroxine 75 mg daily - albuterol/Atrovent nebulizers every 6 as needed - Lipitor 10 mg by mouth nightly - OxyIR 10 mg by mouth every 4 as needed - itraconazole 200 mg by mouth twice a day - albuterol/Atrovent nebulizers as needed LABORATORIES: White count was 12.7 yesterday and today 11.6, hemoglobin 9.4, hematocrit 30.4, platelets 644, 96% neutrophils, 2.2 lymphocytes. Sodium 136, potassium 4.4, chloride 100, bicarbonate 27, BUN 13, creatinine 0.56, glucose 86, calcium 7.7, magnesium 2, AST 9, ALT 10, CPK 30, CRP 21.9, BNP 481, TSH 16.5, free T4 0.64, total T3 24. Blood cultures: Two sets were drawn yesterday are pending. AFB smear and culture is pending. Sputum gram stain: Many white cells, good quality, and Gm positive and GNR IMAGING: CT chest shows consolidations and ground-glass opacity with left lower lobe consolidation more dense than prior. Large cavitation in the left upper lobe with mass-like lesion. Cavitation appears unchanged, but the mass lesion inside the cavity has increased in size with debris in the cavitation, suspicious for cavitary pneumonia. Bacterial, fungal, tuberculous. The cavity measures 5.6 x 6.8 x 13.6 cm, and the lesion inside it is 4.1 x 5.1 x 7.8 cm. On physical examination, she is a frail-looking female in mild respiratory distress. She is afebrile. Temperature is 98.9, pulse 72, respirations 18, blood pressure 100/58, oxygen (O2) saturation 94% on 2 liters. Normal S1, S2. Systolic ejection murmur 1/6 at the sternal border. Lungs: Diminished breath sounds bilaterally. There is a few rhonchi and wheezing on the bases, bronchial breath sounds at the left base. Abdomen: Soft. Extremities: +1 pitting edema bilaterally. Neurologic examination: Alert and oriented times three. Musculoskeletal examination: Kyphoscoliosis. No lumbosacral tenderness. IMPRESSION: This is a 73-year-old female with chronic obstructive pulmonary disease, respiratory failure, on 2 liters O2 and prednisone 10 mg, history of lung cancer, who has a history of a cavitary lesion in the previous upper lobectomy site which has been treated in the past for Aspergillus with 12 weeks of voriconazole. Recently in May, a sputum culture was again positive for Aspergillus fumigatus and Mycobacterium avium complex. This culture came back when the patient was discharged and had not been addressed. On CT this admission, there seems to be a fungus ball in the old cavity which may be the cause for her worsening symptoms. She could also have a superimposed bacterial pneumonia. The patient has no previous history of methicillin-resistant Staphylococcus aureus (MRSA) or multidrug-resistant pathogen but is at high risk. She has had multiple sputum AFB smear and culture that have been negative for Mycobacterium tuberculosis; and, therefore, this is very unlikely, and she does not need isolation. So, differential diagnoses include superimposed bacterial infection, chronic fungal infection with Aspergillosis which has worsened after 12 weeks of voriconazole treatment. Could also have Mycobacterium avium complex infection. PLAN: Will obtain another AFB sputum smear and culture to document two sputums positive for MAC. Will repeat fungal smear and culture and send the Aspergillosis for fungal susceptibility to micafungin, voriconazole, and itraconazole. Agree with Dr. Hurd's recommendation. Will try itraconazole 200 mg twice a day at this time and monitor the patient for an allergic reaction. Aspergillus galactomannan has been ordered. Increase dose of IV Zosyn to every 6 hours. The patient at risk of multidrug-resistant organism until sputum cultures are available. The decision whether to treat MAC or not would depend on whether the patient has another positive sputum. Procalcitonin has also been added. Previously, the patient had normal procalcitonin in spite of being admitted for what sounded like a bacterial infection and was normal. The case has been discussed with Dr. Hurd. SYL
[2018-07-25] MEDS: ATORVASTATIN 10 MG TAB PO SCH (21:46)
[2018-07-26] VITALS: BP 105/64
[2018-07-26] MEDS: oxyCODONE 5MG TAB PO PRN ×2 (00:41→13:20)
[2018-07-26] MEDS: IPRATROPIUM 0.5MG/ALBUTEROL 2.5MG INH SOL UD 3ML (DUONEB)(J7620) NEB SCH ×4 (02:00→19:32)
[2018-07-26 04:00] VITALS: BP 124/70
[2018-07-26] MEDS: HEPARIN SOD (PORCINE) 5000 UNITS/ML VIAL SC SCH ×3 (05:10→21:05)
[2018-07-26] MEDS: LEVOTHYROXINE 100MCG TABLET (0.1MG) PO SCH (05:10)
[2018-07-26] MEDS: PIPERACILLIN/TAZOBACTAM SOD 3.375 GM in D5W MINI-BAG PLUS 50 ML IV SCH ×4 (05:10→21:07)
[2018-07-26 05:35] LABS: BASO % 0.1 % (0.0-1.0); HEMATOCRIT 31.1 % (36.0-47.0); LYMPH # 0.5 10^3/uL (1.5-4.5); LYMPH % 5.9 % (24.0-44.0); MEAN CORPUSCULAR HEMOGLOBIN 29.7 pg (27.0-33.0); MEAN CORPUSCULAR HGB CONC 31.8 g/dl (32.0-36.5); MEAN CORPUSCULAR VOLUME 93.4 fl (80.0-96.0); MONO # 0.8 10^3/uL (0.0-0.8); MONO % 10.7 % (0.0-5.0); NEUTROPHILS # 6.3 10^3/uL (1.8-7.7); NEUTROPHILS % 82.5 % (36.0-66.0); PLATELET COUNT, AUTOMATED 488 10^3/uL (150-450); RED BLOOD COUNT 3.33 10^6/uL (4.00-5.40); WHITE BLOOD COUNT 7.6 10^3/uL (4.0-10.0)
[2018-07-26 05:46] LABS: HEMOGLOBIN 9.9 g/dl (12.0-15.5)
[2018-07-26 06:04] LABS: BLOOD UREA NITROGEN 24 MG/DL (7-18); CALCIUM LEVEL 7.8 MG/DL (8.8-10.2); CARBON DIOXIDE LEVEL 28 MEQ/L (21-32); CHLORIDE LEVEL 106 MEQ/L (98-107); CREATININE FOR GFR 0.66 MG/DL (0.55-1.30); GLOMERULAR FILTRATION RATE > 60.0 (>39); GLUCOSE, FASTING 99 MG/DL (70-100); POTASSIUM SERUM 3.8 MEQ/L (3.5-5.1); SODIUM LEVEL 139 MEQ/L (136-145)
[2018-07-26 07:53] VITALS: BP 110/68
[2018-07-26] MEDS: predniSONE 20 MG TAB PO SCH (08:12)
[2018-07-26] MEDS: ASPIRIN 81 MG ENTERIC TAB PO SCH (08:12)
[2018-07-26] MEDS: GABAPENTIN 300 MG CAP PO SCH ×4 (08:12→21:06)
[2018-07-26] MEDS: ITRACONAZOLE 100 MG CAP (SPORANOX) PO SCH ×2 (08:12→21:07)
[2018-07-26] MEDS: DIGOXIN 0.25 MG TAB PO SCH (08:14)
[2018-07-26] MEDS: ATENOLOL 12.5MG PER 1/2 TABLET PO SCH (08:15)
[2018-07-26 12:00] VITALS: BP 110/61
[2018-07-26] MEDS: FERROUS SULFATE 325MG TAB PO SCH (13:19)
[2018-07-26] MEDS: MULTIVITAMINS/MINERALS THERAP 1 TAB PO SCH (13:19)
--- NOTE | 2018-07-26 14:56 | IPNPDOC ---
Text Note Date of Service The patient was seen on 07/26/18. NOTE Subjective: Patient is a 73-year-old female with a PMHx of A. fib, s/p PM, HTN, COPD (on 2L O2, follows Dr. Porter), Hx of Lung CA s/p lobectomy, Hypothyroidism who presented to the ER with complaints of SOB / cough. In April patient was recently treated for Aspergillus with a 12 week course of antibiotics and steroids. In the emergency room, patient was found to have imaging that was consistent with prior with mild worsening. Patient was admitted under hospital service for further evaluation and treatment. Pulmonary and infectious disease were called on consultation. Patient was seen and examined at the bedside. The patient notes that her breathing has been doing much better. She still notes a mild cough. She denies any chest pain or palpitations. Denies any nausea, vomiting, abdominal pain, constipation or diarrhea. Has no discomfort with urination. Objective: Vitals (See below) General: Lying in bed, no acute distress, comfortable, AAOx3 HEENT: NC, AT CVS: RRR, +S1S2 Lungs: Fair air entry b/l, auscultation does not reveal any significant wheezing, rales or rhonchi Abdomen: Soft, ND, NT Extremities: - Edema, - Calf tenderness Assessment and plan: Shortness of breath - possibly 2/2 healthcare associated pneumonia, possibly 2/2 aspergillosis, possibly 2/2 acute exacerbation of COPD - Clinically the patient has noted significant improvement in her breathing - Physical does not reveal any significant adventitious lung sounds - Currently has been titrated down to her baseline level of oxygen - s/p Leukocytosis - Blood culture 07/23 & 07/24: Negative at 48 hours; Sputum 07/23: Negative; Acid fast 07/24: Negative; Fungal culture 07/24: Pending - CT chest 07/26: Consolidations and ground glass opacity is described. Suspicious for persistent pneumonia. Left lower lobe consolidation is more dense than prior. Large cavitation in the left upper lobe with masslike lesion. Cavitation size appears unchanged. Masslike lesion appears mildly increased in size. There is increased debris in the cavitation. Suspicious for cavitary pneumonia. Consider bacterial and fungal and TB. Underlying malignancy cannot be excluded.Destruction of the left sternoclavicular joint. Suspicious for septic arthritis. Additional findings as described. - Patient has received treatment for aspergillosis in April for 12 week course - c/w Itraconazole and Zosyn (Day #3) - c/w Prednisone; will reduce dose and taper - c/w Inhaled therapy as ordered - Pulmonary and Infectious disease on consult; appreciate their input Normocytic Anemia - Hg had an acute drop - possibly 2/2 dilutional etiology - s/p 2 units PRBC - c/w Ferrous sulfate A. 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 - Currently in remission Hypothyroidism - c/w Levothyroxine Neuropathy - c/w Gabapentin DVT prophylaxis - c/w Heparin Prognosis: - Poor Code Status: - Patient requests FULL CODE at this tme - Krishna Erickson (Son) is healthcare proxy; [phone] VS,Ximena, I+O VS, Ximena, I+O Laboratory Tests 07/26/18 04:52 Calcium Level 7.8 L 07/26/18 04:53 Red Blood Count 3.33 L, Mean Corpuscular Volume 93.4, Mean Corpuscular Hemoglobin 29.7, Mean Corpuscular Hemoglobin Concent 31.8 L, Red Cell Distribution Width 18.0 H, Neutrophils (%) (Auto) 82.5 H, Lymphocytes (%) (Auto) 5.9 L, Monocytes (%) (Auto) 10.7 H, Eosinophils (%) (Auto) 0.0, Basophils (%) (Auto) 0.1, Neutrophils # (Auto) 6.3, Lymphocytes # (Auto) 0.5 L, Monocytes # (Auto) 0.8, Eosinophils # (Auto) 0.0, Basophils # (Auto) 0.0 Vital Signs Date Time Temp Pulse Resp B/P (MAP) Pulse Ox O2 Delivery O2 Flow Rate FiO2 07/26/18 13:20 20 93 Nasal Cannula 2.0 07/26/18 12:00 98.3 92 110/61 (77) I&O- Last 24 Hours up to 6 AM 07/26/18 05:59 Intake Total 1534 ml Output Total 1000 ml Balance 534 ml HAZEL RANGEL MD Jul 26, 2018 14:56
[2018-07-26 16:00] VITALS: BP 112/68
[2018-07-26 20:00] VITALS: BP 122/66
[2018-07-26] MEDS: ATORVASTATIN 10 MG TAB PO SCH (21:07)
[2018-07-27] MEDS: oxyCODONE 5MG TAB PO PRN ×3 (01:43→16:44)
[2018-07-27] MEDS: IPRATROPIUM 0.5MG/ALBUTEROL 2.5MG INH SOL UD 3ML (DUONEB)(J7620) NEB SCH ×4 (01:47→20:01)
[2018-07-27 04:00] VITALS: BP 109/67
[2018-07-27] MEDS: HEPARIN SOD (PORCINE) 5000 UNITS/ML VIAL SC SCH (05:12)
[2018-07-27] MEDS: PIPERACILLIN/TAZOBACTAM SOD 3.375 GM in D5W MINI-BAG PLUS 50 ML IV SCH ×4 (05:13→21:36)
[2018-07-27] MEDS: LEVOTHYROXINE 100MCG TABLET (0.1MG) PO SCH (05:14)
[2018-07-27 05:43] LABS: BASO % 0.1 % (0.0-1.0); HEMATOCRIT 30.4 % (36.0-47.0); HEMOGLOBIN 9.6 g/dl (12.0-15.5); LYMPH # 0.6 10^3/uL (1.5-4.5); LYMPH % 7.6 % (24.0-44.0); MEAN CORPUSCULAR HEMOGLOBIN 29.2 pg (27.0-33.0); MEAN CORPUSCULAR HGB CONC 31.6 g/dl (32.0-36.5); MEAN CORPUSCULAR VOLUME 92.4 fl (80.0-96.0); MONO % 12.7 % (0.0-5.0); NEUTROPHILS # 6.3 10^3/uL (1.8-7.7); NEUTROPHILS % 78.5 % (36.0-66.0); PLATELET COUNT, AUTOMATED 455 10^3/uL (150-450); RED BLOOD COUNT 3.29 10^6/uL (4.00-5.40)
[2018-07-27 05:59] LABS: BLOOD UREA NITROGEN 20 MG/DL (7-18); CALCIUM LEVEL 7.9 MG/DL (8.8-10.2); CARBON DIOXIDE LEVEL 28 MEQ/L (21-32); CHLORIDE LEVEL 104 MEQ/L (98-107); CREATININE FOR GFR 0.61 MG/DL (0.55-1.30); GLOMERULAR FILTRATION RATE > 60.0 (>39); GLUCOSE, FASTING 79 MG/DL (70-100); POTASSIUM SERUM 3.9 MEQ/L (3.5-5.1); SODIUM LEVEL 138 MEQ/L (136-145)
[2018-07-27 08:00] VITALS: BP 109/61
--- NOTE | 2018-07-27 09:41 | REP ---
Clinical: Hemoptysis. Technique: PA and lateral. Comparison: 07/23/2018. Findings: Moderate right pleural effusion with right lower lobe atelectasis is again appreciated. Pleuroparenchymal changes involving the left hemithorax including pleural thickening and suspected cavitary lesion appears more prominent than prior examination and a new air fluid level is suggested in the mid left lung field. Mediastinum and cardiac silhouette are stable. Skeletal structures are intact. Impression: 1. Pleuroparenchymal changes involving left hemithorax appear more prominent and may reflect increased elements of atelectasis and pleural fluid. 2. A new air fluid levels identified in the left mid lung zone. 3. Moderate right pleural effusion and right lower lobe atelectasis similar to prior examination. Electronically Signed by Eris Wells MD 07/27/2018 09:33 A
[2018-07-27] MEDS: ITRACONAZOLE 100 MG CAP (SPORANOX) PO SCH ×2 (10:10→21:36)
[2018-07-27] MEDS: predniSONE 10 MG TAB PO SCH (10:11)
[2018-07-27] MEDS: ATENOLOL 12.5MG PER 1/2 TABLET PO SCH (10:12)
[2018-07-27] MEDS: GABAPENTIN 300 MG CAP PO SCH ×4 (10:13→21:36)
[2018-07-27] MEDS: ASPIRIN 81 MG ENTERIC TAB PO SCH (10:14)
[2018-07-27] MEDS: DIGOXIN 0.25 MG TAB PO SCH (10:14)
--- NOTE | 2018-07-27 10:25 | IPNPDOC ---
Text Note Date of Service The patient was seen on 07/27/18. NOTE Subjective: Patient is a 73-year-old female with a PMHx of A. fib, s/p PM, HTN, COPD (on 2L O2, follows Dr. Porter), Hx of Lung CA s/p lobectomy, Hypothyroidism who presented to the ER with complaints of SOB / cough. In April patient was recently treated for Aspergillus with a 12 week course of antibiotics and steroids. In the emergency room, patient was found to have imaging that was consistent with prior with mild worsening. Patient was admitted under hospital service for further evaluation and treatment. Pulmonary and infectious disease were called on consultation. Patient was seen and examined at the bedside. Currently patient notes that they're not feeling well. She describes very nonspecific feeling. Reports that she's experiencing some blood-tinged sputum production. Denies any significant chest pain or palpitations. Notes that her breathing does appear to be at baseline. Denies any nausea, vomiting, abdominal pain, constipation, diarrhea or discomfort with urination. Objective: Vitals (See below) General: Lying in bed, no acute distress, comfortable, AAOx3 HEENT: NC, AT CVS: RRR, +S1S2 Lungs: Fair air entry b/l, again, there does not appear to be any evidence of rhonchi, rales, wheezing. Upon auscultation Abdomen: Soft, remains nondistended, nontender Extremities: Lower extremities are without any evidence of edema, - Calf tenderness Assessment and plan: Shortness of breath - possibly 2/2 healthcare associated pneumonia, possibly 2/2 aspergillosis, possibly 2/2 acute exacerbation of COPD - Clinically the patient has noted significant improvement in her breathing - Physical does not reveal any significant adventitious lung sounds - Currently has been titrated down to her baseline level of oxygen - s/p Leukocytosis - Blood culture 07/23 & 07/24: Negative at 48 hours; Sputum 07/23: Negative; Acid fast 07/24: Negative; Fungal culture 07/24: Pending - CT chest 07/26: Consolidations and ground glass opacity is described. Suspicious for persistent pneumonia. Left lower lobe consolidation is more dense than prior. Large cavitation in the left upper lobe with masslike lesion. Cavitation size appears unchanged. Masslike lesion appears mildly increased in size. There is increased debris in the cavitation. Suspicious for cavitary pneumonia. Consider bacterial and fungal and TB. Underlying malignancy cannot be excluded.Destruction of the left sternoclavicular joint. Suspicious for septic arthritis. Additional findings as described. - Patient has received treatment for aspergillosis in April for 12 week course - c/w Itraconazole and Zosyn (Day #4) - c/w Prednisone taper - c/w Inhaled therapy as ordered - Pulmonary and Infectious disease on consult; appreciate their input Hemoptysis - likely 2/2 above - CXR 07/27: Pleuroparenchymal changes involving left hemithorax appear more prominent and may reflect increased elements of atelectasis and pleural fluid. A new air fluid levels identified in the left mid lung zone. Moderate right pleural effusion and right lower lobe atelectasis similar to prior examination. - Will follow H&H - Will c/w antibiotic / antifungal treatment - Will start incentive spirometry Normocytic Anemia - Hg had an acute drop initially - possibly 2/2 dilutional etiology - Has remained stable - s/p 2 units PRBC - c/w Ferrous sulfate A. 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 - Currently in remission Hypothyroidism - c/w Levothyroxine Neuropathy - c/w Gabapentin DVT prophylaxis - c/w Heparin Prognosis: - Poor Code Status: - Patient requests FULL CODE at this time - Krishna Erickson (Son) is healthcare proxy; [phone] VS,Ximena, I+O VS, Ximena, I+O Laboratory Tests 07/27/18 04:32 Red Blood Count 3.29 L, Mean Corpuscular Volume 92.4, Mean Corpuscular Hemoglobin 29.2, Mean Corpuscular Hemoglobin Concent 31.6 L, Red Cell Distribution Width 17.6 H, Neutrophils (%) (Auto) 78.5 H, Lymphocytes (%) (Auto) 7.6 L, Monocytes (%) (Auto) 12.7 H, Eosinophils (%) (Auto) 0.0, Basophils (%) (Auto) 0.1, Neutrophils # (Auto) 6.3, Lymphocytes # (Auto) 0.6 L, Monocytes # (Auto) 1.0 H, Eosinophils # (Auto) 0.0, Basophils # (Auto) 0.0, Calcium Level 7.9 L Vital Signs Date Time Temp Pulse Resp B/P (MAP) Pulse Ox O2 Delivery O2 Flow Rate FiO2 07/27/18 10:18 20 Nasal Cannula 2.0 07/27/18 10:14 70 07/27/18 10:12 109/61 07/27/18 08:00 98.0 90 I&O- Last 24 Hours up to 6 AM 07/27/18 06:00 Intake Total 1200 ml Output Total 0 ml Balance 1200 ml HAZEL RANGEL MD Jul 27, 2018 10:25
[2018-07-27 12:00] VITALS: BP 112/67
[2018-07-27] MEDS ORDERED: SLF 3 ML SYR IV PRN (12:30)
[2018-07-27 12:34] LABS: HEMATOCRIT 33.8 % (36.0-47.0); HEMOGLOBIN 10.7 g/dl (12.0-15.5)
[2018-07-27] MEDS: guaiFENesin DM LIQ 10ML UD PO PRN (12:42)
[2018-07-27] MEDS: MULTIVITAMINS/MINERALS THERAP 1 TAB PO SCH (12:42)
[2018-07-27] MEDS: FERROUS SULFATE 325MG TAB PO SCH (12:42)
[2018-07-27] MEDS: SLF 3 ML SYR IV SCH ×2 (12:44→21:37)
[2018-07-27 16:00] VITALS: BP 118/67
[2018-07-27 18:18] LABS: HEMATOCRIT 32.8 % (36.0-47.0); HEMOGLOBIN 10.4 g/dl (12.0-15.5)
[2018-07-27 20:00] VITALS: BP 102/48
[2018-07-27] MEDS: ATORVASTATIN 10 MG TAB PO SCH (21:35)
[2018-07-28] MEDS: IPRATROPIUM 0.5MG/ALBUTEROL 2.5MG INH SOL UD 3ML (DUONEB)(J7620) NEB SCH ×5 (02:00→23:59)
[2018-07-28] MEDS: oxyCODONE 5MG TAB PO PRN ×6 (03:03→22:40)
[2018-07-28] MEDS: guaiFENesin DM LIQ 10ML UD PO PRN (03:03)
[2018-07-28] MEDS: PIPERACILLIN/TAZOBACTAM SOD 3.375 GM in D5W MINI-BAG PLUS 50 ML IV SCH ×4 (03:04→22:30)
[2018-07-28 04:45] VITALS: BP 123/69
[2018-07-28 04:47] LABS: EOS % 0.1 % (0.0-3.0); HEMATOCRIT 31.3 % (36.0-47.0); HEMOGLOBIN 9.9 g/dl (12.0-15.5); LYMPH # 0.5 10^3/uL (1.5-4.5); LYMPH % 7.3 % (24.0-44.0); MEAN CORPUSCULAR HEMOGLOBIN 29.7 pg (27.0-33.0); MEAN CORPUSCULAR HGB CONC 31.6 g/dl (32.0-36.5); MONO # 0.8 10^3/uL (0.0-0.8); MONO % 10.9 % (0.0-5.0); NEUTROPHILS # 5.9 10^3/uL (1.8-7.7); NEUTROPHILS % 80.5 % (36.0-66.0); PLATELET COUNT, AUTOMATED 422 10^3/uL (150-450); RED BLOOD COUNT 3.33 10^6/uL (4.00-5.40); WHITE BLOOD COUNT 7.3 10^3/uL (4.0-10.0)
[2018-07-28 05:09] LABS: BLOOD UREA NITROGEN 20 MG/DL (7-18); CALCIUM LEVEL 7.8 MG/DL (8.8-10.2); CARBON DIOXIDE LEVEL 29 MEQ/L (21-32); CHLORIDE LEVEL 105 MEQ/L (98-107); CREATININE FOR GFR 0.65 MG/DL (0.55-1.30); GLOMERULAR FILTRATION RATE > 60.0 (>39); GLUCOSE, FASTING 89 MG/DL (70-100); POTASSIUM SERUM 3.9 MEQ/L (3.5-5.1); SODIUM LEVEL 140 MEQ/L (136-145)
[2018-07-28] MEDS: SLF 3 ML SYR IV SCH ×3 (06:00→22:00)
[2018-07-28] MEDS: LEVOTHYROXINE 100MCG TABLET (0.1MG) PO SCH (06:00)
[2018-07-28 08:00] VITALS: BP 126/71
[2018-07-28] MEDS: DIGOXIN 0.25 MG TAB PO SCH (08:59)
[2018-07-28] MEDS: ATENOLOL 12.5MG PER 1/2 TABLET PO SCH (09:00)
[2018-07-28] MEDS: GABAPENTIN 300 MG CAP PO SCH ×4 (09:00→21:00)
[2018-07-28] MEDS: ASPIRIN 81 MG ENTERIC TAB PO SCH (09:01)
[2018-07-28] MEDS: ITRACONAZOLE 100 MG CAP (SPORANOX) PO SCH ×2 (09:01→22:45)
[2018-07-28] MEDS: predniSONE 10 MG TAB PO SCH (09:11)
--- NOTE | 2018-07-28 10:14 | IPNPDOC ---
Text Note Date of Service The patient was seen on 07/28/18. NOTE Subjective: Patient is a 73-year-old female with a PMHx of A. fib, s/p PM, HTN, COPD (on 2L O2, follows Dr. Porter), Hx of Lung CA s/p lobectomy, Hypothyroidism who presented to the ER with complaints of SOB / cough. In April patient was recently treated for Aspergillus with a 12 week course of antibiotics and steroids. In the emergency room, patient was found to have imaging that was consistent with prior with mild worsening. Patient was admitted under hospital service for further evaluation and treatment. Pulmonary and infectious disease were called on consultation. Patient was seen and examined at the bedside. Patient has no new complaints this morning. She denies any significant chest pain, shortness of breath or palpitations. She does still report a cough. Denies any nausea, vomiting, abdominal pain, constipation, diarrhea or discomfort with urination. Objective: Vitals (See below) General: Lying in bed, no acute distress, comfortable, AAOx3 HEENT: NC, AT CVS: RRR, +S1S2 Lungs: Fair air entry b/l, again, auscultation without any rhonchi, rales or wheezing Abdomen: Soft, NT, ND Extremities: LE without edema, - Calf tenderness Assessment and plan: Shortness of breath - possibly 2/2 aspergillosis, possibly 2/2 healthcare associated pneumonia, possibly 2/2 acute exacerbation of COPD - Clinically the patient has noted significant improvement in her breathing - Physical does not reveal any significant adventitious lung sounds - Currently has been titrated down to her baseline level of oxygen - s/p Leukocytosis; Procalcitonin of <0.10 - Blood culture 07/23 & 07/24: Negative at 48 hours; Sputum 07/23: Negative; Acid fast 07/24: Negative; Fungal culture 07/24: Pending - CT chest 07/26: Consolidations and ground glass opacity is described. Suspicious for persistent pneumonia. Left lower lobe consolidation is more dense than prior. Large cavitation in the left upper lobe with masslike lesion. Cavitation size appears unchanged. Masslike lesion appears mildly increased in size. There is increased debris in the cavitation. Suspicious for cavitary pneumonia. Consider bacterial and fungal and TB. Underlying malignancy cannot be excluded.Destruction of the left sternoclavicular joint. Suspicious for septic arthritis. Additional findings as described. - Patient has received treatment for aspergillosis in April for 12 week course - c/w Itraconazole and Zosyn (Day #5) - c/w Prednisone taper - c/w Inhaled therapy as ordered - Pulmonary and Infectious disease on consult; appreciate their input s/p Hemoptysis - likely 2/2 above - CXR 07/27: Pleuroparenchymal changes involving left hemithorax appear more prominent and may reflect increased elements of atelectasis and pleural fluid. A new air fluid levels identified in the left mid lung zone. Moderate right pleural effusion and right lower lobe atelectasis similar to prior examination. - Hg remains stable - c/w antibiotic / antifungal treatment - c/w incentive spirometry Normocytic Anemia - Hg had an acute drop initially - possibly 2/2 dilutional etiology - Has remained stable - s/p 2 units PRBC - c/w Ferrous sulfate A. 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 - Currently in remission Hypothyroidism - c/w Levothyroxine Neuropathy - c/w Gabapentin DVT prophylaxis - c/w Heparin Prognosis: - Poor Code Status: - Patient requests FULL CODE at this time - Krishna Erickson (Son) is healthcare proxy; [phone] VS,Ximena, I+O VS, Ximena, I+O Laboratory Tests 07/27/18 12:15 07/27/18 18:04 07/28/18 04:20 Red Blood Count 3.33 L, Mean Corpuscular Volume 94.0, Mean Corpuscular Hemoglobin 29.7, Mean Corpuscular Hemoglobin Concent 31.6 L, Red Cell Dist ribution Width 17.7 H, Neutrophils (%) (Auto) 80.5 H, Lymphocytes (%) (Auto) 7.3 L, Monocytes (%) (Auto) 10.9 H, Eosinophils (%) (Auto) 0.1, Basophils (%) (Auto) 0.0, Neutrophils # (Auto) 5.9, Lymphocytes # (Auto) 0.5 L, Monocytes # (Auto) 0.8, Eosinophils # (Auto) 0.0, Basophils # (Auto) 0.0, Calcium Level 7.8 L Vital Signs Date Time Temp Pulse Resp B/P (MAP) Pulse Ox O2 Delivery O2 Flow Rate FiO2 07/28/18 09:45 20 Nasal Cannula 2.0 07/28/18 09:00 75 126/71 07/28/18 08:00 98.5 93 I&O- Last 24 Hours up to 6 AM 07/28/18 06:00 Intake Total 200 ml Balance 200 ml HAZEL RANGEL MD Jul 28, 2018 10:14
[2018-07-28 12:00] VITALS: BP 139/73
[2018-07-28] MEDS: MULTIVITAMINS/MINERALS THERAP 1 TAB PO SCH (13:13)
[2018-07-28] MEDS: FERROUS SULFATE 325MG TAB PO SCH (13:13)
[2018-07-28] MEDS: guaiFENesin/CODEINE SYRUP 5 ML UDC PO PRN ×2 (14:28→22:45)
[2018-07-28 18:00] VITALS: BP 121/72
[2018-07-28] MEDS: ATORVASTATIN 10 MG TAB PO SCH (21:00)
[2018-07-28 22:00] VITALS: BP 118/58
[2018-07-29 02:00] VITALS: BP 116/62
[2018-07-29] MEDS: PIPERACILLIN/TAZOBACTAM SOD 3.375 GM in D5W MINI-BAG PLUS 50 ML IV SCH ×4 (04:10→20:37)
[2018-07-29] MEDS: IPRATROPIUM 0.5MG/ALBUTEROL 2.5MG INH SOL UD 3ML (DUONEB)(J7620) NEB PRN (05:31)
[2018-07-29] MEDS: LEVOTHYROXINE 100MCG TABLET (0.1MG) PO SCH (05:31)
[2018-07-29] MEDS: SLF 3 ML SYR IV SCH ×3 (05:32→20:38)
[2018-07-29 06:00] VITALS: BP 147/72
[2018-07-29 06:12] LABS: EOS % 0.2 % (0.0-3.0); HEMATOCRIT 31.9 % (36.0-47.0); HEMOGLOBIN 10.4 g/dl (12.0-15.5); LYMPH # 0.6 10^3/uL (1.5-4.5); LYMPH % 6.2 % (24.0-44.0); MEAN CORPUSCULAR HEMOGLOBIN 30.1 pg (27.0-33.0); MEAN CORPUSCULAR HGB CONC 32.6 g/dl (32.0-36.5); MEAN CORPUSCULAR VOLUME 92.2 fl (80.0-96.0); MONO # 1.1 10^3/uL (0.0-0.8); MONO % 11.2 % (0.0-5.0); NEUTROPHILS # 8.2 10^3/uL (1.8-7.7); NEUTROPHILS % 81.8 % (36.0-66.0); PLATELET COUNT, AUTOMATED 451 10^3/uL (150-450); RED BLOOD COUNT 3.46 10^6/uL (4.00-5.40)
[2018-07-29 06:25] LABS: BLOOD UREA NITROGEN 20 MG/DL (7-18); CALCIUM LEVEL 8.3 MG/DL (8.8-10.2); CARBON DIOXIDE LEVEL 30 MEQ/L (21-32); CHLORIDE LEVEL 101 MEQ/L (98-107); CREATININE FOR GFR 0.58 MG/DL (0.55-1.30); GLOMERULAR FILTRATION RATE > 60.0 (>39); GLUCOSE, FASTING 87 MG/DL (70-100); SODIUM LEVEL 137 MEQ/L (136-145)
[2018-07-29] MEDS: IPRATROPIUM 0.5MG/ALBUTEROL 2.5MG INH SOL UD 3ML (DUONEB)(J7620) NEB SCH ×3 (07:11→21:01)
[2018-07-29] MEDS: oxyCODONE 5MG TAB PO PRN ×2 (07:31→20:55)
[2018-07-29] MEDS: predniSONE 10 MG TAB PO SCH (07:31)
[2018-07-29] MEDS: guaiFENesin/CODEINE SYRUP 5 ML UDC PO PRN ×3 (08:50→20:50)
[2018-07-29] MEDS: GABAPENTIN 300 MG CAP PO SCH ×4 (08:53→20:38)
[2018-07-29] MEDS: DIGOXIN 0.25 MG TAB PO SCH (08:53)
[2018-07-29] MEDS: ASPIRIN 81 MG ENTERIC TAB PO SCH (08:53)
[2018-07-29] MEDS: ATENOLOL 12.5MG PER 1/2 TABLET PO SCH (08:53)
[2018-07-29] MEDS: ITRACONAZOLE 100 MG CAP (SPORANOX) PO SCH ×2 (08:53→20:38)
[2018-07-29 10:00] VITALS: BP 103/57
[2018-07-29] MEDS: FERROUS SULFATE 325MG TAB PO SCH (11:10)
[2018-07-29] MEDS: MULTIVITAMINS/MINERALS THERAP 1 TAB PO SCH (11:10)
--- NOTE | 2018-07-29 12:01 | IPNPDOC ---
Text Note Date of Service The patient was seen on 07/29/18. NOTE Subjective: Patient is a 73-year-old female with a PMHx of A. fib, s/p PM, HTN, COPD (on 2L O2, follows Dr. Porter), Hx of Lung CA s/p lobectomy, Hypothyroidism who presented to the ER with complaints of SOB / cough. In April patient was recently treated for Aspergillus with a 12 week course of antibiotics and steroids. In the emergency room, patient was found to have imaging that was consistent with prior with mild worsening. Patient was admitted under hospital service for further evaluation and treatment. Pulmonary and infectious disease were called on consultation. Patient was seen and examined at the bedside. Patient was level is higher today and there able and willing to work with physical therapy. Has denied any chest pain, shortness of breath or palpitations. They do report a cough that's been productive. Denies any N/V, abdominal pain, C/D. Denies any discomfort with urination. Objective: Vitals (See below) General: Lying in bed, no acute distress, comfortable, AAOx3 HEENT: NC, AT CVS: RRR, +S1S2 Lungs: Air entry is fair bilaterally, without any evidence of wheezing, rhonchi or rales Abdomen: abdomen remained soft, nondistended and nontender Extremities: There does not appear to be any lower extremity edema, - Calf tenderness Assessment and plan: Shortness of breath - possibly 2/2 aspergillosis, possibly 2/2 healthcare associated pneumonia, possibly 2/2 acute exacerbation of COPD - Clinically patient feels better; aeration of lungs has normalized; has been ti trated down to baseline of the oxygen - s/p Leukocytosis; Procalcitonin of <0.10 - Blood culture 07/23 & 07/24: No growth at 5 days; Sputum 07/23: Negative; Acid fast 07/24: Negative; Fungal culture 07/24: Pending - CT chest 07/26: Consolidations and ground glass opacity is described. Suspicious for persistent pneumonia. Left lower lobe consolidation is more dense than prior. Large cavitation in the left upper lobe with masslike lesion. Cavitation size appears unchanged. Masslike lesion appears mildly increased in size. There is increased debris in the cavitation. Suspicious for cavitary pneu monia. Consider bacterial and fungal and TB. Underlying malignancy cannot be excluded.Destruction of the left sternoclavicular joint. Suspicious for septic arthritis. Additional findings as described. - Patient has received treatment for aspergillosis in April for 12 week course - c/w Itraconazole and Zosyn (Day #6); will consider continuing Zosyn for 1 additional day to complete 7 day course; will continue with Itraconazole - c/w Prednisone taper - c/w Inhaled therapy as ordered - Pulmonary and Infectious disease on consult; appreciate their input s/p Hemoptysis - likely 2/2 above - CXR 07/27: Pleuroparenchymal changes involving left hemithorax appear more prominent and may reflect increased elements of atelectasis and pleural fluid. A new air fluid levels identified in the left mid lung zone. Moderate right pleural effusion and right lower lobe atelectasis similar to prior examination. - Hg remains stable - c/w antibiotic / antifungal treatment - c/w incentive spirometry Stage 2 Sacral Decubitus Ulcer - c/w dressing changes - Will get wound care consult Normocytic Anemia - Hg had an acute drop initially - possibly 2/2 dilutional etiology - Has remained stable - s/p 2 units PRBC - c/w Ferrous sulfate A. 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 - Currently in remission Hypothyroidism - c/w Levothyroxine Neuropathy - c/w Gabapentin DVT prophylaxis - c/w Heparin Prognosis: - Poor Code Status: - Patient requests FULL CODE at this time - Krishna Erickson (Son) is healthcare proxy; [phone] Disposition: - Patient will attempt to work with physical therapy today SARAH,Ximena, I+O Ximena SMTIH, I+O Laboratory Tests 07/29/18 05:50 Red Blood Count 3.46 L, Mean Corpuscular Volume 92.2, Mean Corpuscular Hemoglobin 30.1, Mean Corpuscular Hemoglobin Concent 32.6, Red Cell Distribution Width 17.2 H, Neutrophils (%) (Auto) 81.8 H, Lymphocytes (%) (Auto) 6.2 L, Monocytes (%) (Auto) 11.2 H, Eosinophils (%) (Auto) 0.2, Basophils (%) (Auto) 0.0, Neutrophils # (Auto) 8.2 H, Lymphocytes # (Auto) 0.6 L, Monocytes # (Auto) 1.1 H, Eosinophils # (Auto) 0.0, Basophils # (Auto) 0.0, Calcium Level 8.3 L Vital Signs Date Time Temp Pulse Resp B/P (MAP) Pulse Ox O2 Delivery O2 Flow Rate FiO2 07/29/18 10:00 99.2 76 19 103/57 (72) 91 Nasal Cannula 2.0 I&O- Last 24 Hours up to 6 AM 07/29/18 05:59 Intake Total 1010 ml Output Total 550 ml Balance 460 ml HAZEL RANGEL MD Jul 29, 2018 12:01
[2018-07-29 14:00] VITALS: BP 138/71
[2018-07-29 18:00] VITALS: BP 119/58
[2018-07-29] MEDS: ATORVASTATIN 10 MG TAB PO SCH (20:37)
[2018-07-29 22:00] VITALS: BP 120/63
[2018-07-30 02:00] VITALS: BP 121/67
[2018-07-30] MEDS: IPRATROPIUM 0.5MG/ALBUTEROL 2.5MG INH SOL UD 3ML (DUONEB)(J7620) NEB SCH ×4 (02:00→21:03)
[2018-07-30] MEDS: PIPERACILLIN/TAZOBACTAM SOD 3.375 GM in D5W MINI-BAG PLUS 50 ML IV SCH ×4 (04:59→21:55)
[2018-07-30] MEDS: LEVOTHYROXINE 100MCG TABLET (0.1MG) PO SCH (05:00)
[2018-07-30] MEDS: SLF 3 ML SYR IV SCH ×3 (05:06→21:55)
[2018-07-30 06:00] VITALS: BP 127/70
[2018-07-30 06:44] LABS: EOS # 0.1 10^3/uL (0.0-0.50); EOS % 0.6 % (0.0-3.0); HEMATOCRIT 32.4 % (36.0-47.0); HEMOGLOBIN 10.3 g/dl (12.0-15.5); LYMPH # 0.6 10^3/uL (1.5-4.5); LYMPH % 6.3 % (24.0-44.0); MEAN CORPUSCULAR HEMOGLOBIN 30.2 pg (27.0-33.0); MEAN CORPUSCULAR HGB CONC 31.8 g/dl (32.0-36.5); MONO # 1.2 10^3/uL (0.0-0.8); MONO % 11.8 % (0.0-5.0); NEUTROPHILS # 8.2 10^3/uL (1.8-7.7); NEUTROPHILS % 80.8 % (36.0-66.0); PLATELET COUNT, AUTOMATED 436 10^3/uL (150-450); RED BLOOD COUNT 3.41 10^6/uL (4.00-5.40); WHITE BLOOD COUNT 10.1 10^3/uL (4.0-10.0)
[2018-07-30 07:03] LABS: BLOOD UREA NITROGEN 18 MG/DL (7-18); CALCIUM LEVEL 8.3 MG/DL (8.8-10.2); CARBON DIOXIDE LEVEL 32 MEQ/L (21-32); CHLORIDE LEVEL 102 MEQ/L (98-107); CREATININE FOR GFR 0.58 MG/DL (0.55-1.30); GLOMERULAR FILTRATION RATE > 60.0 (>39); GLUCOSE, FASTING 80 MG/DL (70-100); POTASSIUM SERUM 3.9 MEQ/L (3.5-5.1); SODIUM LEVEL 139 MEQ/L (136-145)
[2018-07-30] MEDS: ATENOLOL 12.5MG PER 1/2 TABLET PO SCH (07:54)
[2018-07-30] MEDS: DIGOXIN 0.25 MG TAB PO SCH (07:55)
[2018-07-30] MEDS: ASPIRIN 81 MG ENTERIC TAB PO SCH (07:55)
[2018-07-30] MEDS: ITRACONAZOLE 100 MG CAP (SPORANOX) PO SCH ×2 (07:55→21:55)
[2018-07-30] MEDS: ATORVASTATIN 10 MG TAB PO SCH (07:55)
[2018-07-30] MEDS: predniSONE 10 MG TAB PO SCH (07:55)
[2018-07-30] MEDS: oxyCODONE 5MG TAB PO PRN ×3 (07:56→21:54)
[2018-07-30] MEDS: GABAPENTIN 300 MG CAP PO SCH ×4 (07:56→21:55)
[2018-07-30] MEDS: guaiFENesin/CODEINE SYRUP 5 ML UDC PO PRN ×2 (07:56→22:16)
--- NOTE | 2018-07-30 09:24 | IPNPDOC ---
Text Note Date of Service The patient was seen on 07/30/18. NOTE Subjective: Patient is a 73-year-old female with a PMHx of A. fib, s/p PM, HTN, COPD (on 2L O2, follows Dr. Porter), Hx of Lung CA s/p lobectomy, Hypothyroidism who presented to the ER with complaints of SOB / cough. In April patient was recently treated for Aspergillus with a 12 week course of antibiotics and steroids. In the emergency room, patient was found to have imaging that was consistent with prior with mild worsening. Patient was admitted under hospital service for further evaluation and treatment. Pulmonary and infectious disease were called on consultation. Patient was examined bedside today, she complained of productive cough and generalized body pain. Denies chest pain, denies nausea, denied vomiting, denies changes in vision. Denies shortness of breath, or difficulty breathing. She is currently on 2 liters on nasal cannula. She was afebrile overnight Objective: Vitals (See below) General: Lying in bed, with a productive cough, HEENT: Head is atraumatic, oral mucosa is moist, neck is supple CVS: Regular rate and rhythm, S1 and S2 present, without murmurs Lungs: Diminished bilateral air movement, no use of accessory muscles to b reathe, chronic cough at baseline Abdomen: abdomen remained soft, nondistended and nontender Extremities: No edema, no sinus Assessment and plan: Shortness of breath - possibly 2/2 aspergillosis, possibly 2/2 healthcare associated pneumonia, possibly 2/2 acute exacerbation of COPD - Patient has returned to baseline function, currently baseline nasal cannula use. - Leukocytosis, WBC is currently at 10.1 Procalcitonin of <0.10 - Blood culture 07/23 & 07/24: No growth at 5 days; Sputum 07/23: Negative; Acid fast 07/24: Negative; --Fungal culture 07/24: Pending - CT chest 07/26: Consolidations and ground glass opacity is described. Suspicious for persistent pneumonia. Left lower lobe consolidation is more dense than prior. Large cavitation in the left upper lobe with masslike lesion. Ca vitation size appears unchanged. Masslike lesion appears mildly increased in size. There is increased debris in the cavitation. Suspicious for cavitary pneumonia. Consider bacterial and fungal and TB. Underlying malignancy cannot be excluded.Destruction of the left sternoclavicular joint. Suspicious for septic arthritis. Additional findings as described. - Patient has received treatment for aspergillosis in April for 12 week course - c/w Itraconazole and Zosyn (Day #7); D/C zosyn tomorrow ( 7 days total of treatment),,will continue with Itraconazole for 12 weeks total in treatment - c/w Prednisone taper ( 20 mg until 07/30/18) - c/w Inhaled therapy as ordered - Pulmonary and Infectious disease on consult; appreciate their input s/p Hemoptysis - likely 2/2 above - CXR 07/27: Pleuroparenchymal changes involving left hemithorax appear more prominent and may reflect increased elements of atelectasis and pleural fluid. A new air fluid levels identified in the left mid lung zone. Moderate right pleural effusion and right lower lobe atelectasis similar to prior examination. - Hg remains stable - c/w antibiotic / antifungal treatment - c/w incentive spirometry Stage 2 Sacral Decubitus Ulcer - c/w dressing changes - Wound care consult, pending eval Normocytic Anemia - Hg had an acute drop initially - possibly 2/2 dilutional etiology - Has remained stable - s/p 2 units PRBC - c/w Ferrous sulfate A. 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 - Currently in remission Hypothyroidism - c/w Levothyroxine Neuropathy - c/w Gabapentin DVT prophylaxis - c/w Heparin Code Status: - Patient requests FULL CODE at this time - Krishna Erickson (Son) is healthcare proxy; [phone] VS,Ximena, I+O VS, Ximena, I+O Laboratory Tests 07/30/18 05:58 Red Blood Count 3.41 L, Mean Corpuscular Volume 95.0, Mean Corpuscular Hemoglobin 30.2, Mean Corpuscular Hemoglobin Concent 31.8 L, Red Cell Distribu tion Width 17.4 H, Neutrophils (%) (Auto) 80.8 H, Lymphocytes (%) (Auto) 6.3 L, Monocytes (%) (Auto) 11.8 H, Eosinophils (%) (Auto) 0.6, Basophils (%) (Auto) 0.0, Neutrophils # (Auto) 8.2 H, Lymphocytes # (Auto) 0.6 L, Monocytes # (Auto) 1.2 H, Eosinophils # (Auto) 0.1, Basophils # (Auto) 0.0, Calcium Level 8.3 L Vital Signs Date Time Temp Pulse Resp B/P (MAP) Pulse Ox O2 Delivery O2 Flow Rate FiO2 07/30/18 08:26 19 Nasal Cannula 07/30/18 07:55 74 07/30/18 07:54 110/60 07/30/18 06:00 98.7 96 2.0 I&O- Last 24 Hours up to 6 AM 07/30/18 05:59 Intake Total 990 ml Output Total 1125 ml Balance -135 ml GME ATTESTATION GME ATTESTATION My faculty preceptor for this patient encounter was physically present during the encounter and was fully available. All aspects of the patient interview, examination, medical decision making process, and medical care plan development were reviewed and approved by the faculty preceptor. The faculty preceptor is aware and concurs with the plan as stated in the body of this note and will attest to such by his/her cosignature. KATRIN SINGLETON DO Jul 30, 2018 09:23
[2018-07-30 10:00] VITALS: BP 92/52
[2018-07-30] MEDS: FERROUS SULFATE 325MG TAB PO SCH (10:49)
[2018-07-30] MEDS: MULTIVITAMINS/MINERALS THERAP 1 TAB PO SCH (10:49)
[2018-07-30 14:00] VITALS: BP 131/72
[2018-07-30 18:00] VITALS: BP 11/58
[2018-07-30] MEDS: ACETAMINOPHEN TAB 650MG DOSE (2X325MG) PO PRN ×2 (18:08→18:38)
[2018-07-30 22:00] VITALS: BP 129/67
[2018-07-31] VITALS (9 sets, daily range): BP systolic 103–141; BP diastolic 59–84; O2SAT 93–97
[2018-07-31] MEDS: IPRATROPIUM 0.5MG/ALBUTEROL 2.5MG INH SOL UD 3ML (DUONEB)(J7620) NEB SCH ×4 (02:00→20:14)
[2018-07-31] MEDS: guaiFENesin/CODEINE SYRUP 5 ML UDC PO PRN (04:13)
[2018-07-31] MEDS: oxyCODONE 5MG TAB PO PRN ×3 (04:14→14:16)
[2018-07-31] MEDS: LEVOTHYROXINE 100MCG TABLET (0.1MG) PO SCH (05:52)
[2018-07-31] MEDS: SLF 3 ML SYR IV SCH ×3 (05:53→21:34)
[2018-07-31 06:07] LABS: EOS # 0.1 10^3/uL (0.0-0.50); EOS % 0.8 % (0.0-3.0); HEMATOCRIT 30.9 % (36.0-47.0); HEMOGLOBIN 9.7 g/dl (12.0-15.5); LYMPH # 0.5 10^3/uL (1.5-4.5); MEAN CORPUSCULAR HEMOGLOBIN 29.8 pg (27.0-33.0); MEAN CORPUSCULAR HGB CONC 31.4 g/dl (32.0-36.5); MEAN CORPUSCULAR VOLUME 95.1 fl (80.0-96.0); MONO # 1.3 10^3/uL (0.0-0.8); MONO % 14.3 % (0.0-5.0); NEUTROPHILS # 6.9 10^3/uL (1.8-7.7); NEUTROPHILS % 78.1 % (36.0-66.0); PLATELET COUNT, AUTOMATED 413 10^3/uL (150-450); RED BLOOD COUNT 3.25 10^6/uL (4.00-5.40); WHITE BLOOD COUNT 8.8 10^3/uL (4.0-10.0)
[2018-07-31 06:27] LABS: BLOOD UREA NITROGEN 23 MG/DL (7-18); CALCIUM LEVEL 8.1 MG/DL (8.8-10.2); CARBON DIOXIDE LEVEL 32 MEQ/L (21-32); CHLORIDE LEVEL 103 MEQ/L (98-107); CREATININE FOR GFR 0.66 MG/DL (0.55-1.30); GLOMERULAR FILTRATION RATE > 60.0 (>39); GLUCOSE, FASTING 80 MG/DL (70-100); POTASSIUM SERUM 3.9 MEQ/L (3.5-5.1); SODIUM LEVEL 140 MEQ/L (136-145)
[2018-07-31] MEDS: DIGOXIN 0.25 MG TAB PO SCH (10:32)
[2018-07-31] MEDS: GABAPENTIN 300 MG CAP PO SCH ×4 (10:32→21:34)
[2018-07-31] MEDS: predniSONE 10 MG TAB PO SCH (10:32)
[2018-07-31] MEDS: ITRACONAZOLE 100 MG CAP (SPORANOX) PO SCH ×2 (10:32→21:33)
[2018-07-31] MEDS: ASPIRIN 81 MG ENTERIC TAB PO SCH (10:32)
[2018-07-31 10:33] LABS: ABG BASE EXCESS 8.7 (-2.0-2.0); ABG HCO3 33.1 MEQ/L (22.0-26.0); ABG O2 SATURATION 93.6 % (95.0-99.0); ABG PARTIAL PRESSURE CO2 44.8 mmHg (35.0-45.0); ABG PARTIAL PRESSURE O2 63.5 mmHg (75.0-100.0); ABG STANDARD HCO3 32.4 MEQ/L (22.0-26.0); ABG TOTAL CO2 34.4 MEQ/L (23.0-31.0); ABG pH (ARTERIAL) 7.486 UNITS (7.350-7.450)
[2018-07-31] MEDS: ATENOLOL 12.5MG PER 1/2 TABLET PO SCH (10:35)
[2018-07-31] MEDS ORDERED: FUROSEMIDE 40 MG/4 ML VIAL (J1940) IV ONE (11:00)
--- NOTE | 2018-07-31 11:16 | IPNPDOC ---
Text Note Date of Service The patient was seen on 07/31/18. NOTE Subjective: Patient is a 73-year-old female with a PMHx of A. fib, s/p PM, HTN, COPD (on 2L O2, follows Dr. Porter), Hx of Lung CA s/p lobectomy, Hypothyroidism who presented to the ER with complaints of SOB / cough. In April patient was recently treated for Aspergillus with a 12 week course of antibiotics and steroids. In the emergency room, patient was found to have imaging that was consistent with prior with mild worsening. Patient was admitted under hospital service for further evaluation and treatment. Pulmonary and infectious disease were called on consultation. She complains of cough, with sputum production. No hemoptysis. She also complained of difficulty breathing. Denied chest pain. Patient was having increasing shortness of breath during interview. Pt was hypoxic early this a.m. And her oxygen delivery method was changed to nonrebreather at a flow rate of 15 OBJECTIVE: PHYSICAL EXAMINATION: GENERAL APPEARANCE: Alert, sitting in bed, coughing, appears to be in respiratory distress LUNGS: Clear to auscultate, with moderate use of accessory muscles to breathe, cough present, no wheezing, no rhonchi HEART: Normal S1, S2. No murmurs, no rubs, no gallops ABDOMEN: Soft. No masses. Bowel sounds are present. EXTREMITIES: Moves all extremities equally. No gross deformities. No cyanosis PULSES: 2+ upper and lower extremity . Assessment and plan: Shortness of breath - possibly 2/2 aspergillosis, possibly 2/2 healthcare associated pneumonia, possibly 2/2 acute exacerbation of COPD - CT chest 07/26: Consolidations and ground glass opacity is described. Suspicious for persistent pneumonia. Left lower lobe consolidation is more dense than prior. Large cavitation in the left upper lobe with masslike lesion. Cavitation size appears unchanged. Masslike lesion appears mildly increased in size. There is increased debris in the cavitation. Suspicious for cavitary pneumonia. Consider bacterial and fungal and TB. Underlying malignancy cannot be excluded.Destruction of the left sternoclavicular joint. Suspicious for septic arthritis. Additional findings as described. -Completed a course of Zosyn, 7 days in total -will continue with Itraconazole for 12 weeks total in treatment - Pulmonary and Infectious disease on consult; appreciate their input --Fungal culture 07/24: Pending - Blood culture 07/23 & 07/24: No growth at 5 days; Sputum 07/23: Negative; Acid fast 07/24: Negative; -Still complaining of ongoing shortness of breath, cough, with sputum production. -Change. Oxygen delivery methods to nonrebreather, currently satting above 92%, will try to titrate patient down to 2 L of nasal cannula --Chest xray ordered today -- Will continue to monitor s/p Hemoptysis - likely 2/2 above - CXR 07/27: Pleuroparenchymal changes involving left hemithorax appear more prominent and may reflect increased elements of atelectasis and pleural fluid. A new air fluid levels identified in the left mid lung zone. Moderate right pleural effusion and right lower lobe atelectasis similar to prior examination. - Hg remains stable - c/w antibiotic / antifungal treatment - c/w incentive spirometry Stage 2 Sacral Decubitus Ulcer - c/w dressing changes - Wound care consult, pending eval Normocytic Anemia - Hg had an acute drop initially - possibly 2/2 dilutional etiology - Has remained stable - s/p 2 units PRBC - c/w Ferrous sulfate A. 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 - Currently in remission Hypothyroidism - c/w Levothyroxine Neuropathy - c/w Gabapentin DVT prophylaxis - c/w Heparin Code Status: - Patient requests FULL CODE at this time - Krishna Erickson (Son) is healthcare proxy; [phone] VS,Ximena, I+O VS, Ximena, I+O Laboratory Tests 07/31/18 05:43 Red Blood Count 3.25 L, Mean Corpuscular Volume 95.1, Mean Corpuscular Hemoglobin 29.8, Mean Corpuscular Hemoglobin Concent 31.4 L, Red Cell Distribution Width 17.2 H, Neutrophils (%) (Auto) 78.1 H, Lymphocytes (%) (Auto) 6.0 L, Monocytes (%) (Auto) 14.3 H, Eosinophils (%) (Auto) 0.8, Basophils (%) (Auto) 0.0, Neutrophils # (Auto) 6.9, Lymphocytes # (Auto) 0.5 L, Monocytes # (Auto) 1.3 H, Eosinophils # (Auto) 0.1, Basophils # (Auto) 0.0, Calcium Level 8.1 L Vital Signs Date Time Temp Pulse Resp B/P (MAP) Pulse Ox O2 Delivery O2 Flow Rate FiO2 07/31/18 10:35 83 141/69 07/31/18 10:20 93 Venturi Mask 15.0 50 07/31/18 10:17 24 07/31/18 06:00 97.8 I&O- Last 24 Hours up to 6 AM 07/31/18 06:00 Intake Total 840 ml Output Total 202 ml Balance 638 ml GME ATTESTATION GME ATTESTATION My faculty preceptor for this patient encounter was physically present during the encounter and was fully available. All aspects of the patient interview, examination, medical decision making process, and medical care plan development were reviewed and approved by the faculty preceptor. The faculty preceptor is aware and concurs with the plan as stated in the body of this note and will attest to such by his/her cosignature. KATRIN SINGLETON DO Jul 31, 2018 11:16
[2018-07-31] MEDS: FERROUS SULFATE 325MG TAB PO SCH (12:00)
[2018-07-31] MEDS: MULTIVITAMINS/MINERALS THERAP 1 TAB PO SCH (12:00)
--- NOTE | 2018-07-31 12:40 | REP ---
PORTABLE CHEST X-RAY: Single view. HISTORY: Shortness of breath. COMPARISON CHEST X-RAY: July 27, 2018. FINDINGS: There is blunting of the right lateral pleural angle again noted. Extensive chronic changes with volume loss are again noted in the left hemithorax unchanged from the recent prior study. No new infiltrate is noted on the right. A bipolar pacemaker is observed. IMPRESSION: Known extensive cavitary change in the left hemithorax and chronic pleuroparenchymal changes again noted unchanged. Small right pleural effusion again noted. No new infiltrate seen. Electronically Signed by Fahad Kamara MD 07/31/2018 04:12 P
[2018-07-31] MEDS: HEPARIN SOD (PORCINE) 5000 UNITS/ML VIAL SQ SCH ×2 (14:17→21:33)
[2018-07-31] MEDS: methylPREDNISolone INJ 125 MG/2 ML VIAL (J2930) IV SCH ×2 (14:17→21:33)
[2018-07-31] MEDS: ATORVASTATIN 10 MG TAB PO SCH (21:33)
[2018-08-01] VITALS (7 sets, daily range): BP systolic 106–127; BP diastolic 53–71; O2SAT 98
[2018-08-01] MEDS: IPRATROPIUM 0.5MG/ALBUTEROL 2.5MG INH SOL UD 3ML (DUONEB)(J7620) NEB SCH ×6 (04:00→21:07)
[2018-08-01] MEDS: HEPARIN SOD (PORCINE) 5000 UNITS/ML VIAL SQ SCH ×3 (05:20→21:13)
[2018-08-01] MEDS: methylPREDNISolone INJ 125 MG/2 ML VIAL (J2930) IV SCH ×3 (05:20→21:12)
[2018-08-01] MEDS: LEVOTHYROXINE 100MCG TABLET (0.1MG) PO SCH (05:21)
[2018-08-01] MEDS: SLF 3 ML SYR IV SCH ×3 (05:21→21:13)
[2018-08-01 05:23] LABS: HEMATOCRIT 33.8 % (36.0-47.0); HEMOGLOBIN 10.8 g/dl (12.0-15.5); MEAN CORPUSCULAR HEMOGLOBIN 29.6 pg (27.0-33.0); MEAN CORPUSCULAR VOLUME 92.6 fl (80.0-96.0); PLATELET COUNT, AUTOMATED 458 10^3/uL (150-450); RED BLOOD COUNT 3.65 10^6/uL (4.00-5.40); WHITE BLOOD COUNT 9.9 10^3/uL (4.0-10.0)
[2018-08-01 05:44] LABS: BLOOD UREA NITROGEN 21 MG/DL (7-18); CALCIUM LEVEL 8.5 MG/DL (8.8-10.2); CARBON DIOXIDE LEVEL 34 MEQ/L (21-32); CHLORIDE LEVEL 99 MEQ/L (98-107); GLOMERULAR FILTRATION RATE > 60.0 (>39); GLUCOSE, FASTING 125 MG/DL (70-100); POTASSIUM SERUM 3.7 MEQ/L (3.5-5.1); SODIUM LEVEL 141 MEQ/L (136-145)
--- NOTE | 2018-08-01 09:44 | IPNPDOC ---
Text Note Date of Service The patient was seen on 08/01/18. NOTE Subjective: Patient is a 73-year-old female with a PMHx of A. fib, s/p PM, HTN, COPD (on 2L O2, follows Dr. Porter), Hx of Lung CA s/p lobectomy, Hypothyroidism who presented to the ER with complaints of SOB / cough. In April patient was recently treated for Aspergillus with a 12 week course of antibiotics and steroids. In the emergency room, patient was found to have imaging that was consistent with prior with mild worsening. Patient was admitted under hospital service for further evaluation and treatment. Pulmonary and infectious disease were called on consultation. Patient was examined bedside accompanied by family member. Patient experienced episodes of hypoxia of yesterday, That required up titration of her oxygen delivery method. She is currently on comfort flow nasal cannula, with oxygen saturation about 93%. This AM she complained of not feeling so well. She still has cough at baseline that is productive. She denies chest pain. Denies increase in shortness of breath. She was febrile overnight. She was transferred to PCU to more acute management OBJECTIVE: PHYSICAL EXAMINATION: GENERAL APPEARANCE: Elderly female, thin in appearance, resting comfortably in bed, underneath cover, uncover flow nasal cannula Lung: No wheezing, no rhonchi, no rubs, clear to auscultate HEART: Normal S1, S2. No murmurs, no rubs, no gallops ABDOMEN: Soft. No masses. Bowel sounds are present. EXTREMITIES: No pitting edema, no gross deformities, cyanosis PULSES: 2+ upper and lower extremity . IMAGINE: Chest Xray: 07/31/18:Known extensive cavitary change in the left hemithorax and chronic pleuroparenchymal changes again noted unchanged. Small right pleural effusion again noted. No new infiltrate seen. Assessment and plan: Shortness of breath - possibly 2/2 aspergillosis, possibly 2/2 healthcare associated pneumonia, possibly 2/2 acute exacerbation of COPD -Completed a course of Zosyn, 7 days in total -will continue with Itraconazole for 12 weeks total in treatment - Pulmonary and Infectious disease on consult; appreciate their input - Blood culture 07/23 & 07/24: No growth at 5 days; Sputum 07/23: Negative; Acid fast 07/24: Negative; -Chest xray obtained on 07/31/18: Cavitary lesion, pleuroparenchymal changes, with right pleura effusion noted again. - She received one dose of lasix 40 mg for conitnued shortness of breath - Continue IV steriod therapy -Neb treatments on board s/p Hemoptysis - likely 2/2 above - CXR 07/27: Pleuroparenchymal changes involving left hemithorax appear more prominent and may reflect increased elements of atelectasis and pleural fluid. A new air fluid levels identified in the left mid lung zone. Moderate right pleural effusion and right lower lobe atelectasis similar to prior examination. - Hg remains stable - antifungal treatment - c/w incentive spirometry Stage 2 Sacral Decubitus Ulcer - c/w dressing changes - Wound care consult, pending eval Normocytic Anemia - Hg had an acute drop initially - possibly 2/2 dilutional etiology - Has remained stable - s/p 2 units PRBC - c/w Ferrous sulfate A. 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 - Currently in remission Hypothyroidism - c/w Levothyroxine Neuropathy - c/w Gabapentin DVT prophylaxis - c/w Heparin Code Status: - Patient requests FULL CODE at this time - Krishna Erickson (Son) is healthcare proxy; [phone] VS,Fishadonise, I+O VS, Fishbone, I+O Laboratory Tests 08/01/18 04:39 Calcium Level 8.5 L 08/01/18 04:40 Red Blood Count 3.65 L, Mean Corpuscular Volume 92.6, Mean Corpuscular Hemoglobin 29.6, Mean Corpuscular Hemoglobin Concent 32.0, Red Cell Distribution Width 17.2 H Vital Signs Date Time Temp Pulse Resp B/P (MAP) Pulse Ox O2 Delivery O2 Flow Rate FiO2 08/01/18 07:33 97.1 75 20 127/68 (87) 93 Comfort Flow 08/01/18 06:00 3.0 07/31/18 14:00 50 I&O- Last 24 Hours up to 6 AM 08/01/18 06:00 Intake Total 440 ml Output Total 1950 ml Balance -1510 ml GME ATTESTATION GME ATTESTATION My faculty preceptor for this patient encounter was physically present during the encounter and was fully available. All aspects of the patient interview, examination, medical decision making process, and medical care plan development were reviewed and approved by the faculty preceptor. The faculty preceptor is aware and concurs with the plan as stated in the body of this note and will attest to such by his/her cosignature. KATRIN SINGLETON DO Aug 01, 2018 09:44
[2018-08-01] MEDS: GABAPENTIN 300 MG CAP PO SCH ×4 (10:15→21:12)
[2018-08-01] MEDS: ITRACONAZOLE 100 MG CAP (SPORANOX) PO SCH ×2 (10:15→21:12)
[2018-08-01] MEDS: DIGOXIN 0.25 MG TAB PO SCH (10:16)
[2018-08-01] MEDS: ATENOLOL 12.5MG PER 1/2 TABLET PO SCH (10:19)
[2018-08-01] MEDS: oxyCODONE 5MG TAB PO PRN ×2 (10:27→17:32)
[2018-08-01] MEDS: guaiFENesin/CODEINE SYRUP 5 ML UDC PO PRN (10:27)
[2018-08-01] MEDS: ASPIRIN 81 MG ENTERIC TAB PO SCH (12:30)
[2018-08-01] MEDS: MULTIVITAMINS/MINERALS THERAP 1 TAB PO SCH (12:30)
[2018-08-01] MEDS: FERROUS SULFATE 325MG TAB PO SCH (12:30)
[2018-08-01] MEDS: ATORVASTATIN 10 MG TAB PO SCH (21:12)
[2018-08-02] MEDS: oxyCODONE 5MG TAB PO PRN ×3 (02:06→14:22)
[2018-08-02 04:00] VITALS: BP 111/59
[2018-08-02] MEDS: IPRATROPIUM 0.5MG/ALBUTEROL 2.5MG INH SOL UD 3ML (DUONEB)(J7620) NEB SCH ×7 (04:00→23:45)
[2018-08-02 05:02] LABS: HEMATOCRIT 32.2 % (36.0-47.0); HEMOGLOBIN 10.2 g/dl (12.0-15.5); MEAN CORPUSCULAR HEMOGLOBIN 29.4 pg (27.0-33.0); MEAN CORPUSCULAR HGB CONC 31.7 g/dl (32.0-36.5); MEAN CORPUSCULAR VOLUME 92.8 fl (80.0-96.0); PLATELET COUNT, AUTOMATED 439 10^3/uL (150-450); RED BLOOD COUNT 3.47 10^6/uL (4.00-5.40); WHITE BLOOD COUNT 11.9 10^3/uL (4.0-10.0)
[2018-08-02] MEDS: HEPARIN SOD (PORCINE) 5000 UNITS/ML VIAL SQ SCH ×3 (05:17→21:04)
[2018-08-02] MEDS: methylPREDNISolone INJ 125 MG/2 ML VIAL (J2930) IV SCH ×3 (05:17→21:04)
[2018-08-02] MEDS: LEVOTHYROXINE 100MCG TABLET (0.1MG) PO SCH (05:17)
[2018-08-02] MEDS: SLF 3 ML SYR IV SCH ×3 (05:18→21:06)
[2018-08-02 05:29] LABS: BLOOD UREA NITROGEN 38 MG/DL (7-18); CALCIUM LEVEL 8.7 MG/DL (8.8-10.2); CARBON DIOXIDE LEVEL 33 MEQ/L (21-32); CHLORIDE LEVEL 100 MEQ/L (98-107); CREATININE FOR GFR 0.58 MG/DL (0.55-1.30); GLOMERULAR FILTRATION RATE > 60.0 (>39); GLUCOSE, FASTING 110 MG/DL (70-100); POTASSIUM SERUM 3.8 MEQ/L (3.5-5.1); SODIUM LEVEL 139 MEQ/L (136-145)
[2018-08-02 08:00] VITALS: BP 123/64
[2018-08-02] MEDS ORDERED: predniSONE 10 MG TAB PO SCH (09:00)
[2018-08-02] MEDS: ITRACONAZOLE 100 MG CAP (SPORANOX) PO SCH ×2 (09:31→20:50)
[2018-08-02] MEDS: GABAPENTIN 300 MG CAP PO SCH ×4 (09:31→20:49)
[2018-08-02] MEDS: ATENOLOL 12.5MG PER 1/2 TABLET PO SCH (09:31)
[2018-08-02] MEDS: DIGOXIN 0.25 MG TAB PO SCH (09:32)
[2018-08-02] MEDS: ASPIRIN 81 MG ENTERIC TAB PO SCH (09:32)
--- NOTE | 2018-08-02 11:01 | IPNPDOC ---
Subjective Date Seen The patient was seen on 08/02/18. Subjective Chief Complaint/HPI Patient seen and examined at the bedside. Reports that her respiratory status has not significantly gotten better or worse. Her supplemental oxygen has been down titrated from 15 L via comfort flow to 5L this morning. She continues to cough up thick green/reddish sputum. Objective Physical Examination General Exam: Positive: Alert, Cooperative, Mild Distress (2/2 SOB) ENT Exam: Positive: Atraumatic Chest Exam: Positive: Diminished Heart Exam: Positive: Rate Normal, Normal S1, Normal S2 Abdomen Exam: Positive: Soft; Negative: Tenderness Extremity Exam: Negative: Tenderness, Swelling Psych Exam: Positive: Oriented x 3 Assessment /Plan Plan/VTE VTE Prophylaxis Ordered?: Yes Plan Shortness of breath, Acute on Chronic Hypoxic Respiratory Failure 2/2 Multifactorial Etiology; Aspergillosis Fumigatus Cavitary Lung Lesion, underlying COPD, Hx of Lung Ca Appreciate Pulmonary and ID input We will cont Cont Itraconazole, IV Steroids, Serial Nebs We will cont to downtitrate supplemental oxygen as tolerated s/p Hemoptysis - likely 2/2 above CXR 07/27: Pleuroparenchymal changes involving left hemithorax appear more prominent and may reflect increased elements of atelectasis and pleural fluid. A new air fluid levels identified in the left mid lung zone. Moderate right pleural effusion and right lower lobe atelectasis similar to prior examination. Hg remains stable Antifungal treatment c/w incentive spirometry Stage 2 Sacral Decubitus Ulcer Cont Wound Care Normocytic Anemia s/p 2 units PRBC c/w Ferrous sulfate H&H has remained stable thereafter A. 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 At this time the patient has stated that she wants to change her code status to DNR/DNI. She has verbalized understanding of the implications of her decision including risks/benefits/alternative options. All questions were answered to her satisfaction. Patient's nurse Jenae Barron present for the con versation, as well as the patient's cousin. [facility] form signed, dated, and placed in the chart. Code Status: DNR/DNI VS, I&O, 24H, Fishbone Vital Signs/I&O Vital Signs Date Time Temp Pulse Resp B/P (MAP) Pulse Ox O2 Delivery O2 Flow Rate FiO2 08/02/18 09:32 94 08/02/18 09:31 123/64 08/02/18 09:30 22 High Flow Cannula 08/02/18 08:00 97.3 99 10.0 07/31/18 14:00 50 I&O- Last 24 Hours up to 6 AM 08/02/18 05:59 Intake Total 720 ml Output Total 1050 ml Balance -330 ml Laboratory Data 24H LABS Laboratory Tests 2 08/02/18 04:44: Nucleated Red Blood Cells % (auto) 0.0, Anion Gap 6L, Glomerular Filtration Rate > 60.0, Blood Urea Nitrogen 38#H, Creatinine 0.58, Sodium Level 139, Potassium Level 3.8, Chloride Level 100, Carbon Dioxide Level 33H, Calcium Level 8.7L CBC/BMP Laboratory Tests 08/02/18 04:44 Red Blood Count 3.47 L, Mean Corpuscular Volume 92.8, Mean Corpuscular He moglobin 29.4, Mean Corpuscular Hemoglobin Concent 31.7 L, Red Cell Distribution Width 17.0 H, Calcium Level 8.7 L Microbiology Microbiology 07/24/18 Blood Culture - Final, Complete NO GROWTH AFTER 5 DAYS 07/23/18 Blood Culture - Final, Complete NO GROWTH AFTER 5 DAYS 07/24/18 Fungal Smear, Received Pending 07/24/18 Fungal Culture, Received Pending 07/24/18 Acid Fast Stain - Final, Resulted 07/24/18 Mycobacterial Culture, Resulted Pending 07/23/18 Gram Stain - Final, Complete 07/23/18 Sputum Culture - Final, Complete SANDI ORTEGA MD Aug 02, 2018 11:01
--- NOTE | 2018-08-02 11:44 | ECHO ---
DATE OF PROCEDURE: 07/31/2018 REFERRING PHYSICIAN: Dr. Anson Jerome INDICATION: Dyspnea. HEIGHT: 160 cm. WEIGHT: 54.5 kg. 2D MEASUREMENTS: Aortic root - 2.7 cm Left atrium - 3.1 cm Ventricular septum -1.08 cm Posterior wall - 0.81 cm Left ventricle diastole - 4.0 cm Aortic anulus - 2.0 cm Inferior vena cava - 1.5 cm with more than 50% respiratory variation DOPPLER MEASUREMENTS: Mild aortic regurgitation. Aortic valve velocity - 175 cm/s LVOT - 131 cm/s LVOT VTI - 25.9 cm Mitral E velocity - 111 cm/s Mitral A velocity - 93.8 cm/s Mitral deceleration time - 169 ms Moderate tricuspid regurgitation. Estimated right ventricle systolic pressure 50 mmHg Estimated right atrial pressure 5 mmHg MITRAL ANNULAR TISSUE DOPPLER: E prime septal - 6.4 cm/s DESCRIPTION: The rhythm was sinus, image quality was good. No pericardial effusion. This is a 2D, M-mode, color flow Doppler, pulse wave Doppler examination, including mitral annular tissue Doppler. CONCLUSIONS: 1. Suggestive of mild elevation of estimated right ventricle systolic pressure (50 mmHg). Normal right ventricle size and systolic function. Suspect right ventricle hypertrophy. 2. Normal left ventricle size, wall thickness, regional wall motion, and LV systolic function. Left ventricular ejection fraction 70% by visual estimate. Normal LV diastolic function. Normal left atrial size. 3. Mild aortic valve sclerosis of a 3- cusped aortic valve. Mild aortic regurgitation. 4. Presence of endocardial, right atrial, and left ventricle pacemaker leads. 5. Otherwise, normal appearing echocardiogram Doppler findings.
[2018-08-02 12:00] VITALS: BP 124/67
[2018-08-02] MEDS: MULTIVITAMINS/MINERALS THERAP 1 TAB PO SCH (12:32)
[2018-08-02] MEDS: FERROUS SULFATE 325MG TAB PO SCH (12:32)
[2018-08-02 16:00] VITALS: BP 136/69
[2018-08-02 20:00] VITALS: BP 121/60
[2018-08-02] MEDS: ATORVASTATIN 10 MG TAB PO SCH (20:49)
[2018-08-03] VITALS (14 sets, daily range): BP systolic 116–132; BP diastolic 56–96; O2SAT 94–98
[2018-08-03] MEDS: IPRATROPIUM 0.5MG/ALBUTEROL 2.5MG INH SOL UD 3ML (DUONEB)(J7620) NEB SCH ×4 (04:00→21:49)
[2018-08-03 05:13] LABS: HEMATOCRIT 32.4 % (36.0-47.0); MEAN CORPUSCULAR HEMOGLOBIN 29.5 pg (27.0-33.0); MEAN CORPUSCULAR HGB CONC 30.9 g/dl (32.0-36.5); MEAN CORPUSCULAR VOLUME 95.6 fl (80.0-96.0); PLATELET COUNT, AUTOMATED 410 10^3/uL (150-450); RED BLOOD COUNT 3.39 10^6/uL (4.00-5.40); WHITE BLOOD COUNT 10.9 10^3/uL (4.0-10.0)
[2018-08-03 05:34] LABS: BLOOD UREA NITROGEN 38 MG/DL (7-18); CALCIUM LEVEL 8.5 MG/DL (8.8-10.2); CARBON DIOXIDE LEVEL 33 MEQ/L (21-32); CHLORIDE LEVEL 103 MEQ/L (98-107); CREATININE FOR GFR 0.64 MG/DL (0.55-1.30); GLOMERULAR FILTRATION RATE > 60.0 (>39); GLUCOSE, FASTING 138 MG/DL (70-100); POTASSIUM SERUM 3.8 MEQ/L (3.5-5.1); SODIUM LEVEL 142 MEQ/L (136-145)
[2018-08-03] MEDS: LEVOTHYROXINE 100MCG TABLET (0.1MG) PO SCH (06:50)
[2018-08-03] MEDS: methylPREDNISolone INJ 125 MG/2 ML VIAL (J2930) IV SCH ×2 (06:50→17:29)
[2018-08-03] MEDS: HEPARIN SOD (PORCINE) 5000 UNITS/ML VIAL SQ SCH ×3 (06:50→20:46)
[2018-08-03] MEDS: SLF 3 ML SYR IV SCH ×3 (06:51→22:37)
[2018-08-03] MEDS: guaiFENesin/CODEINE SYRUP 5 ML UDC PO PRN (08:49)
[2018-08-03] MEDS: oxyCODONE 5MG TAB PO PRN ×4 (08:50→22:37)
[2018-08-03] MEDS: ITRACONAZOLE 100 MG CAP (SPORANOX) PO SCH ×2 (09:31→20:46)
[2018-08-03] MEDS: GABAPENTIN 300 MG CAP PO SCH ×4 (09:32→20:46)
[2018-08-03] MEDS: ATENOLOL 12.5MG PER 1/2 TABLET PO SCH (09:32)
[2018-08-03] MEDS: DIGOXIN 0.25 MG TAB PO SCH (09:32)
[2018-08-03] MEDS: ASPIRIN 81 MG ENTERIC TAB PO SCH (09:32)
[2018-08-03] MEDS: FERROUS SULFATE 325MG TAB PO SCH (11:56)
--- NOTE | 2018-08-03 12:37 | IPNPDOC ---
Subjective Date Seen The patient was seen on 08/03/18. Subjective Chief Complaint/HPI Patient seen and examined at the bedside. Reports feeling better overall this morning. Her supplemental oxygen has been down titrated to her baseline requirement of 2 L via nasal cannula. Objective Physical Examination General Exam: Positive: Alert, Cooperative, No Acute Distress ENT Exam: Positive: Atraumatic Chest Exam: Positive: Wheezing, Diminished Heart Exam: Positive: Rate Normal, Normal S1, Normal S2 Abdomen Exam: Positive: Soft; Negative: Tenderness Extremity Exam: Negative: Tenderness, Swelling Psych Exam: Positive: Oriented x 3 Assessment /Plan Plan/VTE VTE Prophylaxis Ordered?: Yes Plan Shortness of breath, Acute on Chronic Hypoxic Respiratory Failure 2/2 Multifactorial Etiology; Aspergillosis Fumigatus Cavitary Lung Lesion, underlying COPD, Hx of Lung Ca Appreciate Pulmonary and ID input We will cont Cont Itraconazole, IV Steroids, Serial Nebs We will cont to downtitrate supplemental oxygen as tolerated s/p Hemoptysis - likely 2/2 above CXR 07/27: Pleuroparenchymal changes involving left hemithorax appear more prominent and may reflect increased elements of atelectasis and pleural fluid. A new air fluid levels identified in the left mid lung zone. Moderate right pleural effusion and right lower lobe atelectasis similar to prior examination. Hgb remains stable Antifungal treatment c/w incentive spirometry Stage 2 Sacral Decubitus Ulcer Cont Wound Care Normocytic Anemia s/p 2 units PRBC c/w Ferrous sulfate H&H has remained stable thereafter A. 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 Hypothyroidism Levothyroxine Neuropathy Gabapentin DVT prophylaxis Heparin SC Poor Prognosis VS, I&O, 24H, Fishbone Vital Signs/I&O Vital Signs Date Time Temp Pulse Resp B/P (MAP) Pulse Ox O2 Delivery O2 Flow Rate FiO2 08/03/18 12:24 2.0 08/03/18 12:00 97.7 91 14 116/56 (76) 94 Nasal Cannula 07/31/18 14:00 50 l I&O- Last 24 Hours up to 6 AM 08/03/18 06:00 Intake Total 960 ml Output Total 400 ml Balance 560 ml Laboratory Data 24H LABS Laboratory Tests 2 08/03/18 05:00: Nucleated Red Blood Cells % (auto) 0.0, Anion Gap 6L, Glomerular Filtration Rate > 60.0, Blood Urea Nitrogen 38H, Creatinine 0.64, Sodium Level 142, Potassium Level 3.8, Chloride Level 103, Carbon Dioxide Level 33H, Calcium Level 8.5L CBC/BMP Laboratory Tests 08/03/18 05:00 Red Blood Count 3.39 L, Mean Corpuscular Volume 95.6, Mean Corpuscular Hemoglobin 29.5, Mean Corpuscular Hemoglobin Concent 30.9 L, Red Cell Distrib ution Width 17.1 H, Calcium Level 8.5 L Microbiology Microbiology 07/24/18 Blood Culture - Final, Complete NO GROWTH AFTER 5 DAYS 07/24/18 Fungal Smear, Received Pending 07/24/18 Fungal Culture, Received Pending 07/24/18 Acid Fast Stain - Final, Resulted 07/24/18 Mycobacterial Culture, Resulted Pending SANDI ORTEGA MD Aug 03, 2018 12:37
[2018-08-03] MEDS: MULTIVITAMINS/MINERALS THERAP 1 TAB PO SCH (13:24)
[2018-08-03] MEDS: ATORVASTATIN 10 MG TAB PO SCH (20:46)
[2018-08-04] VITALS: BP 118/63
[2018-08-04] MEDS: IPRATROPIUM 0.5MG/ALBUTEROL 2.5MG INH SOL UD 3ML (DUONEB)(J7620) NEB SCH ×5 (00:24→22:15)
[2018-08-04 04:00] VITALS: BP 124/61
[2018-08-04 05:41] LABS: HEMATOCRIT 32.6 % (36.0-47.0); HEMOGLOBIN 10.2 g/dl (12.0-15.5); MEAN CORPUSCULAR HEMOGLOBIN 29.8 pg (27.0-33.0); MEAN CORPUSCULAR HGB CONC 31.3 g/dl (32.0-36.5); MEAN CORPUSCULAR VOLUME 95.3 fl (80.0-96.0); PLATELET COUNT, AUTOMATED 387 10^3/uL (150-450); RED BLOOD COUNT 3.42 10^6/uL (4.00-5.40)
[2018-08-04 05:59] LABS: BLOOD UREA NITROGEN 38 MG/DL (7-18); CALCIUM LEVEL 8.2 MG/DL (8.8-10.2); CARBON DIOXIDE LEVEL 34 MEQ/L (21-32); CHLORIDE LEVEL 101 MEQ/L (98-107); CREATININE FOR GFR 0.55 MG/DL (0.55-1.30); GLOMERULAR FILTRATION RATE > 60.0 (>39); GLUCOSE, FASTING 127 MG/DL (70-100); POTASSIUM SERUM 3.9 MEQ/L (3.5-5.1); SODIUM LEVEL 141 MEQ/L (136-145)
[2018-08-04] MEDS: oxyCODONE 5MG TAB PO PRN ×4 (06:38→20:51)
[2018-08-04] MEDS: LEVOTHYROXINE 100MCG TABLET (0.1MG) PO SCH (06:39)
[2018-08-04] MEDS: HEPARIN SOD (PORCINE) 5000 UNITS/ML VIAL SQ SCH ×3 (06:39→20:52)
[2018-08-04] MEDS: SLF 3 ML SYR IV SCH ×3 (06:39→20:50)
[2018-08-04] MEDS: methylPREDNISolone INJ 125 MG/2 ML VIAL (J2930) IV SCH ×2 (06:39→18:49)
[2018-08-04 07:40] VITALS: BP 126/72
[2018-08-04 08:28] LABS: MAGNESIUM LEVEL 2.6 MG/DL (1.8-2.4)
[2018-08-04] MEDS: ACETAMINOPHEN TAB 650MG DOSE (2X325MG) PO PRN (09:41)
[2018-08-04] MEDS: GABAPENTIN 300 MG CAP PO SCH ×4 (09:42→20:07)
[2018-08-04] MEDS: ITRACONAZOLE 100 MG CAP (SPORANOX) PO SCH ×2 (09:42→20:07)
[2018-08-04] MEDS: DIGOXIN 0.25 MG TAB PO SCH (09:43)
[2018-08-04] MEDS: ASPIRIN 81 MG ENTERIC TAB PO SCH (09:43)
[2018-08-04] MEDS: ATENOLOL 12.5MG PER 1/2 TABLET PO SCH (09:43)
[2018-08-04 11:44] VITALS: BP 133/63
[2018-08-04] MEDS: FERROUS SULFATE 325MG TAB PO SCH (12:21)
[2018-08-04] MEDS: MULTIVITAMINS/MINERALS THERAP 1 TAB PO SCH (12:21)
[2018-08-04 14:58] LABS: ERYTHROCYTE SEDIMENTATION RATE 45 mm/hr (0-30)
[2018-08-04 16:00] VITALS: BP 124/68
--- NOTE | 2018-08-04 19:24 | IPN ---
DATE: 08/04/2018 SUBJECTIVE: Patient seen and examined in the room today. Patient stated "I am not feeling well." When I asked the patient specific symptoms patient cannot describe the particular symptom that is bothering her. Denies any fever, chills. Patient still has front chest discomfort worsening with breathing. Denies any sputum production in the last 24 hours. Patient also noted to have some wheezes. OBJECTIVE: Vital signs; temperature is 99.7, respiration 20, blood pressure 126/72, pulse ox 97% with 2 liters nasal cannula. GENERAL: No sign of distress. Patient alert and awake. HEENT: Normocephalic, atraumatic. Extraocular grossly intact. CARDIOVASCULAR: Positive S1, S2, respiratory rate. LUNGS: Positive expiratory wheezes bilaterally with decreased breath sounds. No significant crackle appreciated. ABDOMEN: Soft, nontender, nondistended, bowel sounds present. EXTREMITIES: No edema. LABORATORY DATA: WBC 11, hemoglobin 10.2, hematocrit 32.6, platelet count is 387, Sodium is 141, potassium 3.9, chloride is 101, carbon dioxide 34, BUN 38, creatinine 0.55. Glomerular filtration rate (GFR) grater than 60. Fasting glucose 127, calcium 8.2, magnesium 2.6. C-reactive protein 1.5. ASSESSMENT AND PLAN: 1. Acute on chronic hypoxic respiratory failure. Patient has cavitary lung lesion from the Aspergillosis. Patient also has underlying chronic obstructive pulmonary disease. History of lung cancer. Pulmonary and infectious disease consulted. Currently patient is on tapering steroids. Continue breathing treatments. Patient is continued on oxygen weaning. 2. Hemoptysis. Suspect secondary to cavitary lung lesion. 3. Patient is currently on antifungal therapy for Aspergillosis. Continue incentive spirometer. Continue Acapella. 4. Stage 2 sacral decubitus ulcer. Consider wound care. 5. Atrial fibrillation status post pacemaker. Patient is currently on atenolol, Digoxin. 6. Hypothyroidism. On Synthroid. 7. Normocytic anemia. Hemoglobin and hematocrit remain stable. Since admission patient had two packed red blood cell transfusion, on 07/25 and 07/26. 8. History of stage 3 lung cancer status post left upper lobe resection and chemoradiation in 2012. 9. Deep vein thrombosis prophylaxis. On Heparin. MTDD
[2018-08-04 20:00] VITALS: BP 122/70
[2018-08-04] MEDS: ATORVASTATIN 10 MG TAB PO SCH (20:07)
[2018-08-05] MEDS: guaiFENesin/CODEINE SYRUP 5 ML UDC PO PRN (00:53)
[2018-08-05] MEDS: IPRATROPIUM 0.5MG/ALBUTEROL 2.5MG INH SOL UD 3ML (DUONEB)(J7620) NEB SCH ×5 (03:43→20:58)
[2018-08-05 04:00] VITALS: BP 124/70
[2018-08-05 05:17] LABS: HEMATOCRIT 31.2 % (36.0-47.0); HEMOGLOBIN 9.8 g/dl (12.0-15.5); MEAN CORPUSCULAR HEMOGLOBIN 29.9 pg (27.0-33.0); MEAN CORPUSCULAR HGB CONC 31.4 g/dl (32.0-36.5); MEAN CORPUSCULAR VOLUME 95.1 fl (80.0-96.0); PLATELET COUNT, AUTOMATED 344 10^3/uL (150-450); RED BLOOD COUNT 3.28 10^6/uL (4.00-5.40); WHITE BLOOD COUNT 13.4 10^3/uL (4.0-10.0)
[2018-08-05 05:43] LABS: BLOOD UREA NITROGEN 31 MG/DL (7-18); CALCIUM LEVEL 8.2 MG/DL (8.8-10.2); CARBON DIOXIDE LEVEL 33 MEQ/L (21-32); CHLORIDE LEVEL 102 MEQ/L (98-107); CREATININE FOR GFR 0.57 MG/DL (0.55-1.30); GLOMERULAR FILTRATION RATE > 60.0 (>39); GLUCOSE, FASTING 128 MG/DL (70-100); POTASSIUM SERUM 4.2 MEQ/L (3.5-5.1); SODIUM LEVEL 141 MEQ/L (136-145)
[2018-08-05] MEDS: HEPARIN SOD (PORCINE) 5000 UNITS/ML VIAL SQ SCH ×3 (06:24→21:45)
[2018-08-05] MEDS: oxyCODONE 5MG TAB PO PRN ×4 (06:24→21:44)
[2018-08-05] MEDS: methylPREDNISolone INJ 125 MG/2 ML VIAL (J2930) IV SCH ×2 (06:24→18:30)
[2018-08-05] MEDS: LEVOTHYROXINE 100MCG TABLET (0.1MG) PO SCH (06:25)
[2018-08-05] MEDS: SLF 3 ML SYR IV SCH ×3 (06:26→21:45)
[2018-08-05 08:01] VITALS: BP 133/68
[2018-08-05] MEDS: ITRACONAZOLE 100 MG CAP (SPORANOX) PO SCH ×2 (08:53→21:44)
[2018-08-05] MEDS: ASPIRIN 81 MG ENTERIC TAB PO SCH (08:55)
[2018-08-05] MEDS: GABAPENTIN 300 MG CAP PO SCH ×4 (08:55→21:44)
[2018-08-05] MEDS: ATENOLOL 12.5MG PER 1/2 TABLET PO SCH (08:55)
[2018-08-05] MEDS: DIGOXIN 0.25 MG TAB PO SCH (08:55)
[2018-08-05 12:04] VITALS: BP 109/60
[2018-08-05] MEDS: FERROUS SULFATE 325MG TAB PO SCH (12:28)
[2018-08-05] MEDS: MULTIVITAMINS/MINERALS THERAP 1 TAB PO SCH (12:28)
[2018-08-05 16:00] VITALS: BP 105/64
--- NOTE | 2018-08-05 17:58 | IPNPDOC ---
Text Note Date of Service The patient was seen on 08/05/18. NOTE SUBJECTIVE: Patient is seen and examined in the room today. Patient still complains about "I am not feeling well." Patient still can not give specific symptom. Patient became frustrated with regarding to her slow recovery. Denies any fever, chills. Patient still has chest discomfort worsening with breathing. OBJECTIVE: Vital signs: Listed below. GENERAL: No sign of distress. Patient alert and awake. anxious. HEENT: Normocephalic, atraumatic. Extraocular grossly intact. CARDIOVASCULAR: Positive S1, S2, respiratory rate. LUNGS: No wheeze (Patient just had breathing treatment prior to encounter). No significant crackle appreciated. ABDOMEN: Soft, nontender, nondistended, bowel sounds present. EXTREMITIES: No edema. LABORATORY DATA: Listed below. ASSESSMENT AND PLAN: #. Acute on chronic hypoxic respiratory failure. - At baseline, patient has underlying chronic obstructive pulmonary disease. History of lung cancer. - Currently patient has cavitary lung lesion from the Aspergillosis. Pulmonary and infectious disease consulted. On itraconazole. On tapering steroids. Continue breathing treatments. Continue oxygen titration as tolerated. - Patient refused physical therapy today. #. Hemoptysis. Suspect secondary to cavitary lung lesion. On itraconazole for a spergillosis. Continue incentive spirometer. Continue Acapella. #. Stage 2 sacral decubitus ulcer. Continue wound care. #. Atrial fibrillation status post pacemaker. Patient is currently on atenolol, Digoxin. #. Hypothyroidism. On Synthroid. #. Normocytic anemia. Hemoglobin and hematocrit remain stable. Since admission patient had two packed red blood cell transfusion, on 07/25 and 07/26. #. History of stage 3 lung cancer status post left upper lobe resection and chemoradiation in 2012. #. Deep vein thrombosis prop. On Heparin. VS,Fishbone, I+O VS, Fishbone, I+O Laboratory Tests 08/05/18 04:49 Red Blood Count 3.28 L, Mean Corpuscular Volume 95.1, Mean Corpuscular Hemoglobin 29.9, Mean Corpuscular Hemoglobin Concent 31.4 L, Red Cell D istribution Width 17.1 H, Calcium Level 8.2 L Vital Signs Date Time Temp Pulse Resp B/P (MAP) Pulse Ox O2 Delivery O2 Flow Rate FiO2 08/05/18 17:31 23 94 Nasal Cannula 2.0 08/05/18 16:00 97.7 76 105/64 (78) 07/31/18 14:00 50 I&O- Last 24 Hours up to 6 AM 08/05/18 05:59 Intake Total 600 ml Output Total 900 ml Balance -300 ml DEEPA POWELL DO Aug 05, 2018 17:58
[2018-08-05] MEDS ORDERED: SANTYL OINT 30GM TOP PRN (18:15)
[2018-08-05 20:00] VITALS: BP 107/57
[2018-08-05] MEDS: ATORVASTATIN 10 MG TAB PO SCH (21:45)
[2018-08-05 23:59] VITALS: BP 139/73
[2018-08-06] VITALS (12 sets, daily range): BP systolic 115–135; BP diastolic 64–70; O2SAT 87–96
[2018-08-06] MEDS: IPRATROPIUM 0.5MG/ALBUTEROL 2.5MG INH SOL UD 3ML (DUONEB)(J7620) NEB SCH ×6 (03:49→20:05)
[2018-08-06 05:01] LABS: HEMATOCRIT 29.6 % (36.0-47.0); HEMOGLOBIN 9.4 g/dl (12.0-15.5); MEAN CORPUSCULAR HEMOGLOBIN 29.6 pg (27.0-33.0); MEAN CORPUSCULAR HGB CONC 31.8 g/dl (32.0-36.5); MEAN CORPUSCULAR VOLUME 93.1 fl (80.0-96.0); PLATELET COUNT, AUTOMATED 302 10^3/uL (150-450); RED BLOOD COUNT 3.18 10^6/uL (4.00-5.40); WHITE BLOOD COUNT 9.9 10^3/uL (4.0-10.0)
[2018-08-06 05:24] LABS: BLOOD UREA NITROGEN 37 MG/DL (7-18); CARBON DIOXIDE LEVEL 33 MEQ/L (21-32); CHLORIDE LEVEL 103 MEQ/L (98-107); CREATININE FOR GFR 0.53 MG/DL (0.55-1.30); GLOMERULAR FILTRATION RATE > 60.0 (>39); GLUCOSE, FASTING 136 MG/DL (70-100); POTASSIUM SERUM 4.2 MEQ/L (3.5-5.1); SODIUM LEVEL 140 MEQ/L (136-145)
[2018-08-06] MEDS: methylPREDNISolone INJ 125 MG/2 ML VIAL (J2930) IV SCH ×2 (06:24→18:06)
[2018-08-06] MEDS: oxyCODONE 5MG TAB PO PRN ×3 (06:25→20:13)
[2018-08-06] MEDS: LEVOTHYROXINE 100MCG TABLET (0.1MG) PO SCH (06:25)
[2018-08-06] MEDS: HEPARIN SOD (PORCINE) 5000 UNITS/ML VIAL SQ SCH ×3 (06:25→21:34)
[2018-08-06] MEDS: SLF 3 ML SYR IV SCH ×3 (06:31→21:34)
[2018-08-06] MEDS: guaiFENesin/CODEINE SYRUP 5 ML UDC PO PRN (06:31)
[2018-08-06] MEDS: ATENOLOL 12.5MG PER 1/2 TABLET PO SCH (08:44)
[2018-08-06] MEDS: GABAPENTIN 300 MG CAP PO SCH ×4 (08:44→20:12)
[2018-08-06] MEDS: DIGOXIN 0.25 MG TAB PO SCH (08:45)
[2018-08-06] MEDS: ITRACONAZOLE 100 MG CAP (SPORANOX) PO SCH ×2 (08:45→20:12)
[2018-08-06] MEDS: ASPIRIN 81 MG ENTERIC TAB PO SCH (08:46)
[2018-08-06] MEDS: SANTYL OINT 30GM TOP SCH (08:47)
[2018-08-06] MEDS: MULTIVITAMINS/MINERALS THERAP 1 TAB PO SCH (12:39)
[2018-08-06] MEDS: FERROUS SULFATE 325MG TAB PO SCH (12:39)
--- NOTE | 2018-08-06 18:24 | IPNPDOC ---
Text Note Date of Service The patient was seen on 08/06/18. NOTE SUBJECTIVE: Patient is seen and examined in the room today. Patient states "I am not feeling well." Patient agrees for physical therapy today. Denies any fever, chills. OBJECTIVE: Vital signs: Listed below. GENERAL: No sign of distress. Patient alert and awake. HEENT: Normocephalic, atraumatic. Extraocular grossly intact. CARDIOVASCULAR: Positive S1, S2, respiratory rate. LUNGS: No wheeze. No significant crackle appreciated. ABDOMEN: Soft, nontender, nondistended, bowel sounds present. EXTREMITIES: No edema. LABORATORY DATA: Listed below. ASSESSMENT AND PLAN: #. Acute on chronic hypoxic respiratory failure. - At baseline, patient has underlying chronic obstructive pulmonary disease. History of lung cancer. - Currently patient has cavitary lung lesion from the Aspergillosis. Pulmonary and infectious disease consulted. On itraconazole. On tapering steroids. Cont inue breathing treatments PRN. Continue oxygen titration as tolerated. - Continue physical therapy. #. Hemoptysis. - Suspect secondary to cavitary lung lesion. On itraconazole for aspergillosis. Continue incentive spirometer. Continue Acapella. #. History of stage 3 lung cancer status post left upper lobe resection and chemoradiation in 2012. #. Stage 2 sacral decubitus ulcer. Continue wound care. #. Atrial fibrillation status post pacemaker. Patient is currently on atenolol, Digoxin. #. Hypothyroidism. On Synthroid. #. Normocytic anemia. Hemoglobin and hematocrit remain stable. Since admission patient had two packed red blood cell transfusion, on 07/25 and 07/26. #. Deep vein thrombosis prop. On Heparin. VS,Fishbone, I+O VS, Fishbone, I+O Laboratory Tests 08/06/18 04:47 Red Blood Count 3.18 L, Mean Corpuscular Volume 93.1, Mean Corpuscular Hemoglobin 29.6, Mean Corpuscular Hemoglobin Concent 31.8 L, Red Cell Distribution Width 16.8 H, Calcium Level 8.0 L Vital Signs Date Time Temp Pulse Resp B/P (MAP) Pulse Ox O2 Delivery O2 Flow Rate FiO2 08/06/18 16:00 99.0 78 20 131/64 (86) 95 Nasal Cannula 2.0 07/31/18 14:00 50 I&O- Last 24 Hours up to 6 AM 08/06/18 06:00 Intake Total 1610 ml Output Total 1225 ml Balance 385 ml DEEPA POWELL DO Aug 06, 2018 18:24
[2018-08-06] MEDS: predniSONE 20 MG TAB PO SCH (20:13)
[2018-08-06] MEDS: ATORVASTATIN 10 MG TAB PO SCH (20:13)
[2018-08-07] VITALS (20 sets, daily range): BP systolic 107–140; BP diastolic 56–90; O2SAT 90–97
[2018-08-07] MEDS: IPRATROPIUM 0.5MG/ALBUTEROL 2.5MG INH SOL UD 3ML (DUONEB)(J7620) NEB SCH ×6 (04:00→21:06)
[2018-08-07] MEDS: oxyCODONE 5MG TAB PO PRN ×3 (04:51→18:38)
[2018-08-07 05:09] LABS: HEMATOCRIT 34.1 % (36.0-47.0); HEMOGLOBIN 10.6 g/dl (12.0-15.5); MEAN CORPUSCULAR HEMOGLOBIN 29.6 pg (27.0-33.0); MEAN CORPUSCULAR HGB CONC 31.1 g/dl (32.0-36.5); MEAN CORPUSCULAR VOLUME 95.3 fl (80.0-96.0); PLATELET COUNT, AUTOMATED 337 10^3/uL (150-450); RED BLOOD COUNT 3.58 10^6/uL (4.00-5.40); WHITE BLOOD COUNT 12.9 10^3/uL (4.0-10.0)
[2018-08-07 05:36] LABS: BLOOD UREA NITROGEN 32 MG/DL (7-18); C REACTIVE PROTEIN QUANTITATIV 0.59 MG/DL (0.00-0.30); CALCIUM LEVEL 8.4 MG/DL (8.8-10.2); CARBON DIOXIDE LEVEL 33 MEQ/L (21-32); CHLORIDE LEVEL 103 MEQ/L (98-107); CREATININE FOR GFR 0.65 MG/DL (0.55-1.30); GLOMERULAR FILTRATION RATE > 60.0 (>39); GLUCOSE, FASTING 123 MG/DL (70-100); POTASSIUM SERUM 4.7 MEQ/L (3.5-5.1); SODIUM LEVEL 142 MEQ/L (136-145)
[2018-08-07] MEDS: LEVOTHYROXINE 100MCG TABLET (0.1MG) PO SCH (05:48)
[2018-08-07] MEDS: HEPARIN SOD (PORCINE) 5000 UNITS/ML VIAL SQ SCH ×3 (05:48→21:14)
[2018-08-07] MEDS: SLF 3 ML SYR IV SCH ×3 (05:49→21:14)
[2018-08-07] MEDS: predniSONE 20 MG TAB PO SCH ×2 (10:08→20:26)
[2018-08-07] MEDS: ITRACONAZOLE 100 MG CAP (SPORANOX) PO SCH ×2 (10:08→20:27)
[2018-08-07] MEDS: DIGOXIN 0.25 MG TAB PO SCH (10:11)
[2018-08-07] MEDS: GABAPENTIN 300 MG CAP PO SCH ×4 (10:11→20:27)
[2018-08-07] MEDS: ATENOLOL 12.5MG PER 1/2 TABLET PO SCH (10:11)
[2018-08-07] MEDS: ASPIRIN 81 MG ENTERIC TAB PO SCH (10:11)
[2018-08-07] MEDS: SANTYL OINT 30GM TOP SCH (10:12)
[2018-08-07] MEDS: MULTIVITAMINS/MINERALS THERAP 1 TAB PO SCH (11:57)
[2018-08-07] MEDS: FERROUS SULFATE 325MG TAB PO SCH (11:57)
--- NOTE | 2018-08-07 15:38 | IPN ---
DATE: 08/07/2018 Mrs. Erickson seems to be doing a little better this afternoon. She said she had a rough morning, but this afternoon she feels better. She was up walking with a walker and was able to walk along the nurses' desk, about 50 feet. She has no nausea, vomiting or diarrhea. She continues having hemoptysis. MEDICATIONS: - prednisone 40 mg by mouth every 12 hours - itraconazole 200 mg by mouth twice a day, currently day #8. On physical exam, temperature is 98.2, pulse 70, respirations 18, blood pressure 124/76, oxygen saturation 94% on 2 liters nasal cannula. HEART: Normal S1, S2. No murmurs. LUNGS: Diminished air entry with few crackles at the bases. ABDOMEN: Soft, nontender. EXTREMITIES: Trace ankle edema. LABORATORIES: White count is 12.9, hemoglobin 10.6, hematocrit 34.1, platelets 337. Sodium 142, potassium 4.7, chloride 103, bicarbonate 33, BUN 32, creatinine 0.65, glucose 123, calcium 8.4. C-reactive protein (CRP) 0.59, down from 21.9. Sputum culture is pending. Acid-fast bacilli (AFB) smear is negative. Sputum fungal culture is pending. Sputum bacterial culture is negative. IMAGING STUDIES: Chest x-ray done on 07/31/2018 shows extensive cavitary changes in the left hemithorax with chronic pleural parenchymal changes, small right pleural effusion noted, no new infiltrate. IMPRESSION: 1. Cavitary pneumonia of Left lung with Aspergillus galactomannan of 7.55, with normal being less than 0.5. Patient on itraconazole. Patient had an intolerance to voriconazole with blistering rash. She is currently tolerating itraconazole fairly well. Level has been sent out and is pending. 2. Severe chronic obstructive pulmonary disease (COPD). On prednisone 40 mg twice a day. The patient needs to be on Bactrim for pneumocystis pneumonia (PCP) prophylaxis as she is on high-dose steroids. This will be restarted. PLAN: Continue itraconazole 200 mg by mouth twice a day. Will obtain level. Itraconazole needs to be given with acidic drinks to improve bioavailability, either orange juice or Coca-Cola. Start Bactrim double strength one tablet Friday, Friday, Friday for PCP prophylaxis. MTDD
[2018-08-07] MEDS: BACTRIM 160MG/800MG DS TAB PO SCH (17:02)
--- NOTE | 2018-08-07 19:10 | IPNPDOC ---
Text Note Date of Service The patient was seen on 08/07/18. NOTE SUBJECTIVE: Patient is seen and examined in the room today. Patient still feels significant weakness. Patient continues having poor appetite. She only had one pumpkin pie yesterday. OBJECTIVE: Vital signs: Listed below. GENERAL: No sign of distress. Patient alert and awake. HEENT: Normocephalic, atraumatic. Extraocular grossly intact. CARDIOVASCULAR: Positive S1, S2, respiratory rate. LUNGS: No wheeze. No significant crackle appreciated. ABDOMEN: Soft, nontender, nondistended, bowel sounds present. EXTREMITIES: No edema. LABORATORY DATA: Listed below. ASSESSMENT AND PLAN: #. Acute on chronic hypoxic respiratory failure. - At baseline, patient has underlying chronic obstructive pulmonary disease. History of lung cancer. - Currently patient has cavitary lung lesion from the Aspergillosis. Pulmonary and infectious disease consulted. On itraconazole. On tapering steroids. Continue breathing treatments PRN. Continue oxygen titration as tolerated. Encourage increasing oral intake as tolerated. - Continue physical therapy. #. Hemoptysis. - Suspected secondary to cavitary lung lesion. On itraconazole for aspergillosis. Continue incentive spirometer. Continue Acapella. #. History of stage 3 lung cancer status post left upper lobe resection and chemoradiation in 2012. #. Stage 2 sacral decubitus ulcer. Continue wound care. #. Atrial fibrillation status post pacemaker. Patient is currently on atenolol, Digoxin. #. Hypothyroidism. On Synthroid. #. Normocytic anemia. Hemoglobin and hematocrit remain stable. Since admission patient had two packed red blood cell transfusion, on 07/25 and 07/26. #. Deep vein thrombosis prop. On Heparin. VS,Fishbone, I+O VS, Fishbone, I+O Laboratory Tests 08/07/18 04:53 Red Blood Count 3.58 L, Mean Corpuscular Volume 95.3, Mean Corpuscular Hemoglobin 29.6, Mean Corpuscular Hemoglobin Concent 31.1 L, Red Cell Distribution Width 17.1 H, Calcium Level 8.4 L Vital Signs Date Time Temp Pulse Resp B/P (MAP) Pulse Ox O2 Delivery O2 Flow Rate FiO2 08/07/18 18:38 22 Nasal Cannula 2.0 08/07/18 18:00 95 08/07/18 16:00 98.1 79 129/71 (90) I&O- Last 24 Hours up to 6 AM 08/07/18 06:00 Intake Total 360 ml Output Total 350 ml Balance 10 ml DEEPA POWELL DO Aug 07, 2018 19:10
[2018-08-07] MEDS: ATORVASTATIN 10 MG TAB PO SCH (20:27)
[2018-08-07] MEDS: ACETAMINOPHEN TAB 650MG DOSE (2X325MG) PO PRN (20:28)
[2018-08-07] MEDS: guaiFENesin/CODEINE SYRUP 5 ML UDC PO PRN (20:31)
[2018-08-08] VITALS (17 sets, daily range): BP systolic 108–148; BP diastolic 56–78; O2SAT 87–98
[2018-08-08] MEDS: IPRATROPIUM 0.5MG/ALBUTEROL 2.5MG INH SOL UD 3ML (DUONEB)(J7620) NEB SCH ×5 (03:37→20:00)
[2018-08-08 05:55] LABS: HEMATOCRIT 29.1 % (36.0-47.0); HEMOGLOBIN 9.2 g/dl (12.0-15.5); MEAN CORPUSCULAR HEMOGLOBIN 29.3 pg (27.0-33.0); MEAN CORPUSCULAR HGB CONC 31.6 g/dl (32.0-36.5); MEAN CORPUSCULAR VOLUME 92.7 fl (80.0-96.0); PLATELET COUNT, AUTOMATED 285 10^3/uL (150-450); RED BLOOD COUNT 3.14 10^6/uL (4.00-5.40); WHITE BLOOD COUNT 13.2 10^3/uL (4.0-10.0)
[2018-08-08] MEDS: oxyCODONE 5MG TAB PO PRN ×3 (06:00→18:13)
[2018-08-08] MEDS: LEVOTHYROXINE 100MCG TABLET (0.1MG) PO SCH (06:01)
[2018-08-08] MEDS: HEPARIN SOD (PORCINE) 5000 UNITS/ML VIAL SQ SCH ×3 (06:02→21:44)
[2018-08-08] MEDS: SLF 3 ML SYR IV SCH ×3 (06:05→21:44)
[2018-08-08 06:24] LABS: BLOOD UREA NITROGEN 30 MG/DL (7-18); CALCIUM LEVEL 8.2 MG/DL (8.8-10.2); CARBON DIOXIDE LEVEL 33 MEQ/L (21-32); CHLORIDE LEVEL 103 MEQ/L (98-107); CREATININE FOR GFR 0.43 MG/DL (0.55-1.30); GLOMERULAR FILTRATION RATE > 60.0 (>39); GLUCOSE, FASTING 123 MG/DL (70-100); POTASSIUM SERUM 4.1 MEQ/L (3.5-5.1); SODIUM LEVEL 141 MEQ/L (136-145)
[2018-08-08] MEDS: ATENOLOL 12.5MG PER 1/2 TABLET PO SCH (08:50)
[2018-08-08] MEDS: predniSONE 20 MG TAB PO SCH ×2 (08:50→20:32)
[2018-08-08] MEDS: GABAPENTIN 300 MG CAP PO SCH ×4 (08:51→20:31)
[2018-08-08] MEDS: ITRACONAZOLE 100 MG CAP (SPORANOX) PO SCH ×2 (08:51→20:31)
[2018-08-08] MEDS: ASPIRIN 81 MG ENTERIC TAB PO SCH (08:51)
[2018-08-08] MEDS: DIGOXIN 0.25 MG TAB PO SCH (08:51)
[2018-08-08] MEDS: SANTYL OINT 30GM TOP SCH (08:52)
[2018-08-08] MEDS: FERROUS SULFATE 325MG TAB PO SCH (12:47)
[2018-08-08] MEDS: MULTIVITAMINS/MINERALS THERAP 1 TAB PO SCH (12:48)
[2018-08-08] MEDS: ACETAMINOPHEN TAB 650MG DOSE (2X325MG) PO PRN (18:36)
--- NOTE | 2018-08-08 18:38 | IPNPDOC ---
Text Note Date of Service The patient was seen on 08/08/18. NOTE SUBJECTIVE: Patient is seen and examined in the room today. Patient states her oral intake is better than yesterday. She would like to try 4L Oxygen at night to see if if that will make her breath better. OBJECTIVE: Vital signs: Listed below. GENERAL: No sign of distress. Fatigue. Patient alert and awake. HEENT: Normocephalic, atraumatic. Extraocular grossly intact. CARDIOVASCULAR: Positive S1, S2, respiratory rate. LUNGS: No wheeze. No significant crackle appreciated. ABDOMEN: Soft, nontender, nondistended, bowel sounds present. EXTREMITIES: No edema. LABORATORY DATA: Listed below. ASSESSMENT AND PLAN: #. Acute on chronic hypoxic respiratory failure. - At baseline, patient has underlying chronic obstructive pulmonary disease. History of lung cancer. - Currently patient has cavitary lung lesion from the Aspergillosis. Pulmonary and infectious disease consulted. On itraconazole. On tapering steroids. On Bactrim Q2D for PCP prophylaxis. Continue breathing treatments PRN. Continue oxygen titration as tolerated. Encourage increasing oral intake as tolerated. - Continue physical therapy. #. Hemoptysis. - Suspected secondary to cavitary lung lesion. On itraconazole for aspergillosis. Continue incentive spirometer. Continue Acapella. #. History of stage 3 lung cancer status post left upper lobe resection and chemoradiation in 2012. #. Stage 2 sacral decubitus ulcer. Continue wound care. #. Atrial fibrillation status post pacemaker. Patient is currently on atenolol, Digoxin. #. Hypothyroidism. On Synthroid. #. Normocytic anemia. Hemoglobin and hematocrit remain stable. Since admission patient had two packed red blood cell transfusion, on 07/25 and 07/26. #. Deep vein thrombosis prop. On Heparin. VS,Fishbone, I+O VS, Fishbone, I+O Laboratory Tests 08/08/18 05:24 Red Blood Count 3.14 L, Mean Corpuscular Volume 92.7, Mean Corpuscular Hemoglobin 29.3, Mean Corpuscular Hemoglobin Concent 31.6 L, Red Cell Distribution Width 16.9 H, Calcium Level 8.2 L Vital Signs Date Time Temp Pulse Resp B/P (MAP) Pulse Ox O2 Delivery O2 Flow Rate FiO2 08/08/18 18:13 20 08/08/18 16:00 98.8 72 110/58 (75) 93 Nasal Cannula 2.0 I&O- Last 24 Hours up to 6 AM 08/08/18 06:00 Intake Total 1440 ml Output Total 2000 ml Balance -560 ml DEEPA POWELL DO Aug 08, 2018 18:38
[2018-08-08] MEDS: ATORVASTATIN 10 MG TAB PO SCH (20:32)
[2018-08-08] MEDS: guaiFENesin/CODEINE SYRUP 5 ML UDC PO PRN (20:32)
[2018-08-09 04:00] VITALS: BP 133/76
[2018-08-09] MEDS: IPRATROPIUM 0.5MG/ALBUTEROL 2.5MG INH SOL UD 3ML (DUONEB)(J7620) NEB SCH ×7 (04:00→20:00)
[2018-08-09] MEDS: ACETAMINOPHEN TAB 650MG DOSE (2X325MG) PO PRN ×4 (04:10→21:18)
[2018-08-09] MEDS: oxyCODONE 5MG TAB PO PRN ×4 (04:12→21:19)
[2018-08-09] MEDS: LEVOTHYROXINE 100MCG TABLET (0.1MG) PO SCH (05:13)
[2018-08-09] MEDS: HEPARIN SOD (PORCINE) 5000 UNITS/ML VIAL SQ SCH ×3 (05:16→21:20)
[2018-08-09] MEDS: SLF 3 ML SYR IV SCH ×2 (05:16→14:00)
[2018-08-09 06:16] LABS: ALBUMIN 2.4 GM/DL (3.2-5.2); ALT/SGPT 72 U/L (12-78); BILIRUBIN,DIRECT 0.3 MG/DL (0.0-0.2); BILIRUBIN,TOTAL 0.6 MG/DL (0.2-1.0); PREALBUMIN 23.1 MG/DL (20.0-40.0); TOTAL PROTEIN 5.4 GM/DL (6.4-8.2)
[2018-08-09 08:00] VITALS: BP 135/68
[2018-08-09] MEDS: GABAPENTIN 300 MG CAP PO SCH ×4 (08:27→21:20)
[2018-08-09] MEDS: ATENOLOL 12.5MG PER 1/2 TABLET PO SCH (08:27)
[2018-08-09] MEDS: predniSONE 20 MG TAB PO SCH (08:27)
[2018-08-09] MEDS: DIGOXIN 0.25 MG TAB PO SCH (08:29)
[2018-08-09] MEDS: ITRACONAZOLE 100 MG CAP (SPORANOX) PO SCH ×2 (08:29→21:19)
[2018-08-09] MEDS: SANTYL OINT 30GM TOP SCH (08:29)
[2018-08-09] MEDS: ASPIRIN 81 MG ENTERIC TAB PO SCH (08:29)
[2018-08-09 09:04] LABS: HEMATOCRIT 31.5 % (36.0-47.0); HEMOGLOBIN 10.1 g/dl (12.0-15.5); LYMPH % 0.5 % (24.0-44.0); MEAN CORPUSCULAR HGB CONC 32.1 g/dl (32.0-36.5); MEAN CORPUSCULAR VOLUME 93.5 fl (80.0-96.0); MONO # 0.3 10^3/uL (0.0-0.8); NEUTROPHILS # 14.4 10^3/uL (1.8-7.7); NEUTROPHILS % 96.9 % (36.0-66.0); PLATELET COUNT, AUTOMATED 282 10^3/uL (150-450); RED BLOOD COUNT 3.37 10^6/uL (4.00-5.40); WHITE BLOOD COUNT 14.8 10^3/uL (4.0-10.0)
[2018-08-09 09:07] LABS: BLOOD UREA NITROGEN 24 MG/DL (7-18); C REACTIVE PROTEIN QUANTITATIV 5.46 MG/DL (0.00-0.30); CALCIUM LEVEL 8.2 MG/DL (8.8-10.2); CARBON DIOXIDE LEVEL 31 MEQ/L (21-32); CHLORIDE LEVEL 102 MEQ/L (98-107); CREATININE FOR GFR 0.44 MG/DL (0.55-1.30); GLOMERULAR FILTRATION RATE > 60.0 (>39); GLUCOSE, FASTING 121 MG/DL (70-100); MAGNESIUM LEVEL 2.3 MG/DL (1.8-2.4); POTASSIUM SERUM 4.5 MEQ/L (3.5-5.1); SODIUM LEVEL 140 MEQ/L (136-145)
[2018-08-09 09:22] LABS: LYMPH # 0.1 10^3/uL (1.5-4.5)
[2018-08-09 11:52] VITALS: BP 145/72
[2018-08-09] MEDS: FERROUS SULFATE 325MG TAB PO SCH (12:05)
[2018-08-09] MEDS: MULTIVITAMINS/MINERALS THERAP 1 TAB PO SCH (12:05)
[2018-08-09 16:00] VITALS: BP 105/55
--- NOTE | 2018-08-09 18:06 | IPNPDOC ---
Text Note Date of Service The patient was seen on 08/09/18. NOTE SUBJECTIVE: Patient is seen and examined in the room today. Patient has tried 4L oxygen overnight. She thinks she is feeling better this morning. No fever or chill. OBJECTIVE: Vital signs: Listed below. GENERAL: No sign of distress. Fatigue. Patient alert and awake. HEENT: Normocephalic, atraumatic. Extraocular grossly intact. CARDIOVASCULAR: Positive S1, S2, respiratory rate. LUNGS: No wheeze. No significant crackle appreciated. ABDOMEN: Soft, nontender, nondistended, bowel sounds present. EXTREMITIES: No edema. LABORATORY DATA: Listed below. ASSESSMENT AND PLAN: #. Acute on chronic hypoxic respiratory failure. - At baseline, patient has underlying chronic obstructive pulmonary disease. History of lung cancer. - Currently patient has cavitary lung lesion from the Aspergillosis. Pulmonary and infectious disease consulted. On itraconazole. On tapering steroids. On Bactrim Q2D for PCP prophylaxis. Continue breathing treatments PRN. Continue oxygen titration as tolerated. Encourage increasing oral intake as tolerated. - Continue physical therapy. #. Hemoptysis. - Suspected secondary to cavitary lung lesion. On itraconazole for aspergillosis. Continue incentive spirometer. Continue Acapella. #. History of stage 3 lung cancer status post left upper lobe resection and chemoradiation in 2012. #. Stage 2 sacral decubitus ulcer. Continue wound care. #. Atrial fibrillation status post pacemaker. Patient is currently on atenolol, Digoxin. #. Hypothyroidism. On Synthroid. #. Normocytic anemia. Hemoglobin and hematocrit remain stable. Since admission patient had two packed red blood cell transfusion, on 07/25 and 07/26. #. Deep vein thrombosis prophylaxis. On Heparin. VS,Fishbone, I+O VS, Fishbone, I+O Laboratory Tests 08/09/18 05:18 Red Blood Count 3.37 L, Mean Corpuscular Volume 93.5, Mean Corpuscular Hemoglobin 30.0, Mean Corpuscular Hemoglobin Concent 32.1, Red Cell Distribution Width 17.2 H, Neutrophils (%) (Auto) 96.9 H, Lymphocytes (%) (Auto) 0.5 L, Monocytes (%) (Auto) 2.0, Eosinophils (%) (Auto) 0.0, Basophils (%) (Auto) 0.0, Neutrophils # (Auto) 14.4 H, Lymphocytes # (Auto) 0.1 L, Monocytes # (Auto) 0.3, Eosinophils # (Auto) 0.0, Basophils # (Auto) 0.0 Vital Signs Date Time Temp Pulse Resp B/P (MAP) Pulse Ox O2 Delivery O2 Flow Rate FiO2 08/09/18 16:57 18 08/09/18 16:00 97.6 78 105/55 (72) 95 Nasal Cannula 2.0 I&O- Last 24 Hours up to 6 AM 08/09/18 06:00 Intake Total 1140 ml Output Total 900 ml Balance 240 ml DEEPA POWELL DO Aug 09, 2018 18:06
[2018-08-09 20:00] VITALS: BP 126/65
[2018-08-09] MEDS: ATORVASTATIN 10 MG TAB PO SCH (21:20)
[2018-08-09 23:59] VITALS: BP 127/69
[2018-08-10] VITALS (10 sets, daily range): BP systolic 100–117; BP diastolic 52–62; O2SAT 83–94
[2018-08-10] MEDS: IPRATROPIUM 0.5MG/ALBUTEROL 2.5MG INH SOL UD 3ML (DUONEB)(J7620) NEB SCH ×6 (04:00→20:00)
[2018-08-10 05:47] LABS: BASO % 0.1 % (0.0-1.0); EOS % 0.1 % (0.0-3.0); HEMATOCRIT 30.8 % (36.0-47.0); HEMOGLOBIN 9.9 g/dl (12.0-15.5); LYMPH # 0.3 10^3/uL (1.5-4.5); LYMPH % 1.7 % (24.0-44.0); MEAN CORPUSCULAR HEMOGLOBIN 30.6 pg (27.0-33.0); MEAN CORPUSCULAR HGB CONC 32.1 g/dl (32.0-36.5); MEAN CORPUSCULAR VOLUME 95.1 fl (80.0-96.0); MONO # 0.6 10^3/uL (0.0-0.8); MONO % 3.9 % (0.0-5.0); NEUTROPHILS # 14.1 10^3/uL (1.8-7.7); NEUTROPHILS % 93.8 % (36.0-66.0); PLATELET COUNT, AUTOMATED 233 10^3/uL (150-450); RED BLOOD COUNT 3.24 10^6/uL (4.00-5.40)
[2018-08-10 05:56] LABS: BLOOD UREA NITROGEN 25 MG/DL (7-18); C REACTIVE PROTEIN QUANTITATIV 5.37 MG/DL (0.00-0.30); CALCIUM LEVEL 8.5 MG/DL (8.8-10.2); CARBON DIOXIDE LEVEL 32 MEQ/L (21-32); CHLORIDE LEVEL 103 MEQ/L (98-107); CREATININE FOR GFR 0.42 MG/DL (0.55-1.30); GLOMERULAR FILTRATION RATE > 60.0 (>39); GLUCOSE, FASTING 81 MG/DL (70-100); MAGNESIUM LEVEL 2.2 MG/DL (1.8-2.4); POTASSIUM SERUM 3.6 MEQ/L (3.5-5.1); SODIUM LEVEL 141 MEQ/L (136-145)
[2018-08-10] MEDS: LEVOTHYROXINE 100MCG TABLET (0.1MG) PO SCH (06:16)
[2018-08-10] MEDS: HEPARIN SOD (PORCINE) 5000 UNITS/ML VIAL SQ SCH ×3 (06:21→22:00)
[2018-08-10 07:30] LABS: ERYTHROCYTE SEDIMENTATION RATE 52 mm/hr (0-30)
[2018-08-10] MEDS: GABAPENTIN 300 MG CAP PO SCH ×4 (08:12→22:16)
[2018-08-10] MEDS: DIGOXIN 0.25 MG TAB PO SCH (08:13)
[2018-08-10] MEDS: ATENOLOL 12.5MG PER 1/2 TABLET PO SCH (08:14)
[2018-08-10] MEDS: ASPIRIN 81 MG ENTERIC TAB PO SCH (08:14)
[2018-08-10] MEDS: ITRACONAZOLE 100 MG CAP (SPORANOX) PO SCH ×2 (08:14→22:17)
[2018-08-10] MEDS: predniSONE 20 MG TAB PO SCH (08:14)
[2018-08-10] MEDS: ACETAMINOPHEN TAB 650MG DOSE (2X325MG) PO PRN ×2 (08:15→16:15)
[2018-08-10] MEDS: SANTYL OINT 30GM TOP SCH (08:15)
[2018-08-10] MEDS: oxyCODONE 5MG TAB PO PRN ×3 (08:15→22:15)
[2018-08-10] MEDS: BACTRIM 160MG/800MG DS TAB PO SCH (13:30)
[2018-08-10] MEDS: FERROUS SULFATE 325MG TAB PO SCH (13:30)
[2018-08-10] MEDS: MULTIVITAMINS/MINERALS THERAP 1 TAB PO SCH (13:31)
--- NOTE | 2018-08-10 15:51 | IPNPDOC ---
Text Note Date of Service The patient was seen on 08/10/18. NOTE SUBJECTIVE: Patient is seen and examined in the room today. Patient had bad morning. Patient had acute worsening of her shortness breath. Patient also had palpitation at the time of distress. OBJECTIVE: Vital signs: Listed below. GENERAL: Mild distress. Fatigue. Patient alert and awake. HEENT: Normocephalic, atraumatic. Extraocular grossly intact. CARDIOVASCULAR: Positive S1, S2, respiratory rate. LUNGS: No wheeze. No significant crackle appreciated. ABDOMEN: Soft, nontender, nondistended, bowel sounds present. EXTREMITIES: No edema. LABORATORY DATA: Listed below. ASSESSMENT AND PLAN: #. Acute on chronic hypoxic respiratory failure. - At baseline, patient has underlying chronic obstructive pulmonary disease. History of lung cancer. - Currently patient has cavitary lung lesion from the Aspergillosis. Pulmonary and infectious disease consulted. On itraconazole. On tapering steroids. On Bactrim Q2D for PCP prophylaxis. Continue breathing treatments PRN. Continue oxygen titration as tolerated. Encourage increasing oral intake as tolerated. - CT angio on 08/10/18. No PE. New right lung consolidation suspicious for PNA. New sputum culture ordered. Start empirical antibiotic - Continue physical therapy. #. Hemoptysis. - Suspected secondary to cavitary lung lesion. On itraconazole for aspergillosis. Continue incentive spirometer. Continue Acapella. #. History of stage 3 lung cancer status post left upper lobe resection and chemoradiation in 2012. #. Stage 2 sacral decubitus ulcer. Continue wound care. #. Atrial fibrillation status post pacemaker. Patient is currently on atenolol, Digoxin. #. Hypothyroidism. On Synthroid. #. Normocytic anemia. Hemoglobin and hematocrit remain stable. Since admission patient had two packed red blood cell transfusion, on 07/25 and 07/26. #. Deep vein thrombosis prophylaxis. On Heparin. VS,Fishbone, I+O VS, Fishbone, I+O Laboratory Tests 08/10/18 05:09 Red Blood Count 3.24 L, Mean Corpuscular Volume 95.1, Mean Corpuscular Hemoglobin 30.6, Mean Corpuscular Hemoglobin Concent 32.1, Red Cell Distribution Width 17.2 H, Neutrophils (%) (Auto) 93.8 H, Lymphocytes (%) (Auto) 1.7 L, Monocytes (%) (Auto) 3.9, Eosinophils (%) (Auto) 0.1, Basophils (%) (Auto) 0.1, Neutrophils # (Auto) 14.1 H, Lymphocytes # (Auto) 0.3 L, Monocytes # (Auto) 0.6, Eosinophils # (Auto) 0.0, Basophils # (Auto) 0.0, Calcium Level 8.5 L Vital Signs Date Time Temp Pulse Resp B/P (MAP) Pulse Ox O2 Delivery O2 Flow Rate FiO2 08/10/18 12:21 97.1 70 19 109/62 (78) 91 Nasal Cannula 2.0 I&O- Last 24 Hours up to 6 AM 08/10/18 06:00 Intake Total 1320 ml Output Total 400 ml Balance 920 ml DEEPA POWELL DO Aug 10, 2018 15:51
[2018-08-10] MEDS ORDERED: ISOVUE-370 76% 100ML VIAL (Q9967) As Ordered ONE (16:37)
--- NOTE | 2018-08-10 18:04 | REP ---
CT pulmonary angiogram: With IV contrast. History: History of lung cancer. Cavitary lesion. Acute distress. Comparison studies: Comparison CT study of the chest is from July 23, 2018. CT chest with contrast is from May 02, 2018. Contrast dose: 75 mL of Isovue [address] technique: Helical scanning is acquired and overlapping 1.5 mm and contiguous 3 mm axial images are reformatted. In addition, maximum intensity projection and multiplanar re-formation images are generated in sagittal and coronal imaging projections. CT pulmonary angiographic findings: There is good opacification of the pulmonary arterial tree and there is no CT evidence of pulmonary embolus. The previously noted large cavitary lesion in the distribution of the left upper lobe is again seen with extensive intracavitary laminated material. This material or debris is unchanged from the July 23, [address] study. At the left apex anteriorly, there is soft tissue density again noted along the anterior wall of the cavitary lesion. There is soft tissue appears somewhat nodular and measures up to 3.0 cm in thickness at the level of the left subclavian artery. This is unchanged from April 2018. The cavitary lesion is unchanged. There is chronic atelectasis with air bronchograms in the left lower lobe. A small quantity of left pleural fluid is visible. There is a small right pleural effusion noted and this has increased since the May 02, 2018 study. It is unchanged from July 23, 2018. There is no evidence of aortic dissection or aneurysm. Emphysematous changes are noted in the right upper lobe. There is a new interstitial infiltrate in the remaining right lower lobe aerated lung and to a lesser extent, in the posterior segment of the right upper lobe. This could reflect a inflammatory infiltrate. There is a more confluent area of the consolidation in the medial basal segment of the right lower lobe suggesting pneumonia. No acute bony abnormality is appreciated. The erosive changes are again noted at the sternoclavicular joint on the left. There is wedge compression deformity in one of the mid-thoracic vertebrae. Impression: Extensive although chronic and stable changes in the left hemithorax. There is a small right pleural effusion which is unchanged from most recent prior CT study July 23, 2018 but increased over May 02, 2018. There is new pulmonary parenchymal consolidation in the right lower lobe and to a lesser extent in the right upper lobe consistent with pneumonia. Electronically Signed by Fahad Kamara MD 08/10/2018 07:47 P
[2018-08-10] MEDS: guaiFENesin/CODEINE SYRUP 5 ML UDC PO PRN (22:14)
[2018-08-10] MEDS: MEROPENEM INJ 1 GM in APPROPRIATE DILUENT 1 EA IV SCH (22:16)
[2018-08-10] MEDS: ATORVASTATIN 10 MG TAB PO SCH (22:16)
[2018-08-11] VITALS (25 sets, daily range): BP systolic 92–108; BP diastolic 52–59; O2SAT 86–98
[2018-08-11] MEDS: IPRATROPIUM 0.5MG/ALBUTEROL 2.5MG INH SOL UD 3ML (DUONEB)(J7620) NEB SCH ×6 (03:40→20:26)
[2018-08-11] MEDS: MEROPENEM INJ 1 GM in APPROPRIATE DILUENT 1 EA IV SCH ×3 (04:38→20:44)
[2018-08-11] MEDS: LEVOTHYROXINE 100MCG TABLET (0.1MG) PO SCH (05:44)
[2018-08-11] MEDS: oxyCODONE 5MG TAB PO PRN ×3 (05:45→21:13)
[2018-08-11] MEDS: ACETAMINOPHEN TAB 650MG DOSE (2X325MG) PO PRN (05:46)
[2018-08-11 05:53] LABS: HEMATOCRIT 29.5 % (36.0-47.0); HEMOGLOBIN 9.3 g/dl (12.0-15.5); MEAN CORPUSCULAR HEMOGLOBIN 30.1 pg (27.0-33.0); MEAN CORPUSCULAR HGB CONC 31.5 g/dl (32.0-36.5); MEAN CORPUSCULAR VOLUME 95.5 fl (80.0-96.0); PLATELET COUNT, AUTOMATED 204 10^3/uL (150-450); RED BLOOD COUNT 3.09 10^6/uL (4.00-5.40); WHITE BLOOD COUNT 12.2 10^3/uL (4.0-10.0)
[2018-08-11] MEDS: HEPARIN SOD (PORCINE) 5000 UNITS/ML VIAL SQ SCH ×3 (06:00→20:45)
[2018-08-11 06:01] LABS: BLOOD UREA NITROGEN 25 MG/DL (7-18); CALCIUM LEVEL 8.4 MG/DL (8.8-10.2); CARBON DIOXIDE LEVEL 33 MEQ/L (21-32); CHLORIDE LEVEL 104 MEQ/L (98-107); CREATININE FOR GFR 0.41 MG/DL (0.55-1.30); GLOMERULAR FILTRATION RATE > 60.0 (>39); GLUCOSE, FASTING 80 MG/DL (70-100); MAGNESIUM LEVEL 2.2 MG/DL (1.8-2.4); SODIUM LEVEL 141 MEQ/L (136-145)
[2018-08-11] MEDS: IPRATROPIUM 0.5MG/ALBUTEROL 2.5MG INH SOL UD 3ML (DUONEB)(J7620) NEB PRN (06:55)
[2018-08-11] MEDS: GABAPENTIN 300 MG CAP PO SCH ×4 (08:49→20:44)
[2018-08-11] MEDS: SANTYL OINT 30GM TOP SCH (08:49)
[2018-08-11] MEDS: ITRACONAZOLE 100 MG CAP (SPORANOX) PO SCH ×2 (08:49→20:45)
[2018-08-11] MEDS: ASPIRIN 81 MG ENTERIC TAB PO SCH (08:50)
[2018-08-11] MEDS: predniSONE 20 MG TAB PO SCH (08:50)
[2018-08-11] MEDS: DIGOXIN 0.25 MG TAB PO SCH (08:53)
[2018-08-11] MEDS: ATENOLOL 12.5MG PER 1/2 TABLET PO SCH (08:53)
[2018-08-11] MEDS ORDERED: ALPRAZolam 0.25 MG TAB PO PRN (10:15)
--- NOTE | 2018-08-11 13:13 | IPNPDOC ---
Subjective Date Seen The patient was seen on 08/11/18. Subjective Chief Complaint/HPI Patient seen and examined at the bedside. Reports increased anxiety, and is tearful at the bedside today. She states that she has been in the hospital which way too much over the last several months. Denies worsening of SOB, chest pain, or palpitations. Objective Physical Examination General Exam: Positive: Alert, Cooperative, Mild Distress (2/2 anxiety ) ENT Exam: Positive: Atraumatic Chest Exam: Positive: Diminished Heart Exam: Positive: Rate Normal, Normal S1, Normal S2 Abdomen Exam: Positive: Soft; Negative: Tenderness Extremity Exam: Negative: Tenderness, Swelling Psych Exam: Positive: Oriented x 3 Assessment /Plan Plan/VTE VTE Prophylaxis Ordered?: Yes Plan Shortness of breath, Acute on Chronic Hypoxic Respiratory Failure 2/2 Multifactorial Etiology; Aspergillosis Fumigatus Cavitary Lung Lesion, underlying COPD, Hx of Lung Ca Appreciate Pulmonary and ID input We will cont Cont Itraconazole, Steroids, Serial Nebs Repeat CT Chest on 08/10/17 revealed new RLL consolidation concern for PNA Patient started on Meropenem, on Bactrim for PCP prophylaxis We will cont to monitor respiratory status The patient seems to be improving overall clinically--may benefit from ARU vs [facility], will follow up with PT recommendations Hemoptysis - likely 2/2 above Hgb remains stable Antifungal treatment c/w incentive spirometry Anxiety Ativan 0.5mg BIDP ordered Stage 2 Sacral Decubitus Ulcer Cont Wound Care Normocytic Anemia s/p 2 units PRBC c/w Ferrous sulfate H&H has remained stable thereafter A. 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 Hypothyroidism Levothyroxine Neuropathy Gabapentin DVT prophylaxis Heparin SC Poor Acute Care Surgeon Prognosis Dispo: pending clinical improvement, may benefit from ARU vs [facility] VS, I&O, 24H, Fishbone Vital Signs/I&O Vital Signs Date Time Temp Pulse Resp B/P (MAP) Pulse Ox O2 Delivery O2 Flow Rate FiO2 08/11/18 08:53 88 08/11/18 08:53 130/65 08/11/18 08:00 98.8 30 89 Nasal Cannula 4.0 I&O- Last 24 Hours up to 6 AM 08/11/18 05:59 Intake Total 1130 ml Output Total 1025 ml Balance 105 ml Laboratory Data 24H LABS Laboratory Tests 2 08/11/18 05:19: Nucleated Red Blood Cells % (auto) 0.0, Anion Gap 4L, Glomerular Filtration Rate > 60.0, Blood Urea Nitrogen 25H, Creatinine 0.41L, Sodium Level 141, Potassium Level 4.0, Chloride Level 104, Carbon Dioxide Level 33H, Calcium Level 8.4L, Magnesium Level 2.2 CBC/BMP Laboratory Tests 08/11/18 05:19 Red Blood Count 3.09 L, Mean Corpuscular Volume 95.5, Mean Corpuscular Hemoglobin 30.1, Mean Corpuscular Hemoglobin Concent 31.5 L, Red Cell Distr ibution Width 17.3 H, Calcium Level 8.4 L Microbiology Microbiology 08/11/18 Gram Stain - Final, Resulted 08/11/18 Sputum Culture, Resulted Pending SANDI ORTEGA MD Aug 11, 2018 13:13
[2018-08-11] MEDS: FERROUS SULFATE 325MG TAB PO SCH (13:33)
[2018-08-11] MEDS: MULTIVITAMINS/MINERALS THERAP 1 TAB PO SCH (13:34)
[2018-08-11] MEDS: LORazepam 0.5 MG TAB PO PRN (13:57)
--- NOTE | 2018-08-11 18:05 | IPN ---
DATE: 08/11/2017 SUBJECTIVE: Ms. Erickson is seen this morning sitting up in her chair. She states that she is feeling much better, she has had a multitude of visitors today. She had a little bit of a rough morning, but is feeling a little better this afternoon. She denies any nausea, vomiting or diarrhea, but states that she is still having hemoptysis. MEDICATIONS: - meropenem 1 gram every 8 hours intravenously (IV) - Bactrim DS Friday, Friday, Friday. - itraconazole 100 mg by mouth twice a day OBJECTIVE: VITAL SIGNS: Temperature 98.8, pulse 88 and irregular, respiratory rate 22, blood pressure 130/65, 98% on 2 liters via nasal cannula. HEENT: Atraumatic, normocephalic. Mucous membranes are moist. Eyes are clear. HEART: Irregular rhythm, rate controlled. LUNGS: Diminished air entry with a few crackles at the bases. Otherwise clear to auscultation bilaterally in the apices with hyperresonance in the left upper lobe ABDOMEN: Soft. Nontender to palpation. EXTREMITIES: No clubbing, cyanosis or edema. LABORATORY STUDIES: Complete blood count (CBC): WBC 12.2, hemoglobin 9.3, hematocrit 29.5, platelets 204. Chemistry: Sodium 141, potassium 4.4, chloride 104, carbon dioxide 33, BUN 25, creatinine 0.41, fasting glucose 80, calcium 8.4, magnesium 2.2. Sputum from 07/24/2018 for acid fast bacilli was negative. Fungal smear and culture are still pending. Sputum culture from 08/11/2018 is pending. Gram stain showed many WBCs, many RBCs, few gram-positive cocci in pairs, few gram-negative rods, and few gram-positive rods. The C-reactive protein (CRP) from yesterday was up to 5.37. CT angiography of the chest from yesterday showed a new interstitial infiltrate in the remaining right lower lobe, aerated lung and, to a lesser extent, in the posterior segment of the right upper lobe, which could either reflect inflammatory infiltrate or pneumonia. IMPRESSION: 1. Cavitary pneumonia of the left lung with aspergillus galactomannan of 7.55, with normal being less than 0.5. Patient continues itraconazole. She is currently tolerating this fairly well. 2. Severe chronic obstructive pulmonary disease (COPD). She is on Bactrim prophylaxis for pneumocystis pneumonia (PCP) on Friday, Friday, Friday. 3. New infiltrates in RLL possibly related to HCAP on IV meropenem PLAN: Continue itraconazole 200 mg by mouth twice a day. Continue Bactrim double strength Friday, Friday, Friday for PCP pneumonia. Patient is also on meropenem due to suspected pneumonia. Again, my preceptor for this encounter is Dr. Waldo Boggs. My faculty preceptor for this patient encounter was physically present during the encounter and was fully available. All aspects of the patient interview, examination, medical decision-making process, and medical care plan development were reviewed and approved by the faculty preceptor. The faculty preceptor is aware and concurs with the plan as stated in the body of this note and will attest to such by his/her co-signature. SYL
[2018-08-11] MEDS: ATORVASTATIN 10 MG TAB PO SCH (20:44)
[2018-08-12] VITALS (22 sets, daily range): BP systolic 103–115; BP diastolic 54–62; O2SAT 85–97
[2018-08-12] MEDS: IPRATROPIUM 0.5MG/ALBUTEROL 2.5MG INH SOL UD 3ML (DUONEB)(J7620) NEB SCH ×6 (02:05→23:08)
[2018-08-12] MEDS: LORazepam 0.5 MG TAB PO PRN (03:19)
[2018-08-12] MEDS: MEROPENEM INJ 1 GM in APPROPRIATE DILUENT 1 EA IV SCH ×3 (03:28→20:23)
[2018-08-12 05:54] LABS: HEMATOCRIT 29.3 % (36.0-47.0); HEMOGLOBIN 9.3 g/dl (12.0-15.5); MEAN CORPUSCULAR HGB CONC 31.7 g/dl (32.0-36.5); MEAN CORPUSCULAR VOLUME 94.5 fl (80.0-96.0); PLATELET COUNT, AUTOMATED 196 10^3/uL (150-450); WHITE BLOOD COUNT 13.1 10^3/uL (4.0-10.0)
[2018-08-12] MEDS: LEVOTHYROXINE 100MCG TABLET (0.1MG) PO SCH (05:57)
[2018-08-12] MEDS: HEPARIN SOD (PORCINE) 5000 UNITS/ML VIAL SQ SCH ×2 (05:57→20:23)
[2018-08-12 06:10] LABS: BLOOD UREA NITROGEN 24 MG/DL (7-18); CALCIUM LEVEL 8.2 MG/DL (8.8-10.2); CARBON DIOXIDE LEVEL 31 MEQ/L (21-32); CHLORIDE LEVEL 101 MEQ/L (98-107); CREATININE FOR GFR 0.35 MG/DL (0.55-1.30); GLOMERULAR FILTRATION RATE > 60.0 (>39); GLUCOSE, FASTING 81 MG/DL (70-100); POTASSIUM SERUM 4.1 MEQ/L (3.5-5.1); SODIUM LEVEL 138 MEQ/L (136-145)
[2018-08-12] MEDS: ITRACONAZOLE 100 MG CAP (SPORANOX) PO SCH ×2 (09:57→20:23)
[2018-08-12] MEDS: BACTRIM 160MG/800MG DS TAB PO SCH (09:57)
[2018-08-12] MEDS: GABAPENTIN 300 MG CAP PO SCH ×4 (09:57→20:24)
[2018-08-12] MEDS: predniSONE 20 MG TAB PO SCH (09:57)
[2018-08-12] MEDS: SANTYL OINT 30GM TOP SCH (09:57)
[2018-08-12] MEDS: ASPIRIN 81 MG ENTERIC TAB PO SCH (09:58)
[2018-08-12] MEDS: DIGOXIN 0.25 MG TAB PO SCH (10:03)
[2018-08-12] MEDS: ATENOLOL 12.5MG PER 1/2 TABLET PO SCH (10:03)
[2018-08-12] MEDS: MULTIVITAMINS/MINERALS THERAP 1 TAB PO SCH (12:27)
[2018-08-12] MEDS: FERROUS SULFATE 325MG TAB PO SCH (12:27)
--- NOTE | 2018-08-12 12:51 | IPNPDOC ---
Subjective Date Seen The patient was seen on 08/12/18. Subjective Chief Complaint/HPI Patient seen and examined at the bedside. She appears to be more tired and groggy this morning after she received Ativan overnight. Otherwise, no acute overnight events noted. The patient may be potentially transferred to acute rehabilitation tomorrow. Objective Physical Examination General Exam: Positive: Alert, Cooperative, No Acute Distress ENT Exam: Positive: Atraumatic, Mucous membr. moist/pink Chest Exam: Positive: Diminished Heart Exam: Positive: Rate Normal, Normal S1, Normal S2 Abdomen Exam: Positive: Soft; Negative: Tenderness Extremity Exam: Negative: Tenderness, Swelling Psych Exam: Positive: Oriented x 3 Assessment /Plan Plan/VTE VTE Prophylaxis Ordered?: Yes Plan Shortness of breath, Acute on Chronic Hypoxic Respiratory Failure 2/2 Multifactorial Etiology; Aspergillosis Fumigatus Cavitary Lung Lesion, underlying COPD, Hx of Lung Ca Appreciate Pulmonary and ID input We will cont Cont Itraconazole, Steroids, Serial Nebs Repeat CT Chest on 08/10/17 revealed new RLL consolidation concern for PNA Patient started on Meropenem, on Bactrim for PCP prophylaxis We will cont to monitor respiratory status The patient seems to be improving overall clinically--may benefit from ARU vs [facility], will follow up with PT recommendations Hemoptysis - likely 2/2 above Hgb remains stable Antifungal treatment c/w incentive spirometry Anxiety Ativan 0.5mg BIDP ordered--however the patient became too groggy, lethargic on the medication--this has been discontinued Stage 2 Sacral Decubitus Ulcer Cont Wound Care Normocytic Anemia s/p 2 units PRBC c/w Ferrous sulfate H&H has remained stable thereafter A. 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 Dispo: pending clinical improvement, may benefit from ARU vs [facility] VS, I&O, 24H, Fishbone Vital Signs/I&O Vital Signs Date Time Temp Pulse Resp B/P (MAP) Pulse Ox O2 Delivery O2 Flow Rate FiO2 08/12/18 11:09 99.0 107 18 107/54 (71) 89 Nasal Cannula 4.0 I&O- Last 24 Hours up to 6 AM 08/12/18 06:00 Intake Total 1350 ml Output Total 1350 ml Balance 0 ml Laboratory Data 24H LABS Laboratory Tests 2 08/12/18 05:05: Nucleated Red Blood Cells % (auto) 0.0, Anion Gap 6L, Glomerular Filtration Rate > 60.0, Blood Urea Nitrogen 24H, Creatinine 0.35L, Sodium Level 138, Potassium Level 4.1, Chloride Level 101, Carbon Dioxide Level 31, Calcium Level 8.2L, Magnesium Level 2.0 CBC/BMP Laboratory Tests 08/12/18 05:05 Red Blood Count 3.10 L, Mean Corpuscular Volume 94.5, Mean Corpuscular Hemoglob in 30.0, Mean Corpuscular Hemoglobin Concent 31.7 L, Red Cell Distribution Width 17.2 H, Calcium Level 8.2 L Microbiology Microbiology 08/11/18 Gram Stain - Final, Resulted 08/11/18 Sputum Culture, Resulted Pending SANDI ORTEGA MD Aug 12, 2018 12:51
[2018-08-12] MEDS: ATORVASTATIN 10 MG TAB PO SCH (20:24)
[2018-08-13] VITALS (7 sets, daily range): BP systolic 88–105; BP diastolic 52–60
[2018-08-13] MEDS: MEROPENEM INJ 1 GM in APPROPRIATE DILUENT 1 EA IV SCH ×3 (04:00→19:53)
[2018-08-13] MEDS: IPRATROPIUM 0.5MG/ALBUTEROL 2.5MG INH SOL UD 3ML (DUONEB)(J7620) NEB SCH ×5 (04:00→20:24)
[2018-08-13] MEDS: LEVOTHYROXINE 100MCG TABLET (0.1MG) PO SCH (06:03)
[2018-08-13] MEDS: oxyCODONE 5MG TAB PO PRN ×2 (06:05→13:44)
[2018-08-13] MEDS: ACETAMINOPHEN TAB 650MG DOSE (2X325MG) PO PRN ×2 (06:07→14:00)
[2018-08-13 06:21] LABS: HEMATOCRIT 29.1 % (36.0-47.0); HEMOGLOBIN 9.2 g/dl (12.0-15.5); MEAN CORPUSCULAR HEMOGLOBIN 29.7 pg (27.0-33.0); MEAN CORPUSCULAR HGB CONC 31.6 g/dl (32.0-36.5); MEAN CORPUSCULAR VOLUME 93.9 fl (80.0-96.0); PLATELET COUNT, AUTOMATED 213 10^3/uL (150-450); WHITE BLOOD COUNT 10.1 10^3/uL (4.0-10.0)
[2018-08-13 06:26] LABS: BLOOD UREA NITROGEN 19 MG/DL (7-18); CALCIUM LEVEL 8.5 MG/DL (8.8-10.2); CARBON DIOXIDE LEVEL 30 MEQ/L (21-32); CHLORIDE LEVEL 103 MEQ/L (98-107); CREATININE FOR GFR 0.37 MG/DL (0.55-1.30); GLOMERULAR FILTRATION RATE > 60.0 (>39); GLUCOSE, FASTING 73 MG/DL (70-100); MAGNESIUM LEVEL 2.3 MG/DL (1.8-2.4); POTASSIUM SERUM 3.8 MEQ/L (3.5-5.1); SODIUM LEVEL 139 MEQ/L (136-145)
[2018-08-13] MEDS: ITRACONAZOLE 100 MG CAP (SPORANOX) PO SCH ×2 (08:50→19:53)
[2018-08-13] MEDS: DIGOXIN 0.25 MG TAB PO SCH (08:50)
[2018-08-13] MEDS: predniSONE 10 MG TAB PO SCH (08:50)
[2018-08-13] MEDS: GABAPENTIN 300 MG CAP PO SCH ×4 (08:50→19:53)
[2018-08-13] MEDS: ASPIRIN 81 MG ENTERIC TAB PO SCH (08:50)
[2018-08-13] MEDS: ATENOLOL 12.5MG PER 1/2 TABLET PO SCH (08:56)
[2018-08-13] MEDS: SANTYL OINT 30GM TOP SCH (08:57)
[2018-08-13] MEDS: HEPARIN SOD (PORCINE) 5000 UNITS/ML VIAL SQ SCH ×2 (08:58→19:54)
[2018-08-13] MEDS ORDERED: SLF 3 ML SYR IV PRN (09:00)
[2018-08-13] MEDS: FERROUS SULFATE 325MG TAB PO SCH (12:14)
[2018-08-13] MEDS: MULTIVITAMINS/MINERALS THERAP 1 TAB PO SCH (12:14)
[2018-08-13] MEDS: SLF 3 ML SYR IV SCH ×2 (12:14→21:33)
--- NOTE | 2018-08-13 15:13 | IPNPDOC ---
Subjective Date Seen The patient was seen on 08/13/18. Subjective Chief Complaint/HPI Patient seen and examined at the bedside. Reports that her respiratory status has remained the same. She denies any chest pain, palpitations, abdominal pain. She is not groggy, sleepy today as her ativan was discontinued. Objective Physical Examination General Exam: Positive: Alert, Cooperative, No Acute Distress ENT Exam: Positive: Atraumatic, Mucous membr. moist/pink Chest Exam: Positive: Diminished Heart Exam: Positive: Rate Normal, Normal S1, Normal S2 Abdomen Exam: Positive: Soft; Negative: Tenderness Extremity Exam: Negative: Tenderness, Swelling Psych Exam: Positive: Oriented x 3 Assessment /Plan Plan/VTE VTE Prophylaxis Ordered?: Yes Plan Shortness of breath, Acute on Chronic Hypoxic Respiratory Failure 2/2 Multifactorial Etiology; Aspergillosis Fumigatus Cavitary Lung Lesion, underlying COPD, Hx of Lung Ca Appreciate Pulmonary and ID input We will cont Cont Itraconazole, Steroids, Serial Nebs Repeat CT Chest on 08/10/17 revealed new RLL consolidation concern for PNA Patient started on Meropenem, on Bactrim for PCP prophylaxis We will cont to monitor respiratory status The patient seems to be improving overall clinically--may benefit from ARU vs [facility], will follow up with PT recommendations Hemoptysis - likely 2/2 above Hgb remains stable Antifungal treatment c/w incentive spirometry Anxiety Ativan 0.5mg BIDP ordered--however the patient became too groggy, lethargic on the medication--this has been discontinued Stage 2 Sacral Decubitus Ulcer Cont Wound Care Normocytic Anemia s/p 2 units PRBC c/w Ferrous sulfate H&H has remained stable thereafter A. 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 The patient understands that she may end up in a long-term care facility following rehabilitation, but states that she would like to give acute rehabilitation a try. Dispo: pending clinical improvement, may benefit from ARU vs [facility] VS, I&O, 24H, Fishbone Vital Signs/I&O Vital Signs Date Time Temp Pulse Resp B/P (MAP) Pulse Ox O2 Delivery O2 Flow Rate FiO2 08/13/18 14:00 71 95 3.0 08/13/18 12:06 96/60 (72) 08/13/18 12:01 97.2 19 Nasal Cannula I&O- Last 24 Hours up to 6 AM 08/13/18 05:59 Intake Total 1430 ml Output Total 1000 ml Balance 430 ml Laboratory Data 24H LABS Laboratory Tests 2 08/13/18 05:39: Nucleated Red Blood Cells % (auto) 0.0, Anion Gap 6L, Glomerular Filtration Rate > 60.0, Blood Urea Nitrogen 19H, Creatinine 0.37L, Sodium Level 139, Potassium Level 3.8, Chloride Level 103, Carbon Dioxide Level 30, Calcium Level 8.5L, Magnesium Level 2.3 CBC/BMP Laboratory Tests 08/13/18 05:39 Red Blood Count 3.10 L, Mean Corpuscular Volume 93.9, Mean Corpuscular Hemoglobin 29.7, Mean Corpuscular Hemoglobin Concent 31.6 L, Red Cell Distribution Width 17.0 H, Calcium Level 8.5 L Microbiology Microbiology 08/11/18 Gram Stain - Final, Complete 08/11/18 Sputum Culture - Final, Complete SANDI ORTEGA MD Aug 13, 2018 15:13
[2018-08-13] MEDS: ATORVASTATIN 10 MG TAB PO SCH (19:54)
[2018-08-14] VITALS: BP 98/50
[2018-08-14 04:00] VITALS: BP 104/60
[2018-08-14] MEDS: IPRATROPIUM 0.5MG/ALBUTEROL 2.5MG INH SOL UD 3ML (DUONEB)(J7620) NEB SCH ×6 (04:00→21:26)
[2018-08-14] MEDS: MEROPENEM INJ 1 GM in APPROPRIATE DILUENT 1 EA IV SCH ×3 (04:00→20:27)
[2018-08-14] MEDS: SLF 3 ML SYR IV SCH ×3 (04:56→20:30)
[2018-08-14 05:58] LABS: HEMATOCRIT 30.4 % (36.0-47.0); HEMOGLOBIN 9.7 g/dl (12.0-15.5); MEAN CORPUSCULAR HEMOGLOBIN 30.6 pg (27.0-33.0); MEAN CORPUSCULAR HGB CONC 31.9 g/dl (32.0-36.5); MEAN CORPUSCULAR VOLUME 95.9 fl (80.0-96.0); PLATELET COUNT, AUTOMATED 227 10^3/uL (150-450); RED BLOOD COUNT 3.17 10^6/uL (4.00-5.40); WHITE BLOOD COUNT 10.5 10^3/uL (4.0-10.0)
[2018-08-14] MEDS: LEVOTHYROXINE 100MCG TABLET (0.1MG) PO SCH (06:00)
[2018-08-14 06:24] LABS: BLOOD UREA NITROGEN 28 MG/DL (7-18); CALCIUM LEVEL 8.9 MG/DL (8.8-10.2); CARBON DIOXIDE LEVEL 30 MEQ/L (21-32); CHLORIDE LEVEL 102 MEQ/L (98-107); CREATININE FOR GFR 0.43 MG/DL (0.55-1.30); GLOMERULAR FILTRATION RATE > 60.0 (>39); GLUCOSE, FASTING 74 MG/DL (70-100); MAGNESIUM LEVEL 2.1 MG/DL (1.8-2.4); POTASSIUM SERUM 4.2 MEQ/L (3.5-5.1); SODIUM LEVEL 138 MEQ/L (136-145)
[2018-08-14 08:00] VITALS: BP 104/59
[2018-08-14] MEDS: predniSONE 10 MG TAB PO SCH (08:07)
[2018-08-14] MEDS: ITRACONAZOLE 100 MG CAP (SPORANOX) PO SCH ×2 (08:07→20:34)
[2018-08-14] MEDS: GABAPENTIN 300 MG CAP PO SCH ×4 (08:08→20:29)
[2018-08-14] MEDS: ASPIRIN 81 MG ENTERIC TAB PO SCH (08:08)
[2018-08-14] MEDS: BACTRIM 160MG/800MG DS TAB PO SCH (08:08)
[2018-08-14] MEDS: ATENOLOL 12.5MG PER 1/2 TABLET PO SCH (08:08)
[2018-08-14] MEDS: DIGOXIN 0.25 MG TAB PO SCH (08:08)
[2018-08-14] MEDS: SANTYL OINT 30GM TOP SCH (08:09)
[2018-08-14] MEDS: HEPARIN SOD (PORCINE) 5000 UNITS/ML VIAL SQ SCH ×2 (08:09→20:27)
[2018-08-14 12:00] VITALS: BP 100/58
[2018-08-14] MEDS: MULTIVITAMINS/MINERALS THERAP 1 TAB PO SCH (13:09)
[2018-08-14] MEDS: FERROUS SULFATE 325MG TAB PO SCH (13:09)
--- NOTE | 2018-08-14 15:32 | IPNPDOC ---
Subjective Date Seen The patient was seen on 08/14/18. Subjective Chief Complaint/HPI Patient seen and examined at the bedside. Reports that her respiratory status remains the same. Denies any acute overnight events. Objective Physical Examination General Exam: Positive: Alert, Cooperative, No Acute Distress ENT Exam: Positive: Atraumatic, Mucous membr. moist/pink Chest Exam: Positive: Diminished Heart Exam: Positive: Rate Normal, Normal S1, Normal S2 Abdomen Exam: Positive: Soft; Negative: Tenderness Extremity Exam: Negative: Tenderness, Swelling Psych Exam: Positive: Oriented x 3 Assessment /Plan Plan/VTE VTE Prophylaxis Ordered?: Yes Plan Shortness of breath, Acute on Chronic Hypoxic Respiratory Failure 2/2 Multifactorial Etiology; Aspergillosis Fumigatus Cavitary Lung Lesion, underlying COPD, Hx of Lung Ca Appreciate Pulmonary and ID input We will cont Cont Itraconazole, Steroids, Serial Nebs Repeat CT Chest on 08/10/17 revealed new RLL consolidation concern for PNA Patient started on Meropenem, on Bactrim for PCP prophylaxis We will cont to monitor respiratory status The patient seems to be improving overall clinically--may benefit from ARU vs [facility], will follow up with PT recommendations Hemoptysis - likely 2/2 above Hgb remains stable Antifungal treatment c/w incentive spirometry Stage 2 Sacral Decubitus Ulcer Cont Wound Care Normocytic Anemia s/p 2 units PRBC c/w Ferrous sulfate H&H has remained stable thereafter A. 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 Dispo--Patient to subacute rehab possibly on 08/17/18 VS, I&O, 24H, Fishbone Vital Signs/I&O Vital Signs Date Time Temp Pulse Resp B/P (MAP) Pulse Ox O2 Delivery O2 Flow Rate FiO2 08/14/18 12:00 98.2 69 20 100/58 (72) 94 Nasal Cannula 2.0 I&O- Last 24 Hours up to 6 AM 08/14/18 06:00 Intake Total 1290 ml Output Total 1400 ml Balance -110 ml Laboratory Data 24H LABS Laboratory Tests 2 08/14/18 05:42: Nucleated Red Blood Cells % (auto) 0.0, Anion Gap 6L, Glomerular Filtration Rate > 60.0, Blood Urea Nitrogen 28H, Creatinine 0.43L, Sodium Level 138, Potassium Level 4.2, Chloride Level 102, Carbon Dioxide Level 30, Calcium Level 8.9, Magnesium Level 2.1 CBC/BMP Laboratory Tests 08/14/18 05:42 Red Blood Count 3.17 L, Mean Corpuscular Volume 95.9, Mean Corpuscular Hemoglobin 30.6, Mean Corpuscular Hemoglobin Concent 31.9 L, Red Cell Distribution Width 16.7 H, Calcium Level 8.9 Microbiology Microbiology 08/11/18 Gram Stain - Final, Complete 08/11/18 Sputum Culture - Final, Complete SANDI ORTEGA MD Aug 14, 2018 15:32
[2018-08-14 16:00] VITALS: BP 104/60
[2018-08-14] MEDS: ACETAMINOPHEN TAB 650MG DOSE (2X325MG) PO PRN (20:29)
[2018-08-14] MEDS: ATORVASTATIN 10 MG TAB PO SCH (20:29)
[2018-08-14 20:30] VITALS: BP 91/51
[2018-08-15] MEDS: IPRATROPIUM 0.5MG/ALBUTEROL 2.5MG INH SOL UD 3ML (DUONEB)(J7620) NEB SCH ×6 (04:00→22:52)
[2018-08-15] MEDS: LEVOTHYROXINE 100MCG TABLET (0.1MG) PO SCH (05:20)
[2018-08-15] MEDS: MEROPENEM INJ 1 GM in APPROPRIATE DILUENT 1 EA IV SCH ×3 (05:20→20:38)
[2018-08-15] MEDS: SLF 3 ML SYR IV SCH ×3 (05:26→20:37)
[2018-08-15] MEDS: IPRATROPIUM 0.5MG/ALBUTEROL 2.5MG INH SOL UD 3ML (DUONEB)(J7620) NEB PRN (05:33)
[2018-08-15 06:00] VITALS: BP 121/85
[2018-08-15 06:47] LABS: HEMATOCRIT 33.4 % (36.0-47.0); HEMOGLOBIN 10.6 g/dl (12.0-15.5); MEAN CORPUSCULAR HEMOGLOBIN 30.5 pg (27.0-33.0); MEAN CORPUSCULAR HGB CONC 31.7 g/dl (32.0-36.5); PLATELET COUNT, AUTOMATED 233 10^3/uL (150-450); RED BLOOD COUNT 3.48 10^6/uL (4.00-5.40); WHITE BLOOD COUNT 9.6 10^3/uL (4.0-10.0)
[2018-08-15 06:51] LABS: BLOOD UREA NITROGEN 19 MG/DL (7-18); CALCIUM LEVEL 8.4 MG/DL (8.8-10.2); CARBON DIOXIDE LEVEL 27 MEQ/L (21-32); CHLORIDE LEVEL 102 MEQ/L (98-107); CREATININE FOR GFR 0.36 MG/DL (0.55-1.30); GLOMERULAR FILTRATION RATE > 60.0 (>39); GLUCOSE, FASTING 71 MG/DL (70-100); POTASSIUM SERUM 3.6 MEQ/L (3.5-5.1); SODIUM LEVEL 139 MEQ/L (136-145)
[2018-08-15] MEDS: oxyCODONE 5MG TAB PO PRN ×3 (08:58→20:59)
[2018-08-15] MEDS: predniSONE 10 MG TAB PO SCH (08:58)
[2018-08-15] MEDS: ATENOLOL 12.5MG PER 1/2 TABLET PO SCH (08:59)
[2018-08-15] MEDS: GABAPENTIN 300 MG CAP PO SCH ×4 (08:59→20:38)
[2018-08-15] MEDS: ITRACONAZOLE 100 MG CAP (SPORANOX) PO SCH ×2 (08:59→20:39)
[2018-08-15] MEDS: DIGOXIN 0.25 MG TAB PO SCH (09:00)
[2018-08-15] MEDS: SANTYL OINT 30GM TOP SCH (09:00)
[2018-08-15] MEDS: ASPIRIN 81 MG ENTERIC TAB PO SCH (09:00)
[2018-08-15] MEDS: HEPARIN SOD (PORCINE) 5000 UNITS/ML VIAL SQ SCH ×2 (09:00→20:39)
--- NOTE | 2018-08-15 10:59 | IPNPDOC ---
Subjective Date Seen The patient was seen on 08/15/18. Subjective Chief Complaint/HPI Patient seen and examined the bedside this morning. Reports that she was feeling anxious this morning. She was requiring a higher concentration of oxygen this morning, but this was down titrated after she was able to calm down. The patient denies any worsening cough, congestion, or complaints of chest pain, palpitations. Objective Physical Examination General Exam: Positive: Alert, Cooperative, Mild Distress (2/2 anxiety) ENT Exam: Positive: Atraumatic, Mucous membr. moist/pink Chest Exam: Positive: Diminished Heart Exam: Positive: Rate Normal, Normal S1, Normal S2 Abdomen Exam: Positive: Soft; Negative: Tenderness Extremity Exam: Negative: Tenderness, Swelling Psych Exam: Positive: Oriented x 3 Assessment /Plan Plan/VTE VTE Prophylaxis Ordered?: Yes Plan Shortness of breath, Acute on Chronic Hypoxic Respiratory Failure 2/2 Multifactorial Etiology; Aspergillosis Fumigatus Cavitary Lung Lesion, underlying COPD, Hx of Lung Ca Appreciate Pulmonary and ID input We will cont Cont Itraconazole, Steroids, Serial Nebs Repeat CT Chest on 08/10/17 revealed new RLL consolidation concern for PNA Patient on Meropenem, on Bactrim for PCP prophylaxis We will cont to monitor respiratory status--I did discuss my concern of re- hospitalization(s) in the future due to decompensat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 The patient's pulmonary status is rather tenuous overall given the aforementioned factors. The patient has verbalized understanding of the same, and would like to continue trying to rehabilitate with subacute rehabilitation, in the hopes of ideally returning home in the near future. Hemoptysis - likely 2/2 above Hgb remains stable Antifungal treatment c/w incentive spirometry Stage 2 Sacral Decubitus Ulcer Cont Wound Care Normocytic Anemia s/p 2 units PRBC c/w Ferrous sulfate H&H has remained stable thereafter A. 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 Hypothyroidism Levothyroxine Neuropathy Gabapentin DVT prophylaxis Heparin SC Poor [employer] Prognosis Code Status: DNR/DNI Dispo--Patient to subacute rehab possibly on 08/17/18 VS, I&O, 24H, Ximena Vital Signs/I&O Vital Signs Date Time Temp Pulse Resp B/P (MAP) Pulse Ox O2 Delivery O2 Flow Rate FiO2 08/15/18 09:28 20 08/15/18 09:00 109 08/15/18 08:59 121/85 08/15/18 06:00 96.2 83 Nasal Cannula 3.0 I&O- Last 24 Hours up to 6 AM 08/15/18 06:00 Intake Total 650 ml Output Total 1300 ml Balance -650 ml Laboratory Data 24H LABS Laboratory Tests 2 08/15/18 05:51: Nucleated Red Blood Cells % (auto) 0.0, Anion Gap 10, Glomerular Filtration Rate > 60.0, Blood Urea Nitrogen 19H, Creatinine 0.36L, Sodium Level 139, Potassium Level 3.6, Chloride Level 102, Carbon Dioxide Level 27, Calcium Level 8.4L, Magnesium Level 2.0, C-Reactive Protein, Quantitative 14.40H CBC/BMP Laboratory Tests 08/15/18 05:51 Red Blood Count 3.48 L, Mean Corpuscular Volume 96.0, Mean Corpuscular Hemoglobin 30.5, Mean Corpuscular Hemoglobin Concent 31.7 L, Red Cell Di stribution Width 16.9 H, Calcium Level 8.4 L Microbiology Microbiology 08/11/18 Gram Stain - Final, Complete 08/11/18 Sputum Culture - Final, Complete SANDI ORTEGA MD Aug 15, 2018 10:59
[2018-08-15] MEDS: FERROUS SULFATE 325MG TAB PO SCH (12:00)
[2018-08-15] MEDS: MULTIVITAMINS/MINERALS THERAP 1 TAB PO SCH (12:13)
[2018-08-15 13:29] VITALS: O2SAT 94
[2018-08-15 14:00] VITALS: BP 86/50
[2018-08-15] MEDS: ACETAMINOPHEN TAB 650MG DOSE (2X325MG) PO PRN ×2 (14:43→20:58)
[2018-08-15] MEDS: ATORVASTATIN 10 MG TAB PO SCH (20:38)
[2018-08-15 22:00] VITALS: BP 103/58
[2018-08-16] MEDS: IPRATROPIUM 0.5MG/ALBUTEROL 2.5MG INH SOL UD 3ML (DUONEB)(J7620) NEB SCH ×5 (03:13→21:09)
[2018-08-16] MEDS: MEROPENEM INJ 1 GM in APPROPRIATE DILUENT 1 EA IV SCH ×3 (04:59→20:37)
[2018-08-16] MEDS: oxyCODONE 5MG TAB PO PRN ×3 (05:00→20:39)
[2018-08-16] MEDS: LEVOTHYROXINE 100MCG TABLET (0.1MG) PO SCH (05:51)
[2018-08-16] MEDS: SLF 3 ML SYR IV SCH ×3 (05:52→22:00)
[2018-08-16 06:00] VITALS: BP 108/53
[2018-08-16 06:10] LABS: HEMATOCRIT 31.7 % (36.0-47.0); MEAN CORPUSCULAR HEMOGLOBIN 30.5 pg (27.0-33.0); MEAN CORPUSCULAR HGB CONC 31.5 g/dl (32.0-36.5); MEAN CORPUSCULAR VOLUME 96.6 fl (80.0-96.0); PLATELET COUNT, AUTOMATED 236 10^3/uL (150-450); RED BLOOD COUNT 3.28 10^6/uL (4.00-5.40); WHITE BLOOD COUNT 10.4 10^3/uL (4.0-10.0)
[2018-08-16 06:37] LABS: BLOOD UREA NITROGEN 29 MG/DL (7-18); CALCIUM LEVEL 8.5 MG/DL (8.8-10.2); CARBON DIOXIDE LEVEL 30 MEQ/L (21-32); CHLORIDE LEVEL 104 MEQ/L (98-107); CREATININE FOR GFR 0.37 MG/DL (0.55-1.30); GLOMERULAR FILTRATION RATE > 60.0 (>39); GLUCOSE, FASTING 105 MG/DL (70-100); MAGNESIUM LEVEL 2.3 MG/DL (1.8-2.4); SODIUM LEVEL 141 MEQ/L (136-145)
[2018-08-16] MEDS: predniSONE 10 MG TAB PO SCH (08:46)
[2018-08-16] MEDS: GABAPENTIN 300 MG CAP PO SCH ×4 (08:46→20:37)
[2018-08-16] MEDS: DIGOXIN 0.25 MG TAB PO SCH (08:46)
[2018-08-16] MEDS: ASPIRIN 81 MG ENTERIC TAB PO SCH (08:47)
[2018-08-16] MEDS: ITRACONAZOLE 100 MG CAP (SPORANOX) PO SCH ×2 (08:47→20:36)
[2018-08-16] MEDS: ATENOLOL 12.5MG PER 1/2 TABLET PO SCH (08:47)
[2018-08-16] MEDS: HEPARIN SOD (PORCINE) 5000 UNITS/ML VIAL SQ SCH ×2 (08:48→20:41)
[2018-08-16] MEDS: SANTYL OINT 30GM TOP SCH (08:48)
[2018-08-16] MEDS: MULTIVITAMINS/MINERALS THERAP 1 TAB PO SCH (12:47)
[2018-08-16] MEDS: FERROUS SULFATE 325MG TAB PO SCH (12:47)
--- NOTE | 2018-08-16 13:10 | IPNPDOC ---
Subjective Date Seen The patient was seen on 08/16/18. Subjective Chief Complaint/HPI Patient seen and examined at the bedside. Her oxygen requirement tends to increase in the mornings when she feels the most anxious. She denies any worsening of cough or congestion. After supportive treatment, the patient's supplemental oxygen has been down tapered, and she states that she's been feeling better. Objective Physical Examination General Exam: Positive: Alert, Cooperative, No Acute Distress ENT Exam: Positive: Atraumatic, Mucous membr. moist/pink Chest Exam: Positive: Diminished Heart Exam: Positive: Rate Normal, Normal S1, Normal S2 Abdomen Exam: Positive: Soft; Negative: Tenderness Extremity Exam: Negative: Tenderness, Swelling Psych Exam: Positive: Oriented x 3 Assessment /Plan Plan/VTE VTE Prophylaxis Ordered?: Yes Plan Shortness of breath, Acute on Chronic Hypoxic Respiratory Failure 2/2 Multifactorial Etiology; Aspergillosis Fumigatus Cavitary Lung Lesion, underlyi ng COPD, Hx of Lung Ca Appreciate Pulmonary and ID input We will cont Cont Itraconazole, Steroids, Serial Nebs Repeat CT Chest on 08/10/17 revealed new RLL consolidation concern for PNA s/p Meropenem course completion, Bactrim for PCP prophylaxis We will cont to monitor respiratory status--I did discuss my concern of re- hospitalization(s) in the future and 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 The patient's pulmonary status is rather tenuous overall given the aforementioned factors. The patient has verbalized understanding of the same, and would like to continue try ing to rehabilitate with subacute rehabilitation, in the hopes of ideally returning home in the near future. Hemoptysis - likely 2/2 above Hgb remains stable Antifungal treatment c/w incentive spirometry Stage 2 Sacral Decubitus Ulcer Cont Wound Care Normocytic Anemia s/p 2 units PRBC c/w Ferrous sulfate H&H has remained stable thereafter A. 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 Hypothyroidism Levothyroxine Neuropathy Gabapentin DVT prophylaxis Heparin SC Poor Fci Prognosis Code Status: DNR/DNI Dispo--Patient to subacute rehab possibly on 08/17/18 VS, I&O, 24H, Fishbone Vital Signs/I&O Vital Signs Date Time Temp Pulse Resp B/P (MAP) Pulse Ox O2 Delivery O2 Flow Rate FiO2 08/16/18 09:48 18 Room Air 08/16/18 09:00 5.0 08/16/18 09:00 77 91 08/16/18 08:47 108/53 08/16/18 06:00 96.8 I&O- Last 24 Hours up to 6 AM 08/16/18 06:00 Intake Total 580 ml Output Total 400 ml Balance 180 ml Laboratory Data 24H LABS Laboratory Tests 2 08/16/18 05:52: Nucleated Red Blood Cells % (auto) 0.0, Anion Gap 7L, Glomerular Filtration Rate > 60.0, Blood Urea Nitrogen 29#H, Creatinine 0.37L, Sodium Level 141, Potassium Level 4.0, Chloride Level 104, Carbon Dioxide Level 30, Calcium Level 8.5L, Magnesium Level 2.3 CBC/BMP Laboratory Tests 08/16/18 05:52 Red Blood Count 3.28 L, Mean Corpuscular Volume 96.6 H, Mean Corpuscular Hemoglobin 30.5, Mean Corpuscular Hemoglobin Concent 31.5 L, Red Cell Distrib ution Width 16.6 H, Calcium Level 8.5 L Microbiology Microbiology 08/11/18 Gram Stain - Final, Complete 08/11/18 Sputum Culture - Final, Complete SANDI ORTEGA MD Aug 16, 2018 13:10
[2018-08-16 14:00] VITALS: BP 100/55
[2018-08-16] MEDS: ATORVASTATIN 10 MG TAB PO SCH (20:37)
[2018-08-16 22:00] VITALS: BP 108/53
[2018-08-17] VITALS (7 sets, daily range): BP systolic 91–108; BP diastolic 53–58; O2SAT 83–95
[2018-08-17] MEDS: IPRATROPIUM 0.5MG/ALBUTEROL 2.5MG INH SOL UD 3ML (DUONEB)(J7620) NEB SCH ×7 (03:46→23:33)
[2018-08-17] MEDS: MEROPENEM INJ 1 GM in APPROPRIATE DILUENT 1 EA IV SCH (04:23)
[2018-08-17] MEDS: IPRATROPIUM 0.5MG/ALBUTEROL 2.5MG INH SOL UD 3ML (DUONEB)(J7620) NEB PRN (04:24)
[2018-08-17] MEDS: guaiFENesin/CODEINE SYRUP 5 ML UDC PO PRN (05:23)
[2018-08-17] MEDS: oxyCODONE 5MG TAB PO PRN ×2 (05:37→22:04)
[2018-08-17] MEDS: LEVOTHYROXINE 100MCG TABLET (0.1MG) PO SCH (05:37)
[2018-08-17] MEDS: SLF 3 ML SYR IV SCH ×3 (05:38→22:05)
[2018-08-17] MEDS: ASPIRIN 81 MG ENTERIC TAB PO SCH (08:42)
[2018-08-17] MEDS: GABAPENTIN 300 MG CAP PO SCH ×4 (08:42→22:03)
[2018-08-17] MEDS: DIGOXIN 0.25 MG TAB PO SCH (08:42)
[2018-08-17] MEDS: HEPARIN SOD (PORCINE) 5000 UNITS/ML VIAL SQ SCH ×2 (08:42→22:05)
[2018-08-17] MEDS: ITRACONAZOLE 100 MG CAP (SPORANOX) PO SCH ×2 (08:43→22:03)
[2018-08-17] MEDS: ATENOLOL 12.5MG PER 1/2 TABLET PO SCH (08:43)
[2018-08-17] MEDS: BACTRIM 160MG/800MG DS TAB PO SCH (08:43)
[2018-08-17] MEDS: SANTYL OINT 30GM TOP SCH (08:44)
[2018-08-17 09:09] LABS: HEMOGLOBIN 10.2 g/dl (12.0-15.5); MEAN CORPUSCULAR HEMOGLOBIN 30.4 pg (27.0-33.0); MEAN CORPUSCULAR HGB CONC 31.9 g/dl (32.0-36.5); MEAN CORPUSCULAR VOLUME 95.5 fl (80.0-96.0); PLATELET COUNT, AUTOMATED 244 10^3/uL (150-450); RED BLOOD COUNT 3.35 10^6/uL (4.00-5.40); WHITE BLOOD COUNT 8.7 10^3/uL (4.0-10.0)
[2018-08-17] MEDS: predniSONE 10 MG TAB PO SCH (09:29)
[2018-08-17 09:40] LABS: BLOOD UREA NITROGEN 25 MG/DL (7-18); CALCIUM LEVEL 8.5 MG/DL (8.8-10.2); CARBON DIOXIDE LEVEL 30 MEQ/L (21-32); CHLORIDE LEVEL 99 MEQ/L (98-107); CREATININE FOR GFR 0.34 MG/DL (0.55-1.30); GLOMERULAR FILTRATION RATE > 60.0 (>39); GLUCOSE, FASTING 91 MG/DL (70-100); POTASSIUM SERUM 4.1 MEQ/L (3.5-5.1); SODIUM LEVEL 137 MEQ/L (136-145)
--- NOTE | 2018-08-17 12:11 | IPNPDOC ---
Subjective Date Seen The patient was seen on 08/17/18. Subjective Chief Complaint/HPI No acute overnight events noted. Objective Physical Examination General Exam: Positive: Alert, Cooperative, No Acute Distress ENT Exam: Positive: Atraumatic, Mucous membr. moist/pink Chest Exam: Positive: Diminished Heart Exam: Positive: Rate Normal, Normal S1, Normal S2 Abdomen Exam: Positive: Soft; Negative: Tenderness Extremity Exam: Negative: Tenderness, Swelling Psych Exam: Positive: Oriented x 3 Assessment /Plan Plan/VTE VTE Prophylaxis Ordered?: Yes Plan Shortness of breath, Acute on Chronic Hypoxic Respiratory Failure 2/2 Multifactorial Etiology; Aspergillosis Fumigatus Cavitary Lung Lesion, underlying COPD, Hx of Lung Ca Appreciate Pulmonary and ID input We will cont Cont Itraconazole, Steroids, Serial Nebs Repeat CT Chest on 08/10/17 revealed new RLL consolidation concern for PNA s/p Meropenem course completion, Bactrim for PCP prophylaxis We will cont to monitor respiratory status--I did discuss my concern of re- hospitalization(s) in the future and poor half-way prognosis due to decompensat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 The patient's pulmonary status is rather tenuous overall given the aforementioned factors. The patient has verbalized understanding of the same, and would like to continue trying to rehabilitate with subacute rehabilitation, in the hopes of ideally returning home in the near future. Hemoptysis - likely 2/2 above Hgb remains stable Antifungal treatment c/w incentive spirometry Stage 2 Sacral Decubitus Ulcer Cont Wound Care Normocytic Anemia s/p 2 units PRBC c/w Ferrous sulfate H&H has remained stable thereafter A. 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 PFS on board, will f/u with their recommendations. VS, I&O, 24H, Fishbone Vital Signs/I&O Vital Signs Date Time Temp Pulse Resp B/P (MAP) Pulse Ox O2 Delivery O2 Flow Rate FiO2 08/17/18 08:43 107 115/60 08/17/18 08:28 83 Nasal Cannula 2.0 08/17/18 06:55 99.1 08/17/18 06:07 17 I&O- Last 24 Hours up to 6 AM 08/17/18 05:59 Intake Total 800 ml Output Total 800 ml Balance 0 ml Laboratory Data 24H LABS Laboratory Tests 2 08/17/18 08:46: Nucleated Red Blood Cells % (auto) 0.0, Anion Gap 8, Glomerular Filtration Rate > 60.0, Blood Urea Nitrogen 25H, Creatinine 0.34L, Sodium Level 137, Potassium Level 4.1, Chloride Level 99, Carbon Dioxide Level 30, Calcium Level 8.5L CBC/BMP Laboratory Tests 08/17/18 08:46 Red Blood Count 3.35 L, Mean Corpuscular Volume 95.5, Mean Corpuscular Hemoglobin 30.4, Mean Corpuscular Hemoglobin Concent 31.9 L, Red Cell Distribution Width 16.6 H, Calcium Level 8.5 L Microbiology Microbiology 08/11/18 Gram Stain - Final, Complete 08/11/18 Sputum Culture - Final, Complete SANDI ORTEGA MD Aug 17, 2018 12:11
[2018-08-17] MEDS: FERROUS SULFATE 325MG TAB PO SCH (13:27)
[2018-08-17] MEDS: MULTIVITAMINS/MINERALS THERAP 1 TAB PO SCH (13:27)
[2018-08-17] MEDS: ATORVASTATIN 10 MG TAB PO SCH (22:04)
[2018-08-18] VITALS (7 sets, daily range): BP systolic 82–101; BP diastolic 48–63
[2018-08-18] MEDS: LEVOTHYROXINE 100MCG TABLET (0.1MG) PO SCH (05:30)
[2018-08-18] MEDS: oxyCODONE 5MG TAB PO PRN (05:31)
[2018-08-18] MEDS: SLF 3 ML SYR IV SCH ×3 (06:00→22:00)
[2018-08-18] MEDS ORDERED: MORPHINE 4 MG/ML 1ML VIAL/SYRINGE (J2270) IV ONE (06:15)
[2018-08-18] MEDS: IPRATROPIUM 0.5MG/ALBUTEROL 2.5MG INH SOL UD 3ML (DUONEB)(J7620) NEB SCH ×5 (07:12→23:18)
[2018-08-18 08:28] LABS: BASO % 0.1 % (0.0-1.0); EOS # 0.1 10^3/uL (0.0-0.50); EOS % 0.8 % (0.0-3.0); HEMOGLOBIN 10.1 g/dl (12.0-15.5); LYMPH # 0.3 10^3/uL (1.5-4.5); LYMPH % 3.8 % (24.0-44.0); MEAN CORPUSCULAR HEMOGLOBIN 30.6 pg (27.0-33.0); MEAN CORPUSCULAR HGB CONC 31.6 g/dl (32.0-36.5); MONO # 0.2 10^3/uL (0.0-0.8); MONO % 2.6 % (0.0-5.0); NEUTROPHILS # 7.8 10^3/uL (1.8-7.7); NEUTROPHILS % 92.1 % (36.0-66.0); PLATELET COUNT, AUTOMATED 239 10^3/uL (150-450); WHITE BLOOD COUNT 8.5 10^3/uL (4.0-10.0)
[2018-08-18 09:01] LABS: BLOOD UREA NITROGEN 19 MG/DL (7-18); CALCIUM LEVEL 7.8 MG/DL (8.8-10.2); CARBON DIOXIDE LEVEL 29 MEQ/L (21-32); CHLORIDE LEVEL 101 MEQ/L (98-107); CREATININE FOR GFR 0.34 MG/DL (0.55-1.30); GLOMERULAR FILTRATION RATE > 60.0 (>39); GLUCOSE, FASTING 73 MG/DL (70-100); MAGNESIUM LEVEL 2.4 MG/DL (1.8-2.4); POTASSIUM SERUM 4.3 MEQ/L (3.5-5.1); SODIUM LEVEL 137 MEQ/L (136-145)
[2018-08-18] MEDS: DIGOXIN 0.25 MG TAB PO SCH ×2 (09:10→09:40)
[2018-08-18] MEDS: ASPIRIN 81 MG ENTERIC TAB PO SCH ×2 (09:10→09:40)
[2018-08-18] MEDS: ITRACONAZOLE 100 MG CAP (SPORANOX) PO SCH ×3 (09:10→22:29)
[2018-08-18] MEDS: predniSONE 10 MG TAB PO SCH ×2 (09:10→09:40)
[2018-08-18] MEDS: GABAPENTIN 300 MG CAP PO SCH ×5 (09:12→22:28)
[2018-08-18] MEDS: SANTYL OINT 30GM TOP SCH (09:12)
[2018-08-18] MEDS: HEPARIN SOD (PORCINE) 5000 UNITS/ML VIAL SQ SCH ×3 (09:12→21:00)
[2018-08-18] MEDS: ATENOLOL 12.5MG PER 1/2 TABLET PO SCH (09:41)
[2018-08-18] MEDS: MULTIVITAMINS/MINERALS THERAP 1 TAB PO SCH (12:55)
[2018-08-18] MEDS: FERROUS SULFATE 325MG TAB PO SCH (12:55)
[2018-08-18 13:02] LABS: ABG BASE EXCESS 3.9 (-2.0-2.0); ABG HCO3 27.9 MEQ/L (22.0-26.0); ABG O2 SATURATION 92.6 % (95.0-99.0); ABG PARTIAL PRESSURE CO2 40.1 mmHg (35.0-45.0); ABG STANDARD HCO3 27.8 MEQ/L (22.0-26.0); ABG TOTAL CO2 29.2 MEQ/L (23.0-31.0); ABG pH (ARTERIAL) 7.461 UNITS (7.350-7.450)
[2018-08-18] MEDS: NS 1,000 ML IV SCH (13:52)
[2018-08-18] MEDS ORDERED: SODIUM CHLORIDE 0.9% 1000ML IV ONE (15:15)
[2018-08-18] MEDS: ACETAMINOPHEN TAB 650MG DOSE (2X325MG) PO PRN (17:00)
[2018-08-18] MEDS ORDERED: methylPREDNISolone INJ 125 MG/2 ML VIAL (J2930) IV ONE (17:15)
[2018-08-18] MEDS: MEROPENEM INJ 1 GM in APPROPRIATE DILUENT 1 EA IV SCH (17:40)
--- NOTE | 2018-08-18 19:24 | IPN ---
DATE: 08/18/2018 SUBJECTIVE: Patient seen and examined in the room today in the morning. Patient is somewhat lethargic. Patient has some difficulty maintaining alertness and awakeness during encounter. Patient is alertness improved in the afternoon. Still complains about shortness of breath. No fever or chill. OBJECTIVE: Vital signs; temperature is 99.1, pulse is 105, respiration 22, blood pressure 97/63, pulse ox 90% on the Venti mask. ZOHAIB was titrated down to 7 liter nasal cannula. GENERAL: Patient has some difficulty maintaining alertness and awakeness in the morning. No acute distress. . HEENT: Normocephalic, atraumatic. CARDIOVASCULAR: Tachycardiac. Positive S1, S2, LUNGS: Diminished breath sounds on the left side. ABDOMEN: Soft, nontender. LABORATORY DATA: WBC 8.4, hemoglobin 10.1, hematocrit 32.6, platelet count is 239, Sodium is 137, potassium 413, chloride is 101, carbon dioxide 29, BUN 19, creatinine 0.34. Glomerular filtration rate (GFR) greater than 60. Fasting glucose 73, calcium 7.8, magnesium 2.4. C-reactive protein 21.5. ASSESSMENT AND PLAN: 1. Acute on chronic hypoxic respiratory failure. Patient is undergoing treatment for Aspergillosis cavitary lung lesion. Patient has underlying chronic obstructive pulmonary disease. Patient has a history of lung cancer status post lobectomy and suspect hospital acquired pneumonia. Patient is on broad spectrum antibiotics. Continue antifungal therapy. Continue on steroids. Poor long-term prognosis. Patient was hoping she will continue subacute rehabilitation after the current hospitalization. 2. Hemoptysis. Patient is being treated for cavitary lung lesion from the fungal infection. Continue antifungal therapy. 3. Stage 2 decubitus pressure lesions. Continue wound care. Will encourage increase in nutrition intake. However patient's oral intake has been very poor. 4. Atrial fibrillation status post pacemaker. On atenolol. On Digoxin. Anticoagulation. 5. Normocytic anemia. Patient has had hemoptysis from the lung lesion. Patient has had two blood transfusion since admission which occurred on 07/25 and 07/26. 6. History of stage 3 small cell lung cancer status post left upper lobe resection and chemoradiation in 2012. 7. Hypothyroidism. On Synthroid. 8. Deep vein thrombosis prophylaxis. On Heparin.
[2018-08-18] MEDS ORDERED: PILL CRUSHER/CUTTER 1 EACH XX PRN (22:15)
[2018-08-18] MEDS: ATORVASTATIN 10 MG TAB PO SCH (22:29)
[2018-08-19] MEDS: MEROPENEM INJ 1 GM in APPROPRIATE DILUENT 1 EA IV SCH ×3 (01:58→18:17)
[2018-08-19] MEDS: IPRATROPIUM 0.5MG/ALBUTEROL 2.5MG INH SOL UD 3ML (DUONEB)(J7620) NEB SCH ×5 (03:34→20:01)
[2018-08-19] MEDS: LEVOTHYROXINE 100MCG TABLET (0.1MG) PO SCH (05:15)
[2018-08-19] MEDS: SLF 3 ML SYR IV SCH ×3 (05:15→22:00)
[2018-08-19] MEDS: NS 1,000 ML IV SCH ×2 (05:23→18:17)
[2018-08-19 06:10] LABS: HEMATOCRIT 33.6 % (36.0-47.0); MEAN CORPUSCULAR HEMOGLOBIN 29.5 pg (27.0-33.0); MEAN CORPUSCULAR HGB CONC 29.8 g/dl (32.0-36.5); MEAN CORPUSCULAR VOLUME 99.1 fl (80.0-96.0); PLATELET COUNT, AUTOMATED 264 10^3/uL (150-450); RED BLOOD COUNT 3.39 10^6/uL (4.00-5.40); WHITE BLOOD COUNT 5.6 10^3/uL (4.0-10.0)
[2018-08-19 06:44] LABS: ALBUMIN 1.7 GM/DL (3.2-5.2); ALT/SGPT 31 U/L (12-78); BILIRUBIN,DIRECT 0.2 MG/DL (0.0-0.2); BILIRUBIN,TOTAL 0.3 MG/DL (0.2-1.0); BLOOD UREA NITROGEN 25 MG/DL (7-18); CALCIUM LEVEL 8.1 MG/DL (8.8-10.2); CARBON DIOXIDE LEVEL 26 MEQ/L (21-32); CHLORIDE LEVEL 107 MEQ/L (98-107); GLOMERULAR FILTRATION RATE > 60.0 (>39); GLUCOSE, FASTING 105 MG/DL (70-100); MAGNESIUM LEVEL 2.6 MG/DL (1.8-2.4); POTASSIUM SERUM 4.4 MEQ/L (3.5-5.1); PREALBUMIN 8.2 MG/DL (20.0-40.0); SODIUM LEVEL 144 MEQ/L (136-145); TOTAL PROTEIN 6.1 GM/DL (6.4-8.2)
--- NOTE | 2018-08-19 08:20 | IPN ---
DATE OF SERVICE: 08/18/2018 Alisha does not look good today. She complains of severe shortness of breath, significant wheezing, cough mostly nonproductive. No hemoptysis. She looks exhausted. She had multiple conversations with Dr. Jerome asking to continue care. She has received 7 days of IV meropenem which was discontinued yesterday. Her prednisone dose has been tapered down to 10 mg. She has refused all her oral medications. On physical exam, frail looking female in moderate discomfort. Temperature is 97.4, pulse 106, respirations 22 with O2 sat of 7, blood pressure 82/40. Heart: Normal S1, S2 tachycardiac. Lungs: Diffuse expiratory wheezes bilaterally. Abdomen is soft, nontender. No hepatosplenomegaly. Extremities: Trace edema. IMPRESSION: Acute on chronic respiratory failure with worsening wheezing since she has been tapered off her steroids. She is down to 10 mg daily. The patient would benefit from increased dose of Solu-Medrol. I gave her a dose of 60 mg IV x1 dose tonight until primary care takes over her prednisone. I think she has been tapered to fast. She went down from a dose of 30 mg to 10. Hospital-acquired pneumonia. The patient has finished 7-day course of IV meropenem. Will continue as her status has decompensated even though sputum culture has been negative. Cavitary pneumonia with Itraconazole. Today the patient could not take her pills. PLAN: The patient prognosis is poor with no hopes for recovery due to severe pulmonary disease, history of lung cancer, previous surgery, left upper lobe resection, advanced COPD and persistent fungal infection. Will continue discussing hospice care.
[2018-08-19 08:41] VITALS: BP 109/60
[2018-08-19] MEDS: ITRACONAZOLE 100 MG CAP (SPORANOX) PO SCH ×2 (08:42→22:12)
[2018-08-19] MEDS: ATENOLOL 12.5MG PER 1/2 TABLET PO SCH (08:43)
[2018-08-19] MEDS: DIGOXIN 0.25 MG TAB PO SCH (08:43)
[2018-08-19] MEDS: GABAPENTIN 300 MG CAP PO SCH ×4 (08:44→22:12)
[2018-08-19] MEDS: predniSONE 20 MG TAB PO SCH (08:44)
[2018-08-19] MEDS: BACTRIM 160MG/800MG DS TAB PO SCH (08:44)
[2018-08-19] MEDS: ACETAMINOPHEN TAB 650MG DOSE (2X325MG) PO PRN ×2 (08:44→13:40)
[2018-08-19] MEDS: ASPIRIN 81 MG ENTERIC TAB PO SCH (08:44)
[2018-08-19] MEDS: SANTYL OINT 30GM TOP SCH ×2 (08:46→22:13)
[2018-08-19] MEDS: HEPARIN SOD (PORCINE) 5000 UNITS/ML VIAL SQ SCH ×2 (08:46→22:12)
[2018-08-19] MEDS: IPRATROPIUM 0.5MG/ALBUTEROL 2.5MG INH SOL UD 3ML (DUONEB)(J7620) NEB PRN (09:46)
[2018-08-19 09:59] VITALS: BP 125/64
[2018-08-19] MEDS: MULTIVITAMINS/MINERALS THERAP 1 TAB PO SCH (13:39)
[2018-08-19] MEDS: FERROUS SULFATE 325MG TAB PO SCH (13:39)
[2018-08-19 14:10] VITALS: BP 113/62
[2018-08-19 18:15] VITALS: BP 112/64
--- NOTE | 2018-08-19 18:42 | IPNPDOC ---
Text Note Date of Service The patient was seen on 08/19/18. NOTE SUBJECTIVE: Patient is seen and examined in the room today in the morning. Patient continues having poor oral intake. Patient also has been skipping her Ensure supplements. Patient states she has been feeling weak. Patient refused TPN or tube feeding. Patient want to try oral intake only. No fever or chill. OBJECTIVE: Vital signs: Listed below. GENERAL: Significant fatigue. Alert and awake. No acute distress. . HEENT: Normocephalic, atraumatic. CARDIOVASCULAR: Tachycardiac. Positive S1, S2, LUNGS: Diminished breath sounds on the left side. ABDOMEN: Soft, nontender. EXTREMITY: No edema. LABORATORY DATA: Listed below. ASSESSMENT AND PLAN: #. Acute on chronic hypoxic respiratory failure. - Patient has underlying chronic obstructive pulmonary disease. Patient has a hi story of lung cancer status post lobectomy - Patient is undergoing treatment for Aspergillosis cavitary lung lesion and suspected hospital acquired pneumonia. Patient is on broad spectrum antibiotics. Continue antifungal therapy. Continue on steroids. 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 Patient hopes she will continue subacute rehabilitation after the current hospitalization but patient has declined physical therapy in the past few days. . # Severe protein malnutrition - Patient has had poor oral intake. TPN or Tube feeding suggested but patient refused. # Hypotension. - Limited oral intake. On IV fluid support. #. Hemoptysis. Patient is being treated for cavitary lung lesion from the fungal infection. Continue antifungal therapy. #. Stage 2 decubitus pressure lesions. - Continue wound care. Will encourage increase in nutrition intake. However patient's oral intake has been very poor. #. Atrial fibrillation status post pacemaker. - On atenolol. On Digoxin. Anticoagulation. #. Normocytic anemia. - Patient has had hemoptysis from the lung lesion. Patient has had two blood transfusion since admission which occurred on 07/25 and 07/26. #. History of stage 3 small cell lung cancer - status post left upper lobe resection and chemoradiation in 2012. # Hypothyroidism. On Synthroid. #. Deep vein thrombosis prophylaxis. On Heparin. VS,Fishbone, I+O VS, Fishbone, I+O Laboratory Tests 08/19/18 05:31 Red Blood Count 3.39 L, Mean Corpuscular Volume 99.1 H, Mean Corpuscular Hemoglobin 29.5, Mean Corpuscular Hemoglobin Concent 29.8 L, Red Cell Distribution Width 16.3 H Vital Signs Date Time Temp Pulse Resp B/P (MAP) Pulse Ox O2 Delivery O2 Flow Rate FiO2 08/19/18 14:10 97.5 97 18 113/62 (79) 95 Nasal Cannula 3.0 08/18/18 07:49 50 I&O- Last 24 Hours up to 6 AM 08/19/18 06:00 Intake Total 110 ml Output Total 0 ml Balance 110 ml DEEPA POWELL DO Aug 19, 2018 18:42
[2018-08-19 22:00] VITALS: BP 108/55
[2018-08-19] MEDS: ATORVASTATIN 10 MG TAB PO SCH (22:12)
[2018-08-20 02:00] VITALS: BP 106/36
[2018-08-20] MEDS: MEROPENEM INJ 1 GM in APPROPRIATE DILUENT 1 EA IV SCH ×3 (02:22→17:53)
[2018-08-20] MEDS: LEVOTHYROXINE 100MCG TABLET (0.1MG) PO SCH (05:32)
[2018-08-20] MEDS: SLF 3 ML SYR IV SCH ×3 (05:33→21:51)
[2018-08-20 06:00] VITALS: BP_SYST 125; BP_SYST 131; BP_DIAS 60; BP_DIAS 70
[2018-08-20 06:27] LABS: HEMATOCRIT 27.6 % (36.0-47.0); HEMOGLOBIN 8.8 g/dl (12.0-15.5); MEAN CORPUSCULAR HEMOGLOBIN 30.8 pg (27.0-33.0); MEAN CORPUSCULAR HGB CONC 31.9 g/dl (32.0-36.5); MEAN CORPUSCULAR VOLUME 96.5 fl (80.0-96.0); PLATELET COUNT, AUTOMATED 308 10^3/uL (150-450); RED BLOOD COUNT 2.86 10^6/uL (4.00-5.40); WHITE BLOOD COUNT 6.9 10^3/uL (4.0-10.0)
[2018-08-20] MEDS: oxyCODONE 5MG TAB PO PRN ×3 (06:36→21:49)
[2018-08-20] MEDS: NS 1,000 ML IV SCH (06:39)
[2018-08-20 06:56] LABS: BLOOD UREA NITROGEN 26 MG/DL (7-18); CALCIUM LEVEL 7.3 MG/DL (8.8-10.2); CARBON DIOXIDE LEVEL 27 MEQ/L (21-32); CHLORIDE LEVEL 110 MEQ/L (98-107); GLOMERULAR FILTRATION RATE > 60.0 (>39); GLUCOSE, FASTING 104 MG/DL (70-100); MAGNESIUM LEVEL 2.2 MG/DL (1.8-2.4); POTASSIUM SERUM 4.4 MEQ/L (3.5-5.1); PREALBUMIN 8.9 MG/DL (20.0-40.0); SODIUM LEVEL 145 MEQ/L (136-145)
[2018-08-20] MEDS: IPRATROPIUM 0.5MG/ALBUTEROL 2.5MG INH SOL UD 3ML (DUONEB)(J7620) NEB SCH ×5 (07:09→20:00)
[2018-08-20] MEDS: ITRACONAZOLE 100 MG CAP (SPORANOX) PO SCH ×2 (09:33→21:51)
[2018-08-20] MEDS: ASPIRIN 81 MG ENTERIC TAB PO SCH (09:34)
[2018-08-20] MEDS: GABAPENTIN 300 MG CAP PO SCH ×4 (09:34→21:50)
[2018-08-20] MEDS: predniSONE 20 MG TAB PO SCH (09:34)
[2018-08-20] MEDS: DIGOXIN 0.25 MG TAB PO SCH (09:38)
[2018-08-20] MEDS: ATENOLOL 12.5MG PER 1/2 TABLET PO SCH (09:38)
[2018-08-20] MEDS: HEPARIN SOD (PORCINE) 5000 UNITS/ML VIAL SQ SCH ×2 (09:39→21:51)
[2018-08-20] MEDS: ACETAMINOPHEN TAB 650MG DOSE (2X325MG) PO PRN ×3 (09:41→23:55)
[2018-08-20 10:00] VITALS: BP 123/68
[2018-08-20] MEDS: FERROUS SULFATE 325MG TAB PO SCH (12:43)
[2018-08-20] MEDS: MULTIVITAMINS/MINERALS THERAP 1 TAB PO SCH (12:43)
[2018-08-20 14:00] VITALS: BP 122/66
[2018-08-20 14:35] LABS: EOS % 0.2 % (0.0-3.0); HEMATOCRIT 28.7 % (36.0-47.0); HEMOGLOBIN 9.2 g/dl (12.0-15.5); LYMPH % 1.6 % (24.0-44.0); MEAN CORPUSCULAR HEMOGLOBIN 31.2 pg (27.0-33.0); MEAN CORPUSCULAR HGB CONC 32.1 g/dl (32.0-36.5); MEAN CORPUSCULAR VOLUME 97.3 fl (80.0-96.0); MONO # 0.2 10^3/uL (0.0-0.8); MONO % 2.8 % (0.0-5.0); NEUTROPHILS # 5.5 10^3/uL (1.8-7.7); NEUTROPHILS % 94.7 % (36.0-66.0); PLATELET COUNT, AUTOMATED 311 10^3/uL (150-450); RED BLOOD COUNT 2.95 10^6/uL (4.00-5.40); WHITE BLOOD COUNT 5.8 10^3/uL (4.0-10.0)
[2018-08-20 15:08] LABS: LYMPH # 0.1 10^3/uL (1.5-4.5)
--- NOTE | 2018-08-20 17:39 | IPNPDOC ---
Text Note Date of Service The patient was seen on 08/20/18. NOTE SUBJECTIVE: Patient is seen and examined in the room today. Patient starts having more oral intakes with frequent encouragement. Patient agrees to participate with PT more. OBJECTIVE: Vital signs: Listed below. GENERAL: Alert and awake. No acute distress. . HEENT: Normocephalic, atraumatic. CARDIOVASCULAR: Tachycardiac. Positive S1, S2, LUNGS: Diminished breath sounds on the left side. ABDOMEN: Soft, nontender. EXTREMITY: No edema. LABORATORY DATA: Listed below. ASSESSMENT AND PLAN: #. Acute on chronic hypoxic respiratory failure. - Patient has underlying chronic obstructive pulmonary disease. Patient has a history of lung cancer status post lobectomy - Patient is undergoing treatment for Aspergillosis cavitary lung lesion and suspected hospital acquired pneumonia. Patient is on broad spectrum antibiotics. Continue antifungal therapy. Continue on steroids. Poor care home prognosis. Patient hopes she will continue subacute rehabilitation after the current hos pitalization but patient has declined physical therapy in the past few days. . # Severe protein malnutrition - Patient has had poor oral intake. TPN or Tube feeding suggested but patient refused. Patient agrees to increase oral intake as tolerated. # Hypotension. - With some improvement of oral intake, blood pressure has been improving. Will discontinue IV fluid. #. Hemoptysis. Patient is being treated for cavitary lung lesion from the fungal infection. Continue antifungal therapy. #. Stage 2 decubitus pressure lesions. - Continue wound care. Will encourage increase in nutrition intake. H #. Atrial fibrillation status post pacemaker. - On atenolol. On Digoxin. Anticoagulation. #. Normocytic anemia. - Patient has had hemoptysis from the lung lesion. Patient has had two blood transfusion since admission which occurred on 07/25 and 07/26. #. History of stage 3 small cell lung cancer - status post left upper lobe resection and chemoradiation in 2012. # Hypothyroidism. On Synthroid. #. Deep vein thrombosis prophylaxis. On Heparin. VS,Fishbone, I+O VS, Fishbone, I+O Laboratory Tests 08/20/18 05:52 Red Blood Count 2.86 L, Mean Corpuscular Volume 96.5 H, Mean Corpuscular Hemoglobin 30.8, Mean Corpuscular Hemoglobin Concent 31.9 L, Red Cell Distribution Width 16.4 H, Calcium Level 7.3 L 08/20/18 13:59 Red Blood Count 2.95 L, Mean Corpuscular Volume 97.3 H, Mean Corpuscular Hemoglobin 31.2, Mean Corpuscular Hemoglobin Concent 32.1, Red Cell Distribution Width 16.6 H, Neutrophils (%) (Auto) 94.7 H, Lymphocytes (%) (Auto) 1.6 L, Monocytes (%) (Auto) 2.8, Eosinophils (%) (Auto) 0.2, Basophils (%) (Auto) 0.0, Neutrophils # (Auto) 5.5, Lymphocytes # (Auto) 0.1 L, Monocytes # (Auto) 0.2, Eosinophils # (Auto) 0.0, Basophils # (Auto) 0.0 Vital Signs Date Time Temp Pulse Resp B/P (MAP) Pulse Ox O2 Delivery O2 Flow Rate FiO2 08/20/18 15:30 95 Nasal Cannula 2.0 08/20/18 14:00 97.7 75 18 122/66 (84) 08/18/18 07:49 50 I&O- Last 24 Hours up to 6 AM 08/20/18 06:00 Intake Total 2976 ml Balance 2976 ml DEEPA POWELL DO Aug 20, 2018 17:39
[2018-08-20] MEDS: ATORVASTATIN 10 MG TAB PO SCH (21:50)
[2018-08-20 22:00] VITALS: BP 115/66
[2018-08-21 02:00] VITALS: BP 129/72
[2018-08-21] MEDS: MEROPENEM INJ 1 GM in APPROPRIATE DILUENT 1 EA IV SCH ×2 (03:59→09:34)
[2018-08-21] MEDS: IPRATROPIUM 0.5MG/ALBUTEROL 2.5MG INH SOL UD 3ML (DUONEB)(J7620) NEB SCH ×5 (04:00→11:28)
[2018-08-21] MEDS: oxyCODONE 5MG TAB PO PRN ×2 (04:06→09:37)
[2018-08-21] MEDS: LEVOTHYROXINE 100MCG TABLET (0.1MG) PO SCH (05:30)
[2018-08-21] MEDS: ACETAMINOPHEN TAB 650MG DOSE (2X325MG) PO PRN (05:30)
[2018-08-21] MEDS: SLF 3 ML SYR IV SCH ×3 (05:31→21:33)
[2018-08-21 06:00] VITALS: BP 146/86
[2018-08-21 06:31] LABS: HEMATOCRIT 30.3 % (36.0-47.0); HEMOGLOBIN 9.7 g/dl (12.0-15.5); MEAN CORPUSCULAR HEMOGLOBIN 30.3 pg (27.0-33.0); MEAN CORPUSCULAR VOLUME 94.7 fl (80.0-96.0); PLATELET COUNT, AUTOMATED 375 10^3/uL (150-450); WHITE BLOOD COUNT 5.3 10^3/uL (4.0-10.0)
[2018-08-21 07:00] LABS: BLOOD UREA NITROGEN 21 MG/DL (7-18); CALCIUM LEVEL 7.9 MG/DL (8.8-10.2); CARBON DIOXIDE LEVEL 28 MEQ/L (21-32); CHLORIDE LEVEL 105 MEQ/L (98-107); CREATININE FOR GFR 0.32 MG/DL (0.55-1.30); GLOMERULAR FILTRATION RATE > 60.0 (>39); GLUCOSE, FASTING 72 MG/DL (70-100); MAGNESIUM LEVEL 2.2 MG/DL (1.8-2.4); POTASSIUM SERUM 4.1 MEQ/L (3.5-5.1); SODIUM LEVEL 140 MEQ/L (136-145)
[2018-08-21] MEDS: ASPIRIN 81 MG ENTERIC TAB PO SCH (09:31)
[2018-08-21] MEDS: BACTRIM 160MG/800MG DS TAB PO SCH (09:31)
[2018-08-21] MEDS: predniSONE 20 MG TAB PO SCH (09:31)
[2018-08-21] MEDS: GABAPENTIN 300 MG CAP PO SCH (09:32)
[2018-08-21] MEDS: ITRACONAZOLE 100 MG CAP (SPORANOX) PO SCH (09:34)
[2018-08-21 09:36] VITALS: BP 137/86
[2018-08-21] MEDS: DIGOXIN 0.25 MG TAB PO SCH (09:36)
[2018-08-21] MEDS: ATENOLOL 12.5MG PER 1/2 TABLET PO SCH (09:36)
[2018-08-21] MEDS: HEPARIN SOD (PORCINE) 5000 UNITS/ML VIAL SQ SCH (09:37)
[2018-08-21] MEDS ORDERED: ALPRAZolam 0.25 MG TAB PO ONE (09:45)
[2018-08-21] MEDS: SANTYL OINT 30GM TOP SCH (09:55)
--- NOTE | 2018-08-21 10:20 | REP ---
Chest one-view HISTORY: Dyspnea Comparison: 07/31/2018 There is loss of volume in the left hemithorax. There are parenchymal densities in the left lung unchanged compared to the previous study. Patchy density is present in the right upper and lower lobes consistent with an infiltrate that is increased compared to the previous study. A small right pleural effusion is present that is increased compared to the previous study. present in the left hemithorax consistent with The heart is normal in size. The pulmonary vasculature is normal in appearance. A cardiac pacemaker is present. Impression: 1. Right upper and lower lobe infiltrate increased compared to the previous study. 2. Small right pleural effusion increased compared to the previous study. 2. Chronic parenchymal changes are present in the right hemithorax. Electronically Signed by Shawn Ruff MD 08/21/2018 10:12 A
[2018-08-21 11:28] LABS: ABG BASE EXCESS -1.4 (-2.0-2.0); ABG HCO3 29.3 MEQ/L (22.0-26.0); ABG O2 SATURATION 98.8 % (95.0-99.0); ABG PARTIAL PRESSURE O2 171.2 mmHg (75.0-100.0); ABG STANDARD HCO3 23.4 MEQ/L (22.0-26.0); ABG TOTAL CO2 31.9 MEQ/L (23.0-31.0)
[2018-08-21 11:34] LABS: ABG PARTIAL PRESSURE CO2 86.7 mmHg (35.0-45.0); ABG pH (ARTERIAL) 7.146 UNITS (7.350-7.450)
--- NOTE | 2018-08-21 11:42 | IPN ---
DATE: 08/20/2018 Alisha was seen around supper time. She was sitting up in her bed in a good mood. Her brother was visiting. She stated she feels much better today. She was able to get of bed in her chair and has eaten a little more. She drinks about two to three Ensures a day. She complains of swelling of the left arm. On physical exam temperature is 98.7, pulse 83, respirations 20, blood pressure 115/66, O2 sat 92% on 2 liters nasal cannula. Heart: Normal S1-S2 with no murmurs. Lungs: Diminished on the left side especially left base, poor air entry. Few expiratory wheezes. Abdomen is soft, nontender. No hepatosplenomegaly. Extremities: Trace ankle edema bilaterally. Left arm mild swelling. Oropharynx is clear with no lesions. LABORATORY DATA: White count is 5.8, hemoglobin 9.2, hematocrit 28.7, platelets 311, 94% neutrophils, 1% lymphocytes, 2% monocytes. Sodium 145, potassium 4.4, chloride 110, bicarb 27, BUN 26, creatinine 0.4, glucose 104, calcium 7.3, magnesium 2.2, prealbumin 8.9. Itraconazole level was 0.5 on August 07. MEDICATIONS: IV meropenem 1 gram every 8 hours currently day #10, prednisone 20 mg daily. IMPRESSION: 1. Cavitary pneumonia due to aspergillosis on itraconazole tolerating well with no rash. Itraconazole trough level is 0.5. 2. Healthcare associated pneumonia on IV meropenem currently day #10 out of 14. 3. Severe chronic obstructive pulmonary artery disease (COPD) with chronic respiratory failure. The patient's dose of prednisone was increased back to 20 mg with marked improvement in her symptoms. 4. Hemoptysis has resolved due to from cavitary lung lesion. PLAN: Continue current management. Keep her on prednisone 20 mg, Bactrim for PCP prophylaxis. Continue itraconazole for 6 months.
[2018-08-21] MEDS ORDERED: methylPREDNISolone INJ 125 MG/2 ML VIAL (J2930) IV ONE (12:00)
[2018-08-21] MEDS ORDERED: FUROSEMIDE 40 MG/4 ML VIAL (J1940) IV ONE (12:00)
[2018-08-21] MEDS: FERROUS SULFATE 325MG TAB PO SCH (12:14)
[2018-08-21] MEDS: MULTIVITAMINS/MINERALS THERAP 1 TAB PO SCH (12:14)
[2018-08-21] MEDS ORDERED: SCOPOLAMINE 1MG TRANSDERMAL PATCH TOP PRN (14:45)
[2018-08-21] MEDS ORDERED: LORazepam 1 MG TAB PO PRN (14:45)
[2018-08-21] MEDS: MORPHINE 10MG/0.5ML ORAL CONCENTRATE SOLUTION U/D SL PRN ×2 (18:18→21:31)
[2018-08-21] MEDS: LORazepam 2 MG/ML VIAL (J2060) IV PRN (22:23)
--- NOTE | 2018-08-21 22:44 | IPN ---
DATE: 08/21/2018 SUBJECTIVE: The patient is seen and examined multiple times in the room. In the morning, the patient started demonstrating increased anxiety and agitation. Patient started to demonstrate worsening shortness of breath to the point the patient started demonstrating agonal breathing. There was a certain point patient was not answering questions or following commands. Patient demonstrated significant desaturations. Even with Ventimask and nonrebreather, demonstrated low level of oxygenation. Patient was not responsive and so the patient's family members, including patient's son and the brothers, were contacted. However, there was no immediate response. The patient demonstrated acute on chronic respiratory failure with critical hypercarbic pulmonary acidosis. The case was discussed with the chamber worker, and the patient is being transferred to the intensive care unit (ICU). Later, I was able to get in touch with the patient's proxy, the patient's son, Mr. Ethan Erickson, and he understands the patient has a poor long-term prognosis, and he wanted the patient to be comfortable and the Medical Orders for Life-Sustaining Treatment (MOLST) form is updated to comfort measures only with verbal consent. The patient was transferred back to medical-surgical with comfort measures. The patient's son was driving from [place] to [facility]. I had a long discussion with him again regarding patient's clinical progression, and he feels the patient would really benefit from comfort measures. All questions were answered. VITAL SIGNS: Temperature is 96.8, pulse is 90, respiratory rate greater than 20. At the critical time, the patient had a saturation of 66% while the patient was on 15 liter Ventimask. LABORATORY DATA: WBC 5.3, hemoglobin 9.7, hematocrit 30.3, platelet count 375. Sodium is 140, potassium 4.1, chloride 105, carbon dioxide 28, BUN is 21, creatinine is 0.32, GFR greater than 60, fasting glucose 72, calcium 7.9, and magnesium 2.2. ABG showed pH of 7.146, pCO2 is 86.7, pO2 is 171.2, HCO3 is 29.3. IMAGING: Chest x-ray this morning demonstrated right upper and lower lobe infiltrate increased compared to previous study. Small right pleural effusion increased compared to the previous study. ASSESSMENT AND PLAN: 1. Acute on chronic hypoxic hypercapnic respiratory failure. 2. Severe protein malnutrition. 3. End-stage chronic obstructive pulmonary disease (COPD). 4. Lung fungal infection superimposed on bacterial pneumonia. 5. History of small cell lung cancer, status post lobectomy and chemoradiation. 6. Hypotension. 7. Hemoptysis. 8. Grade 2 decubitus pressure ulcer. 9. Atrial fibrillation. 10. Normocytic anemia. 11. Hypothyroidism. PLAN: Patient's condition remains critical. Discussed patient was not responsive, discussed with patient's proxy, her son, Mr. Ethan Erickosn. 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 Later, I had a discussion with patient's proxy and patient's brothers. All questions were answered. Continue to pursue with comfort measures. All time including family discussion: Greater than 1-1/2 hours.
[2018-08-22] MEDS: MORPHINE 10MG/0.5ML ORAL CONCENTRATE SOLUTION U/D SL PRN ×9 (00:20→23:32)
[2018-08-22] MEDS: LORazepam 2 MG/ML VIAL (J2060) IV PRN (01:07)
[2018-08-22] MEDS: SLF 3 ML SYR IV SCH ×3 (06:00→21:04)
--- NOTE | 2018-08-22 06:29 | IPN ---
DATE: 08/21/2018 Alisha was seen this morning. She was doing very poorly. She had a significant amount of congestion with cough and shortness of breath. She did not look well, stating that she has 10/10 chest pain. She is anxious and asking for some medication to help her calm down. Chest x-ray was ordered portable stat and showed right upper and right lower lobe infiltrate increased compared to previous study with a small right pleural effusion. On physical exam, temperature is 96.8, pulse 91, respirations 20, blood pressure 146/86, oxygen sat 80% on 5 liters. Heart: Normal S1 and S2, tachycardiac. Lungs: Diffuse exterior rhonchi bilaterally. Abdomen: Soft, nontender. Extremities: Trace edema. Moderate respiratory discomfort, looks exhausted. Labs: White count 5.3, hemoglobin 9.7, hematocrit 30.3, platelets 375. Sodium 140, potassium 4.1, chloride 105, bicarb 28, BUN 21, creatinine 0.32, glucose 72, calcium 7.9, magnesium 2.2. Medications: - meropenem 1 gram IV every 8 hours - itraconazole 200 mg by mouth twice a day - prednisone 20 mg daily IMPRESSION: 1. Respiratory failure with worsening healthcare associated pneumonia and non clearance of secretions. The patient is doing very poorly. At this point, I doubt she will make it through the day. She will continue on IV meropenem for the time being and steroids. 2. 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 Has failed treatment with itraconazole. 3. Severe chronic obstructive pulmonary disease (COPD) with respiratory failure. The patient has a medical orders for life-sustaining treatment (MOLST) form for a trial of noninvasive ventilation, but she should be made comfort measures instead as her prognosis is very poor. The patient was seen at 9:00 a.m.
[2018-08-22] MEDS: SANTYL OINT 30GM TOP SCH (09:00)
[2018-08-22] MEDS: LORazepam 1 MG TAB PO PRN ×2 (17:21→23:32)
--- NOTE | 2018-08-22 19:39 | IPNPDOC ---
Text Note Date of Service The patient was seen on 08/22/18. NOTE SUBJECTIVE: The patient is seen in the room. Patient has remain unresponsive. Patient's son has been in the hospital. He has noticed patient could not tolerate oral intake now. He requests the increase of pain medications to provide comfort. IMAGING: Chest x-ray from 08/21/18 demonstrated right upper and lower lobe infiltrate increased compared to previous study. Small right pleural effusion increased compared to the previous study. ASSESSMENT AND PLAN: #. Acute on chronic hypoxic hypercapnic respiratory failure. #. Severe protein malnutrition. #. End-stage chronic obstructive pulmonary disease (COPD). #. Lung fungal infection superimposed on bacterial pneumonia. #. History of small cell lung cancer, status post lobectomy and chemoradiation. #. Hypotension. #. Hemoptysis. #. Grade 2 decubitus pressure ulcer. #. Atrial fibrillation. #. Normocytic anemia. #. Hypothyroidism. 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 Patient can not tolerate oral intake. Will continue titrating hospice medications to provide comfort. Extremity poor f[facility] prognosis. VS,Fishbone, I+O VS, Fishbone, I+O Vital Signs Date Time Temp Pulse Resp B/P (MAP) Pulse Ox O2 Delivery O2 Flow Rate FiO2 08/22/18 18:55 24 08/22/18 10:42 5.0 08/21/18 12:12 99 Non-Rebreather 08/21/18 10:40 50 08/21/18 09:36 90 08/21/18 09:36 137/86 08/21/18 06:00 96.8 I&O- Last 24 Hours up to 6 AM 08/22/18 06:00 Intake Total 190 ml Balance 190 ml DEEPA POWELL DO Aug 22, 2018 19:39
[2018-08-23] MEDS: MORPHINE 10MG/0.5ML ORAL CONCENTRATE SOLUTION U/D SL PRN ×5 (01:36→18:05)
[2018-08-23] MEDS: LORazepam 1 MG TAB PO PRN (03:45)
[2018-08-23] MEDS: SLF 3 ML SYR IV SCH ×3 (06:00→22:00)
[2018-08-23] MEDS: SANTYL OINT 30GM TOP SCH (09:00)
--- NOTE | 2018-08-23 14:34 | IPNPDOC ---
Text Note Date of Service The patient was seen on 08/23/18. NOTE SUBJECTIVE: The patient is seen in the room. Patient has remain unresponsive. Information were obtained from patient's son. Patient demonstrated intermittent agitation. Current medication regimen provides comfort. ASSESSMENT AND PLAN: #. Acute on chronic hypoxic hypercapnic respiratory failure. #. Severe protein malnutrition. #. End-stage chronic obstructive pulmonary disease (COPD). #. Lung fungal infection superimposed on bacterial pneumonia. #. History of small cell lung cancer, status post lobectomy and chemoradiation. #. Hypotension. #. Hemoptysis. #. Grade 2 decubitus pressure ulcer. #. Atrial fibrillation. #. Normocytic anemia. #. Hypothyroidism. 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 Patient can not tolerate oral intake. Pain medication tablets discontinued, and dosage of sublingual pain medication increased. Continue to access patient and will titrate hospice medica tions to provide comfort as needed. Extremity poor [facility] prognosis. VS,Fishbone, I+O VS, Fishbone, I+O Vital Signs Date Time Temp Pulse Resp B/P (MAP) Pulse Ox O2 Delivery O2 Flow Rate FiO2 08/23/18 13:42 24 Room Air 08/23/18 10:00 5.0 08/21/18 12:12 99 08/21/18 10:40 50 08/21/18 09:36 90 08/21/18 09:36 137/86 08/21/18 06:00 96.8 I&O- Last 24 Hours up to 6 AM 08/23/18 06:00 Intake Total 360 ml Balance 360 ml DEEPA POWELL DO Aug 23, 2018 14:34
--- NOTE | 2018-08-24 00:24 | IPNPDOC ---
Text Note Date of Service The patient was seen on 08/24/18. NOTE notified by nurse that patient at 00:23 am on 08/24/18. VS,Fishbone, I+O VS, Fishbone, I+O Vital Signs Date Time Temp Pulse Resp B/P (MAP) Pulse Ox O2 Delivery O2 Flow Rate FiO2 08/23/18 18:35 22 08/23/18 13:42 Room Air 08/23/18 10:00 5.0 08/21/18 12:12 99 08/21/18 10:40 50 08/21/18 09:36 90 08/21/18 09:36 137/86 08/21/18 06:00 96.8 I&O- Last 24 Hours up to 6 AM 08/24/18 06:00 Intake Total 0 ml Output Total 0 ml Balance 0 ml FRIDAY,MICHELLE STAPLETON Aug 24, 2018 00:24
--- NOTE | 2018-08-24 20:24 | DSES ---
DATE OF ADMISSION: 07/24/2018 DATE OF : 08/24/2018 at 12:15 a.m. CONSULTANTS: Infectious disease, lap regulator/shoe clerk. DISCHARGE DIAGNOSES: 1. Acute on chronic hypoxic hypercapnic respiratory failure. 2. Lung fungal infection superimposed on bacterial pneumonia. 3. Severe protein calorie malnutrition. 4. End-stage chronic obstructive pulmonary disease (COPD). 5. History of small cell lung cancer status post lobectomy and chemotherapy and radiation. 6. Hypertension. 7. Hemoptysis. 8. Grade 2 decubitus pressure ulcer. 9. Atrial fibrillation. 10. Normocytic anemia. 11. Hypothyroidism. 12. 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 HOSPITALIZATION COURSE: Patient is a 73-year-old female who presented to [facility] on 07/24/2018, with complaints of shortness of breath and chest discomfort. Patient was admitted under hospitalist service. Diagnostics were performed. Patient was found to have lung cavitation. Pulmonology consulted. Started on empiric antifungal treatment, antibacterial treatment, and IV steroid treatment. Patient also demonstrated signs of fluid overload. Diuretics initiated. With medical management patient continued to have significant respiratory distress, no significant improvement noted. Later, patient finished a course of IV antibiotics. Patient continued on antifungal therapy. Patient's steroids and oxygen was titrated according to patient's clinical picture. Patient continued to demonstrate poor oral intake and patient did not demonstrate significant improvement during physical therapy. Later, patient had worsening respiratory status. Imaging studies and diagnostic workup were ordered and patient demonstrated findings suspected for hospital-acquired pneumonia and patient was started on Bactrim IV antibiotics. Patient continued to work with physical therapy. However, patient continued to have worsening oral intake which resulted in noticeable physical deterioration. Tube feedings versus total parenteral nutrition (TPN) was recommended, however patient refused recommendation. Continued to encourage protein supplement, however success was very limited and later patient started to demonstrate worsening respiratory status. Patient had worsening of hypoxic hypercapnic respiratory failure. Patient's son, Mr. Ethan Erickson, was contacted emergently and the proxy understood patient had an extremely poor long-term prognosis and elected to place the patient on comfort measures only. Later, patient's son arrived from [place] to [facility]. All his questions were answered. Patient's medications were adjusted to provide comfort. Patient remained unresponsive, but comfortable. On 08/24/2018, patient was found to be at 12:15 a.m. DISCHARGE TIME: Less than 30 minutes.
== END 2018-08-24 00:15 | disposition expired | DRG 867 ==
LOC: M ED 18:40 → M ED INP 07-24 00:30 → M PCU 07-24 02:50 → M MSPAV 07-28 11:45 → M PCU 07-31 12:34 → M MS5PR 08-14 20:00 → M ICU 08-21 13:10 → M MS5PR 08-21 13:35
PROVIDERS: ADMIT Internal Medicine; ATTEND Internal Medicine
PROC: 30233N1 Transfusion of Nonautologous Red Blood Cells into Peripheral Vein, Percutaneous Approach (ICD-10-PCS; principal; 2018-07-25)
DX: B44.1 Other pulmonary aspergillosis (principal); J85.1 Abscess of lung with pneumonia; J96.21 Acute and chronic respiratory failure with hypoxia; E43 Unspecified severe protein-calorie malnutrition; J96.22 Acute and chronic respiratory failure with hypercapnia; J44.1 Chronic obstructive pulmonary disease with (acute) exacerbation; J98.11 Atelectasis; R04.2 Hemoptysis; J44.0 Chronic obstructive pulmonary disease with (acute) lower respiratory infection; E87.2 Acidosis; M54.14 Radiculopathy, thoracic region; E03.9 Hypothyroidism, unspecified; I48.91 Unspecified atrial fibrillation; I10 Essential (primary) hypertension; G62.9 Polyneuropathy, unspecified; D63.8 Anemia in other chronic diseases classified elsewhere; Z79.52 Long term (current) use of systemic steroids; Z79.899 Other long term (current) drug therapy; Z91.013 Allergy to seafood; Z85.118 Personal history of other malignant neoplasm of bronchus and lung; Z79.82 Long term (current) use of aspirin; Z92.3 Personal history of irradiation; Z92.21 Personal history of antineoplastic chemotherapy; Z95.0 Presence of cardiac pacemaker; Z99.81 Dependence on supplemental oxygen; Z90.2 Acquired absence of lung [part of]; L89.152 Pressure ulcer of sacral region, stage 2; Z66 Do not resuscitate; Z51.5 Encounter for palliative care